=== PATIENT | male | born 1935 | race African-American/Black ===

== ENCOUNTER → 2018-10-28 | Outpatient (CLI) | payer MEDICARE ==
[2018-10-28 15:05] LABS: Basophils % (A) 0 %; Eosinophils # (A) 0.1 k/uL (0-0.7); Eosinophils % (A) 2 %; HCT 42.5 % (39.0-53.0); HGB 13.5 gm/dL (13.0-17.5); Lymphocytes % (A) 35 %; MCH 29.4 pg (25.0-35.0); MCHC 31.7 g/dL (31.0-37.0); MCV 92.7 fL (80.0-100.0); Mean Platelet Volume 6.9; Monocytes # (A) 0.3 k/uL (0-1.0); Monocytes % (A) 5 %; Neutrophils # (A) 3.2 k/uL (1.3-7.7); Neutrophils % (A) 55 %; Platelet Count 245 k/uL (150-450); RBC 4.58 m/uL (4.30-5.90); RDW 14.1 % (11.5-15.5); WBC 5.7 k/uL (3.8-10.6)
[2018-10-28 19:39] LABS: LDL Cholesterol,Calculated 100.6 mg/dL (0.0-131.0); VLDL Calculation 19.4 mg/dL (5.00-40.00)
[2018-10-28 19:40] LABS: Vitamin D 25 Hydroxy 23.3 ng/mL (30.0-100.0)
[2018-10-28 20:46] LABS: Hemoglobin A1C 6.7 % (4.0-6.0)
== END | disposition home or self-care (01) ==
LOC: LABWHC1 14:02
PROVIDERS: ATTEND Nurse Practitioner Adult Health
DX: I10 Essential (primary) hypertension (principal); E11.9 Type 2 diabetes mellitus without complications; R53.83 Other fatigue
CPT/HCPCS: 36415; 80061; 82043; 82306; 82570; 82607; 83036; 84443; 85025

== ENCOUNTER 2019-02-05 14:26 | Observation (INO) | payer MEDICARE ==
[2019-02-05] MEDS ORDERED: SODIUM CHLORIDE 0.9% 1,000 ML IV STA (15:19)
--- NOTE | 2019-02-05 15:43 | ED ---
Fall HPI - General Chief Complaint: Fall Stated Complaint: Dizzy Time Seen by Provider: 02/05/19 14:41 Source: EMS, RN notes reviewed, old records reviewed Mode of arrival: EMS - History of Present Illness Initial Comments: Patient is 84-year-old male, , presents emergency Department after syncopal episode. Patient reports he was walking through the lobby of his apartment [employer], and suddenly passed out. Patient reports that he's ever had this happen before. He denies any associated fevers or chills, chest pains or shortness of breath. Denies any headache. Patient reports he's never had this happen before. Patient states that he has a history of diabetes. He reports he cannot remembers medication. He does state he lives alone. - Related Data Home Medications Medication Instructions Recorded Confirmed Citalopram Hydrobromide [CeleXA] 40 mg PO DAILY 02/05/19 02/05/19 Enalapril [Vasotec] 20 mg PO DAILY 02/05/19 02/05/19 Insulin Glargine,Hum.rec.anlog 20 unit SQ HS 02/05/19 02/05/19 [Lantus Solostar] metFORMIN HCL [Glucophage] 500 mg PO BID 02/05/19 02/05/19 Allergies Allergy/AdvReac Type Severity Reaction Status Date / Time No Known Allergies Allergy Verified 02/05/19 16:02 Review of Systems ROS Statement: Those systems with pertinent positive or pertinent negative responses have been documented in the HPI. ROS Other: All systems not noted in ROS Statement are negative. Past Medical History Past Medical History: Diabetes Mellitus, Hypertension History of Any Multi-Drug Resistant Organisms: None Reported Past Surgical History: Orthopedic Surgery Smoking Status: Former smoker Past Alcohol Use History: None Reported Past Drug Use History: None Reported General Exam - General Exam Comments Initial Comments: El is an 84-year-old -[place] male. Patient appears in no distress. Pleasant. Some mild dementia. Limitations: no limitations General appearance: alert, in no apparent distress Head exam: Present: atraumatic, normocephalic, normal inspection Eye exam: Present: normal appearance ENT exam: Present: normal exam, mucous membranes moist Neck exam: Present: normal inspection. Absent: tenderness, meningismus, lymphadenopathy Respiratory exam: Present: normal lung sounds bilaterally. Absent: respiratory distress, wheezes, rales, rhonchi, stridor Cardiovascular Exam: Present: regular rate, normal rhythm, normal heart sounds. Absent: systolic murmur, diastolic murmur, rubs, gallop, clicks GI/Abdominal exam: Present: soft, normal bowel sounds. Absent: distended, tenderness, guarding, rebound, rigid Extremities exam: Present: normal inspection, full ROM, normal capillary refill. Absent: tenderness, pedal edema, joint swelling, calf tenderness Back exam: Present: normal inspection Neurological exam: Present: alert, oriented X3, CN II-XII intact Psychiatric exam: Present: normal affect, normal mood Skin exam: Present: warm, dry, intact, normal color. Absent: rash Course Vital Signs 02/05/19 14:46 Temperature 98.0 F Pulse Rate 71 Respiratory 18 Rate Blood Pressure 151/84 O2 Sat by Pulse 99 Oximetry Medical Decision Making - Medical Decision Making 84-year-old male presented today for evaluation for syncopal episode. He was walking outside of his apartment and suddenly collapsed. EMS was called. Patient is pleasant and has mild demented, he does live alone. He denies any pain at this time. He's never had this happen before. At this time Patient EKG shows sinus rhythm with sinus arrhythmia, some LVH is noted. Patient's labwork was reviewed. Mild dehydration as noted with elevated BUN and creatinine. Troponin is normal. Chest x-ray shows atelectasis versus early infiltrate. He is not coughing, low clinical suspicion for pneumonia. CT of the brain shows chronic ischemic changes. I discussed conservative upset and discussed at length with the Patient for cardiology evaluation. Patient is agreeable for admission. I discussed case with Dr. Stephens./ - Lab Data Result diagrams: 02/05/19 15:32 02/05/19 15:32 Lab Results 02/05/19 02/05/19 02/05/19 Range/Units 15:32 15:32 15:32 WBC 5.4 (3.8-10.6) k/uL RBC 4.61 (4.30-5.90) m/uL Hgb 13.7 (13.0-17.5) gm/dL Hct 42.7 (39.0-53.0) % MCV 92.6 (80.0-100.0) fL MCH 29.6 (25.0-35.0) pg MCHC 32.0 (31.0-37.0) g/dL RDW 13.6 (11.5-15.5) % Plt Count 195 (150-450) k/uL Neutrophils % 56 % Lymphocytes % 33 % Monocytes % 5 % Eosinophils % 3 % Basophils % 1 % Neutrophils # 3.0 (1.3-7.7) k/uL Lymphocytes # 1.7 (1.0-4.8) k/uL Monocytes # 0.3 (0-1.0) k/uL Eosinophils # 0.2 (0-0.7) k/uL Basophils # 0.1 (0-0.2) k/uL PT 11.0 (9.0-12.0) sec INR 1.0 (<1.2) APTT 28.2 (22.0-30.0) sec Sodium 138 (137-145) mmol/L Potassium 4.6 (3.5-5.1) mmol/L Chloride 105 (98-107) mmol/L Carbon Dioxide 25 (22-30) mmol/L Anion Gap 8 mmol/L BUN 28 H (9-20) mg/dL Creatinine 1.45 H (0.66-1.25) mg/dL Est GFR (CKD-EPI)AfAm 51 (>60 ml/min/1.73 sqM) Est GFR (CKD-EPI)NonAf 44 (>60 ml/min/1.73 sqM) Glucose 95 (74-99) mg/dL Calcium 9.0 (8.4-10.2) mg/dL Magnesium 1.7 (1.6-2.3) mg/dL Total Bilirubin 0.4 (0.2-1.3) mg/dL AST 18 (17-59) U/L ALT 16 L (21-72) U/L Alkaline Phosphatase 53 (38-126) U/L Troponin I (0.000-0.034) ng/mL Total Protein 6.5 (6.3-8.2) g/dL Albumin 3.6 (3.5-5.0) g/dL Urine Color Urine Appearance (Clear) Urine pH (5.0-8.0) Ur Specific [place] (1.001-1.035) Urine Protein (Negative) Urine Glucose (UA) (Negative) Urine Ketones (Negative) Urine Blood (Negative) Urine Nitrite (Negative) Urine Bilirubin (Negative) Urine Urobilinogen (<2.0) mg/dL Ur Leukocyte Esterase (Negative) 02/05/19 02/05/19 Range/Units 15:32 16:50 WBC (3.8-10.6) k/uL RBC (4.30-5.90) m/uL Hgb (13.0-17.5) gm/dL Hct (39.0-53.0) % MCV (80.0-100.0) fL MCH (25.0-35.0) pg MCHC (31.0-37.0) g/dL RDW (11.5-15.5) % Plt Count (150-450) k/uL Neutrophils % % Lymphocytes % % Monocytes % % Eosinophils % % Basophils % % Neutrophils # (1.3-7.7) k/uL Lymphocytes # (1.0-4.8) k/uL Monocytes # (0-1.0) k/uL Eosinophils # (0-0.7) k/uL Basophils # (0-0.2) k/uL PT (9.0-12.0) sec INR (<1.2) APTT (22.0-30.0) sec Sodium (137-145) mmol/L Potassium (3.5-5.1) mmol/L Chloride (98-107) mmol/L Carbon Dioxide (22-30) mmol/L Anion Gap mmol/L BUN (9-20) mg/dL Creatinine (0.66-1.25) mg/dL Est GFR (CKD-EPI)AfAm (>60 ml/min/1.73 sqM) Est GFR (CKD-EPI)NonAf (>60 ml/min/1.73 sqM) Glucose (74-99) mg/dL Calcium (8.4-10.2) mg/dL Magnesium (1.6-2.3) mg/dL Total Bilirubin (0.2-1.3) mg/dL AST (17-59) U/L ALT (21-72) U/L Alkaline Phosphatase (38-126) U/L Troponin I <0.012 (0.000-0.034) ng/mL Total Protein (6.3-8.2) g/dL Albumin (3.5-5.0) g/dL Urine Color Yellow Urine Appearance Clear (Clear) Urine pH 6.5 (5.0-8.0) Ur Specific [place] 1.015 (1.001-1.035) Urine Protein Trace H (Negative) Urine Glucose (UA) Negative (Negative) Urine Ketones Negative (Negative) Urine Blood Negative (Negative) Urine Nitrite Negative (Negative) Urine Bilirubin Negative (Negative) Urine Urobilinogen <2.0 (<2.0) mg/dL Ur Leukocyte Esterase Negative (Negative) 02/05/19 15:47 EKG shows normal sinus rhythm, sinus arrhythmia, left anterior fascicular block. Minimal voltage criteria for LVH may be normal variant. Possible anterior infarct age undetermined. Abnormal EKG. Ventricular rate of 60 bpm. MD interval is 166 ms. QRS duration is 104 ms. QT QTc is 436/463 ms. - Radiology Data Radiology results: report reviewed Chest x-ray shows elevated right hemidiaphragm with patchy basilar acute infiltrate or atelectasis. CT of the brain shows no acute intracranial hemorrhage or midline shift. There is moderate diffuse age-related cervical atrophy and moderate to severe chronic small vessel ischemic change noted. Progression and findings from 2011 studies at present. Disposition Clinical Impression: Syncope Disposition: ADMITTED IP TO THIS HOSP Condition: Stable Is patient prescribed a controlled substance at d/c from ED?: No Referrals: None,Stated [Primary Care Provider] - 1-2 days Time of Disposition: 17:37
[2019-02-05 15:44] LABS: Basophils # (A) 0.1 k/uL (0-0.2); Basophils % (A) 1 %; Eosinophils # (A) 0.2 k/uL (0-0.7); Eosinophils % (A) 3 %; HCT 42.7 % (39.0-53.0); HGB 13.7 gm/dL (13.0-17.5); Lymphocytes # (A) 1.7 k/uL (1.0-4.8); Lymphocytes % (A) 33 %; MCH 29.6 pg (25.0-35.0); MCV 92.6 fL (80.0-100.0); Mean Platelet Volume 6.3; Monocytes # (A) 0.3 k/uL (0-1.0); Monocytes % (A) 5 %; Neutrophils % (A) 56 %; Platelet Count 195 k/uL (150-450); RBC 4.61 m/uL (4.30-5.90); RDW 13.6 % (11.5-15.5); WBC 5.4 k/uL (3.8-10.6)
[2019-02-05 15:52] LABS: Partial Thromboplastin Time 28.2 sec (22.0-30.0)
[2019-02-05 15:53] LABS: Albumin 3.6 g/dL (3.5-5.0); Magnesium 1.7 mg/dL (1.6-2.3); Potassium 4.6 mmol/L (3.5-5.1); Total Bilirubin 0.4 mg/dL (0.2-1.3); Total Protein 6.5 g/dL (6.3-8.2)
--- NOTE | 2019-02-05 16:19 | XR ---
EXAMINATION TYPE: XR chest 2V DATE OF EXAM: 02/05/2019 COMPARISON: Chest x-ray February 26, 2011 HISTORY: Syncope. Weakness. TECHNIQUE: Frontal and lateral views of the chest are obtained. FINDINGS: Low lung volumes with elevated right hemidiaphragm redemonstrated. Bibasilar opacity is ag ain seen. No pleural effusion or pneumothorax is seen bilaterally. The cardiac silhouette size is sta ble and upper limits of normal. The osseous structures are intact. IMPRESSION: Elevated right hemidiaphragm with patchy bibasilar acute infiltrate and/or atelectasis.
--- NOTE | 2019-02-05 16:21 | CT ---
EXAMINATION TYPE: CT brain wo con DATE OF EXAM: 02/05/2019 HISTORY: Syncopal episode today CT DLP: 1129.4 mGycm. Automated Exposure Control for Dose Reduction was Utilized. TECHNIQUE: CT scan of the head is performed without contrast. COMPARISON: CT brain February 26, 2011. FINDINGS: There is no acute intracranial hemorrhage or midline shift identified. There is diffuse v entricular and sulcal prominence consistent with diffuse age-related cerebral atrophy. There is low- attenuation in the periventricular white matter consistent with chronic small vessel ischemic change. The globes are intact and the visualized sinuses are clear. IMPRESSION: No acute intracranial hemorrhage or midline shift. There is moderate diffuse age-relate d cerebral atrophy and moderate to severe chronic small vessel ischemic change noted. Progression in findings from 2010 study thought present.
[2019-02-05 17:17] LABS: Appearance,Urine Clear (Clear); Bilirubin,Urine Negative (Negative); Blood,Urine Negative (Negative); Color,Urine Yellow; Glucose,Urine (UA) Negative (Negative); Ketones,Urine Negative (Negative); Leukocyte Esterase,Urine Negative (Negative); Nitrite,Urine Negative (Negative); PH, Urine 6.5 (5.0-8.0); Protein,Urine Trace (Negative); Specific Gravity,Urine 1.015 (1.001-1.035); Urobilinogen,Urine <2.0 mg/dL (<2.0)
[2019-02-05] MEDS ORDERED: IBUPROFEN 400 MG TAB PO PRN (17:37)
[2019-02-05] MEDS ORDERED: ACETAMINOPHEN TAB 325 MG TAB PO PRN (17:37)
[2019-02-05] MEDS ORDERED: oxyCODONE-APAP 5-325MG 1 EACH TAB PO PRN (17:37)
[2019-02-05] MEDS ORDERED: HYDROcodone/APAP 5-325MG 1 EACH TAB PO PRN (17:37)
[2019-02-05] MEDS ORDERED: NALOXONE 0.4 MG/ML 1 ML VIAL IV PRN (17:37)
[2019-02-05 20:56] LABS: Glucose,Whole Blood 94 mg/dL (75-99)
[2019-02-05] MEDS: SODIUM CHLORIDE 0.9% 1,000 ML IV SCH (21:39)
[2019-02-05] MEDS: INSULIN DETEMIR (LEVEMIR) 100 UNIT/ML SYR SQ SCH (23:42)
[2019-02-06] MEDS: SODIUM CHLORIDE 0.9% 1,000 ML IV SCH ×2 (06:21→21:43)
[2019-02-06 06:58] LABS: Glucose,Whole Blood 87 mg/dL (75-99)
[2019-02-06] MEDS ORDERED: PANTOPRAZOLE 40 MG/10 ML VIAL IV SCH (09:00)
[2019-02-06] MEDS ORDERED: LOSARTAN 50 MG TAB PO STA (09:22)
--- NOTE | 2019-02-06 10:23 | P.CRDCN ---
History of Present Illness History of present illness: This is a pleasant 84-year-old male past medical history significant for hypertension, diabetes mellitus and former nicotine dependence. He denies prior history of coronary artery disease and does not follow with a disposal worker for any reason. The patient was seen and examined resting comfortably lying flat in bed in no acute distress. We have been asked to see him in consultation for syncope. Per the patient he states he was walking yesterday when his legs became weak and he lost his balance falling tot he ground. He denies loss of consciousness, dizziness, palpitations, chest pain, shortness of breath, nausea, vomiting or diaphoresis. He is quite adamant that paulette tan simply lost his balance and did not become dizzy. His blood pressure on arrival was 151/84, orthostatic pressures obtained revealed a standing blood pressure of 200/92. No medications have been given and his blood pressure this morning is 207/83. At home he is prescribed enalapril 20 mg daily. EKG reveals sinus mechanism with a heart rate of 68, left anterior fascicular block, poor R- wave progression and LVH. Chest x-ray reveals an elevated right hemidiaphragm with patchy basilar atelectasis. CT of the brain is negative for an acute intracranial hemorrhage or midline shift, moderate diffuse age-related cerebral atrophy and moderate to severe chronic small vessel ischemic changes noted. Laboratory data reviewed, CBC unremarkable, sodium 138, potassium 4.6, creatinine 1.45, magnesium 1.7, cardiac enzymes negative 2. Telemetry tracings unremarkable for an arrhythmia. At the time of my exam: CONSTITUTIONAL: Denies fever. Denies chills. EYES: Denies blurred vision. Denies vision changes. Denies eye pain. EARS, NOSE, MOUTH & THROAT: Denies headache. Denies sore throat. Denies ear pain. CARDIOVASCULAR: Denies chest pain. Denies shortness of breath. Denies orthopnea. Denies PND. Denies palpitations. RESPIRATORY: Denies cough. GASTROINTESTINAL: Denies abdominal pain. Denies diarrhea. Denies constipation. Denies nausea. Denies vomiting. MUSCULOSKELETAL: Denies myalgias. INTEGUMENTARY: Denies pruitis. Denies rash. NEUROLOGIC: Denies numbness. Denies tingling. Denies weakness. PSYCHIATRIC: Denies anxiety. Denies depression. ENDOCRINE: Denies fatigue. Denies weight change. Denies polydipsia. Denies polyurina. GENITOURINARY: Denies burning, hematuria or urgency with micturation. HEMATOLOGIC: Denies history of anemia. Denies bleeding. GENERAL: This is a 84-year-old -[place] male in no apparent distress at the time of my examination. HEENT: Head is atraumatic, normocephalic. Pupils are equal, round. Sclerae anicteric. Conjunctivae are clear. Mucous membranes of the mouth are moist. Neck is supple. There is no jugular venous distention. No carotid bruit is heard. LUNGS: Clear to auscultation no wheezes, rales or rhonchi. No chest wall tenderness is noted on palpation or with deep breathing. HEART: Regular rate and rhythm with systolic ejection murmur at the left sternal border, no rubs or gallops. S1 and S2 heard. ABDOMEN: Soft, nontender. Bowel sounds are heard. No organomegaly noted. EXTREMITIES: No evidence of peripheral edema and no calf tenderness noted. VASCULAR: Radial and dorsalis pedis pulses palpated, no evidence of clubbing. NEUROLOGIC: Patient is awake, alert and oriented x3. ASSESSMENT Fall with no loss of consciousness, unclear etiology. The patient states he simply lost his balance however ER note states he became dizzy. Unsure of baseline mental status. Hypertension, uncontrolled Diabetes mellitus Former nicotine dependence PLAN Obtain 2D echocardiogram and doppler study to assess cardiac structure and function. Initiate on amlodipine 10 mg daily and losartan 50 mg daily. Continue to monitor blood pressure closely for another 24 hours. Ongoing telemetry monitoring for an acute arrhythmia. If telemetry is unremark able we will consider 14-day event monitor upon discharge. Thank you kindly for this consultation. Nurse Practitioner note has been reviewed, I agree with a documented findings and plan of care. Patient was seen and examined. Past Medical History Past Medical History: Diabetes Mellitus, Hypertension History of Any Multi-Drug Resistant Organisms: None Reported Past Surgical History: Orthopedic Surgery Additional Past Surgical History / Comment(s): right wrist surgery Past Anesthesia/Blood Transfusion Reactions: No Reported Reaction Past Psychological History: No Psychological Hx Reported Smoking Status: Former smoker Past Alcohol Use History: None Reported Past Drug Use History: None Reported Medications and Allergies Home Medications Medication Instructions Recorded Confirmed Type Citalopram Hydrobromide [CeleXA] 40 mg PO DAILY 02/05/19 02/05/19 History Enalapril [Vasotec] 20 mg PO DAILY 02/05/19 02/05/19 History Insulin Glargine,Hum.rec.anlog 20 unit SQ HS 02/05/19 02/05/19 History [Lantus Solostar] metFORMIN HCL [Glucophage] 500 mg PO BID 02/05/19 02/05/19 History Allergies Allergy/AdvReac Type Severity Reaction Status Date / Time No Known Allergies Allergy Verified 02/05/19 16:02 Physical Exam Vitals: Vital Signs Temp Pulse Pulse Pulse Pulse Pulse Resp 02/06/19 07:42 98.2 F 74 18 02/06/19 04:56 98.0 F 71 18 02/06/19 04:30 73 16 02/06/19 03:05 15 02/06/19 02:00 98.7 F 66 17 02/05/19 20:00 98.3 F 71 69 60 18 02/05/19 18:22 68 18 02/05/19 14:46 98.0 F 71 18 BP BP BP BP BP Pulse Ox 02/06/19 07:42 207/83 97 02/06/19 04:56 99 02/06/19 04:30 161/89 02/06/19 03:05 02/06/19 02:00 194/93 02/05/19 20:00 183/99 200/92 177/88 100 02/05/19 18:22 160/83 99 02/05/19 14:46 151/84 99 Intake and Output 02/05/19 02/06/19 02/06/19 22:59 06:59 14:59 Intake Total 2400 Balance 2400 Intake: Oral 2400 Other: Voiding Method Toilet # Voids 1 1 1 Results 02/05/19 15:32 02/05/19 15:32 Cardiac Enzymes 02/05/19 02/05/19 02/06/19 Range/Units 15:32 15:32 07:07 AST 18 (17-59) U/L Troponin I <0.012 <0.012 (0.000-0.034) ng/mL Coagulation 02/05/19 Range/Units 15:32 PT 11.0 (9.0-12.0) sec APTT 28.2 (22.0-30.0) sec CBC 02/05/19 Range/Units 15:32 WBC 5.4 (3.8-10.6) k/uL RBC 4.61 (4.30-5.90) m/uL Hgb 13.7 (13.0-17.5) gm/dL Hct 42.7 (39.0-53.0) % Plt Count 195 (150-450) k/uL Comprehensive Metabolic Panel 02/05/19 Range/Units 15:32 Sodium 138 (137-145) mmol/L Potassium 4.6 (3.5-5.1) mmol/L Chloride 105 (98-107) mmol/L Carbon Dioxide 25 (22-30) mmol/L BUN 28 H (9-20) mg/dL Creatinine 1.45 H (0.66-1.25) mg/dL Glucose 95 (74-99) mg/dL Calcium 9.0 (8.4-10.2) mg/dL AST 18 (17-59) U/L ALT 16 L (21-72) U/L Alkaline Phosphatase 53 (38-126) U/L Total Protein 6.5 (6.3-8.2) g/dL Albumin 3.6 (3.5-5.0) g/dL Current Medications Generic Name Dose Route Start Last Admin Trade Name Freq PRN Reason Stop Dose Admin Acetaminophen 650 mg 02/05/19 17:37 Tylenol Tab PO Q6HR PRN Mild Pain or Fever > 100.5 Hydrocodone Bitart/Acetaminophen 1 each 02/05/19 17:37 Pearl 5-325 PO Q4HR PRN Moderate Pain Amlodipine Besylate 10 mg 02/06/19 09:30 Norvasc PO DAILY SARAH Citalopram Hydrobromide 40 mg 02/06/19 09:00 Celexa PO DAILY SARAH Sodium Chloride 1,000 mls @ 100 mls/hr 02/05/19 17:45 02/06/19 06:21 Saline 0.9% IV 100 mls/hr .Q10H SARAH Administration Ibuprofen 400 mg 02/05/19 17:37 Motrin PO Q6HR PRN Mild Pain or Fever > 100.5 Insulin Detemir 20 unit 02/05/19 22:15 02/05/19 23:42 Levemir SQ Not Given HS SARAH Naloxone HCl 0.2 mg 02/05/19 17:37 Narcan IV Q2M PRN Opioid Reversal Oxycodone/Acetaminophen 1 each 02/05/19 17:37 Percocet 5-325 PO Q4HR PRN Severe Pain Pantoprazole Sodium 40 mg 02/06/19 09:00 Protonix IV DAILY SARAH Intake and Output 02/05/19 02/06/19 02/06/19 22:59 06:59 14:59 Intake Total 2400 Balance 2400 Intake: Oral 2400 Other: Voiding Method Toilet # Voids 1 1 1 02/05/19 15:32 02/05/19 15:32
[2019-02-06] MEDS: amLODIPine 10 MG TAB PO SCH (11:12)
[2019-02-06 11:46] LABS: Glucose,Whole Blood 120 mg/dL (75-99)
[2019-02-06] MEDS ORDERED: traMADol 50 MG TAB PO PRN (13:08)
--- NOTE | 2019-02-06 13:15 | P.HPIM ---
History of Present Illness 84-year-old the resident gentleman although poor historian came in because of lightheadedness. Patient has been feeling weak and losing balance. Patient is found to be hypertensive with blood pressure going up to about 200 systolic diastolic of 83, wide pulse pressure can lead to falls. Patient is also on Percocet as well as [place] which is most probably contributing to his falls will obtain physical therapy and occupational therapy consultation. Patient lightheadedness although he is from wide pulse pressure. Patient creatinine is 1.45 patient is not a candidate for metformin that will be this can you I do not have his baseline creatinine. She denied any fever chills nausea vomiting patient denied chest pain at this time. Review of Systems All other review of systems is negative except those mentioned above Past Medical History Past Medical History: Diabetes Mellitus, Hypertension History of Any Multi-Drug Resistant Organisms: None Reported Past Surgical History: Orthopedic Surgery Additional Past Surgical History / Comment(s): right wrist surgery Past Anesthesia/Blood Transfusion Reactions: No Reported Reaction Past Psychological History: No Psychological Hx Reported Smoking Status: Former smoker Past Alcohol Use History: None Reported Past Drug Use History: None Reported Medications and Allergies Home Medications Medication Instructions Recorded Confirmed Type Citalopram Hydrobromide [CeleXA] 40 mg PO DAILY 02/05/19 02/05/19 History Enalapril [Vasotec] 20 mg PO DAILY 02/05/19 02/05/19 History Insulin Glargine,Hum.rec.anlog 20 unit SQ HS 02/05/19 02/05/19 History [Lantus Solostar] metFORMIN HCL [Glucophage] 500 mg PO BID 02/05/19 02/05/19 History Allergies Allergy/AdvReac Type Severity Reaction Status Date / Time No Known Allergies Allergy Verified 02/05/19 16:02 Physical Exam Vitals: Vital Signs Temp Pulse Pulse Pulse Pulse Pulse Resp 02/06/19 11:56 98.5 F 80 18 02/06/19 07:42 98.2 F 74 18 02/06/19 04:56 98.0 F 71 18 02/06/19 04:30 73 16 02/06/19 03:05 15 02/06/19 02:00 98.7 F 66 17 02/05/19 20:00 98.3 F 71 69 60 18 02/05/19 18:22 68 18 02/05/19 14:46 98.0 F 71 18 BP BP BP BP BP Pulse Ox 02/06/19 11:56 160/84 99 02/06/19 07:42 207/83 97 02/06/19 04:56 99 02/06/19 04:30 161/89 02/06/19 03:05 02/06/19 02:00 194/93 02/05/19 20:00 183/99 200/92 177/88 100 02/05/19 18:22 160/83 99 02/05/19 14:46 151/84 99 Intake and Output 02/05/19 02/06/19 02/06/19 22:59 06:59 14:59 Intake Total 2400 Output Total 375 Balance 2400 -375 Intake: Oral 2400 Output: Urine 375 Other: Voiding Method Toilet # Voids 1 1 1 PHYSICAL EXAMINATION: GENERAL: The patient is alert and oriented x3, not in any acute distress. Well developed, well nourished. HEENT: Pupils are round and equally reacting to light. EOMI. No scleral icterus. No conjunctival pallor. Normocephalic, atraumatic. No pharyngeal erythema. No thyromegaly. CARDIOVASCULAR: S1 and S2 present. No murmurs, rubs, or gallops. PULMONARY: Chest is clear to auscultation, no wheezing or crackles. ABDOMEN: Soft, nontender, nondistended, normoactive bowel sounds. No palpable organomegaly. MUSCULOSKELETAL: No joint swelling or deformity. EXTREMITIES: No cyanosis, clubbing, or pedal edema. NEUROLOGICAL: Gross neurological examination did not reveal any focal deficits. SKIN: No rashes. Results CBC & Chem 7: 02/05/19 15:32 02/05/19 15:32 Labs: Abnormal Lab Results - Last 24 Hours (Table) 02/05/19 02/05/19 02/06/19 Range/Units 15:32 16:50 11:45 BUN 28 H (9-20) mg/dL Creatinine 1.45 H (0.66-1.25) mg/dL POC Glucose (mg/dL) 120 H (75-99) mg/dL ALT 16 L (21-72) U/L Urine Protein Trace H (Negative) Thrombosis Risk Factor Assmnt - Choose All That Apply Any of the Below Risk Factors Present?: Yes Each Risk Factor Represents 2 Points: Patient confined to bed Thrombosis Risk Factor Assessment Total Risk Factor Score: 2 Thrombosis Risk Factor Assessment Level: Low Risk Assessment and Plan Plan: -Fall without any loss of consciousness: Rik is multifactorial probably because of narcotics, wide pulse pressure and generalized deconditioning and age. Sana ent was started on amlodipine which will be continued but the will not any added any other antihypertensive medications. Strict blood pressure control is not recommended in this patient because of the fall risk. Will monitor his blood pressure PT and OT consultation will be obtained discontinue narcotics and the patient was started on tramadol for pain instead of Percocet and [place]. 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
[2019-02-06] MEDS: CITALOPRAM HYDROBROMIDE 20 MG TAB PO SCH (14:37)
[2019-02-06 17:10] LABS: Glucose,Whole Blood 157 mg/dL (75-99)
[2019-02-06] MEDS: INSULIN DETEMIR (LEVEMIR) 100 UNIT/ML SYR SQ SCH (20:04)
[2019-02-06] MEDS: HEPARIN SODIUM,PORCINE 5,000 UNIT/ML 1 ML VIAL SQ SCH (20:07)
[2019-02-06 21:04] LABS: Glucose,Whole Blood 132 mg/dL (75-99)
[2019-02-07] MEDS: SODIUM CHLORIDE 0.9% 1,000 ML IV SCH ×2 (01:28→08:07)
[2019-02-07 06:33] VITALS: RESP 18
[2019-02-07 07:10] LABS: Glucose,Whole Blood 86 mg/dL (75-99)
[2019-02-07 07:52] LABS: Calcium 9.8 mg/dL (8.4-10.2); Potassium 4.5 mmol/L (3.5-5.1)
[2019-02-07] MEDS: CITALOPRAM HYDROBROMIDE 20 MG TAB PO SCH (08:12)
[2019-02-07] MEDS: amLODIPine 10 MG TAB PO SCH (08:12)
[2019-02-07] MEDS: HEPARIN SODIUM,PORCINE 5,000 UNIT/ML 1 ML VIAL SQ SCH (08:13)
[2019-02-07] MEDS ORDERED: LOSARTAN 50 MG TAB PO SCH (09:00)
[2019-02-07] MEDS ORDERED: PANTOPRAZOLE 40 MG TABLET PO SCH (10:30)
[2019-02-07 11:54] LABS: Glucose,Whole Blood 98 mg/dL (75-99)
[2019-02-07 12:01] VITALS: BP 139/79; PULSE 76; TEMP 97.8
--- NOTE | 2019-02-07 12:04 | ECHOF ---
Referral Reason:near syncope MEASUREMENTS -------- HEIGHT: 182.9 cm WEIGHT: 108.9 kg BP: 161/89 RVIDd: 3.0 cm (< 3.3) IVSd: 1.9 cm (0.6 - 1.1) LVIDd: 3.9 cm (3.9 - 5.3) LVPWd: 1.7 cm (0.6 - 1.1) IVSs: 2.2 cm LVIDs: 2.4 cm LVPWs: 2.5 cm LAESV Index (A-L): 24.84 ml/m Ao Diam: 3.4 cm (2.0 - 3.7) AV Cusp: 2.2 cm (1.5 - 2.6) LA Diam: 3.3 cm (2.7 - 3.8) MV EXCURSION: 15.228 mm (> 18.000) MV EF SLOPE: 78 mm/s (70 - 150) EPSS: 1.0 cm MV E Russel: 0.66 m/s MV DecT: 263 ms MV A Russel: 1.38 m/s MV E/A Ratio: 0.48 AR PHT: 749 ms RAP: 5.00 mmHg RVSP: 12.70 mmHg FINDINGS -------- Sinus rhythm. This was a technically adequate study. The left ventricular size is normal. There is severe concentric left ventricular hypertrophy. The re is normal global left ventricular contractility. Overall left ventricular systolic function is n ormal with, an EF between 60 - 65 %. The diastolic filling pattern is normal for the age of the pat ient 12.95. The right ventricle is normal in size. Normal LA size by volume 22+/-6 ml/m2. The right atrial size is normal. Interatrial and interventricular septum intact. The aortic valve is trileaflet and appears structurally normal. Trace to mild aortic regurgitation. There is no evidence of aortic stenosis. Mild mitral annular calcification present. Mild mitral regurgitation is present. Mild tricuspid regurgitation present. There is no evidence of pulmonary hypertension. The right v entricular systolic pressure, as measured by Doppler, is 12.70mmHg. There is no pulmonic regurgitation present. 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 IVC Not well visulized. There is no pericardial effusion. CONCLUSIONS -------- 1. Sinus rhythm. 2. This was a technically adequate study. 3. The left ventricular size is normal. 4. There is severe concentric left ventricular hypertrophy. 5. There is normal global left ventricular contractility. 6. Overall left ventricular systolic function is normal with, an EF between 60 - 65 %. 7. The diastolic filling pattern is normal for the age of the patient 12.95 8. The right ventricle is normal in size. 9. Normal LA size by volume 22+/-6 ml/m2. 10. The right atrial size is normal. 11. Interatrial and interventricular septum intact. 12. The aortic valve is trileaflet and appears structurally normal. 13. Trace to mild aortic regurgitation. 14. There is no evidence of aortic stenosis. 15. Mild mitral annular calcification present. 16. Mild mitral regurgitation is present. 17. Mild tricuspid regurgitation present. 18. There is no evidence of pulmonary hypertension. 19. The right ventricular systolic pressure, as measured by Doppler, is 12.70mmHg. 20. There is no pulmonic regurgitation present. 21. 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 22. IVC Not well visulized. 23. There is no pericardial effusion. NUT TAPPER: Marta Marquez RDCS
--- NOTE | 2019-02-07 15:45 | P.DS ---
Providers Date of admission: 02/05/19 17:06 Attending physician: Carloz Marino Consults: 02/05/19 17:37 Consult Physician Stat Consulting Provider: Sara Boland Consult Reason/Comments: Syncope Do you want consulting provider notified?: Yes Primary care physician: [facility] [place] Course: 84-year-old the resident gentleman although poor historian came in because of lightheadedness. Patient has been feeling weak and losing balance. Patient is found to be hypertensive with blood pressure going up to about 200 systolic diastolic of 83, wide pulse pressure can lead to falls. Patient is also on Percocet as well as [place] which is most probably contributing to his falls will obtain physical therapy and occupational therapy consultation. Patient lightheadedness although he is from wide pulse pressure. Patient creatinine is 1.45 patient is not a candidate for metformin that will be this can you I do not have his baseline creatinine. She denied any fever chills nausea vomiting patient denied chest pain at this time. 02/07/2019 Patient is clinically doing well his dizziness resolved blood pressure improved serum creatinine improved. Patient will be discharged today metformin will be discontinued patient blood sugars are low normal also get down Lantus dose to 15 units. PT and OT evaluated the patient and not recommending any subacute rehabilitation at this time. PHYSICAL EXAMINATION: GENERAL: The patient is alert and oriented x3, not in any acute distress. Well developed, well nourished. HEENT: Pupils are round and equally reacting to light. EOMI. No scleral icterus. No conjunctival pallor. Normocephalic, atraumatic. No pharyngeal erythema. No thyromegaly. CARDIOVASCULAR: S1 and S2 present. No murmurs, rubs, or gallops. PULMONARY: Chest is clear to auscultation, no wheezing or crackles. ABDOMEN: Soft, nontender, nondistended, normoactive bowel sounds. No palpable organomegaly. MUSCULOSKELETAL: No joint swelling or deformity. EXTREMITIES: No cyanosis, clubbing, or pedal edema. NEUROLOGICAL: Gross neurological examination did not reveal any focal deficits. SKIN: No rashes. Assessment and Plan Plan: -Fall without any loss of consciousness: Due to generalized deconditioning and age. 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 Patient appears to have chronic kidney disease stage III Patient Condition at Discharge: Stable Plan - Discharge Summary Discharge Rx Participant: No New Discharge Prescriptions: New amLODIPine [Norvasc] 10 mg PO DAILY #30 tab Continue Enalapril [Vasotec] 20 mg PO DAILY Citalopram Hydrobromide [CeleXA] 40 mg PO DAILY Changed Insulin Glargine,Hum.rec.anlog [Lantus Solostar] 15 unit SQ HS #0 Discontinued metFORMIN HCL [Glucophage] 500 mg PO BID Discharge Medication List Citalopram Hydrobromide [CeleXA] 40 mg PO DAILY 02/05/19 [History] Enalapril [Vasotec] 20 mg PO DAILY 02/05/19 [History] Insulin Glargine,Hum.rec.anlog [Lantus Solostar] 15 unit SQ HS #0 02/07/19 [Rx] amLODIPine [Norvasc] 10 mg PO DAILY #30 tab 02/07/19 [Rx] Follow up Appointment(s)/Referral(s): None,Stated [REFERRING] - 1-2 days Annie Salguero MD [STAFF PHYSICIAN] - 02/24/19 2:45 pm Patient Instructions/Handouts: Syncope (DC) Discharge Disposition: HOME SELF-CARE
== END 2019-02-07 13:59 | disposition home or self-care (01) ==
LOC: EC 14:26 → 1SOBS 17:06
PROVIDERS: ADMIT Hospitalist; ATTEND Hospitalist
DX: R42 Dizziness and giddiness (principal); E86.0 Dehydration; R94.31 Abnormal electrocardiogram [ECG] [EKG]; F03.90 Unspecified dementia, unspecified severity, without behavioral disturbance, psychotic disturbance, mood disturbance, and anxiety; I12.9 Hypertensive chronic kidney disease with stage 1 through stage 4 chronic kidney disease, or unspecified chronic kidney disease; E11.22 Type 2 diabetes mellitus with diabetic chronic kidney disease; N18.9 Chronic kidney disease, unspecified; Z87.891 Personal history of nicotine dependence; Z74.01 Bed confinement status; W01.0XXA Fall on same level from slipping, tripping and stumbling without subsequent striking against object, initial encounter; Y93.01 Activity, walking, marching and hiking; Z91.81 History of falling; Z79.899 Other long term (current) drug therapy; Z79.4 Long term (current) use of insulin
CPT/HCPCS: 96361; 96372 ×2; 96360; 99285; 36415; 93005; 93306; 97162; 97166; 80053; 80048; 83735; 84484 ×2; 85025; 85610; 85730; 81003; 71046; 70450; G0378 ×3; J1644 ×2

== ENCOUNTER 2021-10-16 17:08 | Observation (INO) | payer MEDICARE ==
[2021-10-16 17:16] LABS: Glucose,Whole Blood 83 mg/dL (75-99)
[2021-10-16] MEDS ORDERED: SODIUM CHLORIDE 0.9% 1,000 ML IV ONE (17:17)
--- NOTE | 2021-10-16 17:33 | ED ---
General Adult HPI - General Chief complaint: Weakness Stated complaint: AMS/Fall Time Seen by Provider: 10/16/21 17:17 Source: EMS, RN notes reviewed, old records reviewed Mode of arrival: EMS Limitations: altered mental status - History of Present Illness Initial comments: Patient is a 86-year-old male with past medical history remarkable for diabetes, hypertension who presents from independent living facility for being found down on the ground with altered mental status. Unknown exact down time, however staff there to check on the patient because he had not picked up his breakfast. Yesterday he did eat. Therefore they believe it is likely one day. He was confused when staff found him. When EMS arrived, they checked a blood sugar and it was in the 40s. They administered an amp of D50. They brought him here for further evaluation. Patient's mental status has improved since that time. He is aware he fell down last night and could not get back up. Forgot that he had an alert button to notify staff. Currently has no acute complaints at this time. Per EMS, was found with a messy apartment, as well as covered in feces. Patient currently denies any acute complaints including chest pain, shortness breath, fevers, chills, cough, abdominal pain, nausea, vomiting. Denies any back pain, leg pain. Presents for further evaluation at this time.Per patient's chart, he is on long-acting insulin nightly. - Related Data Home Medications Medication Instructions Recorded Confirmed Citalopram Hydrobromide [CeleXA] 40 mg PO DAILY 02/05/19 02/05/19 Enalapril [Vasotec] 20 mg PO DAILY 02/05/19 02/05/19 Previous Rx's Medication Instructions Recorded Insulin Glargine,Hum.rec.anlog 15 unit SQ HS #0 02/07/19 [Lantus Solostar Pen] amLODIPine [Norvasc] 10 mg PO DAILY #30 tab 02/07/19 Allergies Allergy/AdvReac Type Severity Reaction Status Date / Time No Known Allergies Allergy Verified 10/16/21 17:24 Review of Systems ROS Statement: Those systems with pertinent positive or pertinent negative responses have been documented in the HPI. Review of Systems: CONST: Denies fever EYES: Denies blurry vision ENT: Denies nasal congestion C/V: Denies Chest pain RESP: Denies shortness of breath GI: Denies abdominal pain : Denies dysuria SKIN: Denies rash. MSK: Denies joint pain. NEURO: Denies headache ROS Other: All systems not noted in ROS Statement are negative. Past Medical History Past Medical History: Diabetes Mellitus, Hypertension History of Any Multi-Drug Resistant Organisms: None Reported Past Surgical History: Orthopedic Surgery Additional Past Surgical History / Comment(s): right wrist surgery Past Anesthesia/Blood Transfusion Reactions: No Reported Reaction Past Psychological History: No Psychological Hx Reported Smoking Status: Former smoker Past Alcohol Use History: None Reported Past Drug Use History: None Reported General Exam - General Exam Comments Initial Comments: General: Appears in no acute distress. HEAD: Normal with no signs of head trauma. EYES: PERRLA, EOMI, conjunctiva normal, no discharge. Pupils are 3 mm and equal bilaterally. ENT: Hearing grossly intact, normal oropharynx. Dry mucous membranes. RESPIRATORY: Clear breath sounds bilaterally. No wheezes, rales, or rhonchi. C/V: Regular rate and rhythm. S1 and S2 auscultated, no edema, peripheral pulses 2+ and intact throughout ABD: Abd is soft, nontender, nondistended EXT: Normal range of motion, no obvious deformity no midline cervical, thoracic, lumbar spine tenderness to palpation. Pelvis is stable. SKIN: Patient has what appears to be feces on his lower back as well as feet. No obvious rashes or injuries. NEURO: Alert and oriented 3-4. No focal sensory strength deficits. NIH is 0. GCS is 15. Limitations: altered mental status Course Vital Signs 10/16/21 10/16/21 17:12 18:30 Pulse Rate 73 68 Respiratory 19 16 Rate Blood Pressure 121/63 141/77 O2 Sat by Pulse 96 100 Oximetry Medical Decision Making - Medical Decision Making Abdomen the patient's presentation and physical exam, he presents for being found down for what is likely approximately one day as well as hypoglycemic. Patient's current blood sugar is improved to the 80s at this time. Altered mental status has resolved. However we'll obtain a broad workup. He was in agreement this plan. We will continue to reevaluate the patient's blood sugar level. CT brain will be obtained in addition to chest x-ray and pelvic x-ray. He will be started on 1 L fluid bolus. He'll be admitted to the hospital following workup. EKG shows no signs of acute ischemia. Unchanged when compared to prior EKGs. On Reevaluation the patient's blood sugar decreased again to 64 and he will be given an additional amp of D50.His blood sugar returned to within normal limits. We will continue to monitor throughout his stay. Laboratory studies were remarkable for a mild normocytic anemia with a hemoglobin of 12.7. Patient has an elevated BUN/creatinine creatinine in the setting of CK D. It is slightly worse than his baseline. Troponin is indeterminate at 0.016. Urinalysis is unremarkable. Brain CT shows chronic small vessel disease. No acute findings. Chest x-ray shows no acute cardiopulmonary process. Pelvic x-ray shows no acute traumatic process. On reevaluation, I spoke to patient. Would like to admit him to the hospital for further monitoring of her sugars. He was in agreement this plan. I spoke with the admitting team, Dr. Schmitt who accepted the patient. I spoke with the patient's son, Jay and updated him on the patient's condition. He was in agreement this plan. - Lab Data Result diagrams: 10/16/21 17:39 10/16/21 17:39 Lab Results 10/16/21 10/16/21 10/16/21 Range/Units 17:15 17:39 17:39 WBC 4.9 (3.8-10.6) k/uL RBC 4.10 L (4.30-5.90) m/uL Hgb 12.7 L (13.0-17.5) gm/dL Hct 39.5 (39.0-53.0) % MCV 96.4 (80.0-100.0) fL MCH 30.9 (25.0-35.0) pg MCHC 32.0 (31.0-37.0) g/dL RDW 14.5 (11.5-15.5) % Plt Count 198 (150-450) k/uL MPV 7.7 Neutrophils % 67 % Lymphocytes % 24 % Monocytes % 5 % Eosinophils % 2 % Basophils % 2 % Neutrophils # 3.3 (1.3-7.7) k/uL Lymphocytes # 1.1 (1.0-4.8) k/uL Monocytes # 0.2 (0-1.0) k/uL Eosinophils # 0.1 (0-0.7) k/uL Basophils # 0.1 (0-0.2) k/uL PT 11.5 (9.0-12.0) sec INR 1.1 (<1.2) APTT 25.6 (22.0-30.0) sec Sodium (137-145) mmol/L Potassium (3.5-5.1) mmol/L Chloride (98-107) mmol/L Carbon Dioxide (22-30) mmol/L Anion Gap mmol/L BUN (9-20) mg/dL Creatinine (0.66-1.25) mg/dL Est GFR (CKD-EPI)AfAm (>60 ml/min/1.73 sqM) Est GFR (CKD-EPI)NonAf (>60 ml/min/1.73 sqM) Glucose (74-99) mg/dL POC Glucose (mg/dL) 83 (75-99) mg/dL POC Glu Director Consumer ID Martinez Sherman Plasma Lactic Acid Aleksander (0.7-2.0) mmol/L Calcium (8.4-10.2) mg/dL Total Bilirubin (0.2-1.3) mg/dL AST (17-59) U/L ALT (4-49) U/L Alkaline Phosphatase (38-126) U/L Ammonia (<30) umol/L Creatine Kinase (55-170) U/L Troponin I (0.000-0.034) ng/mL Total Protein (6.3-8.2) g/dL Albumin (3.5-5.0) g/dL Urine Color Urine Appearance (Clear) Urine pH (5.0-8.0) Ur Specific Sheldon (1.001-1.035) Urine Protein (Negative) Urine Glucose (UA) (Negative) Urine Ketones (Negative) Urine Blood (Negative) Urine Nitrite (Negative) Urine Bilirubin (Negative) Urine Urobilinogen (<2.0) mg/dL Ur Leukocyte Esterase (Negative) Urine RBC (0-5) /hpf Urine WBC (0-5) /hpf Urine Mucus (None) /hpf Serum Alcohol mg/dL 10/16/21 10/16/21 10/16/21 Range/Units 17:39 17:39 17:39 WBC (3.8-10.6) k/uL RBC (4.30-5.90) m/uL Hgb (13.0-17.5) gm/dL Hct (39.0-53.0) % MCV (80.0-100.0) fL MCH (25.0-35.0) pg MCHC (31.0-37.0) g/dL RDW (11.5-15.5) % Plt Count (150-450) k/uL MPV Neutrophils % % Lymphocytes % % Monocytes % % Eosinophils % % Basophils % % Neutrophils # (1.3-7.7) k/uL Lymphocytes # (1.0-4.8) k/uL Monocytes # (0-1.0) k/uL Eosinophils # (0-0.7) k/uL Basophils # (0-0.2) k/uL PT (9.0-12.0) sec INR (<1.2) APTT (22.0-30.0) sec Sodium 135 L (137-145) mmol/L Potassium 5.0 (3.5-5.1) mmol/L Chloride 108 H (98-107) mmol/L Carbon Dioxide 22 (22-30) mmol/L Anion Gap 5 mmol/L BUN 45 H (9-20) mg/dL Creatinine 1.61 H (0.66-1.25) mg/dL Est GFR (CKD-EPI)AfAm 45 (>60 ml/min/1.73 sqM) Est GFR (CKD-EPI)NonAf 39 (>60 ml/min/1.73 sqM) Glucose 103 H (74-99) mg/dL POC Glucose (mg/dL) (75-99) mg/dL POC Glu Director Consumer ID Plasma Lactic Acid Aleksander 1.8 (0.7-2.0) mmol/L Calcium 9.1 (8.4-10.2) mg/dL Total Bilirubin 0.3 (0.2-1.3) mg/dL AST 26 (17-59) U/L ALT 19 (4-49) U/L Alkaline Phosphatase 39 (38-126) U/L Ammonia <9 (<30) umol/L Creatine Kinase 112 (55-170) U/L Troponin I 0.016 (0.000-0.034) ng/mL Total Protein 6.1 L (6.3-8.2) g/dL Albumin 3.6 (3.5-5.0) g/dL Urine Color Urine Appearance (Clear) Urine pH (5.0-8.0) Ur Specific Sheldon (1.001-1.035) Urine Protein (Negative) Urine Glucose (UA) (Negative) Urine Ketones (Negative) Urine Blood (Negative) Urine Nitrite (Negative) Urine Bilirubin (Negative) Urine Urobilinogen (<2.0) mg/dL Ur Leukocyte Esterase (Negative) Urine RBC (0-5) /hpf Urine WBC (0-5) /hpf Urine Mucus (None) /hpf Serum Alcohol <10 mg/dL 10/16/21 10/16/21 10/16/21 Range/Units 17:47 18:24 18:28 WBC (3.8-10.6) k/uL RBC (4.30-5.90) m/uL Hgb (13.0-17.5) gm/dL Hct (39.0-53.0) % MCV (80.0-100.0) fL MCH (25.0-35.0) pg MCHC (31.0-37.0) g/dL RDW (11.5-15.5) % Plt Count (150-450) k/uL MPV Neutrophils % % Lymphocytes % % Monocytes % % Eosinophils % % Basophils % % Neutrophils # (1.3-7.7) k/uL Lymphocytes # (1.0-4.8) k/uL Monocytes # (0-1.0) k/uL Eosinophils # (0-0.7) k/uL Basophils # (0-0.2) k/uL PT (9.0-12.0) sec INR (<1.2) APTT (22.0-30.0) sec Sodium (137-145) mmol/L Potassium (3.5-5.1) mmol/L Chloride (98-107) mmol/L Carbon Dioxide (22-30) mmol/L Anion Gap mmol/L BUN (9-20) mg/dL Creatinine (0.66-1.25) mg/dL Est GFR (CKD-EPI)AfAm (>60 ml/min/1.73 sqM) Est GFR (CKD-EPI)NonAf (>60 ml/min/1.73 sqM) Glucose (74-99) mg/dL POC Glucose (mg/dL) 64 L 123 H (75-99) mg/dL POC Glu Director Consumer ID Rufina Bonilla Matthew Plasma Lactic Acid Aleksander (0.7-2.0) mmol/L Calcium (8.4-10.2) mg/dL Total Bilirubin (0.2-1.3) mg/dL AST (17-59) U/L ALT (4-49) U/L Alkaline Phosphatase (38-126) U/L Ammonia (<30) umol/L Creatine Kinase (55-170) U/L Troponin I (0.000-0.034) ng/mL Total Protein (6.3-8.2) g/dL Albumin (3.5-5.0) g/dL Urine Color Yellow Urine Appearance Clear (Clear) Urine pH 5.0 (5.0-8.0) Ur Specific Sheldon 1.016 (1.001-1.035) Urine Protein Trace H (Negative) Urine Glucose (UA) 1+ H (Negative) Urine Ketones Negative (Negative) Urine Blood Small H (Negative) Urine Nitrite Negative (Negative) Urine Bilirubin Negative (Negative) Urine Urobilinogen <2.0 (<2.0) mg/dL Ur Leukocyte Esterase Negative (Negative) Urine RBC 3 (0-5) /hpf Urine WBC 1 (0-5) /hpf Urine Mucus Rare H (None) /hpf Serum Alcohol mg/dL - EKG Data -: EKG Interpreted by Me EKG Comments: 12-lead Electrocardiogram Interpretation Note EKG was reviewed and interpreted by myself. 12-lead ECG performed at 1724 is interpreted by me as revealing normal sinus rhythm at a rate of 68 beats per minute. Left axis deviation. [place] interval is 170 ms, QRS duration is 100 ms, QTc is 408 ms.. There were no ST or T wave abnormalities to suggest myocardial ischemia or injury. R wave progression across the precordium was satisfactory. By my interpretation this EKG is non-diagnostic for acute ischemia. Disposition Clinical Impression: Hypoglycemia, Altered mental status, Fall Disposition: ADMITTED IP TO THIS HOSP Condition: Stable Is patient prescribed a controlled substance at d/c from ED?: No Referrals: None,Stated [Primary Care Provider] - 1-2 days Time of Disposition: 18:25
[2021-10-16] MEDS ORDERED: DEXTROSE 50% SYRINGE 50 ML IVP STA ×2 (17:48→19:44)
[2021-10-16 17:49] LABS: Glucose,Whole Blood 64 mg/dL (75-99)
--- NOTE | 2021-10-16 17:49 | XR ---
EXAMINATION TYPE: XR pelvis AP view DATE OF EXAM: 10/16/2021 COMPARISON: NONE HISTORY: Pain TECHNIQUE: Single view FINDINGS: Pelvic ring is intact. Proximal femurs and hip joints are intact. Sacroiliac joints are int act. IMPRESSION: Negative exam. No fracture.
[2021-10-16 17:50] LABS: Basophils # (A) 0.1 k/uL (0-0.2); Basophils % (A) 2 %; Eosinophils # (A) 0.1 k/uL (0-0.7); Eosinophils % (A) 2 %; HCT 39.5 % (39.0-53.0); HGB 12.7 gm/dL (13.0-17.5); Lymphocytes # (A) 1.1 k/uL (1.0-4.8); Lymphocytes % (A) 24 %; MCH 30.9 pg (25.0-35.0); MCV 96.4 fL (80.0-100.0); Mean Platelet Volume 7.7; Monocytes # (A) 0.2 k/uL (0-1.0); Monocytes % (A) 5 %; Neutrophils # (A) 3.3 k/uL (1.3-7.7); Neutrophils % (A) 67 %; Platelet Count 198 k/uL (150-450); RDW 14.5 % (11.5-15.5); WBC 4.9 k/uL (3.8-10.6)
--- NOTE | 2021-10-16 17:51 | XR ---
EXAMINATION TYPE: XR chest 2V DATE OF EXAM: 10/16/2021 COMPARISON: 02/05/2019 HISTORY: Pain TECHNIQUE: 2 views FINDINGS: There is moderate elevation of the right diaphragm. There is some linear density at the scottie g bases. No heart failure. Heart size is normal. IMPRESSION: There is some atelectasis at the lung bases without change. Normal heart. Elevated right diaphragm could relate to some diaphragm paralysis.
[2021-10-16 17:56] LABS: INR 1.1 (<1.2); Partial Thromboplastin Time 25.6 sec (22.0-30.0); Prothrombin Time 11.5 sec (9.0-12.0)
--- NOTE | 2021-10-16 17:57 | CT ---
EXAMINATION TYPE: CT brain wo con DATE OF EXAM: 10/16/2021 COMPARISON: 02/05/2019 HISTORY: AMS CT DLP: 1159.4 mGycm Automated exposure control for dose reduction was used. There is diffuse cerebral cortical atrophy. There is no mass effect or midline shift. No sign of intr acranial hemorrhage. There is hypodensity in the periventricular white matter. Calvarium is intact. T here is normal aeration of the mastoid sinuses. IMPRESSION: Cerebral atrophy and chronic small vessel ischemia. No acute intracranial abnormality. No change.
[2021-10-16 17:58] LABS: ALT 19 U/L (4-49); AST 26 U/L (17-59); African American GFR (CKD) 45 (>60 ml/min/1.73 sqM); Albumin 3.6 g/dL (3.5-5.0); Alcohol <10 mg/dL; Alkaline Phosphatase 39 U/L (38-126); Anion Gap 5 mmol/L; Blood Urea Nitrogen 45 mg/dL (9-20); Calcium 9.1 mg/dL (8.4-10.2); Carbon Dioxide 22 mmol/L (22-30); Chloride 108 mmol/L (98-107); Creatine Kinase 112 U/L (55-170); Glucose 103 mg/dL (74-99); Lactic Acid, Venous 1.8 mmol/L (0.7-2.0); Non-African American GFR(CKD) 39 (>60 ml/min/1.73 sqM); Sodium 135 mmol/L (137-145); Total Bilirubin 0.3 mg/dL (0.2-1.3); Total Protein 6.1 g/dL (6.3-8.2)
[2021-10-16 18:30] LABS: Glucose,Whole Blood 123 mg/dL (75-99)
[2021-10-16 18:33] LABS: Appearance,Urine Clear (Clear); Bilirubin,Urine Negative (Negative); Blood,Urine Small (Negative); Color,Urine Yellow; Glucose,Urine (UA) 1+ (Negative); Ketones,Urine Negative (Negative); Leukocyte Esterase,Urine Negative (Negative); Mucus,Urine Rare /hpf; Nitrite,Urine Negative (Negative); Protein,Urine Trace (Negative); RBC,Urine 3 /hpf (0-5); Specific Gravity,Urine 1.016 (1.001-1.035); Urobilinogen,Urine <2.0 mg/dL (<2.0); WBC,Urine 1 /hpf (0-5)
[2021-10-16] MEDS ORDERED: NALOXONE 0.4 MG/ML 1 ML VIAL IV PRN (18:40)
[2021-10-16] MEDS ORDERED: ONDANSETRON 4 MG/2 ML VIAL IVP PRN (18:40)
[2021-10-16 18:43] LABS: Amphetamine Screen,Urine Not Detected (NotDetected); Barbiturate Screen,Urine Not Detected (NotDetected); Benzodiazepines Screen,Urine Not Detected (NotDetected); Cocaine Screen,Urine Not Detected (NotDetected); Methadone Screen, Urine Not Detected (NotDetected); Opiate Screen,Urine Not Detected (NotDetected); Oxycodone Screen, Urine Not Detected (NotDetected); Phencyclidine Screen,Urine Not Detected (NotDetected); Tricyclic Antidepressant,Urine Not Detected (NotDetected); Urn Cannabinoid Scrn Not Detected (NotDetected)
[2021-10-16] MEDS ORDERED: SODIUM CHLORIDE 0.9% 1,000 ML IV SCH (18:45)
[2021-10-16 18:53] LABS: Glucose,Whole Blood 97 mg/dL (75-99)
[2021-10-16] MEDS ORDERED: DEXTROSE 10% IN WATER 1,000 ML IV ONE (18:59)
[2021-10-16 19:44] LABS: Glucose,Whole Blood 56 mg/dL (75-99)
[2021-10-16 20:40] LABS: Glucose,Whole Blood 111 mg/dL (75-99)
[2021-10-17 00:57] LABS: Glucose,Whole Blood 143 mg/dL (75-99)
--- NOTE | 2021-10-17 02:53 | P.HPIM ---
History of Present Illness H&P Date: 10/16/21 The patient is an 86-year-old male with a PMH of, chronic kidney disease, type II DM, and hypertension, resident of [facility] who was brought into the emergency room by EMS staff after he was found at his apartment on the kitchen floor confused. The patient reportedly had not picked up this morning newspaper, which was unusual for him, at which time the staff checked in on him and found his blood glucose to be 46. EMS staff administered 25 g IV dextrose with subsequent blood glucose 140. The patient reports that he "collapsed" onto the floor yesterday evening, because he was not taking his insulin properly. He reports missing several doses, and that he has only been taking it once every few days over the past few weeks. He denies experiencing any trauma from the fall but states that he simply slid down, and was then unable to get back up. He reported feeling back to his baseline at the time of interview. The patient denied any active complaints at the time of interview. Denied experiencing chest discomfort, shortness of breath, nausea, vomiting, diaphoresis. He denied headaches, weakness, numbness, tingling, visual disturbances. Reports that he ambulates at baseline without assistance. CT brain in the emergency room was unremarkable with chest x-ray also unremarkable. EKG revealed sinus rhythm at 68 bpm with left axis deviation. P chris x-ray was unremarkable. Laboratory evaluation was remarkable for BUN 45 (previously 23 in 2019) with creatinine 1.61 (from 1.34 in 2019). Review of systems: Pertinent positives and negatives as discussed in HPI, a complete review of systems was performed and all other systems are negative. Physical examination: General: non toxic, no distress, appears at stated age, overweight Derm: no unusual rashes/lesions, warm Head: atraumatic, normocephalic, symmetric Eyes: EOMI, no lid lag, anicteric sclera, pupils equal round reactive to light ENT: Nose and ears atraumatic Neck: No cervical lymphadenopathy, trachea midline, supple Mouth: no lip lesion, mucus membranes moist Cardiovascular: S1S2 reg, no murmur, positive dorsalis pedis pulse bilateral, no edema Lungs: CTA bilateral, no rhonchi, no rales, no accessory muscle use Abdominal: soft, nontender to palpation, no guarding Ext: muscle strength 5 out of 5 in all 4 extremities grossly, no gross muscle atrophy, no contractures, Neuro: CN II-XI grossly intact, no gross focal neuro deficits Psych: Alert, oriented, appropriate affect Assessment/plan Hypoglycemia, suspected secondary to incorrect use of home insulin -Patient may need further services at independent living for medication administration -Continue to monitor blood glucose levels every 12 hourly -C/w D10 @ 75 cc/hr for now -Hold home insulin at this time Altered mental status, suspected secondary to metabolic encephalopathy in setting of hypoglycemia -As per above MATTHEW on chronic kidney disease -Likely due to dehydration -Gentle IV fluids Chronic conditions: Hypertension, type II DM, chronic kidney disease -Hold home antihypertensives in setting of borderline BP DVT prophylaxis -Heparin subcu The patient is admitted with an anticipated less than 2 midnight stay for evaluation of hypoglycemia CODE STATUS: Full Code Discussed with: Patient Anticipated discharge date: in am Anticipated discharge place: Independent living Past Medical History Past Medical History: Diabetes Mellitus, Hypertension History of Any Multi-Drug Resistant Organisms: None Reported Past Surgical History: Orthopedic Surgery Additional Past Surgical History / Comment(s): right wrist surgery Past Anesthesia/Blood Transfusion Reactions: No Reported Reaction Past Psychological History: No Psychological Hx Reported Smoking Status: Former smoker Past Alcohol Use History: None Reported Past Drug Use History: None Reported Medications and Allergies Home Medications Medication Instructions Recorded Confirmed Type Citalopram Hydrobromide [CeleXA] 40 mg PO DAILY 02/05/19 10/16/21 History Enalapril [Vasotec] 20 mg PO DAILY 02/05/19 10/16/21 History Insulin Glargine,Hum.rec.anlog 15 unit SQ HS #0 02/07/19 10/16/21 Rx [Lantus Solostar Pen] amLODIPine [Norvasc] 10 mg PO DAILY #30 tab 02/07/19 Rx Allergies Allergy/AdvReac Type Severity Reaction Status Date / Time No Known Allergies Allergy Verified 10/16/21 17:24 Physical Exam Vitals: Vital Signs Temp Pulse Pulse Resp BP BP Pulse Ox 10/16/21 21:59 97.7 F 68 18 151/74 100 10/16/21 19:11 66 16 123/73 100 10/16/21 19:00 97.6 F 64 16 132/80 100 10/16/21 18:30 68 16 141/77 100 10/16/21 17:12 73 19 121/63 96 Intake and Output 10/16/21 10/16/21 10/16/21 06:59 14:59 22:59 Other: Weight 99.79 kg Results CBC & Chem 7: 10/16/21 17:39 10/16/21 17:39 Labs: Abnormal Lab Results - Last 24 Hours (Table) 10/16/21 10/16/21 10/16/21 Range/Units 17:39 17:39 17:47 RBC 4.10 L (4.30-5.90) m/uL Hgb 12.7 L (13.0-17.5) gm/dL Sodium 135 L (137-145) mmol/L Chloride 108 H (98-107) mmol/L BUN 45 H (9-20) mg/dL Creatinine 1.61 H (0.66-1.25) mg/dL Glucose 103 H (74-99) mg/dL POC Glucose (mg/dL) 64 L (75-99) mg/dL Total Protein 6.1 L (6.3-8.2) g/dL Urine Protein (Negative) Urine Glucose (UA) (Negative) Urine Blood (Negative) Urine Mucus (None) /hpf 10/16/21 10/16/21 10/16/21 Range/Units 18:24 18:28 19:42 RBC (4.30-5.90) m/uL Hgb (13.0-17.5) gm/dL Sodium (137-145) mmol/L Chloride (98-107) mmol/L BUN (9-20) mg/dL Creatinine (0.66-1.25) mg/dL Glucose (74-99) mg/dL POC Glucose (mg/dL) 123 H 56 L (75-99) mg/dL Total Protein (6.3-8.2) g/dL Urine Protein Trace H (Negative) Urine Glucose (UA) 1+ H (Negative) Urine Blood Small H (Negative) Urine Mucus Rare H (None) /hpf 10/16/21 Range/Units 20:39 RBC (4.30-5.90) m/uL Hgb (13.0-17.5) gm/dL Sodium (137-145) mmol/L Chloride (98-107) mmol/L BUN (9-20) mg/dL Creatinine (0.66-1.25) mg/dL Glucose (74-99) mg/dL POC Glucose (mg/dL) 111 H (75-99) mg/dL Total Protein (6.3-8.2) g/dL Urine Protein (Negative) Urine Glucose (UA) (Negative) Urine Blood (Negative) Urine Mucus (None) /hpf Thrombosis Risk Factor Assmnt - Choose All That Apply Any of the Below Risk Factors Present?: No Other Risk Factors: No Other congenital or acquired thrombophilia - If yes, enter type in comment: No Thrombosis Risk Factor Assessment Level: Very Low Risk
[2021-10-17 03:05] LABS: Glucose,Whole Blood 131 mg/dL (75-99)
[2021-10-17 06:15] VITALS: RESP 16
[2021-10-17 06:36] LABS: Basophils # (A) 0.1 k/uL (0-0.2); Basophils % (A) 1 %; Eosinophils # (A) 0.1 k/uL (0-0.7); Eosinophils % (A) 2 %; HCT 39.4 % (39.0-53.0); HGB 12.3 gm/dL (13.0-17.5); Lymphocytes # (A) 2.2 k/uL (1.0-4.8); Lymphocytes % (A) 34 %; MCH 29.7 pg (25.0-35.0); MCHC 31.1 g/dL (31.0-37.0); MCV 95.6 fL (80.0-100.0); Mean Platelet Volume 9.2; Monocytes # (A) 0.5 k/uL (0-1.0); Monocytes % (A) 7 %; Neutrophils # (A) 3.4 k/uL (1.3-7.7); Neutrophils % (A) 53 %; Platelet Count 178 k/uL (150-450); RBC 4.12 m/uL (4.30-5.90); RDW 14.1 % (11.5-15.5); WBC 6.4 k/uL (3.8-10.6)
[2021-10-17 06:36] LABS: Glucose,Whole Blood 118 mg/dL (75-99)
[2021-10-17 07:18] LABS: African American GFR (CKD) 62 (>60 ml/min/1.73 sqM); Anion Gap 5 mmol/L; Blood Urea Nitrogen 28 mg/dL (9-20); Calcium 8.7 mg/dL (8.4-10.2); Carbon Dioxide 21 mmol/L (22-30); Chloride 110 mmol/L (98-107); Glucose 119 mg/dL (74-99); Non-African American GFR(CKD) 54 (>60 ml/min/1.73 sqM); Potassium 5.1 mmol/L (3.5-5.1); Sodium 136 mmol/L (137-145)
[2021-10-17 09:07] LABS: Glucose,Whole Blood 158 mg/dL (75-99)
[2021-10-17] MEDS: HEPARIN SODIUM,PORCINE/PF 5,000 UNIT/0.5 ML SYRINGE SQ SCH ×2 (09:08→17:17)
[2021-10-17 12:02] VITALS: BMI 29.8
[2021-10-17 12:10] LABS: Glucose,Whole Blood 192 mg/dL (75-99)
[2021-10-17 12:24] VITALS: BP 113/68; PULSE 105; TEMP 98.7
[2021-10-17 14:36] LABS: Glucose,Whole Blood 251 mg/dL (75-99)
--- NOTE | 2021-10-17 15:39 | P.DS ---
Providers Date of admission: 10/16/21 18:40 Expected date of discharge: 10/17/21 Attending physician: Kane Schmitt MD Primary care physician: Stated None Hospital Course: Discharge Diagnosis: Hypoglycemia, suspected secondary to incorrect use of home insulin. Had long discussion with patient, patient admits to not checking his blood glucose levels at home and continued use of insulin. Patient educated on the importance of checking blood glucose levels before any administration of insulin to prevent episodes of hypoglycemia in the future. Patient verbalized understanding and reports that he has the supplies at home and is not in need of extra supplies. Patient states, this was a lesson learned. Patient reports he will monitor his blood glucose levels daily continue to take insulin as ordered. Patient being discharged home with home care including RN, director community health nursing and diabetic teacher/educator. Patient instructed to monitor and document daily blood glucose levels in a log/journal to bring with him to next doctor's appointments. Lantus was decreased to 10 units daily and further adjustments can be made upon review of daily log/journal at next doctor's appointment. Patient instructed to hold insulin for blood glucose levels less than 120. Altered mental status, suspected secondary to metabolic encephalopathy in setting of hypoglycemia. Resolved after patient was administered IV dextrose for reported blood glucose of 46. MATTHEW on chronic kidney disease, resolved with IV fluid hydration. Hypertension, continue daily medication regimen. Hospital Course: The patient is a very pleasant 86-year-old male with a past medical history of chronic kidney disease stage II, type II insulin dependent DM, and hypertension. He is resident of [facility] who was brought into the emergency room by EMS staff after he was found at his apartment on the kitchen floor confused. The patient reportedly had not picked up this morning newspaper, which was unusual for him, at which time the staff checked in on him and found his blood glucose to be 46. EMS staff administered 25 g IV dextrose with subsequent blood glucose 140. Upon arrival to facility, patient reported feeling back to his baseline mentation and denied having any complaints. Patient did admit to not properly checking his blood glucose levels at home and reported that it had been greater than a week since the last time he checked his blood glucose levels at home. Patient denies being out of supplies or in need of additional supplies or resources, patient states that he simply just stopped checking it the way he was supposed to. Patient reports he stopped doing this a long time ago, but reports this as a lesson learned and states he will check his blood glucose levels as he is supposed to because he now realizes how important it is with administration of insulin. Since arrival to Hospital patient has done well. CBC has been unremarkable with the exception of mild normocytic normochromic anemia with baseline hemoglobin of 12.3. Patient initially had mild MATTHEW with BUN 45, creatinine 1.61, and GFR of 39, this resolved overnight with IV fluid hydration with repeat labs showing BUN 28, creatinine 1.23, and GFR 54. Urinalysis was negative for blood or infection. Urine drug screen negative. CT brain and chest x-ray were unremarkable. EKG revealed sinus rhythm at 68 bpm. Patient monitored overnight and blood glucose levels continued to increase with no further episodes of hypoglycemia. Again patient educated on the importance of checking blood glucose levels and is medically stable for discharge at this time. Patient being discharged home with home care including RN, director community health nursing, and diabetic teacher. Patient to follow up outpatient with PCP[facility] in 1[facility]2 days. Physical examination: Vital signs reviewed and stable. General: Nontoxic, no distress and appears stated age. Derm: Skin warm and dry, normal coloration for ethnicity. Head: Atraumatic, normocephalic and symmetric. Eyes: EOMs intact, no lid lag, and anicteric sclera Mouth: no lip lesions, mucus membranes moist Cardiovascular: regular rate and rhythm with normal S1S2, no murmur, positive posterior tibial pulses bilaterally, and cap refill < 2 seconds. Lungs: Respirations even, regular, and unlabored on room air. Lungs CTA bilaterally, no rhonchi, no rales, no wheezing, and no accessory muscle usage. Abdominal: soft, nontender to palpation, no guarding, no appreciable organomegaly Ext: ROM intact. No gross muscle atrophy, no edema, no contractures Neuro: Speech clear, face symmetrical and CN II-XII grossly intact with no noted focal neuro deficits Psych: Alert and oriented to person, place, time, and situation. Appropriate and pleasant affect. A total of 38 minutes of time were spent preparing this complex discharge summary. Pt was discharged on 10/17/21 at 4:42 PM. I reviewed the documentation as provided by the RAMBO above, who is the original author of this note. I agree with the documented assessment and plan, with the following changes: none Patient Condition at Discharge: Stable Plan - Discharge Summary Discharge Rx Participant: No New Discharge Prescriptions: Continue Citalopram Hydrobromide 20 mg PO DAILY Enalapril [Vasotec] 20 mg PO DAILY metFORMIN HCL [Glucophage] 500 mg PO BID Changed Insulin Glargine [Lantus Vial] 10 unit SQ DAILY #0 Discharge Medication List Citalopram Hydrobromide 20 mg PO DAILY 10/17/21 [History] Enalapril [Vasotec] 20 mg PO DAILY 10/17/21 [History] Insulin Glargine [Lantus Vial] 10 unit SQ DAILY #0 10/17/21 [Rx] metFORMIN HCL [Glucophage] 500 mg PO BID 10/17/21 [History] Follow up Appointment(s)/Referral(s): [facility],Clinic [REFERRING] - 1-2 Days (Office closed at time of discharge. Please call [facility] tomorrow and schedule your appt. ) Patient Instructions/Handouts: Hypoglycemia in a Person with Diabetes ([facility]), Fall Prevention ([facility]), Type 2 Diabetes in the Older Adult ([facility]) Activity/Diet/Wound Care/Special Instructions: Activity: As tolerated. Take breaks as needed. Diet: Heart healthy and carb consistent diet. Avoid salts, or foods with hidden salts such as canned or boxed foods and frozen dinners. Extra salt makes your heart work harder and traps the fluid in your body for longer. Special Instructions: Take all of your medications as directed and remember to keep all of your doctor's appointments and follow-up as needed. As we discussed it is of utmost importance to check your blood glucose levels every day prior to administration of your insulin. I have decreased your dose to 10 units daily and would like you to document your blood glucose levels and time of day you take your insulin in a daily log/journal to bring with you to your next doctor's appointment and they may adjust your medication dosage at that time. Please avoid any further episodes of administration of insulin without checking your blood sugars first. Hold all insulin for blood glucose levels less than 120. Thank you for allowing us to participate in your care, it was truly a pleasure having you for our patient!!! Discharge Disposition: HOME WITH HOME HEALTH SERVICES
[2021-10-17 17:11] LABS: Glucose,Whole Blood 114 mg/dL (75-99)
== END 2021-10-17 18:15 | disposition home health service (06) ==
LOC: EC 17:08 → 6NMEDSUR 18:40 → 5NMEDONC 19:18
PROVIDERS: ADMIT Student in an Organized Health Care Education/Training Program; ATTEND Student in an Organized Health Care Education/Training Program
DX: E11.649 Type 2 diabetes mellitus with hypoglycemia without coma (principal); R41.82 Altered mental status, unspecified; E11.22 Type 2 diabetes mellitus with diabetic chronic kidney disease; Z91.19 Patient's noncompliance with other medical treatment and regimen; I12.9 Hypertensive chronic kidney disease with stage 1 through stage 4 chronic kidney disease, or unspecified chronic kidney disease; N18.2 Chronic kidney disease, stage 2 (mild); N17.9 Acute kidney failure, unspecified; D64.9 Anemia, unspecified; Z71.9 Counseling, unspecified; W19.XXXA Unspecified fall, initial encounter; Y92.030 Kitchen in apartment as the place of occurrence of the external cause; Z87.891 Personal history of nicotine dependence; Z79.899 Other long term (current) drug therapy; Z79.4 Long term (current) use of insulin
CPT/HCPCS: 96366 ×2; 96372; 96376; 96361; 96365; 99285; 36415; 93005; 80053; 80048; 82140; 82550; 83605; 84484; 85025 ×2; 85610; 85730; 81001; 80306; 72170; 71046; 70450; G0378 ×2; G0480; J1644; 80320

== ENCOUNTER 2022-12-23 18:54 | Inpatient (IN) | payer MEDICARE ==
[2022-12-23] MEDS ORDERED: ACETAMINOPHEN TAB 500 MG TAB PO STA (19:02)
--- NOTE | 2022-12-23 19:11 | ED ---
General Adult HPI - General Chief complaint: Weakness Stated complaint: Weakness Time Seen by Provider: 12/23/22 18:59 Source: patient, EMS Mode of arrival: EMS Limitations: no limitations - History of Present Illness Initial comments: El is an 87-year-old male who presents to the emergency department today from [facility] on bloods via EMS for evaluation of generalized weakness. Patient reports that he's been feeling weak and had a couple falls in the past couple of days. He also complains of pain in his foot and notes that his left pinky toe is black, he doesn't know how long its been black but for a while but now is having worsening pain and swelling in the area. - Related Data Home Medications Medication Instructions Recorded Confirmed No Known Home Medications 12/23/22 12/23/22 Allergies Allergy/AdvReac Type Severity Reaction Status Date / Time No Known Allergies Allergy Verified 12/23/22 21:51 Review of Systems ROS Statement: Those systems with pertinent positive or pertinent negative responses have been documented in the HPI. ROS Other: All systems not noted in ROS Statement are negative. Past Medical History Past Medical History: Diabetes Mellitus, Hypertension History of Any Multi-Drug Resistant Organisms: None Reported Past Surgical History: Orthopedic Surgery Additional Past Surgical History / Comment(s): right wrist surgery Past Anesthesia/Blood Transfusion Reactions: No Reported Reaction Past Psychological History: No Psychological Hx Reported Smoking Status: Former smoker Past Alcohol Use History: None Reported Past Drug Use History: None Reported General Exam - General Exam Comments Initial Comments: Physical Exam GENERAL: Chronically ill-appearing, elderly HENT: Normocephalic, Atraumatic. EYES: PERRL, EOMI PULMONARY: Tachypnea CARDIOVASCULAR: Tachycardic, regular ABDOMEN: Soft and nontender with normal bowel sounds. SKIN: Skin is clear with no lesions or rashes and otherwise unremarkable. : Deferred NEUROLOGIC: Patient is alert and oriented x3. Moving all extremities spontaneously MUSCULOSKELETAL: Normal extremities with adequate strength and full range of motion. No lower extremity swelling or edema. No calf tenderness. PSYCHIATRIC: Normal psychiatric evaluation. Limitations: no limitations Course Vital Signs 12/23/22 12/23/22 12/23/22 18:55 20:36 23:12 Temperature 102.3 F H 100.2 F H Pulse Rate 110 H 95 83 Respiratory 99 H 18 18 Rate Blood Pressure 142/82 129/79 150/72 O2 Sat by Pulse 98 98 100 Oximetry EKG Findings - EKG Comments: EKG Findings:: EKG interpreted by me, EKG ordered due to sepsis, EKG obtained at 1859 Rate 109, left anterior fasicular block, no new ST elevations or depressions, no acute infarction. Medical Decision Making - Medical Decision Making Was pt. sent in by a medical professional or institution (, PA, RESIDENT SERVICES COORDINATOR, urgent care, hospital, or long term...) When possible be specific @ -Sent by staff at care facility Did you speak to anyone other than the patient for history (EMS, parent, family, police, friend...)? What history was obtained from this source @ -EMS Did you review nursing and triage notes (agree or disagree)? Why? @ -I reviewed and agree with nursing and triage notes Were old charts reviewed (outside hosp., previous admission, EMS record, old EKG, old radiological studies, urgent care reports/EKG's, long term records)? Report findings @ -Previous admission notes were reviewed Differential Diagnosis (chest pain, altered mental status, abdominal pain women, abdominal pain men, vaginal bleeding, weakness, fever, dyspnea, syncope, headache, dizziness, GI bleed, back pain, seizure, CVA, palpatations, mental health, musculoskeletal)? @ -Differential Fever: Pneumonia, viral URI, endocarditis, myocarditis, pericarditis, otitis, sinusitis, peritonsillar Abscess, retropharyngeal Abscess, epiglottitis, peritonitis, appendicitis, Nayely cystitis, diverticulitis, hepatitis, colitis, UTI, PID, TOA, pyelonephritis, prostatitis, epididymitis, meningitis, encephalitis, pulmonary embolism, CVA, thyroid storm, pancreatitis, adrenal crisis, cavernous sinus thrombosis, this is not meant to be an all-inclusive list. EKG interpreted by me (3pts min.). @ -As above X-rays interpreted by me (1pt min.). @ -X-ray was reviewed I have concern for free air in the soft tissues therefore CT was ordered CT interpreted by me (1pt min.). @ -None done U/S interpreted by me (1pt. min.). @ -None done What testing was considered but not performed or refused? (CT, X-rays, U/S, labs)? Why? @ -CT was ordered but not performed until the patient was admitted What meds were considered but not given or refused? Why? @ -None Did you discuss the management of the patient with other professionals (saurabh romero i.e. , PA, RESIDENT SERVICES COORDINATOR, lab, RT, psych nurse, social service coordinator, rouge sifter and miller, teacher, nuclear medicine officer, telehealth case manager)? Give summary @ -No Was smoking cessation discussed for >3mins.? @ -No Was critical care preformed (if so, how long)? @ -No Were there social determinants of health that impacted care today? How? (Homelessness, low income, unemployed, alcoholism, drug addiction, transportation, low edu. Level, literacy, decrease access to med. care, usp, rehab)? @ -No Was there de-escalation of care discussed even if they declined (Discuss DNR or withdrawal of care, Hospice)? DNR status @ -No What co-morbidities impacted this encounter? (DM, HTN, Smoking, COPD, CAD, Cancer, CVA, ARF, Chemo, Hep., AIDS, mental health diagnosis, sleep apnea, morbid obesity)? @ -Hypertension, coronary artery disease, peripheral artery disease, Was patient admitted / discharged? Hospital course, mention meds given and route, prescriptions, significant lab abnormalities, going to OR and other pertinent info. @ -Admit for sepsis with ischemic toe and cellulitis of the left lower extremity Undiagnosed new problem with uncertain prognosis? @ -YES Drug Therapy requiring intensive monitoring for toxicity (Heparin, Nitro, Insulin, Cardizem)? @ -No Were any procedures done? @ -No Diagnosis/symptom? @ -Sepsis Acute, or Chronic, or Acute on Chronic? @ -default Uncomplicated (without systemic symptoms) or Complicated (systemic symptoms)? @ -default Side effects of treatment? @ -No Exacerbation, Progression, or Severe Exacerbation? @ -No Poses a threat to life or bodily function? How? (Chest pain, USA, MD, pneumonia, PE, COPD, DKA, ARF, appy, cholecystitis, CVA, Diverticulitis, Homicidal, Suicidal, threat to staff... and all critical care pts) @ -Yes - Lab Data Result diagrams: 12/23/22 19:19 12/23/22 19:19 Lab Results 12/23/22 12/23/22 12/23/22 Range/Units 19:19 19:19 19:19 WBC 15.5 H (3.8-10.6) k/uL RBC 4.27 L (4.30-5.90) m/uL Hgb 13.3 (13.0-17.5) gm/dL Hct 40.5 (39.0-53.0) % MCV 94.8 (80.0-100.0) fL MCH 31.0 (25.0-35.0) pg MCHC 32.7 (31.0-37.0) g/dL RDW 13.4 (11.5-15.5) % Plt Count 246 (150-450) k/uL MPV 7.7 Neutrophils % 85 % Lymphocytes % 6 % Monocytes % 7 % Eosinophils % 1 % Basophils % 0 % Neutrophils # 13.3 H (1.3-7.7) k/uL Lymphocytes # 0.9 L (1.0-4.8) k/uL Monocytes # 1.1 H (0-1.0) k/uL Eosinophils # 0.1 (0-0.7) k/uL Basophils # 0.0 (0-0.2) k/uL PT 10.7 (9.0-12.0) sec INR 1.0 (<1.2) APTT 22.9 (22.0-30.0) sec Sodium 133 L (137-145) mmol/L Potassium 4.4 (3.5-5.1) mmol/L Chloride 101 (98-107) mmol/L Carbon Dioxide 22 (22-30) mmol/L Anion Gap 10 mmol/L BUN 27 H (9-20) mg/dL Creatinine 1.47 H (0.66-1.25) mg/dL Est GFR (CKD-EPI)AfAm 49 (>60 ml/min/1.73 sqM) Est GFR (CKD-EPI)NonAf 43 (>60 ml/min/1.73 sqM) Glucose 243 H (74-99) mg/dL Plasma Lactic Acid Aleksander (0.7-2.0) mmol/L Calcium 8.4 (8.4-10.2) mg/dL Total Bilirubin 0.9 (0.2-1.3) mg/dL AST 32 (17-59) U/L ALT 23 (4-49) U/L Alkaline Phosphatase 74 (38-126) U/L C-Reactive Protein (<1.0) mg/dL Total Protein 6.3 (6.3-8.2) g/dL Albumin 3.0 L (3.5-5.0) g/dL 12/23/22 12/23/22 Range/Units 19:19 19:19 WBC (3.8-10.6) k/uL RBC (4.30-5.90) m/uL Hgb (13.0-17.5) gm/dL Hct (39.0-53.0) % MCV (80.0-100.0) fL MCH (25.0-35.0) pg MCHC (31.0-37.0) g/dL RDW (11.5-15.5) % Plt Count (150-450) k/uL MPV Neutrophils % % Lymphocytes % % Monocytes % % Eosinophils % % Basophils % % Neutrophils # (1.3-7.7) k/uL Lymphocytes # (1.0-4.8) k/uL Monocytes # (0-1.0) k/uL Eosinophils # (0-0.7) k/uL Basophils # (0-0.2) k/uL PT (9.0-12.0) sec INR (<1.2) APTT (22.0-30.0) sec Sodium (137-145) mmol/L Potassium (3.5-5.1) mmol/L Chloride (98-107) mmol/L Carbon Dioxide (22-30) mmol/L Anion Gap mmol/L BUN (9-20) mg/dL Creatinine (0.66-1.25) mg/dL Est GFR (CKD-EPI)AfAm (>60 ml/min/1.73 sqM) Est GFR (CKD-EPI)NonAf (>60 ml/min/1.73 sqM) Glucose (74-99) mg/dL Plasma Lactic Acid Aleksander 1.4 (0.7-2.0) mmol/L Calcium (8.4-10.2) mg/dL Total Bilirubin (0.2-1.3) mg/dL AST (17-59) U/L ALT (4-49) U/L Alkaline Phosphatase (38-126) U/L C-Reactive Protein 16.5 H (<1.0) mg/dL Total Protein (6.3-8.2) g/dL Albumin (3.5-5.0) g/dL Disposition Clinical Impression: Ischemic toe, Sepsis Disposition: ADMITTED IP TO THIS HOSP Condition: Serious Is patient prescribed a controlled substance at d/c from ED?: No
[2022-12-23] MEDS: SODIUM CHLORIDE 0.9% 500 ML 500 ML IV SCH ×2 (19:14→19:51)
[2022-12-23 19:42] LABS: Basophils % (A) 0 %; Eosinophils # (A) 0.1 k/uL (0-0.7); Eosinophils % (A) 1 %; HCT 40.5 % (39.0-53.0); HGB 13.3 gm/dL (13.0-17.5); Lymphocytes # (A) 0.9 k/uL (1.0-4.8); Lymphocytes % (A) 6 %; MCHC 32.7 g/dL (31.0-37.0); MCV 94.8 fL (80.0-100.0); Mean Platelet Volume 7.7; Monocytes # (A) 1.1 k/uL (0-1.0); Monocytes % (A) 7 %; Neutrophils # (A) 13.3 k/uL (1.3-7.7); Neutrophils % (A) 85 %; Platelet Count 246 k/uL (150-450); RBC 4.27 m/uL (4.30-5.90); RDW 13.4 % (11.5-15.5); WBC 15.5 k/uL (3.8-10.6)
[2022-12-23 19:50] LABS: ALT 23 U/L (4-49); AST 32 U/L (17-59); African American GFR (CKD) 49 (>60 ml/min/1.73 sqM); Alkaline Phosphatase 74 U/L (38-126); Anion Gap 10 mmol/L; Blood Urea Nitrogen 27 mg/dL (9-20); Calcium 8.4 mg/dL (8.4-10.2); Carbon Dioxide 22 mmol/L (22-30); Chloride 101 mmol/L (98-107); Glucose 243 mg/dL (74-99); Non-African American GFR(CKD) 43 (>60 ml/min/1.73 sqM); Potassium 4.4 mmol/L (3.5-5.1); Sodium 133 mmol/L (137-145); Total Bilirubin 0.9 mg/dL (0.2-1.3); Total Protein 6.3 g/dL (6.3-8.2)
--- NOTE | 2022-12-23 19:54 | XR ---
EXAMINATION TYPE: XR foot complete LT DATE OF EXAM: 12/23/2022 7:24 PM INDICATION: Patient age:Male; 87 years old; Reason for study: osteo of left little toe; COMPARISON: None TECHNIQUE: The left foot was examined in the AP, oblique, and lateral projections. FINDINGS: There is lateral subluxation of the left fifth digit at the proximal interphalangeal joint. No obviou s osseous erosion at this time. There is soft tissue swelling present IMPRESSION: 1. Lateral subluxation of the left fifth digit proximal interphalangeal joint without evidence of os seous erosion time.
--- NOTE | 2022-12-23 19:57 | XR ---
EXAMINATION TYPE: XR chest 1V portable DATE OF EXAM: 12/23/2022 7:24 PM COMPARISON: Chest radiographs from 10/24/2021. TECHNIQUE: XR chest 1V portable Frontal view of the chest. CLINICAL INDICATION:Male, 87 years old with history of Fever; FINDINGS: Lungs/Pleura: Elevated right diaphragm with colon is situated between the liver and the diaphragm. Th ere is no evidence of pleural effusion, focal consolidation, or pneumothorax. Pulmonary vascularity: Unremarkable. Heart/mediastinum: Cardiomediastinal silhouette is unremarkable. Musculoskeletal: No acute osseous pathology. IMPRESSION: No significant change from 10/24/2021. No acute cardiopulmonary disease/process.
[2022-12-23 20:08] LABS: Partial Thromboplastin Time 22.9 sec (22.0-30.0); Prothrombin Time 10.7 sec (9.0-12.0)
--- NOTE | 2022-12-23 22:05 | US ---
EXAMINATION TYPE: US venous doppler duplex LE LT DATE OF EXAM: 12/23/2022 9:11 PM COMPARISON: NONE CLINICAL INDICATION: Male, 87 years old with history of edema; left leg edema SIDE PERFORMED: left TECHNIQUE: The lower extremity deep venous system is examined utilizing real time linear array sonog casandra with graded compression, doppler sonography and color-flow sonography. VESSELS IMAGED: Common Femoral Vein Deep Femoral Vein Greater Saphenous Vein * Femoral Vein Popliteal Vein Small Saphenous Vein * Proximal Calf Veins (* superficial vessels) Left Leg: no evidence of DVT as visualized IMPRESSION: Grayscale, color doppler, spectral doppler imaging performed of the deep veins of the lo wer extremities. There is normal flow, compressibility, vascular waveforms.
--- NOTE | 2022-12-23 22:08 | US ---
EXAMINATION TYPE: US arterial LE multi level DATE OF EXAM: 12/23/2022 9:52 PM CLINICAL INDICATION: Male, 87 years old with history of ischemic toe, sepsis; ischemic left 5th toe. Unable to obtain history from patient Doppler Waveforms: Poor waveforms bilaterally likely secondary to technique. Right Brachial Pressure: 129 Left Brachial Pressure: n/a Ankle-Brachial Indices: Right: 0.98 Left: 0.78 (Vessel hardening > 1.4; Normal 0.9 - 1.4, Moderate 0.7 - 0.9, Severe 0.5-0.7) Toe Brachial Indices: Right: 0.66 Left: n/a IMPRESSION: Moderate left and normal right ankle brachial indices. No evidence for hemodynamically si gnificant stenosis. Limited evaluation of waveforms likely secondary to technique.
[2022-12-23] MEDS ORDERED: NALOXONE 0.4 MG/ML 1 ML VIAL IV PRN (22:11)
[2022-12-23] MEDS ORDERED: ACETAMINOPHEN TAB 325 MG TAB PO PRN (22:11)
[2022-12-24] MEDS ORDERED: VANCOMYCIN IV PER PHARMACY 1 EACH MISC MISCELLANE PRN (00:36)
[2022-12-24] MEDS ORDERED: VANCOMYCIN 1,750 MG in SODIUM CHLORIDE 0.9% 500 ML 500 ML IVPB ONE (02:00)
[2022-12-24 06:20] LABS: Glucose,Whole Blood 158 mg/dL (70-110)
[2022-12-24] MEDS: MORPHINE SULFATE 4 MG/ML SYRINGE IV PRN ×2 (08:58→20:51)
[2022-12-24] MEDS ORDERED: DEXTROSE 50% SYRINGE 50 ML IVP PRN ×2 (09:03)
--- NOTE | 2022-12-24 10:13 | CT ---
EXAMINATION TYPE: CT foot LT wo con CT DLP: 398.5 mGycm, Automated exposure control for dose reduction was used. DATE OF EXAM: 12/24/2022 10:07 AM COMPARISON: Left foot radiograph 12/23/2022 CLINICAL INDICATION:Male, 87 years old with history of gas in tissue; PHH, left foot pain TECHNIQUE: Axial images were obtained of the left foot without the use of IV contrast. Additional co darya and sagittal reformatted images and soft tissue and bone window were obtained for review. FINDINGS: Diffuse soft tissue edema. There is gas identified within the soft tissues around the fifth digit extending towards the level of the proximal fifth metatarsal. No acute fracture. There is mild lateral subluxation of the left fifth digit proximal interphalangeal joint. Gas is identified distal fifth digit phalanx and the proximal fifth digit phalanx and fifth metatarsal head. No organized flu id collection. Plantar calcaneal enthesophyte. IMPRESSION: Emphysematous osteomyelitis involving the fifth digit extending from the distal fifth digit phalanx t o the head of the fifth metatarsal. There is surrounding soft tissue gas and edema. Mild lateral subl uxation of the left fifth digit proximal interphalangeal joint redemonstrated.
[2022-12-24 11:20] LABS: Glucose,Whole Blood 183 mg/dL (70-110)
[2022-12-24] MEDS: INSULIN ASPART (NovoLOG) 100 UNIT/ML VIAL SQ SCH ×3 (12:08→21:22)
--- NOTE | 2022-12-24 12:20 | P.HPIM ---
History of Present Illness H&P Date: 12/24/22 History of present illness; patient is 87-year-old gentleman with past medical h istory significant for diabetes, who presented to the ER for generalized weakness. Patient stated that he has been feeling weak for the last few weeks. Patient has been complaining of pain in his left foot, left foot pinky toe has also been turning black. Pain in his left foot has been worsening and swelling. Denies any fever or chills. Denies any loss of appetite Patient denies any chest pain or shortness of breath. Denies any nausea or vomiting. Patient has been complaining of generalized lethargy. Denies any cough or shortness of breath. Initial lab work done in the ER showed WBC 15.5, hemoglobin 13.3, platelet count 246, sodium 133, potassium 4.4, BUN 27, creatinine 1.47, glucose 243, CRP 16.5 EKG done in the ER X-ray for done show atrial subluxation of the left fifth proximal interphalangeal joint without evidence of osseous erosion Chest x-ray done in the ER no acute cardiopulmonary process Arterial ultrasound of lower extremity showed moderate left and normal right ankle brachial indexes. No evidence for significant stenosis Left lower extremity ultrasound negative for DVT Patient admitted to medicine service REVIEW OF SYSTEMS: CONSTITUTIONAL: As in HPI HEENT: No recent visual problems or hearing problems. Denied any sore throat. CARDIOVASCULAR: No chest pain, orthopnea, PND, no palpitations, no syncope. PULMONARY: No shortness of breath, no cough, no hemoptysis. GASTROINTESTINAL: No diarrhea, no nausea, no vomiting, no abdominal pain. NEUROLOGICAL: No headaches, no weakness, no numbness. HEMATOLOGICAL: Denies any bleeding or petechiae. GENITOURINARY: Denies any burning micturition, frequency, or urgency. MUSCULOSKELETAL/RHEUMATOLOGICAL: As in HPI ENDOCRINE: Denies any polyuria or polydipsia. The rest of the 14-point review of systems is negative. PHYSICAL EXAMINATION: GENERAL: The patient is alert and oriented x3, not in any acute distress. Well developed, well nourished. HEENT: Pupils are round and equally reacting to light. EOMI. No scleral icterus. No conjunctival pallor. Normocephalic, atraumatic. No pharyngeal erythema. No t hyromegaly. CARDIOVASCULAR: S1 and S2 present. No murmurs, rubs, or gallops. PULMONARY: Chest is clear to auscultation, no wheezing or crackles. ABDOMEN: Soft, nontender, nondistended, normoactive bowel sounds. No palpable organomegaly. MUSCULOSKELETAL: Left foot swollen, fifth toe is blackish in color EXTREMITIES: No cyanosis, clubbing, or pedal edema. NEUROLOGICAL: Gross neurological examination did not reveal any focal deficits. SKIN: No rashes. Assessment and plan Left foot cellulitis, Left fifth toe osteomyelitis Hyperglycemia Hypertension Monitor vital signs Monitor CBC Monitor CMP Follow-up on blood cultures Continue wound care Ordered blood sugar levels and sliding scale insulin Continue IV Rocephin and vancomycin Computed tomography scan Left foot ordered Consult vascular surgery Consult ID Labs and medication were reviewed.. Continue same treatment. Continue with sy mptomatic treatment. Resume home medication. Monitor labs and vitals. DVT and GI prophylaxis. Further recommendations as per clinical course of the patient Dictation was produced using [employer] dictation software. please excuse any grammatical, word or spelling errors. Past Medical History Past Medical History: Diabetes Mellitus, Hypertension History of Any Multi-Drug Resistant Organisms: None Reported Past Surgical History: Orthopedic Surgery Additional Past Surgical History / Comment(s): right wrist surgery Past Anesthesia/Blood Transfusion Reactions: No Reported Reaction Past Psychological History: No Psychological Hx Reported Smoking Status: Former smoker Past Alcohol Use History: None Reported Past Drug Use History: None Reported Medications and Allergies Home Medications Medication Instructions Recorded Confirmed Type No Known Home Medications 12/23/22 12/23/22 History Allergies Allergy/AdvReac Type Severity Reaction Status Date / Time No Known Allergies Allergy Verified 12/23/22 21:51 Physical Exam Vitals: Vital Signs Temp Pulse Pulse Resp BP BP Pulse Ox 12/24/22 07:33 97.7 F 98 18 180/91 98 12/24/22 02:00 98.2 F 91 165/93 98 12/23/22 23:49 98.3 F 69 16 162/84 93 L 12/23/22 23:12 83 18 150/72 100 12/23/22 20:36 100.2 F H 95 18 129/79 98 12/23/22 18:55 102.3 F H 110 H 99 H 142/82 98 Intake and Output 12/23/22 12/24/22 12/24/22 22:59 06:59 14:59 Output Total 200 Balance -200 Output: Urine 200 Other: Voiding Method Urinal Diaper # Voids 1 Weight 81.647 kg 81.647 kg Results CBC & Chem 7: 12/23/22 19:19 12/23/22 19:19 Labs: Abnormal Lab Results - Last 24 Hours (Table) 12/23/22 12/23/22 12/23/22 Range/Units 19:19 19:19 19:19 WBC 15.5 H (3.8-10.6) k/uL RBC 4.27 L (4.30-5.90) m/uL Neutrophils # 13.3 H (1.3-7.7) k/uL Lymphocytes # 0.9 L (1.0-4.8) k/uL Monocytes # 1.1 H (0-1.0) k/uL Sodium 133 L (137-145) mmol/L BUN 27 H (9-20) mg/dL Creatinine 1.47 H (0.66-1.25) mg/dL Glucose 243 H (74-99) mg/dL POC Glucose (mg/dL) (70-110) mg/dL C-Reactive Protein 16.5 H (<1.0) mg/dL Albumin 3.0 L (3.5-5.0) g/dL 12/24/22 Range/Units 06:19 WBC (3.8-10.6) k/uL RBC (4.30-5.90) m/uL Neutrophils # (1.3-7.7) k/uL Lymphocytes # (1.0-4.8) k/uL Monocytes # (0-1.0) k/uL Sodium (137-145) mmol/L BUN (9-20) mg/dL Creatinine (0.66-1.25) mg/dL Glucose (74-99) mg/dL POC Glucose (mg/dL) 158 H (70-110) mg/dL C-Reactive Protein (<1.0) mg/dL Albumin (3.5-5.0) g/dL
[2022-12-24] MEDS: AMPICILLIN-SULBACTAM 3 GM in SODIUM CHLORIDE 0.9% 100 ML IVPB SCH ×2 (16:04→20:52)
[2022-12-24 16:18] LABS: Glucose,Whole Blood 201 mg/dL (70-110)
--- NOTE | 2022-12-24 19:32 | P.GSCN ---
History of Present Illness Consult date: 12/24/22 History of present illness: Patient is an 87-year-old male with past medical history of diabetes who presented to the ER with weakness and falling. He has had supposedly increasing issues with this resident feeling weak for the last few weeks. He is not sure how long he has had a wound on his foot, but it's been there "for a while "he's had some pain and swelling of his left foot. He denies a fevers or chills. He denies any chest pains or shortness of breath. Past Medical History Past Medical History: Diabetes Mellitus, Hypertension History of Any Multi-Drug Resistant Organisms: None Reported Past Surgical History: Orthopedic Surgery Additional Past Surgical History / Comment(s): right wrist surgery Past Anesthesia/Blood Transfusion Reactions: No Reported Reaction Past Psychological History: No Psychological Hx Reported Smoking Status: Former smoker Past Alcohol Use History: None Reported Past Drug Use History: None Reported Medications and Allergies Home Medications Medication Instructions Recorded Confirmed Type No Known Home Medications 12/23/22 12/23/22 History Allergies Allergy/AdvReac Type Severity Reaction Status Date / Time No Known Allergies Allergy Verified 12/23/22 21:51 Surgical - Exam Vital Signs Temp Pulse Resp BP Pulse Ox 102.3 F H 110 H 99 H 142/82 98 12/23/22 18:55 12/23/22 18:55 12/23/22 18:55 12/23/22 18:55 12/23/22 18:55 Gen. is a pleasant cooperative male in no acute distress. Lungs are clear. Abdomen is soft. Extremity show no clubbing or cyanosis. There is mild edema to the left lateral foot. No palpable pedal pulses. Results X-rays reviewed. There is an area of edema at the base of the fifth toe on the left. Computed tomography scan is reviewed. There is evidence of osteomyelitis with pockets of air. - Labs 12/23/22 19:19 12/23/22 19:19 Abnormal Lab Results - Last 24 Hours (Table) 12/23/22 12/23/22 12/23/22 Range/Units : 19:19 19:19 WBC 15.5 H (3.8-10.6) k/uL RBC 4.27 L (4.30-5.90) m/uL Neutrophils # 13.3 H (1.3-7.7) k/uL Lymphocytes # 0.9 L (1.0-4.8) k/uL Monocytes # 1.1 H (0-1.0) k/uL Sodium 133 L (137-145) mmol/L BUN 27 H (9-20) mg/dL Creatinine 1.47 H (0.66-1.25) mg/dL Glucose 243 H (74-99) mg/dL POC Glucose (mg/dL) (70-110) mg/dL C-Reactive Protein 16.5 H (<1.0) mg/dL Albumin 3.0 L (3.5-5.0) g/dL 12/24/22 12/24/22 12/24/22 Range/Units 06:19 11:19 16:16 WBC (3.8-10.6) k/uL RBC (4.30-5.90) m/uL Neutrophils # (1.3-7.7) k/uL Lymphocytes # (1.0-4.8) k/uL Monocytes # (0-1.0) k/uL Sodium (137-145) mmol/L BUN (9-20) mg/dL Creatinine (0.66-1.25) mg/dL Glucose (74-99) mg/dL POC Glucose (mg/dL) 158 H 183 H 201 H (70-110) mg/dL C-Reactive Protein (<1.0) mg/dL Albumin (3.5-5.0) g/dL Diabetes panel 12/23/22 Range/Units 19:19 Sodium 133 L (137-145) mmol/L Potassium 4.4 (3.5-5.1) mmol/L Chloride 101 (98-107) mmol/L Carbon Dioxide 22 (22-30) mmol/L BUN 27 H (9-20) mg/dL Creatinine 1.47 H (0.66-1.25) mg/dL Glucose 243 H (74-99) mg/dL Calcium 8.4 (8.4-10.2) mg/dL AST 32 (17-59) U/L ALT 23 (4-49) U/L Alkaline Phosphatase 74 (38-126) U/L Total Protein 6.3 (6.3-8.2) g/dL Albumin 3.0 L (3.5-5.0) g/dL Calcium panel 12/23/22 Range/Units 19:19 Calcium 8.4 (8.4-10.2) mg/dL Albumin 3.0 L (3.5-5.0) g/dL Pituitary panel 12/23/22 Range/Units 19:19 Sodium 133 L (137-145) mmol/L Potassium 4.4 (3.5-5.1) mmol/L Chloride 101 (98-107) mmol/L Carbon Dioxide 22 (22-30) mmol/L BUN 27 H (9-20) mg/dL Creatinine 1.47 H (0.66-1.25) mg/dL Glucose 243 H (74-99) mg/dL Calcium 8.4 (8.4-10.2) mg/dL Adrenal panel 12/23/22 Range/Units 19:19 Sodium 133 L (137-145) mmol/L Potassium 4.4 (3.5-5.1) mmol/L Chloride 101 (98-107) mmol/L Carbon Dioxide 22 (22-30) mmol/L BUN 27 H (9-20) mg/dL Creatinine 1.47 H (0.66-1.25) mg/dL Glucose 243 H (74-99) mg/dL Calcium 8.4 (8.4-10.2) mg/dL Total Bilirubin 0.9 (0.2-1.3) mg/dL AST 32 (17-59) U/L ALT 23 (4-49) U/L Alkaline Phosphatase 74 (38-126) U/L Total Protein 6.3 (6.3-8.2) g/dL Albumin 3.0 L (3.5-5.0) g/dL Assessment and Plan Assessment: Diabetic foot infection Left foot cellulitis Left fifth toe osteomyelitis Peripheral arterial disease Plan: Long discussion was had with the patient, at this time he requires a left fifth toe amputation and debridement. He has currently receiving dinner therefore we'll plan this for tomorrow. He is stable clinically at this point. He is to be nothing by mouth after midnight. We also discussed there is likely at least moderate peripheral arterial disease bilaterally. Given his waveform appearance on imaging I believe his FELTON values are not reliable. Some of the waveform abnormality may be due to patient motion however patient does not currently have frankly palpable pedal pulses. Discussed that he likely will need some i ntervention if the wound itself does not have appropriate healing. He seemingly understood. A phone call was made to his son to discuss these concerns. He and his son seemingly understood and is willing to proceed.
[2022-12-24 20:30] LABS: Glucose,Whole Blood 229 mg/dL (70-110)
--- NOTE | 2022-12-24 23:08 | P.CONS ---
History of Present Illness - Reason for Consult Consult date: 12/24/22 - History of Present Illness Patient is a 87-year-old -M[place] male with a past medical history significant for diabetes mellitus and hypertension patient was brought into the ER last night by EMS complaining of generalized weakness apparently patient has been feeling weak over the last few days and the patient did have multiple falls was complaining of pain to the left fifth toe which has turned black patient was not very clear for how long the toe has been black out the patient complaining of increasing pain to the area unable to quantify it any further no foul- smelling drainage or high-grade fever on presentation to the hospital patient did have a fever of 102.3 F patient did have tachycardia however no hypotension or hypoxic did have elevated white count with a left shift empirically mildly elevated liver enzymes are normal CRP is elevated patient did have a x-ray of the foot lateral subluxation of the left fifth digit proximal interphalangeal joint without evidence for bony erosion patient did have a CT of the foot infection with osteomyelitis involving the fifth digit extending from the distal fifth digit phalanx to the head of the fifth metatarsal patient was started on vancomycin and admitted to hospital infectious disease was consulted for further management of antibiotic therapy, patient still not a very good historian so most information has been extracted from review the chart Past Medical History Past Medical History: Diabetes Mellitus, Hypertension History of Any Multi-Drug Resistant Organisms: None Reported Past Surgical History: Orthopedic Surgery Additional Past Surgical History / Comment(s): right wrist surgery Past Anesthesia/Blood Transfusion Reactions: No Reported Reaction Past Psychological History: No Psychological Hx Reported Smoking Status: Former smoker Past Alcohol Use History: None Reported Past Drug Use History: None Reported Medications and Allergies Home Medications Medication Instructions Recorded Confirmed Type No Known Home Medications 12/23/22 12/23/22 History Allergies Allergy/AdvReac Type Severity Reaction Status Date / Time No Known Allergies Allergy Verified 12/23/22 21:51 Physical Exam Vitals: Vital Signs Temp Pulse Pulse Resp BP BP Pulse Ox 12/24/22 07:33 97.7 F 98 18 180/91 98 12/24/22 02:00 98.2 F 91 165/93 98 12/23/22 23:49 98.3 F 69 16 162/84 93 L 12/23/22 23:12 83 18 150/72 100 12/23/22 20:36 100.2 F H 95 18 129/79 98 12/23/22 18:55 102.3 F H 110 H 99 H 142/82 98 Intake and Output 12/23/22 12/24/22 12/24/22 22:59 06:59 14:59 Output Total 200 Balance -200 Output: Urine 200 Other: Voiding Method Urinal Diaper # Voids 1 Weight 81.647 kg 81.647 kg Results CBC & Chem 7: 12/23/22 19:19 12/23/22 19:19 Labs: Abnormal Lab Results - Last 24 Hours (Table) 12/23/22 12/23/22 12/23/22 Range/Units 19:19 19:19 19:19 WBC 15.5 H (3.8-10.6) k/uL RBC 4.27 L (4.30-5.90) m/uL Neutrophils # 13.3 H (1.3-7.7) k/uL Lymphocytes # 0.9 L (1.0-4.8) k/uL Monocytes # 1.1 H (0-1.0) k/uL Sodium 133 L (137-145) mmol/L BUN 27 H (9-20) mg/dL Creatinine 1.47 H (0.66-1.25) mg/dL Glucose 243 H (74-99) mg/dL POC Glucose (mg/dL) (70-110) mg/dL C-Reactive Protein 16.5 H (<1.0) mg/dL Albumin 3.0 L (3.5-5.0) g/dL 12/24/22 12/24/22 Range/Units 06:19 11:19 WBC (3.8-10.6) k/uL RBC (4.30-5.90) m/uL Neutrophils # (1.3-7.7) k/uL Lymphocytes # (1.0-4.8) k/uL Monocytes # (0-1.0) k/uL Sodium (137-145) mmol/L BUN (9-20) mg/dL Creatinine (0.66-1.25) mg/dL Glucose (74-99) mg/dL POC Glucose (mg/dL) 158 H 183 H (70-110) mg/dL C-Reactive Protein (<1.0) mg/dL Albumin (3.5-5.0) g/dL Assessment and Plan Plan: 1patient presented hospital with sepsis in this patient with a fever tachycardia elevated white count source is left fifth toe diabetic foot infe ction with evidence of emphysematous changes seen on the CT we will need to cover for the polymicrobial ngozi usually associated with diabetic foot infection. 2patient with renal insufficiency and high risk of nephrotoxicity 3-we will add Unasyn 3 g every 6 hours 4-await vascular surgery evaluation of possible amputation and deep culture We will follow on clinical condition and cultures to further adjust medication if needed Thank you for this consultation we will follow the patient along with you Dictation was produced using [employer] dictation software. please excuse any grammatical, word or spelling errors. Time with Patient: Greater than 30
[2022-12-25] MEDS ORDERED: VANCOMYCIN 1,500 MG in SODIUM CHLORIDE 0.9% 500 ML 500 ML IVPB SCH (02:00)
[2022-12-25] MEDS: AMPICILLIN-SULBACTAM 3 GM in SODIUM CHLORIDE 0.9% 100 ML IVPB SCH ×5 (04:35→23:07)
[2022-12-25 06:25] LABS: Glucose,Whole Blood 151 mg/dL (70-110)
[2022-12-25] MEDS: MORPHINE SULFATE 4 MG/ML SYRINGE IV PRN ×2 (06:34→13:56)
[2022-12-25] MEDS: INSULIN ASPART (NovoLOG) 100 UNIT/ML VIAL SQ SCH ×4 (07:38→22:56)
[2022-12-25 07:46] LABS: ALT 21 U/L (4-49); AST 23 U/L (17-59); African American GFR (CKD) 53 (>60 ml/min/1.73 sqM); Albumin 2.7 g/dL (3.5-5.0); Alkaline Phosphatase 79 U/L (38-126); Blood Urea Nitrogen 22 mg/dL (9-20); Calcium 8.3 mg/dL (8.4-10.2); Carbon Dioxide 25 mmol/L (22-30); Globulin 2.8 g/dL; Glucose 149 mg/dL (74-99); Non-African American GFR(CKD) 46 (>60 ml/min/1.73 sqM); Total Bilirubin 0.6 mg/dL (0.2-1.3); Total Protein 5.5 g/dL (6.3-8.2)
[2022-12-25 07:56] LABS: Anion Gap 7 mmol/L; Chloride 101 mmol/L (98-107); Potassium 4.1 mmol/L (3.5-5.1); Sodium 133 mmol/L (137-145)
[2022-12-25 10:54] LABS: Basophils # (A) 0.05 X 10*3/uL (0.00-0.10); Basophils % (A) 0.4 %; Eosinophils # (A) 0.07 X 10*3/uL (0.04-0.35); Eosinophils % (A) 0.5 %; HCT 35.2 % (39.6-50.0); HGB 11.7 d/dL (13.0-17.0); Lymphocytes # (A) 1.53 X 10*3/uL (0.90-5.00); Lymphocytes % (A) 11.2 %; MCHC 33.2 d/dL (32.0-37.0); MCV 93.4 FL (80.0-97.0); Mean Platelet Volume 9.6 FL (9.5-12.2); Monocytes # (A) 1.36 X 10*3/uL (0.20-1.00); Monocytes % (A) 9.9 %; NRBC Per 100 WBC 0 X 10*3/uL (0.00-0.01); Neutrophils # (A) 10.58 X 10*3/uL (1.80-7.70); Neutrophils % (A) 77.3 %; Platelet Count 275 X 10*3/uL (140-440); RBC 3.77 X 10*6/uL (4.40-5.60); RDW 13.2 % (11.5-14.5); WBC 13.68 X 10*3/uL (4.50-10.00)
[2022-12-25 11:51] LABS: Glucose,Whole Blood 135 mg/dL (70-110)
--- NOTE | 2022-12-25 13:00 | P.PN ---
Subjective Progress Note Date: 12/25/22 Principal diagnosis: Left fifth toe gangrene and cellulitis Patient is a 87-year-old -Chinese male with a past medical history significant for diabetes mellitus and hypertension patient was brought into the ER last night by EMS complaining of generalized weakness , patient noticed to have a necrotic left fifth toe, patient did have a CT of the foot infection with osteomyelitis involving the fifth digit extending from the distal fifth digit phalanx to the head of the fifth metatarsal. On today's evaluation that is a 12/25/2022, the patient is afebrile patient is slightly lethargic but very good historian and vomiting diarrhea or any other changes reported by the nursing staff Patient white count is down to 13.68 creatinine is 1.39, blood cultures pending Objective - Vital Signs Vital signs: Vital Signs Temp 98.3 F 12/25/22 07:18 Pulse 99 12/25/22 07:18 Resp 18 12/25/22 07:18 BP 171/71 12/25/22 07:18 Pulse Ox 96 12/25/22 07:18 FiO2 Intake & Output 12/24/22 12/25/22 12/25/22 18:59 06:59 18:59 Other: Voiding Method Urinal Diaper # Voids 3 3 1 # Bowel Movements 1 - Exam GENERAL DESCRIPTION: An elderly male lying in bed in no distress RESPIRATORY SYSTEM: Unlabored breathing , decreased breath sounds at bases HEART: S1 S2 regular rate and rhythm , ABDOMEN: Soft , no tenderness EXTREMITIES: Left fifth toe is currently dressed - Labs CBC & Chem 7: 12/25/22 06:48 12/25/22 06:48 Labs: Abnormal Lab Results - Last 24 Hours (Table) 12/24/22 12/24/22 12/25/22 Range/Units 16:16 20:28 06:23 WBC (4.50-10.00) X 10*3/uL RBC (4.40-5.60) X 10*6/uL Hgb (13.0-17.0) d/dL Hct (39.6-50.0) % Neutrophils # (1.80-7.70) X 10*3/uL Monocytes # (0.20-1.00) X 10*3/uL Sodium (137-145) mmol/L BUN (9-20) mg/dL Creatinine (0.66-1.25) mg/dL Glucose (74-99) mg/dL POC Glucose (mg/dL) 201 H 229 H 151 H (70-110) mg/dL Calcium (8.4-10.2) mg/dL Total Protein (6.3-8.2) g/dL Albumin (3.5-5.0) g/dL 12/25/22 12/25/22 12/25/22 Range/Units 06:48 06:48 11:49 WBC 13.68 H (4.50-10.00) X 10*3/uL RBC 3.77 L (4.40-5.60) X 10*6/uL Hgb 11.7 L (13.0-17.0) d/dL Hct 35.2 L (39.6-50.0) % Neutrophils # 10.58 H (1.80-7.70) X 10*3/uL Monocytes # 1.36 H (0.20-1.00) X 10*3/uL Sodium 133 L (137-145) mmol/L BUN 22 H (9-20) mg/dL Creatinine 1.39 H (0.66-1.25) mg/dL Glucose 149 H (74-99) mg/dL POC Glucose (mg/dL) 135 H (70-110) mg/dL Calcium 8.3 L (8.4-10.2) mg/dL Total Protein 5.5 L (6.3-8.2) g/dL Albumin 2.7 L (3.5-5.0) g/dL Microbiology - Last 24 Hours (Table) 12/23/22 19:45 Blood Culture - Preliminary Blood 12/23/22 19:30 Blood Culture - Preliminary Blood Assessment and Plan (1) Gangrene of toe of left foot Current Visit: Yes Status: Acute Code(s): I96 - GANGRENE, NOT ELSEWHERE CLASSIFIED SNOMED Code(s): [id number] Plan: 1patient presented hospital with sepsis in this patient with a fever tachycardia elevated white count source is left fifth toe infection with evidence of emphysematous changes seen on the CT we will need to cover for the polymicrobial ngozi usually associated with these types of infection 2patient with renal insufficiency and high risk of nephrotoxicity, creatinine is improving 3-patient to continue vancomycin on watching his kidney function closely and Unasyn 3 g every 6 hours 4-vascular surgery has evaluated the patient and pain is for amputation and deep culture this afternoon Dictation was produced using [employer] dictation software. please excuse any grammatical, word or spelling errors. Time with Patient: Less than 30
[2022-12-25] MEDS ORDERED: ONDANSETRON 4 MG/2 ML VIAL IVP PRN (15:26)
[2022-12-25] MEDS ORDERED: HYDROmorphone 1 MG/ML 1 ML SYRINGE IVP PRN (15:27)
[2022-12-25] MEDS ORDERED: HYDROmorphone 0.5 MG/0.5 ML SYRINGE IVP PRN (15:27)
--- NOTE | 2022-12-25 15:34 | P.PN ---
Subjective Progress Note Date: 12/25/22 Patient is evaluated today resting in bed he is pending surgical amputation of his left fifth toe due to osteomyelitis and tissue necrosis. Patient is reporting minimal pain at this time. Patient is being followed by infectious disease and remains on a combination of IV Unasyn and IV vancomycin. Blood c ultures were taken and pending at this time. White count is 13.68, creatinine improved to 1.39. Blood glucose improved to 130s. Review of Systems Constitutional: Denied any fatigue denied any fever. Cardio vascular: denied any chest pain, palpitations Gastrointestinal: denied any nausea, vomiting, diarrhea Pulmonary: Denied any shortness of breath cough Neurologic denied any new focal deficits All inpatient medications were reviewed and appropriate changes in these medications as dictated in the interval history and assessment and plan. PHYSICAL EXAMINATION: GENERAL: The patient is alert and oriented x2-3, not in any acute distress. Well developed, well nourished. HEENT: Pupils are round and equally reacting to light. EOMI. No scleral icterus. No conjunctival pallor. Normocephalic, atraumatic. No pharyngeal erythema. No thyromegaly. CARDIOVASCULAR: S1 and S2 present. No murmurs, rubs, or gallops. PULMONARY: Chest is clear to auscultation, no wheezing or crackles. ABDOMEN: Soft, nontender, nondistended, normoactive bowel sounds. No palpable organomegaly. MUSCULOSKELETAL: No joint swelling or deformity. EXTREMITIES: No cyanosis, clubbing, or pedal edema. Malodorous left fifth toe, blackened and boggy. NEUROLOGICAL: Gross neurological examination did not reveal any focal deficits. SKIN: No rashes. 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 Dr. Vidal MD I have performed a history and physical examination and medical decision making of this patient, discussed the same with the dictator, and agree with the dictators assessment and plan as written, documented as a scribe. Based on total visit time, I have performed more than 50% of this visit. Objective - Vital Signs Vital signs: Vital Signs Temp 98.3 F 12/25/22 07:18 Pulse 99 12/25/22 07:18 Resp 18 12/25/22 07:18 BP 171/71 12/25/22 07:18 Pulse Ox 97 12/25/22 13:06 FiO2 21 12/25/22 13:06 Intake & Output 12/24/22 12/25/22 12/25/22 18:59 06:59 18:59 Other: Voiding Method Urinal Diaper # Voids 3 3 1 # Bowel Movements 1 - Labs CBC & Chem 7: 12/25/22 06:48 12/25/22 06:48 Labs: Abnormal Lab Results - Last 24 Hours (Table) 12/24/22 12/24/22 12/25/22 Range/Units 16:16 20:28 06:23 WBC (4.50-10.00) X 10*3/uL RBC (4.40-5.60) X 10*6/uL Hgb (13.0-17.0) d/dL Hct (39.6-50.0) % Neutrophils # (1.80-7.70) X 10*3/uL Monocytes # (0.20-1.00) X 10*3/uL Sodium (137-145) mmol/L BUN (9-20) mg/dL Creatinine (0.66-1.25) mg/dL Glucose (74-99) mg/dL POC Glucose (mg/dL) 201 H 229 H 151 H (70-110) mg/dL Hemoglobin A1c (<=6.0) % Calcium (8.4-10.2) mg/dL Total Protein (6.3-8.2) g/dL Albumin (3.5-5.0) g/dL 12/25/22 12/25/22 12/25/22 Range/Units 06:48 06:48 06:48 WBC 13.68 H (4.50-10.00) X 10*3/uL RBC 3.77 L (4.40-5.60) X 10*6/uL Hgb 11.7 L (13.0-17.0) d/dL Hct 35.2 L (39.6-50.0) % Neutrophils # 10.58 H (1.80-7.70) X 10*3/uL Monocytes # 1.36 H (0.20-1.00) X 10*3/uL Sodium 133 L (137-145) mmol/L BUN 22 H (9-20) mg/dL Creatinine 1.39 H (0.66-1.25) mg/dL Glucose 149 H (74-99) mg/dL POC Glucose (mg/dL) (70-110) mg/dL Hemoglobin A1c 8.4 H (<=6.0) % Calcium 8.3 L (8.4-10.2) mg/dL Total Protein 5.5 L (6.3-8.2) g/dL Albumin 2.7 L (3.5-5.0) g/dL 12/25/22 Range/Units 11:49 WBC (4.50-10.00) X 10*3/uL RBC (4.40-5.60) X 10*6/uL Hgb (13.0-17.0) d/dL Hct (39.6-50.0) % Neutrophils # (1.80-7.70) X 10*3/uL Monocytes # (0.20-1.00) X 10*3/uL Sodium (137-145) mmol/L BUN (9-20) mg/dL Creatinine (0.66-1.25) mg/dL Glucose (74-99) mg/dL POC Glucose (mg/dL) 135 H (70-110) mg/dL Hemoglobin A1c (<=6.0) % Calcium (8.4-10.2) mg/dL Total Protein (6.3-8.2) g/dL Albumin (3.5-5.0) g/dL Microbiology - Last 24 Hours (Table) 12/23/22 19:45 Blood Culture - Preliminary Blood 12/23/22 19:30 Blood Culture - Preliminary Blood Assessment and Plan Time with Patient: Less than 30
[2022-12-25] MEDS: hydrALAZINE HCL 20 MG/ML 1 ML VIAL IVP PRN (15:41)
[2022-12-25] MEDS: amLODIPine 5 MG TAB PO SCH (15:41)
[2022-12-25] MEDS ORDERED: LACTATED RINGERS 1,000 ML IV ONE (16:54)
[2022-12-25 17:04] LABS: Glucose,Whole Blood 137 mg/dL (70-110)
[2022-12-25] MEDS ORDERED: PROPOFOL 10 MG/ML 20 ML VIAL IV ONE (19:16)
[2022-12-25] MEDS ORDERED: KETAMINE 10 MG/ML 20 ML VIAL ONE (19:16)
[2022-12-25] MEDS ORDERED: LIDOCAINE 2% INJ 20 MG/ML (2 ML VIAL) ONE (19:16)
--- NOTE | 2022-12-25 19:45 | P.OP ---
Date of Procedure: 12/25/22 Preoperative Diagnosis: 1: Gangrene left fifth toe with subcutaneous air noted 2: Diabetic vascular disease. Postoperative Diagnosis: Same. Procedure(s) Performed: Transmetatarsal amputation left fifth toe with cultures. Implants: None. Anesthesia: BERNABEA Surgeon: Ethan Cornelius Estimated Blood Loss (ml): 5 IV fluids (ml): 100 Urine output (ml): 0 Pathology: other (Amputated left fifth toe.) Condition: stable Disposition: no change Indications for Procedure: Patient is a social male with a greater than 30 year history of diabetes mellitus who presented with Ringer's changes the left fifth toe. Workup demonstrated air within the subcutaneous space. The toes clearly nonviable and does require amputation with drainage/debridement of necrotic tissue. The procedure, risk and benefits were discussed. All questions were answered to and family satisfaction. Consent form signed. Description of Procedure: Patient brought the upper and placed in supine position Mr. general inhalational anesthesia administered by the department anesthesiology. Patient's left foot was sterilely prepped and draped in usual manner. Skin incision along the lateral aspect of the left foot at the fifth toe was made and extended. Some blood flow was identified and this was controlled with electrocautery. A malodor was noted upon incision. Cultures were obtained. The toe was amputated at the transmetatarsal amputation. The wound was irrigated and then packed with iodoform gauze. Patient tolerated procedure well
[2022-12-25 20:03] LABS: Glucose,Whole Blood 144 mg/dL (70-110)
[2022-12-25 21:10] LABS: Glucose,Whole Blood 138 mg/dL (70-110)
[2022-12-25] MEDS: HEPARIN SODIUM,PORCINE 5,000 UNIT/ML 1 ML VIAL SQ SCH (23:03)
[2022-12-26] MEDS: VANCOMYCIN 1,500 MG in SODIUM CHLORIDE 0.9% 500 ML 500 ML IVPB SCH ×2 (00:09→22:57)
[2022-12-26] MEDS: AMPICILLIN-SULBACTAM 3 GM in SODIUM CHLORIDE 0.9% 100 ML IVPB SCH ×4 (04:41→22:13)
[2022-12-26 06:22] LABS: Glucose,Whole Blood 127 mg/dL (70-110)
[2022-12-26] MEDS: INSULIN ASPART (NovoLOG) 100 UNIT/ML VIAL SQ SCH ×4 (06:38→20:34)
[2022-12-26] MEDS: FAMOTIDINE 20 MG TAB PO SCH (07:52)
[2022-12-26] MEDS: amLODIPine 5 MG TAB PO SCH (07:52)
[2022-12-26] MEDS: HEPARIN SODIUM,PORCINE 5,000 UNIT/ML 1 ML VIAL SQ SCH ×2 (07:52→20:34)
--- NOTE | 2022-12-26 10:23 | P.PN ---
Subjective Progress Note Date: 12/26/22 Principal diagnosis: Left fifth toe infection, osteomyelitis The patient is seen and examined today as a follow-up. He is postop day #1 for left fifth toe amputation with cultures. Cultures currently pending. Patient denies any pain at this time. He has been afebrile. Dressing is clean dry and intact. Patient remains on vancomycin and Unasyn. Objective - Vital Signs Vital signs: Vital Signs Temp 98.6 F 12/26/22 07:20 Pulse 97 12/26/22 07:20 Resp 19 12/26/22 07:20 BP 166/76 12/26/22 07:20 Pulse Ox 96 12/26/22 07:59 FiO2 21 12/26/22 07:59 Intake & Output 12/25/22 12/26/22 12/26/22 18:59 06:59 18:59 Intake Total 100 Output Total 155 Balance -55 Intake: IV 100 Output: Urine 150 Estimated Blood Loss 5 Other: Voiding Method Urinal Urinal Diaper Diaper # Voids 1 2 - Exam General appearance: The patient is alert, oriented, appears in no acute distress. HET: Head is normocephalic and atraumatic. Pupils are equal and reactive. Neck: Supple. Heart: Regular. Lungs: Equal expansion, normal respiratory effort. Abdomen: Soft, nondistended. Extremities: Right foot with dressing clean dry and intact. Neurological: No focal deficits. - Labs CBC & Chem 7: 12/25/22 06:48 12/25/22 06:48 Labs: Abnormal Lab Results - Last 24 Hours (Table) 12/25/22 12/25/22 12/25/22 Range/Units 06:48 06:48 11:49 WBC 13.68 H (4.50-10.00) X 10*3/uL RBC 3.77 L (4.40-5.60) X 10*6/uL Hgb 11.7 L (13.0-17.0) d/dL Hct 35.2 L (39.6-50.0) % Neutrophils # 10.58 H (1.80-7.70) X 10*3/uL Monocytes # 1.36 H (0.20-1.00) X 10*3/uL POC Glucose (mg/dL) 135 H (70-110) mg/dL Hemoglobin A1c 8.4 H (<=6.0) % 12/25/22 12/25/22 12/25/22 Range/Units 17:02 20:01 21:08 WBC (4.50-10.00) X 10*3/uL RBC (4.40-5.60) X 10*6/uL Hgb (13.0-17.0) d/dL Hct (39.6-50.0) % Neutrophils # (1.80-7.70) X 10*3/uL Monocytes # (0.20-1.00) X 10*3/uL POC Glucose (mg/dL) 137 H 144 H 138 H (70-110) mg/dL Hemoglobin A1c (<=6.0) % 12/26/22 Range/Units 06:19 WBC (4.50-10.00) X 10*3/uL RBC (4.40-5.60) X 10*6/uL Hgb (13.0-17.0) d/dL Hct (39.6-50.0) % Neutrophils # (1.80-7.70) X 10*3/uL Monocytes # (0.20-1.00) X 10*3/uL POC Glucose (mg/dL) 127 H (70-110) mg/dL Hemoglobin A1c (<=6.0) % Microbiology - Last 24 Hours (Table) 12/23/22 19:45 Blood Culture - Preliminary Blood 12/23/22 19:30 Blood Culture - Preliminary Blood Assessment and Plan Assessment: 1. Right fifth toe gangrene left fifth toe with subcutaneous air is status post left fifth toe transmetatarsal amputation 2. Diabetic vascular disease Plan: 1. Daily dressing change with iodoform, 4 x 4, Kerlix 2. Continue antibiotics per recommendations from infectious disease 3. PT/OT on consult 4. Heel walk on left foot only 5. Postop shoe to left foot Thank you for this consultation, we will continue to follow. The impression and plan of care has been dictated as directed. I performed a history and examination of this patient, discussed the same with the dictator. I agree with the dictator's note ,documented as a scribe. Any additional findings or plans will be noted.
[2022-12-26 10:56] LABS: Basophils # (A) 0.06 X 10*3/uL (0.00-0.10); Basophils % (A) 0.4 %; Eosinophils # (A) 0.06 X 10*3/uL (0.04-0.35); Eosinophils % (A) 0.4 %; HCT 34.3 % (39.6-50.0); HGB 11.2 d/dL (13.0-17.0); Lymphocytes # (A) 1.54 X 10*3/uL (0.90-5.00); Lymphocytes % (A) 10.4 %; MCH 30.2 pg (27.0-32.0); MCHC 32.7 d/dL (32.0-37.0); MCV 92.5 FL (80.0-97.0); Mean Platelet Volume 9.5 FL (9.5-12.2); Monocytes # (A) 1.33 X 10*3/uL (0.20-1.00); NRBC Per 100 WBC 0 X 10*3/uL (0.00-0.01); Neutrophils % (A) 79.3 %; Platelet Count 285 X 10*3/uL (140-440); RBC 3.71 X 10*6/uL (4.40-5.60); RDW 13.1 % (11.5-14.5); WBC 14.86 X 10*3/uL (4.50-10.00)
[2022-12-26 11:10] LABS: BUN/Creat Ratio 11.92 Ratio (12.00-20.00); Blood Urea Nitrogen 15.5 mg/dL (9.0-27.0); Calcium 8.8 mg/dL (8.7-10.3); Carbon Dioxide 23.7 mmol/L (21.6-31.8); Chloride 103 mmol/L (96-109); Glucose 131 mg/dL (70-110); Magnesium 1.7 mg/dL (1.5-2.4); Potassium 3.9 mmol/L (3.5-5.5); Sodium 139 mmol/L (135-145)
[2022-12-26 12:03] LABS: Glucose,Whole Blood 119 mg/dL (70-110)
--- NOTE | 2022-12-26 15:25 | XR ---
EXAMINATION TYPE: XR chest 1V DATE OF EXAM: 12/26/2022 3:04 PM COMPARISON: Chest radiographs from 12/23/2022 TECHNIQUE: XR chest 1V Frontal view of the chest. CLINICAL INDICATION:Male, 87 years old with history of SOB; FINDINGS: Lungs/Pleura: There is no evidence of pleural effusion, focal consolidation, or pneumothorax. Elevat ion of the right hemidiaphragm. Pulmonary vascularity: Unremarkable. Heart/mediastinum: Cardiomediastinal silhouette is prominent in size. Musculoskeletal: No acute osseous pathology. IMPRESSION: No acute cardiopulmonary disease/process. No significant change from prior examination.
--- NOTE | 2022-12-26 16:04 | P.PN ---
Subjective Progress Note Date: 12/26/22 Principal diagnosis: Left fifth toe gangrene and cellulitis Patient is a 87-year-old -[place] male with a past medical history significant for diabetes mellitus and hypertension patient was brought into the ER last night by EMS complaining of generalized weakness , patient noticed to have a necrotic left fifth toe, patient did have a CT of the foot infection with osteomyelitis involving the fifth digit extending from the distal fifth digit phalanx to the head of the fifth metatarsal. Patient is status post left fifth toe transmetatarsal amputation completed on 12/25/2022 On today's evaluation that is a 12/26/2022, the patient remains to be afebrile, patient is is up in the chair, he is breathing comfortably on room air, denies any chest pain shortness with a cough or any worsening pain to the left foot toe amputation site Patient white count is slightly up at 14.86 today, creatinine is 1.3, blood cultures and local wound cultures are pending Objective - Vital Signs Vital signs: Vital Signs Temp 98.6 F 12/26/22 07:20 Pulse 97 12/26/22 07:20 Resp 19 12/26/22 07:20 BP 166/76 12/26/22 07:20 Pulse Ox 96 12/26/22 07:59 FiO2 21 12/26/22 07:59 Intake & Output 12/25/22 12/26/22 12/26/22 18:59 06:59 18:59 Intake Total 100 Output Total 155 275 Balance -55 -275 Intake: IV 100 Output: Urine 150 275 Estimated Blood Loss 5 Other: Voiding Method Urinal Urinal Diaper Diaper # Voids 1 2 - Exam GENERAL DESCRIPTION: An elderly male lying in bed in no distress RESPIRATORY SYSTEM: Unlabored breathing , decreased breath sounds at bases HEART: S1 S2 regular rate and rhythm , ABDOMEN: Soft , no tenderness EXTREMITIES: Left foot is currently dressed no drainage on the dressing - Labs CBC & Chem 7: 12/26/22 06:39 12/26/22 06:39 Labs: Abnormal Lab Results - Last 24 Hours (Table) 12/25/22 12/25/22 12/25/22 Range/Units 06:48 17:02 20:01 WBC (4.50-10.00) X 10*3/uL RBC (4.40-5.60) X 10*6/uL Hgb (13.0-17.0) d/dL Hct (39.6-50.0) % Neutrophils # (1.80-7.70) X 10*3/uL Monocytes # (0.20-1.00) X 10*3/uL Anion Gap (4.00-12.00) mmol/L Est GFR (CKD-EPI) (>=60) BUN/Creatinine Ratio (12.00-20.00) Ratio Glucose (70-110) mg/dL POC Glucose (mg/dL) 137 H 144 H (70-110) mg/dL Hemoglobin A1c 8.4 H (<=6.0) % 12/25/22 12/26/22 12/26/22 Range/Units 21:08 06:19 06:39 WBC 14.86 H (4.50-10.00) X 10*3/uL RBC 3.71 L (4.40-5.60) X 10*6/uL Hgb 11.2 L (13.0-17.0) d/dL Hct 34.3 L (39.6-50.0) % Neutrophils # 11.80 H (1.80-7.70) X 10*3/uL Monocytes # 1.33 H (0.20-1.00) X 10*3/uL Anion Gap (4.00-12.00) mmol/L Est GFR (CKD-EPI) (>=60) BUN/Creatinine Ratio (12.00-20.00) Ratio Glucose (70-110) mg/dL POC Glucose (mg/dL) 138 H 127 H (70-110) mg/dL Hemoglobin A1c (<=6.0) % 12/26/22 12/26/22 Range/Units 06:39 12:01 WBC (4.50-10.00) X 10*3/uL RBC (4.40-5.60) X 10*6/uL Hgb (13.0-17.0) d/dL Hct (39.6-50.0) % Neutrophils # (1.80-7.70) X 10*3/uL Monocytes # (0.20-1.00) X 10*3/uL Anion Gap 12.30 H (4.00-12.00) mmol/L Est GFR (CKD-EPI) 54 L (>=60) BUN/Creatinine Ratio 11.92 L (12.00-20.00) Ratio Glucose 131 H (70-110) mg/dL POC Glucose (mg/dL) 119 H (70-110) mg/dL Hemoglobin A1c (<=6.0) % Microbiology - Last 24 Hours (Table) 12/23/22 19:45 Blood Culture - Preliminary Blood 12/23/22 19:30 Blood Culture - Preliminary Blood Assessment and Plan (1) Gangrene of toe of left foot Current Visit: Yes Status: Acute Code(s): I96 - GANGRENE, NOT ELSEWHERE CLASSIFIED SNOMED Code(s): 10890575435788469 Plan: 1patient presented hospital with sepsis in this patient with a fever tachycardia elevated white count source is left fifth toe infection with evidence of emphysematous changes seen on the CT we will need to cover for the polymicrobial ngozi usually associated with these types of infection, patient is status post amputation of the left fifth toe by vascular surgery on 12/25/2022 2patient with renal insufficiency and high risk of nephrotoxicity, the patient creatinine is down to 1.3 3-patient to continue vancomycin while watching his kidney function closely along with Unasyn 3 g every 6 hours, while waiting for the cultures to finalize Dictation was produced using [employer] dictation software. please excuse any grammatical, word or spelling errors. Time with Patient: Less than 30
[2022-12-26] MEDS: HYDROcodone/APAP 5-325MG 1 EACH TAB PO PRN (17:01)
[2022-12-26 17:08] LABS: Glucose,Whole Blood 242 mg/dL (70-110)
[2022-12-26 20:15] LABS: Glucose,Whole Blood 173 mg/dL (70-110)
[2022-12-26] MEDS ORDERED: VANCOMYCIN TROUGH DUE 1 EACH MISC MISCELLANE ONE (21:00)
--- NOTE | 2022-12-26 21:13 | P.PN ---
Subjective Progress Note Date: 12/26/22 Patient is evaluated today resting in bed he is pending surgical amputation of his left fifth toe due to osteomyelitis and tissue necrosis. Patient is reporting minimal pain at this time. Patient is being followed by infectious disease and remains on a combination of IV Unasyn and IV vancomycin. Blood c ultures were taken and pending at this time. White count is 13.68, creatinine improved to 1.39. Blood glucose improved to 130s. 12/26/2022 Patient evaluated today sitting up in the chair. Postoperative day #1 surgical amputation of the left fifth toe due to infection and osteomyelitis. Remains on IV vancomycin and IV unasyn. Cultures preliminary showing gram negative bacilli and group b strep agalactiae. Blood culture negative so far. Glucose improved. Magnesium 1.7 today. White count 14.86. Blood pressure improved 159/67. Review of Systems Constitutional: Denied any fatigue denied any fever. Cardio vascular: denied any chest pain, palpitations Gastrointestinal: denied any nausea, vomiting, diarrhea Pulmonary: Denied any shortness of breath cough Neurologic denied any new focal deficits All inpatient medications were reviewed and appropriate changes in these medications as dictated in the interval history and assessment and plan. PHYSICAL EXAMINATION: GENERAL: The patient is alert and oriented x2-3, not in any acute distress. Well developed, well nourished. HEENT: Pupils are round and equally reacting to light. EOMI. No scleral icterus. No conjunctival pallor. Normocephalic, atraumatic. No pharyngeal erythema. No thyromegaly. CARDIOVASCULAR: S1 and S2 present. No murmurs, rubs, or gallops. PULMONARY: Chest is clear to auscultation, no wheezing or crackles. ABDOMEN: Soft, nontender, nondistended, normoactive bowel sounds. No palpable organomegaly. MUSCULOSKELETAL: No joint swelling or deformity. EXTREMITIES: No cyanosis, clubbing, or pedal edema. Malodorous left fifth toe, blackened and boggy. NEUROLOGICAL: Gross neurological examination did not reveal any focal deficits. SKIN: No rashes. Assessment Left foot cellulitis with left fifth toe osteomyelitis and tissue necrosis post op day #1 surgical amputation left fifth toe. Diabetes mellitus type 2 with hyperglycemia hemoglobin A1c of 8.4 Hypertension improved. Leukocytosis and sepsis Former smoker GI prophylaxis DVT prophylaxis Full Code Plan Continue pain management Continue amlodipine and hydralazine PRN. Continue on IV antibiotics ID following closely Pending final surgical cultures. PT/OT following Repeat labs in AM The impression and plan of care has been dictated by Laura Christie Nurse Practitioner as directed. Dr. Vidal MD I have performed a history and physical examination and medical decision making of this patient, discussed the same with the dictator, and agree with the dictators assessment and plan as written, documented as a scribe. Based on total visit time, I have performed more than 50% of this visit. Objective - Vital Signs Vital signs: Vital Signs Temp 99.9 F H 12/26/22 14:44 Pulse 99 12/26/22 14:44 Resp 18 12/26/22 14:44 BP 138/63 12/26/22 14:44 Pulse Ox 99 12/26/22 14:44 FiO2 21 12/26/22 07:59 Intake & Output 12/25/22 12/26/22 12/26/22 18:59 06:59 18:59 Intake Total 100 Output Total 155 275 Balance -55 -275 Intake: IV 100 Output: Urine 150 275 Estimated Blood Loss 5 Other: Voiding Method Urinal Urinal Diaper Diaper # Voids 1 2 - Labs CBC & Chem 7: 12/26/22 06:39 12/26/22 06:39 Labs: Abnormal Lab Results - Last 24 Hours (Table) 12/25/22 12/25/22 12/25/22 Range/Units 17:02 20:01 21:08 WBC (4.50-10.00) X 10*3/uL RBC (4.40-5.60) X 10*6/uL Hgb (13.0-17.0) d/dL Hct (39.6-50.0) % Neutrophils # (1.80-7.70) X 10*3/uL Monocytes # (0.20-1.00) X 10*3/uL Anion Gap (4.00-12.00) mmol/L Est GFR (CKD-EPI) (>=60) BUN/Creatinine Ratio (12.00-20.00) Ratio Glucose (70-110) mg/dL POC Glucose (mg/dL) 137 H 144 H 138 H (70-110) mg/dL 12/26/22 12/26/22 12/26/22 Range/Units 06:19 06:39 06:39 WBC 14.86 H (4.50-10.00) X 10*3/uL RBC 3.71 L (4.40-5.60) X 10*6/uL Hgb 11.2 L (13.0-17.0) d/dL Hct 34.3 L (39.6-50.0) % Neutrophils # 11.80 H (1.80-7.70) X 10*3/uL Monocytes # 1.33 H (0.20-1.00) X 10*3/uL Anion Gap 12.30 H (4.00-12.00) mmol/L Est GFR (CKD-EPI) 54 L (>=60) BUN/Creatinine Ratio 11.92 L (12.00-20.00) Ratio Glucose 131 H (70-110) mg/dL POC Glucose (mg/dL) 127 H (70-110) mg/dL 12/26/22 Range/Units 12:01 WBC (4.50-10.00) X 10*3/uL RBC (4.40-5.60) X 10*6/uL Hgb (13.0-17.0) d/dL Hct (39.6-50.0) % Neutrophils # (1.80-7.70) X 10*3/uL Monocytes # (0.20-1.00) X 10*3/uL Anion Gap (4.00-12.00) mmol/L Est GFR (CKD-EPI) (>=60) BUN/Creatinine Ratio (12.00-20.00) Ratio Glucose (70-110) mg/dL POC Glucose (mg/dL) 119 H (70-110) mg/dL Microbiology - Last 24 Hours (Table) 12/24/22 12:09 Blood Culture - Preliminary Blood 12/23/22 19:45 Blood Culture - Preliminary Blood 12/23/22 19:30 Blood Culture - Preliminary Blood Assessment and Plan Time with Patient: Less than 30
[2022-12-27] MEDS: AMPICILLIN-SULBACTAM 3 GM in SODIUM CHLORIDE 0.9% 100 ML IVPB SCH ×3 (04:18→17:38)
[2022-12-27] MEDS: hydrALAZINE HCL 20 MG/ML 1 ML VIAL IVP PRN (05:30)
[2022-12-27 06:09] LABS: Glucose,Whole Blood 144 mg/dL (70-110)
[2022-12-27] MEDS: INSULIN ASPART (NovoLOG) 100 UNIT/ML VIAL SQ SCH ×5 (06:19→21:24)
[2022-12-27 07:19] LABS: African American GFR (CKD) 62 (>60 ml/min/1.73 sqM); Non-African American GFR(CKD) 54 (>60 ml/min/1.73 sqM)
[2022-12-27] MEDS: FAMOTIDINE 20 MG TAB PO SCH (07:54)
[2022-12-27] MEDS: HEPARIN SODIUM,PORCINE 5,000 UNIT/ML 1 ML VIAL SQ SCH ×2 (07:54→21:24)
[2022-12-27] MEDS: amLODIPine 5 MG TAB PO SCH (07:54)
[2022-12-27] MEDS: HYDROcodone/APAP 5-325MG 1 EACH TAB PO PRN ×2 (10:54→17:19)
[2022-12-27 11:00] LABS: Basophils # (A) 0.05 X 10*3/uL (0.00-0.10); Basophils % (A) 0.4 %; Eosinophils # (A) 0.12 X 10*3/uL (0.04-0.35); Eosinophils % (A) 0.8 %; HCT 35.2 % (39.6-50.0); HGB 11.8 d/dL (13.0-17.0); Lymphocytes # (A) 1.47 X 10*3/uL (0.90-5.00); Lymphocytes % (A) 10.3 %; MCH 31.1 pg (27.0-32.0); MCHC 33.5 d/dL (32.0-37.0); MCV 92.6 FL (80.0-97.0); Mean Platelet Volume 9.6 FL (9.5-12.2); Monocytes # (A) 1.41 X 10*3/uL (0.20-1.00); Monocytes % (A) 9.9 %; NRBC Per 100 WBC 0 X 10*3/uL (0.00-0.01); Neutrophils # (A) 11.09 X 10*3/uL (1.80-7.70); Neutrophils % (A) 77.9 %; Platelet Count 305 X 10*3/uL (140-440); RDW 13.1 % (11.5-14.5); WBC 14.24 X 10*3/uL (4.50-10.00)
--- NOTE | 2022-12-27 11:08 | P.PN ---
Subjective Progress Note Date: 12/27/22 Principal diagnosis: Left fifth toe infection, osteomyelitis Patient was seen and examined as a follow-up. He is postop day #2 for left fifth toe amputation. Preliminary wound culture coming back gram-negative bacilli, strep group B. Patient does have some discomfort at amputation site however well-managed with pain medication. Physical therapy had him up yesterday into the chair. Postop shoe is in the room. He is been afebrile. Objective - Vital Signs Vital signs: Vital Signs Temp 98.8 F 12/27/22 07:09 Pulse 104 H 12/27/22 07:09 Resp 15 12/27/22 07:09 BP 187/80 12/27/22 07:09 Pulse Ox 98 12/27/22 07:41 FiO2 21 12/27/22 07:41 Intake & Output 12/26/22 12/27/22 12/27/22 18:59 06:59 18:59 Output Total 275 125 Balance -275 -125 Output: Urine 275 125 Other: Voiding Method Urinal Diaper # Voids 3 2 - Exam General appearance: The patient is alert, oriented, appears in no acute distress. HET: Head is normocephalic and atraumatic. Neck: Supple. Abdomen: Soft, nondistended. Extremities: Left foot amputation site was some surrounding eschar, no drainage or odor. No surrounding erythema. Neurological: No focal deficits. - Labs CBC & Chem 7: 12/27/22 06:24 12/27/22 06:24 Labs: Abnormal Lab Results - Last 24 Hours (Table) 12/26/22 12/26/22 12/26/22 Range/Units 06:39 12:01 17:06 WBC (4.50-10.00) X 10*3/uL RBC (4.40-5.60) X 10*6/uL Hgb (13.0-17.0) d/dL Hct (39.6-50.0) % Neutrophils # (1.80-7.70) X 10*3/uL Monocytes # (0.20-1.00) X 10*3/uL Anion Gap 12.30 H (4.00-12.00) mmol/L Est GFR (CKD-EPI) 54 L (>=60) BUN/Creatinine Ratio 11.92 L (12.00-20.00) Ratio Glucose 131 H (70-110) mg/dL POC Glucose (mg/dL) 119 H 242 H (70-110) mg/dL 12/26/22 12/27/22 12/27/22 Range/Units 20:13 06:08 06:24 WBC 14.24 H (4.50-10.00) X 10*3/uL RBC 3.80 L (4.40-5.60) X 10*6/uL Hgb 11.8 L (13.0-17.0) d/dL Hct 35.2 L (39.6-50.0) % Neutrophils # 11.09 H (1.80-7.70) X 10*3/uL Monocytes # 1.41 H (0.20-1.00) X 10*3/uL Anion Gap (4.00-12.00) mmol/L Est GFR (CKD-EPI) (>=60) BUN/Creatinine Ratio (12.00-20.00) Ratio Glucose (70-110) mg/dL POC Glucose (mg/dL) 173 H 144 H (70-110) mg/dL Microbiology - Last 24 Hours (Table) 12/23/22 19:45 Blood Culture - Preliminary Blood 12/23/22 19:30 Blood Culture - Preliminary Blood 12/25/22 19:39 Gram Stain - Preliminary Toe - Left Fifth Wound Culture - Preliminary Gram Neg Bacilli Strep agalactiae - (group b) 12/24/22 12:09 Blood Culture - Preliminary Blood Assessment and Plan Assessment: 1. Left fifth toe gangrene, left fifth toe with subcutaneous air status post left fifth toe transmetatarsal amputation 2. Diabetic vascular disease Plan: 1. Daily dressing change with iodoform, 4 x 4, Kerlix 2. Continue antibiotics per recommendations from infectious disease 3. PT/OT on consult 4. Heel walk on left foot only 5. Postop shoe to left foot 6. Wound care consulted, patient will need outpatient follow-up and wound care 7. Cleared from vascular surgery for discharge Thank you for this consultation, we will continue to follow. The impression and plan of care has been dictated as directed. Dr. Silva I performed a history and examination of this patient, discussed the same with the dictator. I agree with the dictator's note ,documented as a scribe. Any additional findings or plans will be noted.
[2022-12-27 11:58] LABS: Glucose,Whole Blood 295 mg/dL (70-110)
[2022-12-27] MEDS ORDERED: amLODIPine 5 MG TAB PO STA (12:00)
--- NOTE | 2022-12-27 13:27 | P.CONS ---
History of Present Illness - Reason for Consult Consult date: 12/27/22 wound consult - History of Present Illness This is an 87-year-old gentleman being seen by the wound care center on [address]. for a post left toe amputation. He is postop day #2 for left fifth toe amputation. Preliminary wound culture coming back gram-negative bacilli, strep group B. Patient currently has Idoform to the site. Patient does have positive osteomyelitis. Past medical history significant for diabetes and hypertension he is a former smoker. Review Of Systems: Constitutional: No fever, no chills, no night sweats. No weight change. No weakness, fatigue or lethargy. No daytime sleepiness. Integumentary:reports wounds, no lesions. No rash or pruritus. No unusual bruising. No change in hair or nails. Physical exam: General Appearance: Alert, cooperative, no distress, appears stated age. Skin: See HPI all other Skin color, texture, tugor normal, no rashes or lesions. Neurologic: Alert oriented x3 Assessment: 1. Nonhealing ulceration with bone necrosis left foot 2. osteomyelitis 3. Diabetic foot ulcer Plan: 1. Apply moistened absorptive silver, rolled gauze and secure tape. Change Sunday. Patient would benefit from advanced wound care and a wound care center. Patient is agreeable to the plan. Patient is also a candidate for hyperbaric oxygen therapy related to the osteomyelitis Past Medical History Past Medical History: Diabetes Mellitus, Hypertension History of Any Multi-Drug Resistant Organisms: None Reported Past Surgical History: Orthopedic Surgery Additional Past Surgical History / Comment(s): right wrist surgery Past Anesthesia/Blood Transfusion Reactions: No Reported Reaction Past Psychological History: No Psychological Hx Reported Smoking Status: Former smoker Past Alcohol Use History: None Reported Past Drug Use History: None Reported Medications and Allergies Home Medications Medication Instructions Recorded Confirmed Type No Known Home Medications 12/23/22 12/23/22 History Allergies Allergy/AdvReac Type Severity Reaction Status Date / Time No Known Allergies Allergy Verified 12/23/22 21:51 Physical Exam Vitals: Vital Signs Temp Pulse Resp BP BP Pulse Ox FiO2 12/27/22 12:39 97.8 F 76 18 148/71 98 12/27/22 07:41 98 21 12/27/22 07:09 98.8 F 104 H 15 187/80 172/82 100 12/27/22 05:27 98 174/81 12/27/22 02:00 99.5 F 99 16 170/76 98 12/26/22 19:46 97.8 F 100 16 159/67 100 12/26/22 14:44 99.9 F H 99 18 138/63 99 Intake and Output 12/26/22 12/27/22 12/27/22 22:59 06:59 14:59 Output Total 125 Balance -125 Output: Urine 125 Other: Voiding Method Urinal Diaper # Voids 1 2 Results CBC & Chem 7: 12/27/22 06:24 12/27/22 06:24 Labs: Abnormal Lab Results - Last 24 Hours (Table) 12/26/22 12/26/22 12/27/22 Range/Units 17:06 20:13 06:08 WBC (4.50-10.00) X 10*3/uL RBC (4.40-5.60) X 10*6/uL Hgb (13.0-17.0) d/dL Hct (39.6-50.0) % Neutrophils # (1.80-7.70) X 10*3/uL Monocytes # (0.20-1.00) X 10*3/uL POC Glucose (mg/dL) 242 H 173 H 144 H (70-110) mg/dL 12/27/22 12/27/22 Range/Units 06:24 11:52 WBC 14.24 H (4.50-10.00) X 10*3/uL RBC 3.80 L (4.40-5.60) X 10*6/uL Hgb 11.8 L (13.0-17.0) d/dL Hct 35.2 L (39.6-50.0) % Neutrophils # 11.09 H (1.80-7.70) X 10*3/uL Monocytes # 1.41 H (0.20-1.00) X 10*3/uL POC Glucose (mg/dL) 295 H (70-110) mg/dL Microbiology - Last 24 Hours (Table) 12/24/22 12:09 Blood Culture - Preliminary Blood 12/23/22 19:45 Blood Culture - Preliminary Blood 12/23/22 19:30 Blood Culture - Preliminary Blood 12/25/22 19:39 Gram Stain - Preliminary Toe - Left Fifth Wound Culture - Preliminary Gram Neg Bacilli Strep agalactiae - (group b) Assessment and Plan (1) Non-pressure chronic ulcer of other part of left foot with necrosis of bone Current Visit: Yes Status: Acute Code(s): L97.524 - NON-PRS CHRONIC ULCER OTH PRT LEFT FOOT W NECROSIS OF BONE SNOMED Code(s): 63295983898610388 (2) Osteomyelitis, unspecified Current Visit: Yes Status: Acute Code(s): M86.9 - OSTEOMYELITIS, UNSPECIFIED SNOMED Code(s): 03206595 (3) Type 2 diabetes mellitus with foot ulcer Current Visit: Yes Status: Acute Code(s): E11.621 - TYPE 2 DIABETES MELLITUS WITH FOOT ULCER; L97.509 - NON-PRESSURE CHRONIC ULCER OTH PRT UNSP FOOT W UNSP SEVERITY SNOMED Code(s): 885907334
[2022-12-27] MEDS ORDERED: VANCOMYCIN 1,500 MG in SODIUM CHLORIDE 0.9% 500 ML 500 ML IVPB SCH (14:00)
--- NOTE | 2022-12-27 14:33 | P.PN ---
Subjective Progress Note Date: 12/27/22 Patient is evaluated today resting in bed he is pending surgical amputation of his left fifth toe due to osteomyelitis and tissue necrosis. Patient is reporting minimal pain at this time. Patient is being followed by infectious disease and remains on a combination of IV Unasyn and IV vancomycin. Blood c ultures were taken and pending at this time. White count is 13.68, creatinine improved to 1.39. Blood glucose improved to 130s. 12/26/2022 Patient evaluated today sitting up in the chair. Postoperative day #1 surgical amputation of the left fifth toe due to infection and osteomyelitis. Remains on IV vancomycin and IV unasyn. Cultures preliminary showing gram negative bacilli and group b strep agalactiae. Blood culture negative so far. Glucose improved. Magnesium 1.7 today. White count 14.86. Blood pressure improved 159/67. 12/27/2022 Patient is evaluated today sitting up in bed. He is postoperative day #2 surgical amputation of the left fifth toe. He is reporting that the oral pain medication is not touching the pain and he does have generalized achiness all over. He has IV Dilaudid as needed. Pulmonary wound cultures are showing gram- negative bacilli and strep group B blood cultures are negative so far. He remains on IV vancomycin and IV Unasyn. Patient will be receiving a PICC line for discharge antibiotics. Absolute x-ray and white count of 14.24. His creatinine has normalized down to 1.22. Blood glucose 290s. Review of Systems Constitutional: Denied any fatigue denied any fever. Cardio vascular: denied any chest pain, palpitations Gastrointestinal: denied any nausea, vomiting, diarrhea Pulmonary: Denied any shortness of breath cough Neurologic denied any new focal deficits All inpatient medications were reviewed and appropriate changes in these medications as dictated in the interval history and assessment and plan. PHYSICAL EXAMINATION: GENERAL: The patient is alert and oriented x2-3, not in any acute distress. Well developed, well nourished. HEENT: Pupils are round and equally reacting to light. EOMI. No scleral icterus. No conjunctival pallor. Normocephalic, atraumatic. No pharyngeal erythema. No thyromegaly. CARDIOVASCULAR: S1 and S2 present. No murmurs, rubs, or gallops. PULMONARY: Chest is clear to auscultation, no wheezing or crackles. ABDOMEN: Soft, nontender, nondistended, normoactive bowel sounds. No palpable organomegaly. MUSCULOSKELETAL: No joint swelling or deformity. EXTREMITIES: No cyanosis, clubbing, or pedal edema. Postsurgical dressing intact NEUROLOGICAL: Gross neurological examination did not reveal any focal deficits. SKIN: No rashes. Assessment Left foot cellulitis with left fifth toe diabetic ulcer with osteomyelitis and tissue necrosis post op day # 2 surgical amputation left fifth toe. Diabetes mellitus type 2 with hyperglycemia hemoglobin A1c of 8.4 Hypertension improved. Leukocytosis and sepsis Former smoker GI prophylaxis DVT prophylaxis Full Code Plan Continue pain management Continue amlodipine and hydralazine PRN. Amlodipine has been increased to 10 mg daily Continue on IV antibiotics ID following closely The claimant has been ordered for discharge planning final discharge antibiotics once microsensitivities are completed this sill be provided by infectious disease Pending final surgical cultures. PT/OT following Repeat labs in AM The impression and plan of care has been dictated by Laura Christie Nurse Practitioner as directed. Dr. Vidal MD I have performed a history and physical examination and medical decision making of this patient, discussed the same with the dictator, and agree with the dictators assessment and plan as written, documented as a scribe. Based on total visit time, I have performed more than 50% of this visit. Objective - Vital Signs Vital signs: Vital Signs Temp 98.8 F 12/27/22 07:09 Pulse 104 H 12/27/22 07:09 Resp 15 12/27/22 07:09 BP 187/80 12/27/22 07:09 Pulse Ox 98 12/27/22 07:41 FiO2 21 12/27/22 07:41 Intake & Output 12/26/22 12/27/22 12/27/22 18:59 06:59 18:59 Output Total 275 125 Balance -275 -125 Output: Urine 275 125 Other: Voiding Method Urinal Diaper # Voids 3 2 - Labs CBC & Chem 7: 12/27/22 06:24 12/27/22 06:24 Labs: Abnormal Lab Results - Last 24 Hours (Table) 12/26/22 12/26/22 12/26/22 Range/Units 06:39 06:39 12:01 WBC 14.86 H (4.50-10.00) X 10*3/uL RBC 3.71 L (4.40-5.60) X 10*6/uL Hgb 11.2 L (13.0-17.0) d/dL Hct 34.3 L (39.6-50.0) % Neutrophils # 11.80 H (1.80-7.70) X 10*3/uL Monocytes # 1.33 H (0.20-1.00) X 10*3/uL Anion Gap 12.30 H (4.00-12.00) mmol/L Est GFR (CKD-EPI) 54 L (>=60) BUN/Creatinine Ratio 11.92 L (12.00-20.00) Ratio Glucose 131 H (70-110) mg/dL POC Glucose (mg/dL) 119 H (70-110) mg/dL 12/26/22 12/26/22 12/27/22 Range/Units 17:06 20:13 06:08 WBC (4.50-10.00) X 10*3/uL RBC (4.40-5.60) X 10*6/uL Hgb (13.0-17.0) d/dL Hct (39.6-50.0) % Neutrophils # (1.80-7.70) X 10*3/uL Monocytes # (0.20-1.00) X 10*3/uL Anion Gap (4.00-12.00) mmol/L Est GFR (CKD-EPI) (>=60) BUN/Creatinine Ratio (12.00-20.00) Ratio Glucose (70-110) mg/dL POC Glucose (mg/dL) 242 H 173 H 144 H (70-110) mg/dL Microbiology - Last 24 Hours (Table) 12/23/22 19:45 Blood Culture - Preliminary Blood 12/23/22 19:30 Blood Culture - Preliminary Blood 12/25/22 19:39 Gram Stain - Preliminary Toe - Left Fifth Wound Culture - Preliminary Gram Neg Bacilli Strep agalactiae - (group b) 12/24/22 12:09 Blood Culture - Preliminary Blood Assessment and Plan Time with Patient: Less than 30
[2022-12-27 16:54] LABS: Glucose,Whole Blood 175 mg/dL (70-110)
[2022-12-27] MEDS: PIPERACILLIN-TAZOBACTAM 3.375 GM in SODIUM CHLORIDE 0.9% 100 ML IVPB SCH (17:20)
[2022-12-27 21:14] LABS: Glucose,Whole Blood 250 mg/dL (70-110)
[2022-12-27] MEDS: INSULIN DETEMIR (LEVEMIR) 100 UNIT/ML SYR SQ SCH (21:24)
[2022-12-28] MEDS: PIPERACILLIN-TAZOBACTAM 3.375 GM in SODIUM CHLORIDE 0.9% 100 ML IVPB SCH ×3 (02:02→17:25)
[2022-12-28 06:00] LABS: Glucose,Whole Blood 119 mg/dL (70-110)
[2022-12-28] MEDS: INSULIN ASPART (NovoLOG) 100 UNIT/ML VIAL SQ SCH ×7 (06:09→21:11)
[2022-12-28] MEDS: HEPARIN SODIUM,PORCINE 5,000 UNIT/ML 1 ML VIAL SQ SCH ×2 (08:02→21:12)
[2022-12-28] MEDS: FAMOTIDINE 20 MG TAB PO SCH (08:02)
[2022-12-28] MEDS: amLODIPine 10 MG TAB PO SCH (08:02)
--- NOTE | 2022-12-28 10:37 | P.PN ---
Subjective Progress Note Date: 12/28/22 Principal diagnosis: Left fifth toe infection, osteomyelitis Patient seen and examined today as a follow-up. He was seen by wound care yesterday with recommendations for local wound care. He is without any complaints. He had a low-grade temp yesterday evening. He remains on IV antibiotics. Objective - Vital Signs Vital signs: Vital Signs Temp 97.6 F 12/28/22 07:14 Pulse 95 12/28/22 07:14 Resp 17 12/28/22 07:14 BP 141/73 12/28/22 07:14 Pulse Ox 99 12/28/22 07:14 FiO2 21 12/27/22 07:41 Intake & Output 12/27/22 12/28/22 12/28/22 18:59 06:59 18:59 Other: Voiding Method Urinal Diaper # Voids 1 - Exam General appearance: The patient is alert, oriented, appears in no acute distress. HET: Head is normocephalic and atraumatic. Neck: Supple. Abdomen: Soft, nondistended. Extremities: Left foot amputation site with dressing clean dry and intact. Neurological: No focal deficits. - Labs CBC & Chem 7: 12/27/22 06:24 12/27/22 06:24 Labs: Abnormal Lab Results - Last 24 Hours (Table) 12/27/22 12/27/22 12/27/22 Range/Units 06:24 11:52 16:52 WBC 14.24 H (4.50-10.00) X 10*3/uL RBC 3.80 L (4.40-5.60) X 10*6/uL Hgb 11.8 L (13.0-17.0) d/dL Hct 35.2 L (39.6-50.0) % Neutrophils # 11.09 H (1.80-7.70) X 10*3/uL Monocytes # 1.41 H (0.20-1.00) X 10*3/uL POC Glucose (mg/dL) 295 H 175 H (70-110) mg/dL 12/27/22 12/28/22 Range/Units 21:12 05:59 WBC (4.50-10.00) X 10*3/uL RBC (4.40-5.60) X 10*6/uL Hgb (13.0-17.0) d/dL Hct (39.6-50.0) % Neutrophils # (1.80-7.70) X 10*3/uL Monocytes # (0.20-1.00) X 10*3/uL POC Glucose (mg/dL) 250 H 119 H (70-110) mg/dL Microbiology - Last 24 Hours (Table) 12/25/22 19:39 Anaerobic Culture - Preliminary Toe - Left Fifth 12/25/22 19:39 Gram Stain - Final Toe - Left Fifth Wound Culture - Final Enterobacter cloacae Strep agalactiae - (group b) 12/24/22 12:09 Blood Culture - Preliminary Blood Assessment and Plan Assessment: 1. Left fifth toe gangrene, left fifth toe with subcutaneous air status post left fifth toe transmetatarsal amputation 2. Diabetic vascular disease Plan: 1. Continue with local wound care as recommended 2. Continue antibiotics per recommendations from infectious disease 3. PT/OT on consult 4. Heel walk on left foot only 5. Postop shoe to left foot 6. Cleared from vascular surgery for discharge Thank you for this consultation, we will sign off at this time. The impression and plan of care has been dictated as directed. Dr. Silva I performed a history and examination of this patient, discussed the same with the dictator. I agree with the dictator's note ,documented as a scribe. Any additional findings or plans will be noted.
[2022-12-28] MEDS ORDERED: LIDOCAINE 1% INJ 10MG/ML (30 ML VIAL-PF) SQ ONE (11:00)
--- NOTE | 2022-12-28 11:25 | IR ---
PICC LINE PLACEMENT: HISTORY: Infection requiring long-term antibiotic therapy PROCEDURE: Ultrasound and fluoroscopic guidance of PICC line placement. COMPLICATIONS: None ANESTHESIA: 1. 1% Lidocaine locally. FINDINGS/TECHNIQUE: The procedure was explained to the patient. The risks, complications, benefits and alternatives were discussed and any questions were answered. Informed consent was obtained. The patient was placed supine on the fluoroscopic table and prepped and draped in the usual sterile fash ion. Utilizing a 21 gauge needle and sonographic and fluoroscopic guidance, access in the left basi lic vein was achieved and there is placement of a 0.018 guidewire. The vein is patent. A 4-F sheath was placed over the guidewire. The guidewire and dilator were removed and a 4-F. PICC line was plac ed through the sheath with the tip at the level of the SVC. The sheath was removed, the catheter was flushed and sutured into position. The patient was stable throughout the procedure and remained sta ble upon discharge from the Department of Radiology. The vein puncture was patent under ultrasound. A gee scale image was obtained to document patency of the vein punctured. All elements of the maximal barrier technique were utilized. FLUOROSCOPY TIME: DAP 0.0265Gy cm2 IMPRESSION: Successful PICC line placement under ultrasound and fluoroscopic guidance.
[2022-12-28 11:31] VITALS: BMI 22.5
[2022-12-28 11:35] LABS: Glucose,Whole Blood 168 mg/dL (70-110)
[2022-12-28 14:37] LABS: Basophils # (A) 0.05 X 10*3/uL (0.00-0.10); Basophils % (A) 0.3 %; Eosinophils # (A) 0.16 X 10*3/uL (0.04-0.35); Eosinophils % (A) 1.1 %; HCT 33.9 % (39.6-50.0); HGB 10.9 d/dL (13.0-17.0); Lymphocytes # (A) 1.85 X 10*3/uL (0.90-5.00); Lymphocytes % (A) 12.4 %; MCH 30.4 pg (27.0-32.0); MCHC 32.2 d/dL (32.0-37.0); MCV 94.4 FL (80.0-97.0); Mean Platelet Volume 9.5 FL (9.5-12.2); Monocytes # (A) 1.44 X 10*3/uL (0.20-1.00); Monocytes % (A) 9.7 %; NRBC Per 100 WBC 0 X 10*3/uL (0.00-0.01); Neutrophils # (A) 11.19 X 10*3/uL (1.80-7.70); Neutrophils % (A) 75.1 %; Platelet Count 344 X 10*3/uL (140-440); RBC 3.59 X 10*6/uL (4.40-5.60); RDW 13.2 % (11.5-14.5)
[2022-12-28] MEDS: HYDROcodone/APAP 5-325MG 1 EACH TAB PO PRN (15:00)
[2022-12-28 16:31] LABS: Glucose,Whole Blood 237 mg/dL (70-110)
[2022-12-28 20:41] LABS: Glucose,Whole Blood 166 mg/dL (70-110)
--- NOTE | 2022-12-28 20:54 | P.PN ---
Subjective Progress Note Date: 12/28/22 Patient is evaluated today resting in bed he is pending surgical amputation of his left fifth toe due to osteomyelitis and tissue necrosis. Patient is reporting minimal pain at this time. Patient is being followed by infectious disease and remains on a combination of IV Unasyn and IV vancomycin. Blood c ultures were taken and pending at this time. White count is 13.68, creatinine improved to 1.39. Blood glucose improved to 130s. 12/26/2022 Patient evaluated today sitting up in the chair. Postoperative day #1 surgical amputation of the left fifth toe due to infection and osteomyelitis. Remains on IV vancomycin and IV unasyn. Cultures preliminary showing gram negative bacilli and group b strep agalactiae. Blood culture negative so far. Glucose improved. Magnesium 1.7 today. White count 14.86. Blood pressure improved 159/67. 12/27/2022 Patient is evaluated today sitting up in bed. He is postoperative day #2 surgical amputation of the left fifth toe. He is reporting that the oral pain medication is not touching the pain and he does have generalized achiness all over. He has IV Dilaudid as needed. Pulmonary wound cultures are showing gram- negative bacilli and strep group B blood cultures are negative so far. He remains on IV vancomycin and IV Unasyn. Patient will be receiving a PICC line for discharge antibiotics. Absolute x-ray and white count of 14.24. His creatinine has normalized down to 1.22. Blood glucose 290s. 12/28/2022 Patient is evaluated today sitting up in bed. Reports generalized achiness however pain is improved with IV pain medication in addition to the oral norco. Patient is postoperative day #3 left toe surgical amputation. He remains on IV antibiotics and received PICC line today. ID to give antibiotic recommendations to submit for insurance auth for DC to snf. Wound care on board recommending absorptive silver rolled gauze and secure tape to change MWF and also recommending possible hyperbaric oxygen therapy. Case management following. Blood pressure improved with the increase in amlodipine from 5 mg to 10 mg daily. Now 132/80. White count stable at 14.90. Review of Systems Constitutional: Denied any fatigue denied any fever. Cardio vascular: denied any chest pain, palpitations Gastrointestinal: denied any nausea, vomiting, diarrhea Pulmonary: Denied any shortness of breath cough Neurologic denied any new focal deficits All inpatient medications were reviewed and appropriate changes in these medications as dictated in the interval history and assessment and plan. PHYSICAL EXAMINATION: GENERAL: The patient is alert and oriented x2-3, not in any acute distress. Well developed, well nourished. HEENT: Pupils are round and equally reacting to light. EOMI. No scleral icterus. No conjunctival pallor. Normocephalic, atraumatic. No pharyngeal erythema. No thyromegaly. CARDIOVASCULAR: S1 and S2 present. No murmurs, rubs, or gallops. PULMONARY: Chest is clear to auscultation, no wheezing or crackles. ABDOMEN: Soft, nontender, nondistended, normoactive bowel sounds. No palpable organomegaly. MUSCULOSKELETAL: No joint swelling or deformity. EXTREMITIES: No cyanosis, clubbing, or pedal edema. Postsurgical dressing intact NEUROLOGICAL: Gross neurological examination did not reveal any focal deficits. SKIN: No rashes. Assessment Left foot cellulitis with left fifth toe diabetic ulcer with osteomyelitis and tissue necrosis post op day # 3 surgical amputation left fifth toe. Diabetes mellitus type 2 with hyperglycemia hemoglobin A1c of 8.4 Hypertension improved. Leukocytosis and sepsis Former smoker GI prophylaxis DVT prophylaxis Full Code Plan Continue pain management Continue amlodipine and hydralazine PRN. Amlodipine has been increased to 10 mg daily Continue on IV antibiotics ID following closely patient received PICC line for DC antibiotics. Pending insurance authorization for rehab patient to DC once this is obtained. Continue local wound care. Follow up labs in AM. The impression and plan of care has been dictated by Laura Christie Nurse Practitioner as directed. Dr. Vidal MD I have performed a history and physical examination and medical decision making of this patient, discussed the same with the dictator, and agree with the dictators assessment and plan as written, documented as a scribe. Based on total visit time, I have performed more than 50% of this visit. Objective - Vital Signs Vital signs: Vital Signs Temp 99.1 F 12/28/22 13:46 Pulse 98 12/28/22 13:46 Resp 18 12/28/22 13:46 BP 132/80 12/28/22 13:46 Pulse Ox 98 12/28/22 13:46 FiO2 21 12/27/22 07:41 Intake & Output 12/28/22 12/28/22 12/29/22 06:59 18:59 06:59 Weight 81.647 kg Other: Voiding Method Urinal Urinal Urinal Diaper Diaper Diaper # Voids 1 2 - Labs CBC & Chem 7: 12/28/22 04:00 12/27/22 06:24 Labs: Abnormal Lab Results - Last 24 Hours (Table) 12/27/22 12/28/22 12/28/22 Range/Units 21:12 04:00 05:59 WBC 14.90 H (4.50-10.00) X 10*3/uL RBC 3.59 L (4.40-5.60) X 10*6/uL Hgb 10.9 L (13.0-17.0) d/dL Hct 33.9 L (39.6-50.0) % Neutrophils # 11.19 H (1.80-7.70) X 10*3/uL Monocytes # 1.44 H (0.20-1.00) X 10*3/uL POC Glucose (mg/dL) 250 H 119 H (70-110) mg/dL 12/28/22 12/28/22 12/28/22 Range/Units 11:34 16:29 20:39 WBC (4.50-10.00) X 10*3/uL RBC (4.40-5.60) X 10*6/uL Hgb (13.0-17.0) d/dL Hct (39.6-50.0) % Neutrophils # (1.80-7.70) X 10*3/uL Monocytes # (0.20-1.00) X 10*3/uL POC Glucose (mg/dL) 168 H 237 H 166 H (70-110) mg/dL Microbiology - Last 24 Hours (Table) 12/24/22 12:09 Blood Culture - Preliminary Blood 12/25/22 19:39 Anaerobic Culture - Preliminary Toe - Left Fifth 12/25/22 19:39 Gram Stain - Final Toe - Left Fifth Wound Culture - Final Enterobacter cloacae Strep agalactiae - (group b) Assessment and Plan Time with Patient: Less than 30
[2022-12-28] MEDS ORDERED: VANCOMYCIN TROUGH DUE 1 EACH MISC MISCELLANE ONE (21:00)
[2022-12-28] MEDS: INSULIN DETEMIR (LEVEMIR) 100 UNIT/ML SYR SQ SCH (21:11)
[2022-12-28 21:23] LABS: African American GFR (CKD) 43 (>60 ml/min/1.73 sqM); Non-African American GFR(CKD) 38 (>60 ml/min/1.73 sqM)
[2022-12-28] MEDS: metroNIDAZOLE 500 MG TAB PO SCH (22:46)
[2022-12-28] MEDS: CEFEPIME 2 GM in SODIUM CHLORIDE 0.9% 100 ML IVPB SCH (22:46)
[2022-12-29 00:32] LABS: BUN/Creat Ratio 12.86 Ratio (12.00-20.00); Calcium 8.6 mg/dL (8.7-10.3); Carbon Dioxide 23.8 mmol/L (21.6-31.8); Chloride 102 mmol/L (96-109); Glucose 120 mg/dL (70-110); Magnesium 1.7 mg/dL (1.5-2.4); Potassium 3.9 mmol/L (3.5-5.5); Sodium 136 mmol/L (135-145)
[2022-12-29 06:04] LABS: Glucose,Whole Blood 121 mg/dL (70-110)
[2022-12-29] MEDS: CEFEPIME 2 GM in SODIUM CHLORIDE 0.9% 100 ML IVPB SCH ×2 (06:38→17:08)
[2022-12-29] MEDS: INSULIN ASPART (NovoLOG) 100 UNIT/ML VIAL SQ SCH ×7 (06:38→21:03)
[2022-12-29] MEDS: HEPARIN SODIUM,PORCINE 5,000 UNIT/ML 1 ML VIAL SQ SCH ×2 (08:47→21:04)
[2022-12-29] MEDS: metroNIDAZOLE 500 MG TAB PO SCH ×3 (08:47→21:05)
[2022-12-29] MEDS: amLODIPine 10 MG TAB PO SCH (08:47)
[2022-12-29] MEDS: FAMOTIDINE 20 MG TAB PO SCH (08:47)
[2022-12-29 11:36] LABS: Glucose,Whole Blood 202 mg/dL (70-110)
[2022-12-29] MEDS: HYDROcodone/APAP 5-325MG 1 EACH TAB PO PRN ×2 (12:28→21:03)
--- NOTE | 2022-12-29 16:04 | P.PN ---
Subjective Progress Note Date: 12/27/22 Principal diagnosis: Left fifth toe gangrene and cellulitis Patient is a 87-year-old -[place] male with a past medical history significant for diabetes mellitus and hypertension patient was brought into the ER last night by EMS complaining of generalized weakness , patient noticed to have a necrotic left fifth toe, patient did have a CT of the foot infection with osteomyelitis involving the fifth digit extending from the distal fifth digit phalanx to the head of the fifth metatarsal. Patient is status post left fifth toe transmetatarsal amputation completed on 12/25/2022 On today's evaluation that is a 12/27/2022, the patient continues to be afebrile, patient is breathing comfortably on room air, the patient denies any chest pain shortness with a cough or any worsening pain to the left foot toe amputation site Patient white count is slightly down to 14.24 today, creatinine is 1. 2 to, blood cultures so far negative, local wound cultures are growing gram-negative bacilli Objective - Vital Signs Vital signs: Vital Signs Temp 97.8 F 12/27/22 12:39 Pulse 76 12/27/22 12:39 Resp 18 12/27/22 12:39 BP 148/71 12/27/22 12:39 Pulse Ox 98 12/27/22 12:39 FiO2 21 12/27/22 07:41 Intake & Output 12/26/22 12/27/22 12/27/22 18:59 06:59 18:59 Output Total 275 125 Balance -275 -125 Output: Urine 275 125 Other: Voiding Method Urinal Diaper # Voids 3 2 - Exam GENERAL DESCRIPTION: An elderly male lying in bed in no distress RESPIRATORY SYSTEM: Unlabored breathing , decreased breath sounds at bases HEART: S1 S2 regular rate and rhythm , ABDOMEN: Soft , no tenderness EXTREMITIES: Left foot is currently dressed no drainage on the dressing - Labs CBC & Chem 7: 12/28/22 04:00 12/28/22 20:30 Labs: Abnormal Lab Results - Last 24 Hours (Table) 12/26/22 12/27/22 12/27/22 Range/Units 20:13 06:08 06:24 WBC 14.24 H (4.50-10.00) X 10*3/uL RBC 3.80 L (4.40-5.60) X 10*6/uL Hgb 11.8 L (13.0-17.0) d/dL Hct 35.2 L (39.6-50.0) % Neutrophils # 11.09 H (1.80-7.70) X 10*3/uL Monocytes # 1.41 H (0.20-1.00) X 10*3/uL POC Glucose (mg/dL) 173 H 144 H (70-110) mg/dL 12/27/22 12/27/22 Range/Units 11:52 16:52 WBC (4.50-10.00) X 10*3/uL RBC (4.40-5.60) X 10*6/uL Hgb (13.0-17.0) d/dL Hct (39.6-50.0) % Neutrophils # (1.80-7.70) X 10*3/uL Monocytes # (0.20-1.00) X 10*3/uL POC Glucose (mg/dL) 295 H 175 H (70-110) mg/dL Microbiology - Last 24 Hours (Table) 12/24/22 12:09 Blood Culture - Preliminary Blood 12/23/22 19:45 Blood Culture - Preliminary Blood 12/23/22 19:30 Blood Culture - Preliminary Blood 12/25/22 19:39 Gram Stain - Preliminary Toe - Left Fifth Wound Culture - Preliminary Gram Neg Bacilli Strep agalactiae - (group b) Assessment and Plan (1) Gangrene of toe of left foot Current Visit: Yes Status: Acute Code(s): I96 - GANGRENE, NOT ELSEWHERE CLASSIFIED SNOMED Code(s): 03105552452017800 Plan: 1patient presented hospital with sepsis in this patient with a fever tachycardia elevated white count source is left fifth toe infection with evidence of emphysematous changes seen on the CT we will need to cover for the polymicrobial ngozi usually associated with these types of infection, patient is status post amputation of the left fifth toe by vascular surgery on 12/25/2022 2patient with renal insufficiency and high risk of nephrotoxicity, the patient creatinine is down to 1.22 Patient local culture growing gram-negative bacilli we will discontinue vancomycin and Unasyn started the patient on Zosyn, discharge antibiotics on the basis of final culture Dictation was produced using [employer] software. please excuse any grammatical, word or spelling errors. Time with Patient: Less than 30
--- NOTE | 2022-12-29 16:07 | P.PN ---
Subjective Progress Note Date: 12/28/22 Principal diagnosis: Left fifth toe gangrene and cellulitis Patient is a 87-year-old -[place] male with a past medical history significant for diabetes mellitus and hypertension patient was brought into the ER last night by EMS complaining of generalized weakness , patient noticed to have a necrotic left fifth toe, patient did have a CT of the foot infection with osteomyelitis involving the fifth digit extending from the distal fifth digit phalanx to the head of the fifth metatarsal. Patient is status post left fifth toe transmetatarsal amputation completed on 12/25/2022 On today's evaluation that is a 12/28/2022, the patient remains to be afebrile, patient is breathing comfortably on room air, the patient denies chest pain shortness breath, did have occasional dry cough or any worsening pain to the left foot toe amputation site Patient white count is slightly up to 14.90 today, creatinine is 1.63, blood cultures so far negative, local wound cultures are growing strep and Enterobacter Objective - Vital Signs Vital signs: Vital Signs Temp 97.6 F 12/28/22 07:14 Pulse 95 12/28/22 07:14 Resp 17 12/28/22 07:14 BP 141/73 12/28/22 07:14 Pulse Ox 99 12/28/22 07:14 FiO2 21 12/27/22 07:41 Intake & Output 12/27/22 12/28/22 12/28/22 18:59 06:59 18:59 Weight 81.647 kg Other: Voiding Method Urinal Urinal Diaper Diaper # Voids 1 - Exam GENERAL DESCRIPTION: An elderly male lying in bed in no distress RESPIRATORY SYSTEM: Unlabored breathing , decreased breath sounds at bases HEART: S1 S2 regular rate and rhythm , ABDOMEN: Soft , no tenderness EXTREMITIES: Left foot is currently dressed no drainage on the dressing - Labs CBC & Chem 7: 12/28/22 04:00 12/28/22 20:30 Labs: Abnormal Lab Results - Last 24 Hours (Table) 12/27/22 12/27/22 12/28/22 Range/Units 16:52 21:12 05:59 POC Glucose (mg/dL) 175 H 250 H 119 H (70-110) mg/dL 12/28/22 Range/Units 11:34 POC Glucose (mg/dL) 168 H (70-110) mg/dL Microbiology - Last 24 Hours (Table) 12/24/22 12:09 Blood Culture - Preliminary Blood 12/25/22 19:39 Anaerobic Culture - Preliminary Toe - Left Fifth 12/25/22 19:39 Gram Stain - Final Toe - Left Fifth Wound Culture - Final Enterobacter cloacae Strep agalactiae - (group b) Assessment and Plan (1) Gangrene of toe of left foot Current Visit: Yes Status: Acute Code(s): I96 - GANGRENE, NOT ELSEWHERE CLASSIFIED SNOMED Code(s): [id number] Plan: 1patient [facility] with sepsis in this patient with a fever tachycardia elevated white count source is left fifth toe infection with evidence of emphysematous changes seen on the CT we will need to cover for the polymicrobial ngozi usually associated with these types of infection, patient is status post amputation of the left fifth toe by vascular surgery on 12/25/2022 2patient with renal insufficiency and high risk of nephrotoxicity, the patient creatinine is down to 1.22 3Patient local culture growing Enterobacter and Streptococcus, we will continue the patient on Zosyn, however plan is For cefepime and Flagyl on discharge Dictation was produced using [employer] dictation software. please excuse any grammatical, word or spelling errors. Time with Patient: Less than 30
--- NOTE | 2022-12-29 16:09 | P.PN ---
Subjective Progress Note Date: 12/29/22 Principal diagnosis: Left fifth toe gangrene and cellulitis Patient is a 87-year-old -[place] male with a past medical history significant for diabetes mellitus and hypertension patient was brought into the ER last night by EMS complaining of generalized weakness , patient noticed to have a necrotic left fifth toe, patient did have a CT of the foot infection with osteomyelitis involving the fifth digit extending from the distal fifth digit phalanx to the head of the fifth metatarsal. Patient is status post left fifth toe transmetatarsal amputation completed on 12/25/2022 On today's evaluation that is a 12/29/2022, the patient continues to be afebrile, patient is breathing comfortably on room air, the patient denies chest pain shortness breath, the patient did have occasional dry cough the patient currently denies any worsening pain to the left foot toe amputation site Patient white count is slightly up to 14.90 and creatinine is 1.63 as of yesterday no blood draw today, blood cultures so far negative, local wound cultures are growing strep and Enterobacter Objective - Vital Signs Vital signs: Vital Signs Temp 99.1 F 12/29/22 14:33 Pulse 92 12/29/22 14:33 Resp 16 12/29/22 14:33 BP 112/67 12/29/22 14:33 Pulse Ox 99 12/29/22 14:33 FiO2 21 12/27/22 07:41 Intake & Output 12/28/22 12/29/22 12/29/22 18:59 06:59 18:59 Weight 81.647 kg Other: Voiding Method Urinal Urinal Urinal Diaper Diaper Diaper Incontinent # Voids 2 - Exam GENERAL DESCRIPTION: An elderly male lying in bed in no distress RESPIRATORY SYSTEM: Unlabored breathing , decreased breath sounds at bases HEART: S1 S2 regular rate and rhythm , ABDOMEN: Soft , no tenderness EXTREMITIES: Left fifth toe amputation site wound is pretty deep extending down to the bone - Labs CBC & Chem 7: 12/28/22 04:00 12/28/22 20:30 Labs: Abnormal Lab Results - Last 24 Hours (Table) 12/28/22 12/28/22 12/28/22 Range/Units 04:00 16:29 20:30 Creatinine 1.63 H (0.66-1.25) mg/dL Est GFR (CKD-EPI) 49 L (>=60) Glucose 120 H (70-110) mg/dL POC Glucose (mg/dL) 237 H (70-110) mg/dL Calcium 8.6 L (8.7-10.3) mg/dL 12/28/22 12/29/22 12/29/22 Range/Units 20:39 06:02 11:35 Creatinine (0.66-1.25) mg/dL Est GFR (CKD-EPI) (>=60) Glucose (70-110) mg/dL POC Glucose (mg/dL) 166 H 121 H 202 H (70-110) mg/dL Calcium (8.7-10.3) mg/dL Microbiology - Last 24 Hours (Table) 12/23/22 19:45 Blood Culture - Final Blood 12/23/22 19:30 Blood Culture - Final Blood 12/24/22 12:09 Blood Culture - Preliminary Blood Assessment and Plan (1) Gangrene of toe of left foot Current Visit: Yes Status: Acute Code(s): I96 - GANGRENE, NOT ELSEWHERE CLASSIFIED SNOMED Code(s): 37308292195205154 Plan: 1patient [facility] with sepsis in this patient with a fever tachycardia elevated white count source is left fifth toe infection with evidence of emphysematous changes seen on the CT we will need to cover for the polymicrobial ngozi usually associated with these types of infection, patient is status post amputation of the left fifth toe by vascular surgery on 12/25/2022 2patient with renal insufficiency and high risk of nephrotoxicity, the patient creatinine is down to 1.22 3Patient local culture growing Enterobacter and Streptococcus, we will switch antibiotic to cefepime and Flagyl, with a plan for 6 weeks of antibiotics post surgery keeping in mind deep infection and underlying osteomyelitis Dictation was produced using [employer] software. please excuse any grammatical, word or spelling errors.
[2022-12-29 16:48] LABS: Glucose,Whole Blood 236 mg/dL (70-110)
[2022-12-29] MEDS: SODIUM CHLORIDE 0.9% 1,000 ML IV SCH (16:48)
[2022-12-29] MEDS: polyethylene glycoL 3350 17 GM POWD.PACK PO SCH (17:05)
--- NOTE | 2022-12-29 17:05 | P.PN ---
Subjective Progress Note Date: 12/29/22 Patient is evaluated today resting in bed he is pending surgical amputation of his left fifth toe due to osteomyelitis and tissue necrosis. Patient is reporting minimal pain at this time. Patient is being followed by infectious disease and remains on a combination of IV Unasyn and IV vancomycin. Blood c ultures were taken and pending at this time. White count is 13.68, creatinine improved to 1.39. Blood glucose improved to 130s. 12/26/2022 Patient evaluated today sitting up in the chair. Postoperative day #1 surgical amputation of the left fifth toe due to infection and osteomyelitis. Remains on IV vancomycin and IV unasyn. Cultures preliminary showing gram negative bacilli and group b strep agalactiae. Blood culture negative so far. Glucose improved. Magnesium 1.7 today. White count 14.86. Blood pressure improved 159/67. 12/27/2022 Patient is evaluated today sitting up in bed. He is postoperative day #2 surgical amputation of the left fifth toe. He is reporting that the oral pain medication is not touching the pain and he does have generalized achiness all over. He has IV Dilaudid as needed. Pulmonary wound cultures are showing gram- negative bacilli and strep group B blood cultures are negative so far. He remains on IV vancomycin and IV Unasyn. Patient will be receiving a PICC line for discharge antibiotics. Absolute x-ray and white count of 14.24. His creatinine has normalized down to 1.22. Blood glucose 290s. 12/28/2022 Patient is evaluated today sitting up in bed. Reports generalized achiness however pain is improved with IV pain medication in addition to the oral norco. Patient is postoperative day #3 left toe surgical amputation. He remains on IV antibiotics and received PICC line today. ID to give antibiotic recommendations to submit for insurance auth for DC to halfway. Wound care on board recommending absorptive silver rolled gauze and secure tape to change MWF and also recommending possible hyperbaric oxygen therapy. Case management following. Blood pressure improved with the increase in amlodipine from 5 mg to 10 mg daily. Now 132/80. White count stable at 14.90. 12/29/2022 Patient is evaluated today sitting up in the chair his daughters at the bedside. Discharge planning discussed and patient will require subacute rehab. Patient is postoperative day number there are surgical amputation of the left fifth toe. He reports generalized achiness and pain as well as generalized weakness. He is being seen by PT and OT. Wound culture showing Enterobacter and strep group B. Infectious diseases recommending a course of IV antibiotics and discharged with IV cefepime and Flagyl for a total of 6 weeks. Receiving local wound care to the left fifth toe. Creatinine today is increased at 1.63 and recommending bladder scan to monitor for postvoid residuals and urinary retention. Patient will be hydrated and recommended to repeat labs tomorrow. White blood cell count remains at 14.90. We'll also check a urinalysis. Review of Systems Constitutional: Denied any fatigue denied any fever. Cardio vascular: denied any chest pain, palpitations Gastrointestinal: denied any nausea, vomiting, diarrhea Pulmonary: Denied any shortness of breath cough Neurologic denied any new focal deficits reports weakness and pain and achiness. All inpatient medications were reviewed and appropriate changes in these medications as dictated in the interval history and assessment and plan. PHYSICAL EXAMINATION: GENERAL: The patient is alert and oriented x2-3, not in any acute distress. Well developed, well nourished. HEENT: Pupils are round and equally reacting to light. EOMI. No scleral icterus. No conjunctival pallor. Normocephalic, atraumatic. No pharyngeal erythema. No thyromegaly. CARDIOVASCULAR: S1 and S2 present. No murmurs, rubs, or gallops. PULMONARY: Chest is clear to auscultation, no wheezing or crackles. ABDOMEN: Soft, nontender, nondistended, normoactive bowel sounds. No palpable organomegaly. MUSCULOSKELETAL: No joint swelling or deformity. EXTREMITIES: No cyanosis, clubbing, or pedal edema. Postsurgical dressing intact NEUROLOGICAL: Gross neurological examination did not reveal any focal deficits. SKIN: No rashes. 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 Acute kidney injury, probably prerenal due to poor oral intake Diabetes mellitus type 2 with hyperglycemia hemoglobin A1c of 8.4 Hypertension improved. Leukocytosis and sepsis Former smoker GI prophylaxis DVT prophylaxis Full Code Plan Continue pain management Continue amlodipine and hydralazine PRN. Amlodipine has been increased to 10 mg daily Continue on IV antibiotics ID following closely patient received PICC line for DC antibiotics. Patient will be discharged on a six-week course of IV Flagyl and IV cefepime IV fluids and repeat labs in the a.m. Pending insurance authorization for rehab patient to [place] once this is obtained. Continue local wound care. The impression and plan of care has been dictated by Laura Christie, Nurse Practitioner as directed. Dr. Vidal MD I have performed a history and physical examination and medical decision making of this patient, discussed the same with the dictator, and agree with the dictators assessment and plan as written, documented as a scribe. Based on total visit time, I have performed more than 50% of this visit. Objective - Vital Signs Vital signs: Vital Signs Temp 99.1 F 12/29/22 14:33 Pulse 92 12/29/22 14:33 Resp 16 12/29/22 14:33 BP 112/67 12/29/22 14:33 Pulse Ox 99 12/29/22 14:33 FiO2 21 12/27/22 07:41 Intake & Output 12/28/22 12/29/22 12/29/22 18:59 06:59 18:59 Weight 81.647 kg Other: Voiding Method Urinal Urinal Urinal Diaper Diaper Diaper Incontinent # Voids 2 - Labs CBC & Chem 7: 12/28/22 04:00 12/28/22 20:30 Labs: Abnormal Lab Results - Last 24 Hours (Table) 12/28/22 12/28/22 12/28/22 Range/Units 04:00 16:29 20:30 Creatinine 1.63 H (0.66-1.25) mg/dL Est GFR (CKD-EPI) 49 L (>=60) Glucose 120 H (70-110) mg/dL POC Glucose (mg/dL) 237 H (70-110) mg/dL Calcium 8.6 L (8.7-10.3) mg/dL 12/28/22 12/29/22 12/29/22 Range/Units 20:39 06:02 11:35 Creatinine (0.66-1.25) mg/dL Est GFR (CKD-EPI) (>=60) Glucose (70-110) mg/dL POC Glucose (mg/dL) 166 H 121 H 202 H (70-110) mg/dL Calcium (8.7-10.3) mg/dL Microbiology - Last 24 Hours (Table) 12/23/22 19:45 Blood Culture - Final Blood 12/23/22 19:30 Blood Culture - Final Blood 12/24/22 12:09 Blood Culture - Preliminary Blood Assessment and Plan Time with Patient: Less than 30
[2022-12-29 20:54] LABS: Glucose,Whole Blood 180 mg/dL (70-110)
[2022-12-29] MEDS: INSULIN DETEMIR (LEVEMIR) 100 UNIT/ML SYR SQ SCH (21:04)
[2022-12-29 21:26] LABS: Appearance,Urine Clear (Clear); Bacteria,Urine Rare /hpf; Bilirubin,Urine Negative (Negative); Blood,Urine Small (Negative); Color,Urine Yellow; Glucose,Urine (UA) 3+ (Negative); Ketones,Urine Negative (Negative); Leukocyte Esterase,Urine Negative (Negative); Mucus,Urine Rare /hpf; Nitrite,Urine Negative (Negative); PH, Urine 5.5 (5.0-8.0); Protein,Urine 1+ (Negative); RBC,Urine 1 /hpf (0-5); Specific Gravity,Urine 1.018 (1.001-1.035); Urobilinogen,Urine <2.0 mg/dL (<2.0); WBC,Urine 1 /hpf (0-5)
[2022-12-30] MEDS: CEFEPIME 2 GM in SODIUM CHLORIDE 0.9% 100 ML IVPB SCH ×2 (05:40→17:03)
[2022-12-30] MEDS: SODIUM CHLORIDE 0.9% 1,000 ML IV SCH ×2 (05:57→13:42)
[2022-12-30 06:13] LABS: Glucose,Whole Blood 139 mg/dL (70-110)
[2022-12-30] MEDS: INSULIN ASPART (NovoLOG) 100 UNIT/ML VIAL SQ SCH ×7 (06:20→21:13)
[2022-12-30] MEDS: amLODIPine 10 MG TAB PO SCH (08:18)
[2022-12-30] MEDS: FAMOTIDINE 20 MG TAB PO SCH (08:18)
[2022-12-30] MEDS: metroNIDAZOLE 500 MG TAB PO SCH ×3 (08:18→21:14)
[2022-12-30] MEDS: HEPARIN SODIUM,PORCINE 5,000 UNIT/ML 1 ML VIAL SQ SCH ×2 (08:18→21:13)
[2022-12-30] MEDS: polyethylene glycoL 3350 17 GM POWD.PACK PO SCH (08:19)
[2022-12-30 08:27] LABS: Basophils % (A) 0 %; Eosinophils # (A) 0.2 k/uL (0-0.7); Eosinophils % (A) 1 %; HCT 36.5 % (39.0-53.0); HGB 11.7 gm/dL (13.0-17.5); Lymphocytes # (A) 1.9 k/uL (1.0-4.8); Lymphocytes % (A) 12 %; MCH 30.3 pg (25.0-35.0); MCHC 31.9 g/dL (31.0-37.0); Mean Platelet Volume 7.4; Monocytes % (A) 6 %; Neutrophils # (A) 12.3 k/uL (1.3-7.7); Neutrophils % (A) 79 %; Platelet Count 375 k/uL (150-450); RBC 3.84 m/uL (4.30-5.90); RDW 13.2 % (11.5-15.5); WBC 15.7 k/uL (3.8-10.6)
[2022-12-30 08:48] LABS: African American GFR (CKD) 54 (>60 ml/min/1.73 sqM); Anion Gap 9 mmol/L; Blood Urea Nitrogen 23 mg/dL (9-20); Calcium 8.5 mg/dL (8.4-10.2); Carbon Dioxide 24 mmol/L (22-30); Chloride 101 mmol/L (98-107); Glucose 176 mg/dL (74-99); Magnesium 1.9 mg/dL (1.6-2.3); Non-African American GFR(CKD) 47 (>60 ml/min/1.73 sqM); Potassium 3.9 mmol/L (3.5-5.1); Sodium 134 mmol/L (137-145)
[2022-12-30 11:41] LABS: Glucose,Whole Blood 177 mg/dL (70-110)
[2022-12-30] MEDS: HYDROcodone/APAP 5-325MG 1 EACH TAB PO PRN (13:35)
--- NOTE | 2022-12-30 16:17 | P.PN ---
Subjective Progress Note Date: 12/30/22 Patient is evaluated today resting in bed he is pending surgical amputation of his left fifth toe due to osteomyelitis and tissue necrosis. Patient is reporting minimal pain at this time. Patient is being followed by infectious disease and remains on a combination of IV Unasyn and IV vancomycin. Blood c ultures were taken and pending at this time. White count is 13.68, creatinine improved to 1.39. Blood glucose improved to 130s. 12/26/2022 Patient evaluated today sitting up in the chair. Postoperative day #1 surgical amputation of the left fifth toe due to infection and osteomyelitis. Remains on IV vancomycin and IV unasyn. Cultures preliminary showing gram negative bacilli and group b strep agalactiae. Blood culture negative so far. Glucose improved. Magnesium 1.7 today. White count 14.86. Blood pressure improved 159/67. 12/27/2022 Patient is evaluated today sitting up in bed. He is postoperative day #2 surgical amputation of the left fifth toe. He is reporting that the oral pain medication is not touching the pain and he does have generalized achiness all over. He has IV Dilaudid as needed. Pulmonary wound cultures are showing gram- negative bacilli and strep group B blood cultures are negative so far. He remains on IV vancomycin and IV Unasyn. Patient will be receiving a PICC line for discharge antibiotics. Absolute x-ray and white count of 14.24. His creatinine has normalized down to 1.22. Blood glucose 290s. 12/28/2022 Patient is evaluated today sitting up in bed. Reports generalized achiness however pain is improved with IV pain medication in addition to the oral norco. Patient is postoperative day #3 left toe surgical amputation. He remains on IV antibiotics and received PICC line today. ID to give antibiotic recommendations to submit for insurance auth for DC to senior care. Wound care on board recommending absorptive silver rolled gauze and secure tape to change MWF and also recommending possible hyperbaric oxygen therapy. Case management following. Blood pressure improved with the increase in amlodipine from 5 mg to 10 mg daily. Now 132/80. White count stable at 14.90. 12/29/2022 Patient is evaluated today sitting up in the chair his daughters at the bedside. Discharge planning discussed and patient will require subacute rehab. Patient is postoperative day number there are surgical amputation of the left fifth toe. He reports generalized achiness and pain as well as generalized weakness. He is being seen by PT and OT. Wound culture showing Enterobacter and strep group B. Infectious diseases recommending a course of IV antibiotics and discharged with IV cefepime and Flagyl for a total of 6 weeks. Receiving local wound care to the left fifth toe. Creatinine today is increased at 1.63 and recommending bladder scan to monitor for postvoid residuals and urinary retention. Patient will be hydrated and recommended to repeat labs tomorrow. White blood cell count remains at 14.90. We'll also check a urinalysis. 12/30/2022 Patient is evaluated today resting in bed. He continues on IV antibiotics for a total of 6 weeks outpatient recommended he has a PICC line in place to his left arm. Receiving local wound care to the left fifth toe. Patient is being gently hydrated and his creatinine has improved down to 1.36 today. Review of Systems Constitutional: Denied any fatigue denied any fever. Cardio vascular: denied any chest pain, palpitations Gastrointestinal: denied any nausea, vomiting, diarrhea Pulmonary: Denied any shortness of breath cough Neurologic denied any new focal deficits reports weakness and pain and achiness. All inpatient medications were reviewed and appropriate changes in these med ications as dictated in the interval history and assessment and plan. PHYSICAL EXAMINATION: GENERAL: The patient is alert and oriented x2-3, not in any acute distress. Well developed, well nourished. HEENT: Pupils are round and equally reacting to light. EOMI. No scleral icterus. No conjunctival pallor. Normocephalic, atraumatic. No pharyngeal erythema. No thyromegaly. CARDIOVASCULAR: S1 and S2 present. No murmurs, rubs, or gallops. PULMONARY: Chest is clear to auscultation, no wheezing or crackles. ABDOMEN: Soft, nontender, nondistended, normoactive bowel sounds. No palpable organomegaly. MUSCULOSKELETAL: No joint swelling or deformity. EXTREMITIES: No cyanosis, clubbing, or pedal edema. Postsurgical dressing intact NEUROLOGICAL: Gross neurological examination did not reveal any focal deficits. SKIN: No rashes. 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 Acute kidney injury, probably prerenal due to poor oral intake Diabetes mellitus type 2 with hyperglycemia hemoglobin A1c of 8.4 Hypertension improved. Leukocytosis and sepsis Former smoker GI prophylaxis DVT prophylaxis Full Code Plan Continue pain management Continue amlodipine and hydralazine PRN. Amlodipine has been increased to 10 mg daily Continue on IV antibiotics ID following closely patient received PICC line for DC antibiotics. Patient will be discharged on a six-week course of IV Flagyl and IV cefepime IV fluids and repeat labs in the a.m. Pending insurance authorization for rehab patient to [place] once this is obtained. Continue local wound care. The impression and plan of care has been dictated by Laura Christie, Nurse Practitioner as directed. Dr. Vidal MD I have performed a history and physical examination and medical decision making of this patient, discussed the same with the dictator, and agree with the dictators assessment and plan as written, documented as a scribe. Based on total visit time, I have performed more than 50% of this visit. Objective - Vital Signs Vital signs: Vital Signs Temp 99.2 F 12/30/22 13:59 Pulse 94 12/30/22 13:59 Resp 17 12/30/22 13:59 BP 130/72 12/30/22 13:59 Pulse Ox 97 12/30/22 13:59 FiO2 21 12/30/22 11:53 Intake & Output 12/29/22 12/30/22 12/30/22 18:59 06:59 18:59 Intake Total 200 Output Total 1188 Balance -988 Intake: Oral 200 Output: Urine 1000 Post Void Residual 188 Other: Voiding Method Urinal External Catheter Diaper Incontinent # Voids 2 # Bowel Movements 1 - Labs CBC & Chem 7: 12/30/22 07:55 12/30/22 07:55 Labs: Abnormal Lab Results - Last 24 Hours (Table) 12/29/22 12/29/22 12/29/22 Range/Units 16:46 20:52 21:09 WBC (3.8-10.6) k/uL RBC (4.30-5.90) m/uL Hgb (13.0-17.5) gm/dL Hct (39.0-53.0) % Neutrophils # (1.3-7.7) k/uL Sodium (137-145) mmol/L BUN (9-20) mg/dL Creatinine (0.66-1.25) mg/dL Glucose (74-99) mg/dL POC Glucose (mg/dL) 236 H 180 H (70-110) mg/dL Urine Protein 1+ H (Negative) Urine Glucose (UA) 3+ H (Negative) Urine Blood Small H (Negative) Urine Bacteria Rare H (None) /hpf Urine Mucus Rare H (None) /hpf 12/30/22 12/30/22 12/30/22 Range/Units 06:08 07:55 07:55 WBC 15.7 H (3.8-10.6) k/uL RBC 3.84 L (4.30-5.90) m/uL Hgb 11.7 L (13.0-17.5) gm/dL Hct 36.5 L (39.0-53.0) % Neutrophils # 12.3 H (1.3-7.7) k/uL Sodium 134 L (137-145) mmol/L BUN 23 H (9-20) mg/dL Creatinine 1.36 H (0.66-1.25) mg/dL Glucose 176 H (74-99) mg/dL POC Glucose (mg/dL) 139 H (70-110) mg/dL Urine Protein (Negative) Urine Glucose (UA) (Negative) Urine Blood (Negative) Urine Bacteria (None) /hpf Urine Mucus (None) /hpf 12/30/22 Range/Units 11:40 WBC (3.8-10.6) k/uL RBC (4.30-5.90) m/uL Hgb (13.0-17.5) gm/dL Hct (39.0-53.0) % Neutrophils # (1.3-7.7) k/uL Sodium (137-145) mmol/L BUN (9-20) mg/dL Creatinine (0.66-1.25) mg/dL Glucose (74-99) mg/dL POC Glucose (mg/dL) 177 H (70-110) mg/dL Urine Protein (Negative) Urine Glucose (UA) (Negative) Urine Blood (Negative) Urine Bacteria (None) /hpf Urine Mucus (None) /hpf Microbiology - Last 24 Hours (Table) 12/24/22 12:09 Blood Culture - Final Blood Assessment and Plan Time with Patient: Less than 30
[2022-12-30 16:34] LABS: Glucose,Whole Blood 230 mg/dL (70-110)
--- NOTE | 2022-12-30 16:49 | P.PN ---
Subjective Progress Note Date: 12/30/22 Principal diagnosis: Left fifth toe gangrene and cellulitis Patient is a 87-year-old -[place] male with a past medical history significant for diabetes mellitus and hypertension patient was brought into the ER last night by EMS complaining of generalized weakness , patient noticed to have a necrotic left fifth toe, patient did have a CT of the foot infection with osteomyelitis involving the fifth digit extending from the distal fifth digit phalanx to the head of the fifth metatarsal. Patient is status post left fifth toe transmetatarsal amputation completed on 12/25/2022 On today's evaluation that is a 12/30/2022, the patient did have a low-grade 100.5F last time, the patient is afebrile since then, patient is breathing comfortably on room air, the patient denies chest pain shortness breath, the patient did have occasional dry cough the patient currently denies any worsening pain to the left foot toe amputation site Patient white count is slightly elevated at 15.7, creatinine is 1.36 , blood cultures so far negative, local wound cultures are growing strep and Enterobacter Objective - Vital Signs Vital signs: Vital Signs Temp 99.2 F 12/30/22 13:59 Pulse 94 12/30/22 13:59 Resp 17 12/30/22 13:59 BP 130/72 12/30/22 13:59 Pulse Ox 97 12/30/22 13:59 FiO2 21 12/30/22 11:53 Intake & Output 12/29/22 12/30/22 12/30/22 18:59 06:59 18:59 Intake Total 200 Output Total 1188 Balance -988 Intake: Oral 200 Output: Urine 1000 Post Void Residual 188 Other: Voiding Method Urinal External Catheter Diaper Incontinent # Voids 2 # Bowel Movements 1 - Exam GENERAL DESCRIPTION: An elderly male lying in bed in no distress RESPIRATORY SYSTEM: Unlabored breathing , decreased breath sounds at bases HEART: S1 S2 regular rate and rhythm , ABDOMEN: Soft , no tenderness EXTREMITIES: Left fifth toe amputation site wound is pretty deep extending down to the bone - Labs CBC & Chem 7: 12/30/22 07:55 12/30/22 07:55 Labs: Abnormal Lab Results - Last 24 Hours (Table) 12/29/22 12/29/22 12/29/22 Range/Units 16:46 20:52 21:09 WBC (3.8-10.6) k/uL RBC (4.30-5.90) m/uL Hgb (13.0-17.5) gm/dL Hct (39.0-53.0) % Neutrophils # (1.3-7.7) k/uL Sodium (137-145) mmol/L BUN (9-20) mg/dL Creatinine (0.66-1.25) mg/dL Glucose (74-99) mg/dL POC Glucose (mg/dL) 236 H 180 H (70-110) mg/dL Urine Protein 1+ H (Negative) Urine Glucose (UA) 3+ H (Negative) Urine Blood Small H (Negative) Urine Bacteria Rare H (None) /hpf Urine Mucus Rare H (None) /hpf 12/30/22 12/30/22 12/30/22 Range/Units 06:08 07:55 07:55 WBC 15.7 H (3.8-10.6) k/uL RBC 3.84 L (4.30-5.90) m/uL Hgb 11.7 L (13.0-17.5) gm/dL Hct 36.5 L (39.0-53.0) % Neutrophils # 12.3 H (1.3-7.7) k/uL Sodium 134 L (137-145) mmol/L BUN 23 H (9-20) mg/dL Creatinine 1.36 H (0.66-1.25) mg/dL Glucose 176 H (74-99) mg/dL POC Glucose (mg/dL) 139 H (70-110) mg/dL Urine Protein (Negative) Urine Glucose (UA) (Negative) Urine Blood (Negative) Urine Bacteria (None) /hpf Urine Mucus (None) /hpf 12/30/22 Range/Units 11:40 WBC (3.8-10.6) k/uL RBC (4.30-5.90) m/uL Hgb (13.0-17.5) gm/dL Hct (39.0-53.0) % Neutrophils # (1.3-7.7) k/uL Sodium (137-145) mmol/L BUN (9-20) mg/dL Creatinine (0.66-1.25) mg/dL Glucose (74-99) mg/dL POC Glucose (mg/dL) 177 H (70-110) mg/dL Urine Protein (Negative) Urine Glucose (UA) (Negative) Urine Blood (Negative) Urine Bacteria (None) /hpf Urine Mucus (None) /hpf Microbiology - Last 24 Hours (Table) 12/24/22 12:09 Blood Culture - Final Blood Assessment and Plan (1) Gangrene of toe of left foot Current Visit: Yes Status: Acute Code(s): I96 - GANGRENE, NOT ELSEWHERE C LASSIFIED SNOMED Code(s): 66473640285656496 Plan: 1patient presented hospital with sepsis in this patient with a fever tachycardia elevated white count source is left fifth toe infection with evidence of emphysematous changes seen on the CT we will need to cover for the polymicrobial ngozi usually associated with these types of infection, patient is status post amputation of the left fifth toe by vascular surgery on 12/25/2022 2patient with renal insufficiency and high risk of nephrotoxicity, the patient creatinine is down to 1.22 3Patient local culture growing Enterobacter and Streptococcus, patient is currently on cefepime and Flagyl, he did have slight fever and also worsening of the white count that is slightly concerning and will monitor closely and further workup if new fever or worsening of the white count Dictation was produced using [employer] dictation software. please excuse any grammatical, word or spelling errors. Time with Patient: Less than 30
[2022-12-30 20:54] LABS: Glucose,Whole Blood 184 mg/dL (70-110)
[2022-12-30] MEDS: INSULIN DETEMIR (LEVEMIR) 100 UNIT/ML SYR SQ SCH (21:13)
[2022-12-31] MEDS: SODIUM CHLORIDE 0.9% 1,000 ML IV SCH (06:01)
[2022-12-31] MEDS: CEFEPIME 2 GM in SODIUM CHLORIDE 0.9% 100 ML IVPB SCH ×2 (06:02→17:13)
[2022-12-31 06:18] LABS: Glucose,Whole Blood 139 mg/dL (70-110)
[2022-12-31] MEDS: INSULIN ASPART (NovoLOG) 100 UNIT/ML VIAL SQ SCH ×7 (06:18→21:31)
[2022-12-31 07:56] LABS: African American GFR (CKD) 56 (>60 ml/min/1.73 sqM); Anion Gap 7 mmol/L; Blood Urea Nitrogen 23 mg/dL (9-20); Calcium 8.5 mg/dL (8.4-10.2); Carbon Dioxide 23 mmol/L (22-30); Chloride 103 mmol/L (98-107); Glucose 128 mg/dL (74-99); Non-African American GFR(CKD) 49 (>60 ml/min/1.73 sqM); Potassium 4.1 mmol/L (3.5-5.1); Sodium 133 mmol/L (137-145)
[2022-12-31] MEDS: FAMOTIDINE 20 MG TAB PO SCH (08:07)
[2022-12-31] MEDS: metroNIDAZOLE 500 MG TAB PO SCH ×3 (08:07→21:31)
[2022-12-31] MEDS: amLODIPine 10 MG TAB PO SCH (08:08)
[2022-12-31] MEDS: polyethylene glycoL 3350 17 GM POWD.PACK PO SCH (08:08)
[2022-12-31] MEDS: HEPARIN SODIUM,PORCINE 5,000 UNIT/ML 1 ML VIAL SQ SCH ×2 (08:08→21:31)
--- NOTE | 2022-12-31 08:31 | P.PN ---
Subjective Progress Note Date: 12/31/22 Postop day #3. Objective - Vital Signs Vital signs: Vital Signs Temp 99.1 F 12/31/22 07:10 Pulse 83 12/31/22 07:10 Resp 16 12/31/22 07:10 BP 147/74 12/31/22 07:10 Pulse Ox 99 12/31/22 07:10 FiO2 21 12/30/22 11:53 Intake & Output 12/30/22 12/31/22 12/31/22 18:59 06:59 18:59 Output Total 400 500 Balance -400 -500 Output: Urine 200 500 Post Void Residual 200 Other: Voiding Method External Catheter - Exam Patient is arousable. He does not complain of foot pain. The left fifth toe amputation site is clean without any drainage or surrounding cellulitic reaction noted. There is no necrotic tissue noted however there is no significant granular tissue noted. Concerning for poor healing characteristics and eventual need for more significant amputation. Wound is redressed - Labs CBC & Chem 7: 12/30/22 07:55 12/31/22 06:49 Labs: Abnormal Lab Results - Last 24 Hours (Table) 12/30/22 12/30/22 12/30/22 Range/Units 07:55 11:40 16:33 Sodium 134 L (137-145) mmol/L BUN 23 H (9-20) mg/dL Creatinine 1.36 H (0.66-1.25) mg/dL Glucose 176 H (74-99) mg/dL POC Glucose (mg/dL) 177 H 230 H (70-110) mg/dL 12/30/22 12/31/22 12/31/22 Range/Units 20:52 06:16 06:49 Sodium 133 L (137-145) mmol/L BUN 23 H (9-20) mg/dL Creatinine 1.32 H (0.66-1.25) mg/dL Glucose 128 H (74-99) mg/dL POC Glucose (mg/dL) 184 H 139 H (70-110) mg/dL Microbiology - Last 24 Hours (Table) 12/25/22 19:39 Anaerobic Culture - Final Toe - Left Fifth Anaerobic Gm Negative Bacilli 12/24/22 12:09 Blood Culture - Final Blood Assessment and Plan Assessment: Status post left fifth toe transmetatarsal amputation. Plan: We'll continue with local wound care and appropriate antibiotic therapy as per infectious disease service. Okay to bear weight heel touching only. Surgically stable for dismissal and outpatient follow-up. Concern for need for more significant amputation as wound healing is ques tionable. Time with Patient: Less than 30
[2022-12-31] MEDS: TAMSULOSIN 0.4 MG CAP.ER.24H PO SCH (09:29)
[2022-12-31] MEDS: HYDROcodone/APAP 5-325MG 1 EACH TAB PO PRN ×2 (12:01→17:11)
[2022-12-31 12:17] LABS: Glucose,Whole Blood 129 mg/dL (70-110)
--- NOTE | 2022-12-31 13:58 | P.PN ---
Subjective Progress Note Date: 12/31/22 Patient is evaluated today resting in bed he is pending surgical amputation of his left fifth toe due to osteomyelitis and tissue necrosis. Patient is reporting minimal pain at this time. Patient is being followed by infectious disease and remains on a combination of IV Unasyn and IV vancomycin. Blood c ultures were taken and pending at this time. White count is 13.68, creatinine improved to 1.39. Blood glucose improved to 130s. 12/26/2022 Patient evaluated today sitting up in the chair. Postoperative day #1 surgical amputation of the left fifth toe due to infection and osteomyelitis. Remains on IV vancomycin and IV unasyn. Cultures preliminary showing gram negative bacilli and group b strep agalactiae. Blood culture negative so far. Glucose improved. Magnesium 1.7 today. White count 14.86. Blood pressure improved 159/67. 12/27/2022 Patient is evaluated today sitting up in bed. He is postoperative day #2 surgical amputation of the left fifth toe. He is reporting that the oral pain medication is not touching the pain and he does have generalized achiness all over. He has IV Dilaudid as needed. Pulmonary wound cultures are showing gram- negative bacilli and strep group B blood cultures are negative so far. He remains on IV vancomycin and IV Unasyn. Patient will be receiving a PICC line for discharge antibiotics. Absolute x-ray and white count of 14.24. His creatinine has normalized down to 1.22. Blood glucose 290s. 12/28/2022 Patient is evaluated today sitting up in bed. Reports generalized achiness however pain is improved with IV pain medication in addition to the oral norco. Patient is postoperative day #3 left toe surgical amputation. He remains on IV antibiotics and received PICC line today. ID to give antibiotic recommendations to submit for insurance auth for DC to retirement. Wound care on board recommending absorptive silver rolled gauze and secure tape to change MWF and also recommending possible hyperbaric oxygen therapy. Case management following. Blood pressure improved with the increase in amlodipine from 5 mg to 10 mg daily. Now 132/80. White count stable at 14.90. 12/29/2022 Patient is evaluated today sitting up in the chair his daughters at the bedside. Discharge planning discussed and patient will require subacute rehab. Patient is postoperative day number there are surgical amputation of the left fifth toe. He reports generalized achiness and pain as well as generalized weakness. He is being seen by PT and OT. Wound culture showing Enterobacter and strep group B. Infectious diseases recommending a course of IV antibiotics and discharged with IV cefepime and Flagyl for a total of 6 weeks. Receiving local wound care to the left fifth toe. Creatinine today is increased at 1.63 and recommending bladder scan to monitor for postvoid residuals and urinary retention. Patient will be hydrated and recommended to repeat labs tomorrow. White blood cell count remains at 14.90. We'll also check a urinalysis. 12/30/2022 Patient is evaluated today resting in bed. He continues on IV antibiotics for a total of 6 weeks outpatient recommended he has a PICC line in place to his left arm. Receiving local wound care to the left fifth toe. Patient is being gently hydrated and his creatinine has improved down to 1.36 today. 12/31/2022 Patient is evaluated today resting in bed. He is working with physical therapy recommended to be up in the chair for all meals. Patient is status post left fifth toe amputation cultures are showing Enterobacter and strep group B with micro-sensitivities available. Patient will need outpatient antibiotics for 6 weeks duration. Creatinine of 1.32 today and sodium 133. Patient was hydrated and recommended to stop IV fluids at this time. Main complaint is that he needs to have a bowel movement. Continue with local wound care to the amputation site. SST Review of Systems Constitutional: Denied any fatigue denied any fever. Cardio vascular: denied any chest pain, palpitations Gastrointestinal: denied any nausea, vomiting, diarrhea Pulmonary: Denied any shortness of breath cough Neurologic denied any new focal deficits reports weakness and pain and achiness. All inpatient medications were reviewed and appropriate changes in these medications as dictated in the interval history and assessment and plan. PHYSICAL EXAMINATION: GENERAL: The patient is alert and oriented x2-3, not in any acute distress. Well developed, well nourished. HEENT: Pupils are round and equally reacting to light. EOMI. No scleral icterus. No conjunctival pallor. Normocephalic, atraumatic. No pharyngeal erythema. No thyromegaly. CARDIOVASCULAR: S1 and S2 present. No murmurs, rubs, or gallops. PULMONARY: Chest is clear to auscultation, no wheezing or crackles. ABDOMEN: Soft, nontender, nondistended, normoactive bowel sounds. No palpable organomegaly. MUSCULOSKELETAL: No joint swelling or deformity. EXTREMITIES: No cyanosis, clubbing, or pedal edema. Postsurgical dressing intact NEUROLOGICAL: Gross neurological examination did not reveal any focal deficits. SKIN: No rashes. 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 Acute kidney injury, probably prerenal due to poor oral intake Diabetes mellitus type 2 with hyperglycemia hemoglobin A1c of 8.4 Hypertension improved. Leukocytosis and sepsis Former smoker GI prophylaxis DVT prophylaxis Full Code Plan Continue pain management Continue amlodipine and hydralazine PRN. Amlodipine has been increased to 10 mg daily with improvement in blood pressure Continue on IV antibiotics ID following closely patient received PICC line for DC antibiotics. Patient will be discharged on a six-week course of PO Flagyl and IV cefepime Coumadin to discontinue IV fluids and labs in the a.m. Flomax has been added for some mild urinary retention. Pending insurance authorization for rehab patient to [place] once this is obtained. Continue local wound care. The impression and plan of care has been dictated by Laura Christie Nurse Practitioner as directed. Dr. Vidal MD I have performed a history and physical examination and medical decision making of this patient, discussed the same with the dictator, and agree with the dictators assessment and plan as written, documented as a scribe. Based on total visit time, I have performed more than 50% of this visit. Objective - Vital Signs Vital signs: Vital Signs Temp 99.1 F 12/31/22 07:10 Pulse 83 12/31/22 07:10 Resp 16 12/31/22 07:10 BP 147/74 12/31/22 07:10 Pulse Ox 99 12/31/22 07:10 FiO2 21 12/30/22 11:53 Intake & Output 12/30/22 12/31/22 12/31/22 18:59 06:59 18:59 Output Total 400 500 Balance -400 -500 Output: Urine 200 500 Post Void Residual 200 Other: Voiding Method External Catheter - Labs CBC & Chem 7: 12/30/22 07:55 12/31/22 06:49 Labs: Abnormal Lab Results - Last 24 Hours (Table) 12/30/22 12/30/22 12/30/22 Range/Units 07:55 07:55 11:40 WBC 15.7 H (3.8-10.6) k/uL RBC 3.84 L (4.30-5.90) m/uL Hgb 11.7 L (13.0-17.5) gm/dL Hct 36.5 L (39.0-53.0) % Neutrophils # 12.3 H (1.3-7.7) k/uL Sodium 134 L (137-145) mmol/L BUN 23 H (9-20) mg/dL Creatinine 1.36 H (0.66-1.25) mg/dL Glucose 176 H (74-99) mg/dL POC Glucose (mg/dL) 177 H (70-110) mg/dL 12/30/22 12/30/22 12/31/22 Range/Units 16:33 20:52 06:16 WBC (3.8-10.6) k/uL RBC (4.30-5.90) m/uL Hgb (13.0-17.5) gm/dL Hct (39.0-53.0) % Neutrophils # (1.3-7.7) k/uL Sodium (137-145) mmol/L BUN (9-20) mg/dL Creatinine (0.66-1.25) mg/dL Glucose (74-99) mg/dL POC Glucose (mg/dL) 230 H 184 H 139 H (70-110) mg/dL 12/31/22 Range/Units 06:49 WBC (3.8-10.6) k/uL RBC (4.30-5.90) m/uL Hgb (13.0-17.5) gm/dL Hct (39.0-53.0) % Neutrophils # (1.3-7.7) k/uL Sodium 133 L (137-145) mmol/L BUN 23 H (9-20) mg/dL Creatinine 1.32 H (0.66-1.25) mg/dL Glucose 128 H (74-99) mg/dL POC Glucose (mg/dL) (70-110) mg/dL Microbiology - Last 24 Hours (Table) 12/25/22 19:39 Anaerobic Culture - Final Toe - Left Fifth Anaerobic Gm Negative Bacilli 12/24/22 12:09 Blood Culture - Final Blood Assessment and Plan Time with Patient: Less than 30
--- NOTE | 2022-12-31 15:53 | P.PN ---
Subjective Progress Note Date: 12/31/22 Principal diagnosis: Left fifth toe gangrene and cellulitis Patient is a 87-year-old -[place] male with a past medical history significant for diabetes mellitus and hypertension patient was brought into the ER last night by EMS complaining of generalized weakness , patient noticed to have a necrotic left fifth toe, patient did have a CT of the foot infection with osteomyelitis involving the fifth digit extending from the distal fifth digit phalanx to the head of the fifth metatarsal. Patient is status post left fifth toe transmetatarsal amputation completed on 12/25/2022 On today's evaluation that is a 12/31/2022 the patient has been afebrile today, highest temperature has been 99.1 F patient is breathing comfortably on room air denies any chest pain shortness of breath or cough no vomiting diarrhea or any other changes reported by the nursing staff. Patient did have a creatinine 1.32 no CBC was done today Objective - Vital Signs Vital signs: Vital Signs Temp 99.1 F 12/31/22 07:10 Pulse 83 12/31/22 07:10 Resp 16 12/31/22 07:10 BP 147/74 12/31/22 07:10 Pulse Ox 99 12/31/22 09:48 FiO2 21 12/31/22 09:48 Intake & Output 12/30/22 12/31/22 12/31/22 18:59 06:59 18:59 Output Total 400 500 Balance -400 -500 Output: Urine 200 500 Post Void Residual 200 Other: Voiding Method External Catheter - Exam GENERAL DESCRIPTION: An elderly male lying in bed in no distress RESPIRATORY SYSTEM: Unlabored breathing , decreased breath sounds at bases HEART: S1 S2 regular rate and rhythm , ABDOMEN: Soft , no tenderness EXTREMITIES: Left fifth toe amputation site wound is pretty deep extending down to the bone - Labs CBC & Chem 7: 12/30/22 07:55 12/31/22 06:49 Labs: Abnormal Lab Results - Last 24 Hours (Table) 12/30/22 12/30/22 12/31/22 Range/Units 16:33 20:52 06:16 Sodium (137-145) mmol/L BUN (9-20) mg/dL Creatinine (0.66-1.25) mg/dL Glucose (74-99) mg/dL POC Glucose (mg/dL) 230 H 184 H 139 H (70-110) mg/dL 12/31/22 12/31/22 Range/Units 06:49 12:16 Sodium 133 L (137-145) mmol/L BUN 23 H (9-20) mg/dL Creatinine 1.32 H (0.66-1.25) mg/dL Glucose 128 H (74-99) mg/dL POC Glucose (mg/dL) 129 H (70-110) mg/dL Microbiology - Last 24 Hours (Table) 12/25/22 19:39 Anaerobic Culture - Final Toe - Left Fifth Anaerobic Gm Negative Bacilli 12/24/22 12:09 Blood Culture - Final Blood Assessment and Plan (1) Gangrene of toe of left foot Current Visit: Yes Status: Acute Code(s): I96 - GANGRENE, NOT ELSEWHERE CLASSIFIED SNOMED Code(s): 66646727175030216 Plan: 1patient with a left fifth toe gangrene in this patient who is status post amputation of the left fifth toe with significantly deep wound which is tracking down to the bone concerning for underlying osteomyelitis local culture has been positive for Enterobacter Streptococcus and anaerobes. 2patient to continue with the cefepime and Flagyl we will repeat his CBC and CRP with a.m. lab, continue current wound care per vascular surgery Dictation was produced using [employer] dictation software. please excuse any grammatical, word or spelling errors.
[2022-12-31 16:46] LABS: Glucose,Whole Blood 189 mg/dL (70-110)
[2022-12-31 20:44] LABS: Glucose,Whole Blood 201 mg/dL (70-110)
[2022-12-31] MEDS: INSULIN DETEMIR (LEVEMIR) 100 UNIT/ML SYR SQ SCH (21:32)
[2023-01-01] MEDS: CEFEPIME 2 GM in SODIUM CHLORIDE 0.9% 100 ML IVPB SCH ×2 (05:29→18:26)
[2023-01-01 06:39] LABS: Glucose,Whole Blood 138 mg/dL (70-110)
[2023-01-01] MEDS: INSULIN ASPART (NovoLOG) 100 UNIT/ML VIAL SQ SCH ×6 (06:44→18:20)
[2023-01-01] MEDS: HYDROcodone/APAP 5-325MG 1 EACH TAB PO PRN (08:08)
[2023-01-01] MEDS: metroNIDAZOLE 500 MG TAB PO SCH ×2 (08:09→15:57)
[2023-01-01] MEDS: amLODIPine 10 MG TAB PO SCH (08:09)
[2023-01-01] MEDS: FAMOTIDINE 20 MG TAB PO SCH (08:09)
[2023-01-01] MEDS: polyethylene glycoL 3350 17 GM POWD.PACK PO SCH (08:09)
[2023-01-01] MEDS: HEPARIN SODIUM,PORCINE 5,000 UNIT/ML 1 ML VIAL SQ SCH (08:09)
[2023-01-01] MEDS: TAMSULOSIN 0.4 MG CAP.ER.24H PO SCH (08:09)
[2023-01-01 11:10] LABS: BUN/Creat Ratio 16.23 Ratio (12.00-20.00); Blood Urea Nitrogen 21.1 mg/dL (9.0-27.0); Calcium 8.9 mg/dL (8.7-10.3); Carbon Dioxide 23.8 mmol/L (21.6-31.8); Chloride 102 mmol/L (96-109); Glucose 126 mg/dL (70-110); Potassium 4.6 mmol/L (3.5-5.5); Sodium 136 mmol/L (135-145)
[2023-01-01 12:05] LABS: Glucose,Whole Blood 222 mg/dL (70-110)
[2023-01-01] MEDS ORDERED: LACTULOSE 20 GM/30 ML CUP PO ONE (14:23)
[2023-01-01 14:44] LABS: Basophils % (A) 0 %; Eosinophils # (A) 0.2 k/uL (0-0.7); Eosinophils % (A) 1 %; HCT 36.3 % (39.0-53.0); HGB 11.6 gm/dL (13.0-17.5); Hypochromasia Slight; Lymphocytes # (A) 1.7 k/uL (1.0-4.8); Lymphocytes % (A) 12 %; MCH 30.8 pg (25.0-35.0); MCHC 31.9 g/dL (31.0-37.0); MCV 96.6 fL (80.0-100.0); Mean Platelet Volume 8.2; Monocytes # (A) 0.9 k/uL (0-1.0); Monocytes % (A) 6 %; Neutrophils # (A) 11.2 k/uL (1.3-7.7); Neutrophils % (A) 79 %; Platelet Count 389 k/uL (150-450); RBC 3.76 m/uL (4.30-5.90); RDW 13.3 % (11.5-15.5); WBC 14.2 k/uL (3.8-10.6)
[2023-01-01 14:54] VITALS: BP 128/76; PULSE 101; RESP 17; TEMP 97.8
--- NOTE | 2023-01-01 15:07 | P.DS ---
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 Acute kidney injury, prerenal due to poor oral intake with mild urinary retention, has normalized. Diabetes mellitus type 2 with hyperglycemia hemoglobin A1c of 8.4 Hypertension improved. Leukocytosis and sepsis Former smoker GI prophylaxis DVT prophylaxis Full Code Discharge Disposition Patient is stable for discharge to subacute rehab. 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 Patient continues with local wound care to the surgical site with moistened absorbent silver rolled gauze and to change Sunday. Patient should follow-up with [facility] for advanced wound care and possible hyperbaric oxygen therapy related to the osteomyelitis. Patient has been evaluated by infectious disease and will need to follow-up within one week on discharge recommendations to continue IV antibiotics with IV cefepime and oral Flagyl for a total of 6 weeks of antibiotic therapy on discharge. Patient also have weekly CBC BMP and CRP labs drawn which are provided on discharge. Patient did have mild urinary retention with a mild acute kidney injury which did resolve with some fluid hydration and also has been started on Flomax which will continue on discharge. Recommend to continue on Thompson for pain management alternating with extra strength Tylenol and to continue on a bowel regimen while using narcotics for pain management. Hospital Course This is an 87-year-old gentleman with past medical history significant for diabetes, who presented to the ER for generalized weakness. Patient stated that he has been feeling weak for the last few weeks. Patient has been complaining of pain in his left foot, left foot pinky toe has also been turning black. Pain in his left foot has been worsening and swelling. Denies any fever or chills. Denies any loss of appetite Patient denies any chest pain or shortness of breath. Denies any nausea or vomiting. Patient has been complaining of generalized lethargy. Denies any cough or shortness of breath. Initial lab work done in the ER showed WBC 15.5, hemoglobin 13.3, platelet count 246, sodium 133, potassium 4.4, BUN 27, creatinine 1.47, glucose 243, CRP 16.5 X-ray of the left foot atrial subluxation of the left fifth proximal interphalangeal joint without evidence of osseous erosion. Chest x-ray done in the ER no acute cardiopulmonary process. Arterial ultrasound of lower extremity showed moderate left and normal right ankle brachial indexes. No evidence for significant stenosis. Left lower extremity ultrasound negative for DVT Patient admitted to medicine service with consult placed to vascular surgery. 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 Soft tissue gas and edema. Patient received empiric antibiotics and had infectious disease consultation. 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 Patient continues with local wound care to the surgical site with moistened absorbent silver rolled gauze and to change Sunday. Patient should follow-up with [facility] for advanced wound care and possible hyperbaric oxygen therapy related to the osteomyelitis. Patient has been evaluated by infectious disease and will need to follow-up within one week on discharge recommendations to continue IV antibiotics with IV cefepime and oral Flagyl for a total of 6 weeks of antibiotic therapy on discharge. Final Wound cultures show enterobacter and strep Group B as well as anaeorobic gram negative bacilli. Patient had issues with mild urinary retention and had an MATTHEW post surgical and resolved with IV hydration normal saline and the addition of oral flomax. Most recent labs are showing a sodium of 136, potassium 4.6, BUN 21, creatinine 1.3, blood glucose 120s. Urinalysis negative for infection. White count showing 14.2 hemoglobin 11.6. patient is currently denying chest pain denies shortness of breath. He does report generalized weakness and will benefit from subacute rehab on discharge. He has not had chest pain he has no shortness of breath. He is tolerating diet no nausea vomiting or diarrhea noted. Lungs are clear, S1-S2 auscultated, abdomen is soft and nontender. Dressing is intact to the left foot surgical site. His mentation he is alert 3. Will be discharged to subacute rehab. Please see medication reconciliation for list of current medication. Thank you for allowing us to participate in the care of this patient. The impression and plan of care has been dictated by Laura Christie, Nurse Practitioner as directed. Dr. Vidal MD I have performed a history and physical examination and medical decision making of this patient, discussed the same with the dictator, and agree with the dictators assessment and plan as written, documented as a scribe. Based on total visit time, I have performed more than 50% of this visit. Patient Condition at Discharge: Fair Plan - Discharge Summary New Discharge Prescriptions: New Heparin Sodium,Porcine (1 ml) [Heparin Sodium] 5,000 unit SQ Q12HR each polyethylene glycoL 3350 [Miralax] 17 gm PO DAILY packet INSULIN ASPART (NovoLOG) [NovoLOG (formulary)] 0 unit SQ ACHS each INSULIN ASPART (NovoLOG) [NovoLOG (formulary)] 3 unit SQ AC-TID each Acetaminophen Tab [Tylenol] 650 mg PO Q6HR PRN tab PRN Reason: Mild Pain Or Fever > 100.5 metroNIDAZOLE [Flagyl] 500 mg PO TID 42 Days #126 tab Tamsulosin [Flomax] 0.4 mg PO PC-BRKFST cap Insulin Detemir (Levemir) [Levemir] 10 unit SQ HS each Cefepime [Maxipime] 2 gm IVPB Q12H 42 Days #84 each HYDROcodone/APAP 5-325MG [Thompson 5-325] 1 each PO Q6HR PRN #4 tab PRN Reason: Pain amLODIPine [Norvasc] 10 mg PO DAILY tab Famotidine [Pepcid] 20 mg PO DAILY #0 tab Discharge Medication List Acetaminophen Tab [Tylenol] 650 mg PO Q6HR PRN tab 01/01/23 [Rx] Cefepime [Maxipime] 2 gm IVPB Q12H 42 Days #84 each 01/01/23 [Rx] Famotidine [Pepcid] 20 mg PO DAILY #0 tab 01/01/23 [Rx] HYDROcodone/APAP 5-325MG [Thompson 5-325] 1 each PO Q6HR PRN #4 tab 01/01/23 [Rx] Heparin Sodium,Porcine (1 ml) [Heparin Sodium] 5,000 unit SQ Q12HR each 01/01/23 [Rx] INSULIN ASPART (NovoLOG) [NovoLOG (formulary)] 0 unit SQ ACHS each 01/01/23 [Rx] INSULIN ASPART (NovoLOG) [NovoLOG (formulary)] 3 unit SQ AC-TID each 01/01/23 [Rx] Insulin Detemir (Levemir) [Levemir] 10 unit SQ HS each 01/01/23 [Rx] Tamsulosin [Flomax] 0.4 mg PO PC-BRKFST cap 01/01/23 [Rx] amLODIPine [Norvasc] 10 mg PO DAILY tab 01/01/23 [Rx] metroNIDAZOLE [Flagyl] 500 mg PO TID 42 Days #126 tab 01/01/23 [Rx] polyethylene glycoL 3350 [Miralax] 17 gm PO DAILY packet 01/01/23 [Rx] Follow up Appointment(s)/Referral(s): Jorje Kiser MD [Primary Care Provider] - 1-2 days (ECF please call for follow-up appointment.) Ethan Cornelius DO [Doctor of Osteopathic Medicine] - 2 Weeks W[facility] [NON-STAFF] - 1 Week Yojana Giron MD [STAFF PHYSICIAN] - 1 Week Ambulatory/Diagnostic Orders: Basic Metabolic Panel [LAB.AMB] Time Frame: 3 Days, Location: None Selected C Reactive Protein [LAB.AMB] Time Frame: 3 Days, Location: None Selected Complete Blood Count w/diff [LAB.AMB] Time Frame: 3 Days, Location: None Selected Activity/Diet/Wound Care/Special Instructions: Weightbearing to heel only on left foot, where postop shoe when up and walking. Follow up with vascular surgery and infectious disease on discharge. Follow up at the [facility] wound [facility]. Repeat labs in 2 to 3 days Discharge Disposition: TRANSFER TO SNF/ECF
--- NOTE | 2023-01-01 17:58 | P.PN ---
Subjective Progress Note Date: 01/01/23 Principal diagnosis: Left fifth toe gangrene and cellulitis Patient is a 87-year-old -[place] male with a past medical history significant for diabetes mellitus and hypertension patient was brought into the ER last night by EMS complaining of generalized weakness , patient noticed to have a necrotic left fifth toe, patient did have a CT of the foot infection with osteomyelitis involving the fifth digit extending from the distal fifth digit phalanx to the head of the fifth metatarsal. Patient is status post left fifth toe transmetatarsal amputation completed on 12/25/2022 On today's evaluation that is a 01/01/2023 the patient remains to be afebrile , the patient is breathing comfortably on room air denies any chest pain shortness of breath or cough no vomiting diarrhea or any other changes reported by the nursing staff. Patient did have a creatinine 1.3, white count is down to 14.2 Objective - Vital Signs Vital signs: Vital Signs Temp 98.8 F 01/01/23 07:33 Pulse 86 01/01/23 07:33 Resp 15 01/01/23 07:33 BP 150/78 01/01/23 07:33 Pulse Ox 98 01/01/23 07:33 FiO2 21 12/31/22 09:48 Intake & Output 12/31/22 01/01/23 01/01/23 18:59 06:59 18:59 Intake Total 750 Output Total 2200 800 Balance -1450 -800 Intake: Oral 750 Output: Urine 1100 800 Post Void Residual 1100 Other: Voiding Method External Catheter # Bowel Movements 0 - Exam GENERAL DESCRIPTION: An elderly male lying in bed in no distress RESPIRATORY SYSTEM: Unlabored breathing , decreased breath sounds at bases HEART: S1 S2 regular rate and rhythm , ABDOMEN: Soft , no tenderness EXTREMITIES: Left fifth toe amputation site wound is pretty deep extending down to the bone - Labs CBC & Chem 7: 01/01/23 07:03 01/01/23 07:03 Labs: Abnormal Lab Results - Last 24 Hours (Table) 12/31/22 12/31/22 12/31/22 Range/Units 12:16 16:45 20:42 Est GFR (CKD-EPI) (>=60) Glucose (70-110) mg/dL POC Glucose (mg/dL) 129 H 189 H 201 H (70-110) mg/dL 01/01/23 01/01/23 Range/Units 06:38 07:03 Est GFR (CKD-EPI) 54 L (>=60) Glucose 126 H (70-110) mg/dL POC Glucose (mg/dL) 138 H (70-110) mg/dL Assessment and Plan (1) Gangrene of toe of left foot Current Visit: Yes Status: Acute Code(s): I96 - GANGRENE, NOT ELSEWHERE CLASSIFIED SNOMED Code(s): [id number] Plan: 1patient with a left fifth toe gangrene in this patient who is status post amputation of the left fifth toe with significantly deep wound which is tracking down to the bone concerning for underlying osteomyelitis local culture has been positive for Enterobacter Streptococcus and anaerobes. 2patient fever has resolved and white count is trending down, patient to continue with the cefepime and Flagyl to finish a 6 week course of therapy with weekly monitoring of CRP and a sed rate and close outpatient follow-up Dictation was produced using [employer] dictation software. please excuse any grammatical, word or spelling errors. Time with Patient: Less than 30
== END 2023-01-01 18:41 | DRG 854 ==
LOC: SUPCPDRO 18:54 → EC 18:54 → 4SSUR 22:12
PROVIDERS: ADMIT Internal Medicine; ATTEND Internal Medicine
PROC: 0Y6N0ZF Detachment at Left Foot, Partial 5th Ray, Open Approach (ICD-10-PCS; principal; 2022-12-25 09:35)
PROC: 02HV33Z Insertion of Infusion Device into Superior Vena Cava, Percutaneous Approach (ICD-10-PCS; 2022-12-28)
DX: A40.1 Sepsis due to streptococcus, group B (principal); E11.52 Type 2 diabetes mellitus with diabetic peripheral angiopathy with gangrene; N17.9 Acute kidney failure, unspecified; M86.8X7 Other osteomyelitis, ankle and foot; L97.524 Non-pressure chronic ulcer of other part of left foot with necrosis of bone; E11.628 Type 2 diabetes mellitus with other skin complications; I11.9 Hypertensive heart disease without heart failure; E11.621 Type 2 diabetes mellitus with foot ulcer; E11.69 Type 2 diabetes mellitus with other specified complication; E11.65 Type 2 diabetes mellitus with hyperglycemia; L03.032 Cellulitis of left toe; I25.10 Atherosclerotic heart disease of native coronary artery without angina pectoris; N28.9 Disorder of kidney and ureter, unspecified; B95.4 Other streptococcus as the cause of diseases classified elsewhere; B95.2 Enterococcus as the cause of diseases classified elsewhere; R29.6 Repeated falls; R33.9 Retention of urine, unspecified; Z87.891 Personal history of nicotine dependence; Z91.81 History of falling; Z28.310 Unvaccinated for COVID-19
CPT/HCPCS: 36415; 36573; 71045; 80048; 80053; 80202; 81001; 82565; 83036; 83605; 83735; 85025; 85610; 85730; 86140; 87040; 87070; 87075; 87077; 87186; 87205; 88305; 93005; 93923; 94760; 96361; 96365; 99285

== ENCOUNTER 2023-04-18 12:21 | Inpatient (IN) | payer MEDICARE ==
[2023-04-18 13:44] LABS: Basophils % (A) 0 %; Eosinophils # (A) 0.3 k/uL (0-0.7); Eosinophils % (A) 3 %; HGB 13.2 gm/dL (13.0-17.5); Hypochromasia Slight; Lymphocytes # (A) 1.8 k/uL (1.0-4.8); Lymphocytes % (A) 17 %; MCH 31.8 pg (25.0-35.0); MCV 96.4 fL (80.0-100.0); Mean Platelet Volume 7.2; Monocytes # (A) 0.5 k/uL (0-1.0); Monocytes % (A) 5 %; Neutrophils # (A) 7.6 k/uL (1.3-7.7); Neutrophils % (A) 73 %; Platelet Count 351 k/uL (150-450); RBC 4.14 m/uL (4.30-5.90); RDW 13.8 % (11.5-15.5); WBC 10.5 k/uL (3.8-10.6)
[2023-04-18 13:49] LABS: ALT 22 U/L (4-49); AST 44 U/L (17-59); African American GFR (CKD) 52 (>60 ml/min/1.73 sqM); Albumin 3.7 g/dL (3.5-5.0); Alkaline Phosphatase 87 U/L (38-126); Anion Gap 13 mmol/L; Blood Urea Nitrogen 38 mg/dL (9-20); Carbon Dioxide 25 mmol/L (22-30); Chloride 101 mmol/L (98-107); Glucose 165 mg/dL (74-99); Non-African American GFR(CKD) 45 (>60 ml/min/1.73 sqM); Sodium 139 mmol/L (137-145); Total Bilirubin 0.5 mg/dL (0.2-1.3); Total Protein 7.8 g/dL (6.3-8.2)
[2023-04-18 13:53] LABS: Potassium 4.7 mmol/L (3.5-5.1)
--- NOTE | 2023-04-18 14:28 | ED ---
General Adult HPI - General Source: patient, family, RN notes reviewed Mode of arrival: wheelchair Limitations: no limitations <Marlen Pereyra - Last Filed: 04/18/23 14:26> - History of Present Illness -: month(s) Location: left Radiation: extremity Consistency: constant, intermittent Worsens with: none Associated Symptoms: denies other symptoms Treatments Prior to Arrival: none <Mak Gallegos - Last Filed: 04/25/23 11:13> - General Chief complaint: Extremity Injury, Lower Stated complaint: left little toe infection Time Seen by Provider: 04/18/23 14:26 - History of Present Illness Initial comments: 88 year old male presents to the emergency department for chief complaint of left 5th toe infection. Patient states that he was sent over by Dr. Giron for debridement. Patient had toe amputated in December. Denies fever, chills. (Marlen Pereyra) This is an 88-year-old male the ER today. Patient presents today for evaluation of toe infection with fell outpatient treatment. Patient was sent in for evaluation treatment of nonhealing chronic wound with recent toe amputation. Patient himself is without significant complaint (Mak Gallegos) - Related Data Home Medications Medication Instructions Recorded Confirmed Famotidine [Pepcid] 20 mg PO DAILY@0800 04/18/23 04/18/23 Glucerna 1.2 John 120 - 237 ml PO TID@08,,04/18/23 04/18/23 HYDROcodone/APAP 5-325MG [Alger 1 tab PO Q6HR PRN 04/18/23 04/18/23 5-325] Heparin Sodium,Porcine (1 ml) 5,000 unit SQ Q12HR@,04/18/23 04/18/23 [Heparin Sodium] INSULIN ASPART (NovoLOG) [NovoLOG 3 unit SQ AC-TID@04/18/23 04/18/23 (formulary)] INSULIN ASPART (NovoLOG) [NovoLOG See Protocol SQ 04/18/23 04/18/23 (formulary)] ACHS@,,1829,2129 Insulin Detemir (Levemir) [Levemir] 10 unit SQ HS@2100 04/18/23 04/18/23 Ipratropium-Albuterol Nebulize 3 ml INHALATION RT-Q6H PRN 04/18/23 04/18/23 [Duoneb 0.5 mg-3 mg/3 ml Soln] Magnesium Hydroxide [Milk of 7,200 mg PO DAILY PRN 04/18/23 04/18/23 Magnesia Concentrate] Na Phos,M-B/Na Phos,Di-Ba [Fleet 133 ml RECTAL DAILY PRN 04/18/23 04/18/23 Adult] Tamsulosin [Flomax] 0.4 mg PO DAILY@0800 04/18/23 04/18/23 amLODIPine [Norvasc] 10 mg PO DAILY@0800 04/18/23 04/18/23 bisacodyL [Dulcolax] 10 mg RECTAL DAILY PRN 04/18/23 04/18/23 polyethylene glycoL 3350 [Miralax] 17 gm PO DAILY@0800 04/18/23 04/18/23 Previous Rx's Medication Instructions Recorded Acetaminophen Tab [Tylenol] 650 mg PO Q6HR PRN tab 01/01/23 Allergies Allergy/AdvReac Type Severity Reaction Status Date / Time No Known Allergies Allergy Verified 04/18/23 16:54 Review of Systems ROS Other: All systems not noted in ROS Statement are negative. <Marlen Pereyra - Last Filed: 04/18/23 14:26> ROS Other: All systems not noted in ROS Statement are negative. <Mak Gallegos - Last Filed: 04/25/23 11:13> ROS Statement: Those systems with pertinent positive or pertinent negative responses have been documented in the HPI. Past Medical History Past Medical History: Diabetes Mellitus, Hypertension History of Any Multi-Drug Resistant Organisms: VRE Date of last positivie culture/infection: 02/27/23 MDRO Source:: Amputation site of Right 5th Toe Past Surgical History: Orthopedic Surgery Additional Past Surgical History / Comment(s): right wrist surgery Past Anesthesia/Blood Transfusion Reactions: No Reported Reaction Past Psychological History: No Psychological Hx Reported Smoking Status: Former smoker Past Alcohol Use History: None Reported Past Drug Use History: None Reported <Marlen Pereyra - Last Filed: 04/18/23 14:26> General Exam Limitations: no limitations <Marlen Pereyra - Last Filed: 04/18/23 14:26> General appearance: alert, in no apparent distress Head exam: Present: atraumatic, normocephalic, normal inspection Eye exam: Present: normal appearance, PERRL, EOMI. Absent: scleral icterus, conjunctival injection, periorbital swelling ENT exam: Present: normal exam, mucous membranes moist Neck exam: Present: normal inspection. Absent: tenderness, meningismus, lym phadenopathy Respiratory exam: Present: normal lung sounds bilaterally. Absent: respiratory distress, wheezes, rales, rhonchi, stridor Cardiovascular Exam: Present: regular rate, normal rhythm, normal heart sounds. Absent: systolic murmur, diastolic murmur, rubs, gallop, clicks GI/Abdominal exam: Present: soft, normal bowel sounds. Absent: distended, tenderness, guarding, rebound, rigid Extremities exam: Present: normal inspection, full ROM, normal capillary refill. Absent: tenderness, pedal edema, joint swelling, calf tenderness Back exam: Present: normal inspection, rash noted, other Neurological exam: Present: alert, oriented X3, CN II-XII intact Psychiatric exam: Present: normal affect, normal mood Skin exam: Present: warm, dry, intact, normal color. Absent: rash <Mak Gallegos - Last Filed: 04/25/23 11:13> - General Exam Comments Initial Comments: Visual Physical Exam Vital signs reviewed General: Well-appearing, nontoxic, no acute distress. Head: Normocephalic, atraumatic Eyes: PERRLA, EOMI ENT: Airway patent Chest: Nonlabored breathing Skin: No visual rash, normal skin tone Neuro: Alert and oriented 3 Musculoskeletal: No gross abnormalities (Kulka,Marlen) Course <Mak Gallegos - Last Filed: 04/25/23 11:13> Vital Signs 04/18/23 04/18/23 04/19/23 12:38 20:56 00:00 Temperature 98.4 F 98.1 F 97.8 F Pulse Rate 85 101 H 90 Respiratory 18 16 16 Rate Blood Pressure 118/80 150/82 140/84 O2 Sat by Pulse 99 97 97 Oximetry 04/19/23 04/19/23 04/19/23 03:00 05:00 09:16 Temperature 97.8 F Pulse Rate 91 92 80 Respiratory 18 18 18 Rate Blood Pressure 153/96 164/83 150/82 O2 Sat by Pulse 98 97 95 Oximetry 04/19/23 04/19/23 04/19/23 13:28 16:47 17:41 Temperature 98.0 F 98.0 F Pulse Rate 78 90 92 Respiratory 18 18 18 Rate Blood Pressure 159/90 131/98 O2 Sat by Pulse 98 98 99 Oximetry - Reevaluation(s) Reevaluation #1: 04/18/23 21:33 Medical record is reviewed (Mak Gallegos) Reevaluation #2: 04/18/23 21:34 Patient symptoms are unchanged without specific complaint (Mak Gallegos) Reevaluation #3: 04/18/23 21:34 Patient informed results questions answered (Mak Gallegos) Reevaluation #4: 04/18/23 21:34 Was pt. sent in by a medical professional or institution (, PA, [employer], urgent care, hospital, or jail...) When possible be specific @ -no Did you speak to anyone other than the patient for history (EMS, parent, family, police, friend...)? What history was obtained from this source @ -no Did you review nursing and triage notes (agree or disagree)? Why? @ -agree Are old charts reviewed (outside hosp., previous admission, EMS record, old EKG, old radiological studies, urgent care reports/EKG's, jail records)? Report findings @ -yes Differential Diagnosis (chest pain, altered mental status, abdominal pain women, abdominal pain men, vaginal bleeding, weakness, fever, dyspnea, syncope, headache, dizziness, GI bleed, back pain, seizure, CVA, palpatations, mental health, musculoskeletal)? @ -prior EKG interpreted by me (3pts min.). @ -no X-rays interpreted by me (1pt min.). @ -no CT interpreted by me (1pt min.). @ -no U/S interpreted by me (1pt. min.). @ -no What testing was considered but not performed or refused? (CT, X-rays, U/S, labs)? Why? @ -none What meds were considered but not given or refused? Why? @ -none Did you discuss the management of the patient with other professionals (professionals i.e. , PA, [employer], lab, RT, psych nurse, aids social worker, adaptive physical education teacher, teacher, hotel security officer, case picker)? Give summary @ -no Was smoking cessation discussed for >3mins.? @ -no Was critical care preformed (if so, how long)? @ -no Were there social determinants of health that impacted care today? How? (Homelessness, low income, unemployed, alcoholism, drug addiction, transportat ion, low edu. Level, literacy, decrease access to med. care, prison, rehab)? @ -none Was there de-escalation of care discussed even if they declined (Discuss DNR or withdrawal of care, Hospice)? DNR status @ -no What co-morbidities impacted this encounter? (DM, HTN, Smoking, COPD, CAD, Cancer, CVA, ARF, Chemo, Hep., AIDS, mental health diagnosis, sleep apnea, morbid obesity)? @ -none Was patient admitted / discharged? Hospital course, mention meds given and route, prescriptions, significant lab abnormalities, going to OR and other pertinent info. @ - 88 male to the emergency department for evaluation. Patient presents today for evaluation regards to reevaluate left lower extremity recent amputation with possible recurrent osteomyelitis. Patient be admitted for wound care and IV antibiotics. Admitted Undiagnosed new problem with uncertain prognosis? @ -no Drug Therapy requiring intensive monitoring for toxicity (Heparin, Nitro, Insulin, Cardizem)? @ -no Were any procedures done? @ -no Diagnosis/symptom? @ -Recurrent osteomyelitis Acute, or Chronic, or Acute on Chronic? @ -Acute Uncomplicated (without systemic symptoms) or Complicated (systemic symptoms)? @ -Complicated Side effects of treatment? @ -no Exacerbation, Progression, or Severe Exacerbation? @ -exacerbation Poses a threat to life or bodily function? How? (Chest pain, USA, NV, pneumonia, PE, COPD, DKA, ARF, appy, cholecystitis, CVA, Diverticulitis, Homicidal, Suicidal, threat to staff... and all critical care pts) @ -yes significant infection (Mak Gallegos) - Consultations Consultation #1: spoke with PMH were sepsis patient for admission (Mak Gallegos) Medical Decision Making - Lab Data Result diagrams: 04/18/23 13:07 04/18/23 13:07 <Marlen Pereyra - Last Filed: 04/18/23 14:26> - Lab Data Result diagrams: 04/24/23 05:53 04/25/23 06:04 <Mak Gallegos - Last Filed: 04/25/23 11:13> - Medical Decision Making Quick note preformed by Marlen Pereyra PA-C (Marlen Pereyra) 88 male to the emergency department for evaluation. Patient presents today for evaluation regards to reevaluate left lower extremity recent amputation with possible recurrent osteomyelitis. Patient be admitted for wound care and IV antibiotics (Mak Gallegos) - Lab Data Lab Results 04/18/23 04/18/23 04/18/23 Range/Units 13:07 13:07 13:07 WBC 10.5 (3.8-10.6) k/uL RBC 4.14 L (4.30-5.90) m/uL Hgb 13.2 (13.0-17.5) gm/dL Hct 40.0 (39.0-53.0) % MCV 96.4 (80.0-100.0) fL MCH 31.8 (25.0-35.0) pg MCHC 33.0 (31.0-37.0) g/dL RDW 13.8 (11.5-15.5) % Plt Count 351 (150-450) k/uL MPV 7.2 Neutrophils % 73 % Lymphocytes % 17 % Monocytes % 5 % Eosinophils % 3 % Basophils % 0 % Neutrophils # 7.6 (1.3-7.7) k/uL Lymphocytes # 1.8 (1.0-4.8) k/uL Monocytes # 0.5 (0-1.0) k/uL Eosinophils # 0.3 (0-0.7) k/uL Basophils # 0.0 (0-0.2) k/uL Hypochromasia Slight Sodium 139 (137-145) mmol/L Potassium 4.7 (3.5-5.1) mmol/L Chloride 101 (98-107) mmol/L Carbon Dioxide 25 (22-30) mmol/L Anion Gap 13 mmol/L BUN 38 H (9-20) mg/dL Creatinine 1.40 H (0.66-1.25) mg/dL Est GFR (CKD-EPI)AfAm 52 (>60 ml/min/1.73 sqM) Est GFR (CKD-EPI)NonAf 45 (>60 ml/min/1.73 sqM) Glucose 165 H (74-99) mg/dL Plasma Lactic Acid Aleksander 1.5 (0.7-2.0) mmol/L Calcium 10.0 (8.4-10.2) mg/dL Total Bilirubin 0.5 (0.2-1.3) mg/dL AST 44 (17-59) U/L ALT 22 (4-49) U/L Alkaline Phosphatase 87 (38-126) U/L Total Protein 7.8 (6.3-8.2) g/dL Albumin 3.7 (3.5-5.0) g/dL Disposition <Marlen Pereyra - Last Filed: 04/18/23 14:26> Is patient prescribed a controlled substance at d/c from ED?: No Time of Disposition: 17:20 <Mak Gallegos - Last Filed: 04/25/23 11:13> Clinical Impression: Altered mental status, Gangrene of toe of left foot, Cellulitis of left foot Disposition: ADMITTED IP TO THIS [facility] Condition: Fair
[2023-04-18] MEDS ORDERED: NALOXONE 0.4 MG/ML 1 ML VIAL IV PRN (17:14)
[2023-04-18] MEDS ORDERED: ONDANSETRON 4 MG/2 ML VIAL IVP PRN (17:19)
[2023-04-18] MEDS ORDERED: MORPHINE SULFATE 4 MG/ML SYRINGE IV PRN (17:19)
[2023-04-18] MEDS: SODIUM CHLORIDE 0.9% 1,000 ML IV SCH (17:44)
[2023-04-19] MEDS: SODIUM CHLORIDE 0.9% 1,000 ML IV SCH ×3 (07:50→21:16)
[2023-04-19 07:53] LABS: Basophils # (A) 0.1 k/uL (0-0.2); Basophils % (A) 1 %; Eosinophils # (A) 0.2 k/uL (0-0.7); Eosinophils % (A) 2 %; HCT 37.6 % (39.0-53.0); HGB 11.9 gm/dL (13.0-17.5); Hypochromasia Moderate; Lymphocytes # (A) 1.6 k/uL (1.0-4.8); Lymphocytes % (A) 21 %; MCH 31.6 pg (25.0-35.0); MCHC 31.8 g/dL (31.0-37.0); MCV 99.4 fL (80.0-100.0); Mean Platelet Volume 7.7; Monocytes # (A) 0.5 k/uL (0-1.0); Monocytes % (A) 6 %; Neutrophils # (A) 5.3 k/uL (1.3-7.7); Neutrophils % (A) 67 %; Platelet Count 317 k/uL (150-450); RBC 3.78 m/uL (4.30-5.90); RDW 13.8 % (11.5-15.5); WBC 7.9 k/uL (3.8-10.6)
[2023-04-19] MEDS ORDERED: bisacodyL 10 MG SUPP RECTAL PRN (10:52)
[2023-04-19] MEDS ORDERED: MAGNESIUM HYDROXIDE 2,400 MG/30 ML CUP PO PRN (10:52)
[2023-04-19] MEDS ORDERED: NA PHOS,M-B/NA PHOS,DI-BA 133 ML ENEMA RECTAL PRN (10:52)
[2023-04-19] MEDS ORDERED: DEXTROSE 50% SYRINGE 50 ML IVP PRN ×2 (10:54)
[2023-04-19 12:08] LABS: BUN/Creat Ratio 27.27 Ratio (12.00-20.00); Chloride 105 mmol/L (96-109); Glucose 133 mg/dL (70-110); Lipase 19 U/L (14-60); Potassium 4.5 mmol/L (3.5-5.5); Sodium 141 mmol/L (135-145)
[2023-04-19 12:09] LABS: ALT 19 U/L (10-49); AST 19 U/L (14-35); Albumin 3.2 g/dL (3.8-4.9); Albumin/Globulin Ratio 0.91 Ratio (1.60-3.17); Alkaline Phosphatase 69 U/L (41-126); Calcium 9.6 mg/dL (8.7-10.3); Carbon Dioxide 22.7 mmol/L (21.6-31.8); Globulin 3.5 g/dL (1.6-3.3); Phosphorus 3.5 mg/dL (2.4-5.1); Total Bilirubin 0.2 mg/dL (0.3-1.2); Total Protein 6.7 g/dL (6.2-8.2)
[2023-04-19 12:33] LABS: Glucose,Whole Blood 112 mg/dL (70-110)
[2023-04-19] MEDS: INSULIN ASPART (NovoLOG) 100 UNIT/ML VIAL SQ SCH ×7 (13:04→21:14)
--- NOTE | 2023-04-19 13:21 | P.HPIM ---
History of Present Illness H&P Date: 04/19/23 History of present illness; patient is 88-year-old gentleman with past medical significant for hypertension, diabetes mellitus, osteomyelitis of left fifth toe who was sent to the ER from IDs office for evaluation for left fifth toe infection. Patient follows up with Dr. Grion and stated that his been dealing with this foot infection since December. Patient was admitted in December of this year and was found to have necrotic left fifth toe ,CT of the foot showed ost eomyelitis involving the fifth digit extending from the distal fifth digit phalanx to the head of the fifth metatarsal. Patient underwent left fifth toe transmetatarsal amputation on 12/25/2022. Patient has been following up outpatient with ID. Patient has been having issues with left foot pain. Patient also noticed redness of left foot .Patient denies any fever or chills. There was no complain nausea or vomiting. Denies abdominal pain. No complaint of lethargy or weakness. On today's evaluation with IDs office, they referred him to the ER. Initial lab work done in the ER showed WBC 10.5, hemoglobin 13.2, platelet count 351, sodium 139, potassium 4.7, BUNs 38, creatinine 1.40 Patient admitted to internal medicine service REVIEW OF SYSTEMS: CONSTITUTIONAL: No fever, no malaise, no fatigue. HEENT: No recent visual problems or hearing problems. Denied any sore throat. CARDIOVASCULAR: No chest pain, orthopnea, PND, no palpitations, no syncope. PULMONARY: No shortness of breath, no cough, no hemoptysis. GASTROINTESTINAL: No diarrhea, no nausea, no vomiting, no abdominal pain. NEUROLOGICAL: No headaches, no weakness, no numbness. HEMATOLOGICAL: Denies any bleeding or petechiae. GENITOURINARY: Denies any burning micturition, frequency, or urgency. MUSCULOSKELETAL/RHEUMATOLOGICAL: Left foot pain and swelling ENDOCRINE: Denies any polyuria or polydipsia. The rest of the 14-point review of systems is negative. PHYSICAL EXAMINATION: GENERAL: The patient is alert and oriented x3, not in any acute distress. Well developed, well nourished. HEENT: Pupils are round and equally reacting to light. EOMI. No scleral icterus. No conjunctival pallor. Normocephalic, atraumatic. No pharyngeal erythema. No thyromegaly. CARDIOVASCULAR: S1 and S2 present. No murmurs, rubs, or gallops. PULMONARY: Chest is clear to auscultation, no wheezing or crackles. ABDOMEN: Soft, nontender, nondistended, normoactive bowel sounds. No palpable organomegaly. MUSCULOSKELETAL: No joint swelling or deformity. EXTREMITIES: Left foot bandaged seen NEUROLOGICAL: Gross neurological examination did not reveal any focal deficits. SKIN: No rashes. 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 Continue same treatment. Continue with symptomatic treatment. Resume home medication. Monitor labs and vitals. DVT and GI prophylaxis. Further recommendations as per clinical course of the patient Dictation was produced using [employer] dictation software. please excuse any grammatical, word or spelling errors. Past Medical History Past Medical History: Diabetes Mellitus, Hypertension History of Any Multi-Drug Resistant Organisms: VRE Date of last positivie culture/infection: 02/27/23 MDRO Source:: Amputation site of Right 5th Toe Past Surgical History: Orthopedic Surgery Additional Past Surgical History / Comment(s): right wrist surgery Past Anesthesia/Blood Transfusion Reactions: No Reported Reaction Past Psychological History: No Psychological Hx Reported Smoking Status: Former smoker Past Alcohol Use History: None Reported Past Drug Use History: None Reported Medications and Allergies Home Medications Medication Instructions Recorded Confirmed Type Acetaminophen Tab [Tylenol] 650 mg PO Q6HR PRN tab 01/01/23 04/18/23 Rx Famotidine [Pepcid] 20 mg PO DAILY@0800 04/18/23 04/18/23 History Glucerna 1.2 John 120 - 237 ml PO TID@08,,17 04/18/23 04/18/23 History HYDROcodone/APAP 5-325MG [[place] 1 tab PO Q6HR PRN 04/18/23 04/18/23 History 5-325] Heparin Sodium,Porcine (1 ml) 5,000 unit SQ Q12HR@08,21 04/18/23 04/18/23 History [Heparin Sodium] INSULIN ASPART (NovoLOG) [NovoLOG 3 unit SQ AC-TID@04/18/23 04/18/23 History (formulary)] INSULIN ASPART (NovoLOG) [NovoLOG See Protocol SQ 04/18/23 04/18/23 History (formulary)] ACHS@,2129 Insulin Detemir (Levemir) [Levemir] 10 unit SQ HS@2100 04/18/23 04/18/23 History Ipratropium-Albuterol Nebulize 3 ml INHALATION RT-Q6H PRN 04/18/23 04/18/23 History [Duoneb 0.5 mg-3 mg/3 ml Soln] Magnesium Hydroxide [Milk of 7,200 mg PO DAILY PRN 04/18/23 04/18/23 History Magnesia Concentrate] Na Phos,M-B/Na Phos,Di-Ba [Fleet 133 ml RECTAL DAILY PRN 04/18/23 04/18/23 History Adult] Tamsulosin [Flomax] 0.4 mg PO DAILY@0800 04/18/23 04/18/23 History amLODIPine [Norvasc] 10 mg PO DAILY@0800 04/18/23 04/18/23 History bisacodyL [Dulcolax] 10 mg RECTAL DAILY PRN 04/18/23 04/18/23 History polyethylene glycoL 3350 [Miralax] 17 gm PO DAILY@0800 04/18/23 04/18/23 History Allergies Allergy/AdvReac Type Severity Reaction Status Date / Time No Known Allergies Allergy Verified 04/18/23 16:54 Physical Exam Vitals: Vital Signs Temp Pulse Resp BP Pulse Ox 04/19/23 09:16 97.8 F 80 18 150/82 95 04/19/23 05:00 92 18 164/83 97 04/19/23 03:00 91 18 153/96 98 04/19/23 00:00 97.8 F 90 16 140/84 97 04/18/23 20:56 98.1 F 101 H 16 150/82 97 04/18/23 12:38 98.4 F 85 18 118/80 99 Results CBC & Chem 7: 04/19/23 06:49 04/19/23 06:57 Labs: Abnormal Lab Results - Last 24 Hours (Table) 04/18/23 04/18/23 04/19/23 Range/Units 13:07 13:07 06:49 RBC 4.14 L 3.78 L (4.30-5.90) m/uL Hgb 11.9 L (13.0-17.5) gm/dL Hct 37.6 L (39.0-53.0) % BUN 38 H (9-20) mg/dL Creatinine 1.40 H (0.66-1.25) mg/dL Glucose 165 H (74-99) mg/dL
--- NOTE | 2023-04-19 14:40 | P.GSCN ---
History of Present Illness Consult date: 04/19/23 Reason for Consult: left foot gangrene Requesting physician: Sukumar Quispe History of present illness: This is a 88-year-old -[place] male who was sent in to the emergency department by Dr. Giron who has been following him for left foot wounds with concern for infection. Patient has a history of previous gangrene left fifth toe status post amputation on 12/25/2022. Past medical history significant for hypertension, diabetes mellitus, and osteomyelitis left fifth toe. Patient has been following with Dr. Giron for foot infection since December. Apparently he has been under the care of Dr. Giron for outpatient antibiotic therapy. Patient is a poor historian. Unclear if the patient walks at all. Patient admitted for concerns of infected left toe amputation site, and cellulitis. Vascular surgery was consulted for left foot gangrene. During his hospitalization in December he underwent arterial workup with arterial duplex with FELTON on the left 0.78, right 0.98. Patient denies any significant pain at this time. States he doesn't walk much. Patient seems confused at times during this interview. However he is alert and oriented to self year however it has been confused as to where he is. CT left lower extremity ordered. Review of Systems A 14 point review systems was completed all pertinent positives and negatives as stated in the HPI. Past Medical History Past Medical History: Diabetes Mellitus, Hypertension History of Any Multi-Drug Resistant Organisms: VRE Year Discovered:: 02/27/23 MDRO Source:: Amputation site of Right 5th Toe Past Surgical History: Orthopedic Surgery Additional Past Surgical History / Comment(s): right wrist surgery Past Anesthesia/Blood Transfusion Reactions: No Reported Reaction Past Psychological History: No Psychological Hx Reported Smoking Status: Former smoker Past Alcohol Use History: None Reported Past Drug Use History: None Reported Medications and Allergies Home Medications Medication Instructions Recorded Confirmed Type Acetaminophen Tab [Tylenol] 650 mg PO Q6HR PRN tab 01/01/23 04/18/23 Rx Famotidine [Pepcid] 20 mg PO DAILY@0800 04/18/23 04/18/23 History Glucerna 1.2 John 120 - 237 ml PO TID@08,12,17 04/18/23 04/18/23 History HYDROcodone/APAP 5-325MG [[place] 1 tab PO Q6HR PRN 04/18/23 04/18/23 History 5-325] Heparin Sodium,Porcine (1 ml) 5,000 unit SQ Q12HR@08,04/18/23 04/18/23 History [Heparin Sodium] INSULIN ASPART (NovoLOG) [NovoLOG 3 unit SQ AC-TID@04/18/23 04/18/23 History (formulary)] INSULIN ASPART (NovoLOG) [NovoLOG See Protocol SQ 04/18/23 04/18/23 History (formulary)] ACHS@,2129 Insulin Detemir (Levemir) [Levemir] 10 unit SQ HS@2100 04/18/23 04/18/23 History Ipratropium-Albuterol Nebulize 3 ml INHALATION RT-Q6H PRN 04/18/23 04/18/23 History [Duoneb 0.5 mg-3 mg/3 ml Soln] Magnesium Hydroxide [Milk of 7,200 mg PO DAILY PRN 04/18/23 04/18/23 History Magnesia Concentrate] Na Phos,M-B/Na Phos,Di-Ba [Fleet 133 ml RECTAL DAILY PRN 04/18/23 04/18/23 Histo ry Adult] Tamsulosin [Flomax] 0.4 mg PO DAILY@0800 04/18/23 04/18/23 History amLODIPine [Norvasc] 10 mg PO DAILY@0800 04/18/23 04/18/23 History bisacodyL [Dulcolax] 10 mg RECTAL DAILY PRN 04/18/23 04/18/23 History polyethylene glycoL 3350 [Miralax] 17 gm PO DAILY@0800 04/18/23 04/18/23 History Allergies Allergy/AdvReac Type Severity Reaction Status Date / Time No Known Allergies Allergy Verified 04/18/23 16:54 Surgical - Exam Vital Signs Temp Pulse Resp BP Pulse Ox 98.4 F 85 18 118/80 99 04/18/23 12:38 04/18/23 12:38 04/18/23 12:38 04/18/23 12:38 04/18/23 12:38 General appearance: The patient is alert, oriented, appears in no acute distress. HET: Head is normocephalic and atraumatic. Neck: Supple. Heart: Regular. Lungs: Equal expansion, normal respiratory effort. Abdomen: Soft, nontender, nondistended. Extremities: Left lower extremity swelling. Palpable bilateral femoral pulses, cannot appreciate popliteal PT or DP pulses, patient is not keeping his legs still for evaluation.. Dry cracked skin. Wound to dorsal aspect of left foot, left fifth toe amputation site with nonhealing wound. No surrounding redness, no malodor. Neurological: No focal deficits. And oriented 2, person and year. Results - Labs 04/19/23 06:49 04/19/23 06:57 Abnormal Lab Results - Last 24 Hours (Table) 04/19/23 04/19/23 04/19/23 Range/Units 06:49 06:57 12:32 RBC 3.78 L (4.30-5.90) m/uL Hgb 11.9 L (13.0-17.5) gm/dL Hct 37.6 L (39.0-53.0) % Anion Gap 13.30 H (4.00-12.00) mmol/L BUN 30.0 H (9.0-27.0) mg/dL BUN/Creatinine Ratio 27.27 H (12.00-20.00) Ratio Glucose 133 H (70-110) mg/dL POC Glucose (mg/dL) 112 H (70-110) mg/dL Total Bilirubin 0.2 L (0.3-1.2) mg/dL Albumin 3.2 L (3.8-4.9) g/dL Globulin 3.5 H (1.6-3.3) g/dL Albumin/Globulin Ratio 0.91 L (1.60-3.17) Ratio Diabetes panel 04/19/23 Range/Units 06:57 Sodium 141 (135-145) mmol/L Potassium 4.5 (3.5-5.5) mmol/L Chloride 105 (96-109) mmol/L Carbon Dioxide 22.7 (21.6-31.8) mmol/L BUN 30.0 H (9.0-27.0) mg/dL Creatinine 1.1 (0.6-1.5) mg/dL Glucose 133 H (70-110) mg/dL Calcium 9.6 (8.7-10.3) mg/dL AST 19 (14-35) U/L ALT 19 (10-49) U/L Alkaline Phosphatase 69 (41-126) U/L Total Protein 6.7 (6.2-8.2) g/dL Albumin 3.2 L (3.8-4.9) g/dL Calcium panel 04/19/23 Range/Units 06:57 Calcium 9.6 (8.7-10.3) mg/dL Phosphorus 3.5 (2.4-5.1) mg/dL Albumin 3.2 L (3.8-4.9) g/dL Pituitary panel 04/19/23 Range/Units 06:57 Sodium 141 (135-145) mmol/L Potassium 4.5 (3.5-5.5) mmol/L Chloride 105 (96-109) mmol/L Carbon Dioxide 22.7 (21.6-31.8) mmol/L BUN 30.0 H (9.0-27.0) mg/dL Creatinine 1.1 (0.6-1.5) mg/dL Glucose 133 H (70-110) mg/dL Calcium 9.6 (8.7-10.3) mg/dL Adrenal panel 04/19/23 Range/Units 06:57 Sodium 141 (135-145) mmol/L Potassium 4.5 (3.5-5.5) mmol/L Chloride 105 (96-109) mmol/L Carbon Dioxide 22.7 (21.6-31.8) mmol/L BUN 30.0 H (9.0-27.0) mg/dL Creatinine 1.1 (0.6-1.5) mg/dL Glucose 133 H (70-110) mg/dL Calcium 9.6 (8.7-10.3) mg/dL Total Bilirubin 0.2 L (0.3-1.2) mg/dL AST 19 (14-35) U/L ALT 19 (10-49) U/L Alkaline Phosphatase 69 (41-126) U/L Total Protein 6.7 (6.2-8.2) g/dL Albumin 3.2 L (3.8-4.9) g/dL Assessment and Plan Assessment: 1. Nonhealing left fifth toe amputation site 2. Left foot diabetic wound 3. Failed outpatient treatment 4. Diabetes mellitus Plan: 1. CT left lower extremity ordered 2. Consult to wound care clinic for local wound care recommendations and outpatient follow up 3. IV antibiotics per infectious disease 4. Further recommendations forthcoming from vascular surgeon Thank you for this consultation, we will continue to follow The impression and plan of care has been dictated as directed. Dr. Silva I performed a history and examination of this patient, discussed the same with the dictator. I agree with the dictator's note ,documented as a scribe. Any additional findings or plans will be noted.
--- NOTE | 2023-04-19 16:16 | CT ---
EXAMINATION TYPE: CT foot LT w con CT DLP: 142.1 mGycm, Automated exposure control for dose reduction was used. DATE OF EXAM: 04/19/2023 3:38 PM COMPARISON: 4 12/24/2022, plain film 12/23/2022. CLINICAL INDICATION:Male, 88 years old with history of abscess; PHH, LT foot abscess TECHNIQUE: Axial images were obtained of the CT foot LT w con, Additional coronal and sagittal reform atted images and soft tissue and bone window were obtained for review. 3-D reconstruction was created on a separate workstation. Contrast used:80 mL of Isovue 300 with IV Contrast, (None if empty) Oral contrast used: (None if empty) FINDINGS: Interval postsurgical change. Erosive changes to the fifth digit metatarsal head and to a l sedrick extent the fourth digit. There may be also possible erosion changes of the base of the fourth d igit proximal phalanx. No evidence of fracture or dislocation. There is surgical absence of the fifth digit phalanges. Scattered multifocal degeneration changes with joint space narrowing at osteophyte formation. No organizing fluid collections visualized. Severe atherosclerosis of the arterial vascula ture. IMPRESSION: 1. Interval postsurgical change. Erosion of the fourth and fifth digit metatarsal heads suggesting o steomyelitis. No evidence for organizing fluid collection. 2. No evidence of fracture.
[2023-04-19] MEDS: CEFEPIME 2 GM in SODIUM CHLORIDE 0.9% 100 ML IVPB SCH ×2 (16:43→23:32)
[2023-04-19] MEDS: metroNIDAZOLE 500 MG TAB PO SCH ×2 (16:44→21:14)
[2023-04-19 18:31] LABS: Glucose,Whole Blood 179 mg/dL (70-110)
[2023-04-19 20:44] LABS: Glucose,Whole Blood 241 mg/dL (70-110)
[2023-04-19] MEDS: INSULIN DETEMIR (LEVEMIR) 100 UNIT/ML SYR SQ SCH (21:18)
[2023-04-20 07:03] LABS: Glucose,Whole Blood 115 mg/dL (70-110)
[2023-04-20] MEDS: INSULIN ASPART (NovoLOG) 100 UNIT/ML VIAL SQ SCH ×7 (07:43→20:28)
[2023-04-20] MEDS: polyethylene glycoL 3350 17 GM POWD.PACK PO SCH (08:09)
[2023-04-20] MEDS: FAMOTIDINE 20 MG TAB PO SCH (08:10)
[2023-04-20] MEDS: metroNIDAZOLE 500 MG TAB PO SCH ×3 (08:10→21:01)
[2023-04-20] MEDS: amLODIPine 10 MG TAB PO SCH (08:10)
[2023-04-20] MEDS: TAMSULOSIN 0.4 MG CAP.ER.24H PO SCH (08:10)
[2023-04-20] MEDS: CEFEPIME 2 GM in SODIUM CHLORIDE 0.9% 100 ML IVPB SCH ×3 (08:11→23:46)
--- NOTE | 2023-04-20 08:24 | P.CONS ---
History of Present Illness - Reason for Consult Consult date: 04/19/23 Left diabetic foot ulcer Requesting physician: Sukumar Quispe - Chief Complaint Nonhealing wound to the left foot x months - History of Present Illness Patient is a 88-year-old -[place] male with a past medical history significant for diabetes mellitus hypertension patient did have a history of left fifth toe gangrene this patient was status post amputation of the left fifth toe patient was at the time was positive for staph cocci likely it is back to anaerobe that has been treated with a course of cefepime and Flagyl, patient subsequently lost to follow-up and apparently the patient did have a cultures in the [facility] system on 02/27/2023 which did grew VRE, patient was sent to the office yesterday for evaluation of his nonhealing wound to the left foot lateral border which has not healed since December 2022, patient was noted to have significant maceration of the wound with purulent drainage with need for surgical debridement patient was advised to go to the hospital patient denies having any high-grade did have some chills patient has been complaining of pain to the left foot lateral border, especially at the time of dressing changes without any radiation and the patient did have drainage denies any fall swelling. Patient on presentation to the hospital was afebrile patient was not tachycardic hypotensive or hypoxic patient did have white count of 10.5 creatinine is 1.1 patient was admitted to hospital infectious disease was ordered for further management of antibiotic therapy Review of Systems Positive point and negatives has been mentioned in the HPI, complete review of systems was performed and all other systems are negative Past Medical History Past Medical History: Diabetes Mellitus, Hypertension History of Any Multi-Drug Resistant Organisms: VRE Year Discovered:: 02/27/23 MDRO Source:: Amputation site of Right 5th Toe Past Surgical History: Orthopedic Surgery Additional Past Surgical History / Comment(s): right wrist surgery Past Anesthesia/Blood Transfusion Reactions: No Reported Reaction Past Psychological History: No Psychological Hx Reported Smoking Status: Former smoker Past Alcohol Use History: None Reported Past Drug Use History: None Reported Medications and Allergies Home Medications Medication Instructions Recorded Confirmed Type Acetaminophen Tab [Tylenol] 650 mg PO Q6HR PRN tab 01/01/23 04/18/23 Rx Famotidine [Pepcid] 20 mg PO DAILY@0800 04/18/23 04/18/23 History Glucerna 1.2 John 120 - 237 ml PO TID@08,12,17 04/18/23 04/18/23 History HYDROcodone/APAP 5-325MG [[place] 1 tab PO Q6HR PRN 04/18/23 04/18/23 History 5-325] Heparin Sodium,Porcine (1 ml) 5,000 unit SQ Q12HR@08,21 04/18/23 04/18/23 History [Heparin Sodium] INSULIN ASPART (NovoLOG) [NovoLOG 3 unit SQ AC-TID@04/18/23 04/18/23 History (formulary)] INSULIN ASPART (NovoLOG) [NovoLOG See Protocol SQ 04/18/23 04/18/23 History (formulary)] ACHS@,2129 Insulin Detemir (Levemir) [Levemir] 10 unit SQ HS@2100 04/18/23 04/18/23 History Ipratropium-Albuterol Nebulize 3 ml INHALATION RT-Q6H PRN 04/18/23 04/18/23 History [Duoneb 0.5 mg-3 mg/3 ml Soln] Magnesium Hydroxide [Milk of 7,200 mg PO DAILY PRN 04/18/23 04/18/23 History Magnesia Concentrate] Na Phos,M-B/Na Phos,Di-Ba [Fleet 133 ml RECTAL DAILY PRN 04/18/23 04/18/23 History Adult] Tamsulosin [Flomax] 0.4 mg PO DAILY@0800 04/18/23 04/18/23 History amLODIPine [Norvasc] 10 mg PO DAILY@0800 04/18/23 04/18/23 History bisacodyL [Dulcolax] 10 mg RECTAL DAILY PRN 04/18/23 04/18/23 History polyethylene glycoL 3350 [Miralax] 17 gm PO DAILY@0800 04/18/23 04/18/23 History Allergies Allergy/AdvReac Type Severity Reaction Status Date / Time No Known Allergies Allergy Verified 04/18/23 16:54 Physical Exam Vitals: Vital Signs Temp Pulse Resp BP Pulse Ox 04/19/23 09:16 97.8 F 80 18 150/82 95 04/19/23 05:00 92 18 164/83 97 04/19/23 03:00 91 18 153/96 98 04/19/23 00:00 97.8 F 90 16 140/84 97 04/18/23 20:56 98.1 F 101 H 16 150/82 97 04/18/23 12:38 98.4 F 85 18 118/80 99 GENERAL DESCRIPTION: Elderly male lying in bed, no distress. No tachypnea or accessory muscle of respiration use. HEENT: Shows Pallor , no scleral icterus. Oral mucous membrane is dry. No pharyngeal erythema or thrush NECK: Trachea central, no thyromegaly. LUNGS: Unlabored breathing. Clear to auscultation anteriorly. No wheeze or crackle. HEART: S1, S2, regular rate and rhythm. No loud murmur ABDOMEN: Soft, no tenderness , guarding or rigidity, no organomegaly EXTREMITIES: Left foot lateral border wound at the base of the fifth toe ampu tation site with significant maceration and purulent drainage. SKIN: No rash, no masses palpable. NEUROLOGICAL: The patient is awake, alert, oriented x3, mood and affect normal. Results CBC & Chem 7: 04/19/23 06:49 04/19/23 06:57 Labs: Abnormal Lab Results - Last 24 Hours (Table) 04/18/23 04/18/23 04/19/23 Range/Units 13:07 13:07 06:49 RBC 4.14 L 3.78 L (4.30-5.90) m/uL Hgb 11.9 L (13.0-17.5) gm/dL Hct 37.6 L (39.0-53.0) % Anion Gap (4.00-12.00) mmol/L BUN 38 H (9-20) mg/dL Creatinine 1.40 H (0.66-1.25) mg/dL BUN/Creatinine Ratio (12.00-20.00) Ratio Glucose 165 H (74-99) mg/dL Total Bilirubin (0.3-1.2) mg/dL Albumin (3.8-4.9) g/dL Globulin (1.6-3.3) g/dL Albumin/Globulin Ratio (1.60-3.17) Ratio 04/19/23 Range/Units 06:57 RBC (4.30-5.90) m/uL Hgb (13.0-17.5) gm/dL Hct (39.0-53.0) % Anion Gap 13.30 H (4.00-12.00) mmol/L BUN 30.0 H (9-20) mg/dL Creatinine (0.66-1.25) mg/dL BUN/Creatinine Ratio 27.27 H (12.00-20.00) Ratio Glucose 133 H (74-99) mg/dL Total Bilirubin 0.2 L (0.3-1.2) mg/dL Albumin 3.2 L (3.8-4.9) g/dL Globulin 3.5 H (1.6-3.3) g/dL Albumin/Globulin Ratio 0.91 L (1.60-3.17) Ratio Assessment and Plan (1) Cellulitis of left foot Current Visit: Yes Status: Acute Code(s): L03.116 - CELLULITIS OF LEFT LOWER LIMB SNOMED Code(s): 98355933431322936 (2) Type 2 diabetes mellitus with foot ulcer Current Visit: No Status: Acute Code(s): E11.621 - TYPE 2 DIABETES MELLITUS WITH FOOT ULCER; L97.509 - NON-PRESSURE CHRONIC ULCER OTH PRT UNSP FOOT W UNSP SEVERITY SNOMED Code(s): 026827346 Plan: 1patient with a nonhealing wound to the left foot lateral border site of previous left fifth toe amputation because of gangrene culture at that time grew Enterobacter and strep and anaerobes for the patient has completed course of IV cefepime and Flagyl presented to the hospital with a nonhealing wound and purulent drainage concerning for underlying abscess and deep infection, patient has recently grown VRE on 02/27/2023 however the patient is not cleared if he has received any antibiotic for it or not 2-we will wait for the vascular surgery evaluation for debridement and deep culture 3-check a CT of the foot 4-we we will empirically cover the patient with cefepime daptomycin and Flagyl awaiting further workup to be completed We will follow on clinical condition and cultures to further adjust medication if needed Thank you for this consultation we will follow the patient along with you Dictation was produced using [employer] dictation software. please excuse any grammatical, word or spelling errors. Time with Patient: Greater than 30
[2023-04-20] MEDS: SODIUM CHLORIDE 0.9% 1,000 ML IV SCH (09:18)
--- NOTE | 2023-04-20 09:19 | P.CONS ---
History of Present Illness - Reason for Consult Consult date: 04/20/23 wound care - History of Present Illness This is a 88-year-old -[place] male who was sent in to the emergency department by Dr. Giron who has been following him for left foot wounds with concern for infection. Patient has a history of previous gangrene left fifth toe status post amputation on 12/25/2022. Past medical history significant for hypertension, diabetes mellitus, and osteomyelitis left fifth toe. He is known to the wound care center since February. At that time he had a negative pressure wound VAC in place however due to the appearance of the ulceration Santyl was ordered. Patient had utilize Santyl for a few weeks with granulation noted to the wound bed and the wound VAC was reapplied. 2 weeks ago the wound VAC was removed because the ulceration has declined with increase Slough and nonviable tissue present and Santyl was restarted. Patient was not seen last week due to transportation. Ulceration continues to decline with significant depth at 2.3 cm with Slough and nonviable tissue present. Minimal to no granulation seen within the wound bed. Review Of Systems: Constitutional: No fever, no chills, no night sweats. No weight change. No weakness, fatigue or lethargy. No daytime sleepiness. Integumentary:reports wounds, no lesions. No rash or pruritus. No unusual bruising. No change in hair or nails. Physical exam: General Appearance: Alert, cooperative, no distress, appears stated age. Skin: See HPI all other Skin color, texture, tugor normal, no rashes or lesions. Neurologic: Alert oriented x3 Assessment: 1. 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 Diabetic foot ulcer 3. Osteomyelitis Plan: 1. Apply absorptive silver rope moistened, dry gauze roll gauze and secure with paper tape. Change Sunday. Patient has a return appointment to the wound care center on April 24 at 1:30. Thank you for the consultation any questions please contact the wound care center DNP note has been reviewed and discussed with Dr. Smith and the impression and plan of care has been directed as dictated. Past Medical History Past Medical History: Diabetes Mellitus, Hypertension Additional Past Medical History / Comment(s): cellulitis of left foot, altered mental status, History of Any Multi-Drug Resistant Organisms: VRE Year Discovered:: 02/27/23 MDRO Source:: Amputation site of Right 5th Toe Past Surgical History: Orthopedic Surgery Additional Past Surgical History / Comment(s): right wrist surgery Past Anesthesia/Blood Transfusion Reactions: No Reported Reaction Past Psychological History: No Psychological Hx Reported Smoking Status: Former smoker Past Alcohol Use History: None Reported Past Drug Use History: None Reported Medications and Allergies Home Medications Medication Instructions Recorded Confirmed Type Acetaminophen Tab [Tylenol] 650 mg PO Q6HR PRN tab 01/01/23 04/18/23 Rx Famotidine [Pepcid] 20 mg PO DAILY@0800 04/18/23 04/18/23 History Glucerna 1.2 John 120 - 237 ml PO TID@,,04/18/23 04/18/23 History HYDROcodone/APAP 5-325MG [[place] 1 tab PO Q6HR PRN 04/18/23 04/18/23 History 5-325] Heparin Sodium,Porcine (1 ml) 5,000 unit SQ Q12HR@04/18/23 04/18/23 History [Heparin Sodium] INSULIN ASPART (NovoLOG) [NovoLOG 3 unit SQ AC-TID@,182904/18/23 04/18/23 History (formulary)] INSULIN ASPART (NovoLOG) [NovoLOG See Protocol SQ 04/18/23 04/18/23 History (formulary)] ACHS@07,,1829,2129 Insulin Detemir (Levemir) [Levemir] 10 unit SQ HS@2100 04/18/23 04/18/23 History Ipratropium-Albuterol Nebulize 3 ml INHALATION RT-Q6H PRN 04/18/23 04/18/23 History [Duoneb 0.5 mg-3 mg/3 ml Soln] Magnesium Hydroxide [Milk of 7,200 mg PO DAILY PRN 04/18/23 04/18/23 History Magnesia Concentrate] Na Phos,M-B/Na Phos,Di-Ba [Fleet 133 ml RECTAL DAILY PRN 04/18/23 04/18/23 History Adult] Tamsulosin [Flomax] 0.4 mg PO DAILY@0800 04/18/23 04/18/23 History amLODIPine [Norvasc] 10 mg PO DAILY@0800 04/18/23 04/18/23 History bisacodyL [Dulcolax] 10 mg RECTAL DAILY PRN 04/18/23 04/18/23 History polyethylene glycoL 3350 [Miralax] 17 gm PO DAILY@0800 04/18/23 04/18/23 History Allergies Allergy/AdvReac Type Severity Reaction Status Date / Time No Known Allergies Allergy Verified 04/18/23 16:54 Physical Exam Vitals: Vital Signs Temp Pulse Pulse Resp BP BP Pulse Ox 04/20/23 07:04 98.5 F 90 18 162/81 95 04/20/23 02:00 97.5 F L 79 16 145/68 95 04/19/23 20:15 71 16 04/19/23 20:00 98.3 F 71 16 142/80 91 L 04/19/23 17:41 98.0 F 92 18 131/98 99 04/19/23 16:47 98.0 F 90 18 159/90 98 04/19/23 13:28 78 18 98 04/19/23 09:16 97.8 F 80 18 150/82 95 Intake and Output 04/19/23 04/20/23 04/20/23 22:59 06:59 14:59 Intake Total 590 Output Total 500 Balance 90 Intake: Oral 590 Output: Urine 500 Other: Voiding Method External Catheter # Bowel Movements 1 Results CBC & Chem 7: 04/19/23 06:49 04/19/23 06:57 Labs: Abnormal Lab Results - Last 24 Hours (Table) 04/19/23 04/19/23 04/19/23 Range/Units 06:57 12:32 18:20 ESR (0-20) mm/Hr Anion Gap 13.30 H (4.00-12.00) mmol/L BUN 30.0 H (9.0-27.0) mg/dL BUN/Creatinine Ratio 27.27 H (12.00-20.00) Ratio Glucose 133 H (70-110) mg/dL POC Glucose (mg/dL) 112 H 179 H (70-110) mg/dL Total Bilirubin 0.2 L (0.3-1.2) mg/dL C-Reactive Protein (<1.0) mg/dL Albumin 3.2 L (3.8-4.9) g/dL Globulin 3.5 H (1.6-3.3) g/dL Albumin/Globulin Ratio 0.91 L (1.60-3.17) Ratio 04/19/23 04/20/23 04/20/23 Range/Units 20:42 05:58 05:58 ESR 54 H (0-20) mm/Hr Anion Gap (4.00-12.00) mmol/L BUN (9.0-27.0) mg/dL BUN/Creatinine Ratio (12.00-20.00) Ratio Glucose (70-110) mg/dL POC Glucose (mg/dL) 241 H (70-110) mg/dL Total Bilirubin (0.3-1.2) mg/dL C-Reactive Protein 3.9 H (<1.0) mg/dL Albumin (3.8-4.9) g/dL Globulin (1.6-3.3) g/dL Albumin/Globulin Ratio (1.60-3.17) Ratio 04/20/23 Range/Units 07:02 ESR (0-20) mm/Hr Anion Gap (4.00-12.00) mmol/L BUN (9.0-27.0) mg/dL BUN/Creatinine Ratio (12.00-20.00) Ratio Glucose (70-110) mg/dL POC Glucose (mg/dL) 115 H (70-110) mg/dL Total Bilirubin (0.3-1.2) mg/dL C-Reactive Protein (<1.0) mg/dL Albumin (3.8-4.9) g/dL Globulin (1.6-3.3) g/dL Albumin/Globulin Ratio (1.60-3.17) Ratio Microbiology - Last 24 Hours (Table) 04/18/23 13:07 Blood Culture - Preliminary Blood Assessment and Plan (1) Non-pressure chronic ulcer of other part of left foot with necrosis of bone Current Visit: No Status: Acute Code(s): L97.524 - NON-PRS CHRONIC ULCER OTH PRT LEFT FOOT W NECROSIS OF BONE SNOMED Code(s): 51233558241731912 (2) Osteomyelitis, unspecified Current Visit: No Status: Acute Code(s): M86.9 - OSTEOMYELITIS, UNSPECIFIED SNOMED Code(s): 78701210 (3) Type 2 diabetes mellitus with foot ulcer Current Visit: No Status: Acute Code(s): E11.621 - TYPE 2 DIABETES MELLITUS WITH FOOT ULCER; L97.509 - NON-PRESSURE CHRONIC ULCER OTH PRT UNSP FOOT W UNSP SEVERITY SNOMED Code(s): 868101509
[2023-04-20 11:57] LABS: Glucose,Whole Blood 115 mg/dL (70-110)
--- NOTE | 2023-04-20 12:26 | P.PN ---
Subjective Progress Note Date: 04/20/23 patient is 88-year-old gentleman with past medical significant for hypertension, diabetes mellitus, osteomyelitis of left fifth toe who was sent to the ER from IDs office for evaluation for left fifth toe infection. Patient follows up with Dr. Giron and stated that his been dealing with this foot infection since December. Patient was admitted in December of this year and was found to have necrotic left fifth toe ,CT of the foot showed osteomyelitis involving the fifth digit extending from the distal fifth digit phalanx to the head of the fifth metatarsal. Patient underwent left fifth toe transmetatarsal amputation on 12/25/2022. Patient has been following up outpatient with ID. Patient has been having issues with left foot pain. Patient also noticed redness of left foot .P atient denies any fever or chills. There was no complain nausea or vomiting. Denies abdominal pain. No complaint of lethargy or weakness. On today's evaluation with IDs office, they referred him to the ER. Initial lab work done in the ER showed WBC 10.5, hemoglobin 13.2, platelet count 351, sodium 139, potassium 4.7, BUNs 38, creatinine 1.40 Patient admitted to internal medicine service 04/20. Patient seen and examined. CT of left foot done showed erosion of the fourth and fifth digit suggestive of osteomyelitis. Still complaining of pain in left foot. REVIEW OF SYSTEMS: CONSTITUTIONAL: No fever, no malaise,. CARDIOVASCULAR: No chest pain, no palpitations, no syncope. PULMONARY: No shortness of breath, no cough, GASTROINTESTINAL: No diarrhea, no nausea, no vomiting, no abdominal pain. NEUROLOGICAL: No headaches, no weakness, PHYSICAL EXAMINATION: GENERAL: The patient is alert and oriented x3, not in any acute distress. Well developed, well nourished. HEENT: Pupils are round and equally reacting to light. EOMI. No scleral icterus. No conjunctival pallor. Normocephalic, atraumatic. No pharyngeal erythema. No thyromegaly. CARDIOVASCULAR: S1 and S2 present. No murmurs, rubs, or gallops. PULMONARY: Chest is clear to auscultation, no wheezing or crackles. ABDOMEN: Soft, nontender, nondistended, normoactive bowel sounds. No palpable organomegaly. MUSCULOSKELETAL: Left foot bandaged seen erythema noticeable EXTREMITIES: No cyanosis, clubbing, or pedal edema. NEUROLOGICAL: Gross neurological examination did not reveal any focal deficits. SKIN: No rashes. Assessment and plan Left foot cellulitis Osteomyelitis of fourth and fifth digit of left foot Left foot diabetic ulcer History of left fifth toe gangrene status post amputation of left fifth toe Hypertension Diabetes mellitus Monitor vital signs Monitor CBC Monitor CMP Continue wound care Follow-up on blood cultures Continue IV cefazolin Continue daptomycin Continue wound care ID following Vascular surgery following In regards to hypertension continue Norvasc In regards to diabetes mellitus, monitor blood sugar levels, continue current insulin regimen Labs and medication were reviewed.. Continue same treatment. Continue with symptomatic treatment. Resume home medication. Monitor labs and vitals. DVT and GI prophylaxis. Further recommendations as per clinical course of the patient Dictation was produced using [employer] dictation software. please excuse any grammatical, word or spelling errors. Objective - Vital Signs Vital signs: Vital Signs Temp 98.5 F 04/20/23 07:04 Pulse 90 04/20/23 07:04 Resp 18 04/20/23 07:04 BP 162/81 04/20/23 07:04 Pulse Ox 95 04/20/23 07:04 FiO2 Intake & Output 04/19/23 04/20/23 04/20/23 18:59 06:59 18:59 Intake Total 590 Output Total 500 Balance 90 Weight 108.862 kg Intake: Oral 590 Output: Urine 500 Other: Voiding Method External Catheter # Bowel Movements 1 - Labs CBC & Chem 7: 04/19/23 06:49 04/19/23 06:57 Labs: Abnormal Lab Results - Last 24 Hours (Table) 04/19/23 04/19/23 04/19/23 Range/Units 06:57 12:32 18:20 ESR (0-20) mm/Hr Anion Gap 13.30 H (4.00-12.00) mmol/L BUN 30.0 H (9.0-27.0) mg/dL BUN/Creatinine Ratio 27.27 H (12.00-20.00) Ratio Glucose 133 H (70-110) mg/dL POC Glucose (mg/dL) 112 H 179 H (70-110) mg/dL Total Bilirubin 0.2 L (0.3-1.2) mg/dL C-Reactive Protein (<1.0) mg/dL Albumin 3.2 L (3.8-4.9) g/dL Globulin 3.5 H (1.6-3.3) g/dL Albumin/Globulin Ratio 0.91 L (1.60-3.17) Ratio 04/19/23 04/20/23 04/20/23 Range/Units 20:42 05:58 05:58 ESR 54 H (0-20) mm/Hr Anion Gap (4.00-12.00) mmol/L BUN (9.0-27.0) mg/dL BUN/Creatinine Ratio (12.00-20.00) Ratio Glucose (70-110) mg/dL POC Glucose (mg/dL) 241 H (70-110) mg/dL Total Bilirubin (0.3-1.2) mg/dL C-Reactive Protein 3.9 H (<1.0) mg/dL Albumin (3.8-4.9) g/dL Globulin (1.6-3.3) g/dL Albumin/Globulin Ratio (1.60-3.17) Ratio 04/20/23 Range/Units 07:02 ESR (0-20) mm/Hr Anion Gap (4.00-12.00) mmol/L BUN (9.0-27.0) mg/dL BUN/Creatinine Ratio (12.00-20.00) Ratio Glucose (70-110) mg/dL POC Glucose (mg/dL) 115 H (70-110) mg/dL Total Bilirubin (0.3-1.2) mg/dL C-Reactive Protein (<1.0) mg/dL Albumin (3.8-4.9) g/dL Globulin (1.6-3.3) g/dL Albumin/Globulin Ratio (1.60-3.17) Ratio Microbiology - Last 24 Hours (Table) 04/18/23 13:07 Blood Culture - Preliminary Blood
[2023-04-20] MEDS ORDERED: ONDANSETRON 4 MG/2 ML VIAL IVP ONE (13:51)
[2023-04-20] MEDS ORDERED: DEXAMETHASONE SOD PHOSPHATE 4 MG/ML 1 ML VIAL IVP ONE (13:51)
[2023-04-20] MEDS ORDERED: LACTATED RINGERS 1,000 ML IV ONE (13:51)
[2023-04-20] MEDS ORDERED: fentaNYL (PF) 50 MCG/ML 2 ML AMP ONE (14:02)
[2023-04-20] MEDS ORDERED: KETAMINE HCL IN 0.9 % NACL 50 MG/5 ML SYRINGE ONE (14:02)
[2023-04-20] MEDS ORDERED: PROPOFOL 10 MG/ML 20 ML VIAL IV ONE (14:02)
[2023-04-20] MEDS ORDERED: LIDOCAINE 1% INJ 10MG/ML (20 ML MDV) SQ ONE ×2 (14:32)
--- NOTE | 2023-04-20 14:56 | P.OP ---
Date of Procedure: 04/20/23 Description of Procedure: DATE OF SERVICE: 04/20/2023 SURGEON: Veronika Silva DO [employer] SYSTEM[employer] PROGRAMMER: None PREOPERATIVE DIAGNOSIS: Nonhealing left fifth toe amputation site wound, osteomyelitis fourth and fifth metatarsal POSTOPERATIVE DIAGNOSIS: Same OPERATION: Left fourth toe ray amputation. Revision of left fifth transmetatarsal amputation Sharp Excisional debridement dorsal foot wound measuring 4 x 3.5 x 0.2 cm to subcutaneous tissue Application initiation of wound VAC ANESTHESIA: Sedation with local ESTIMATED BLOOD LOSS: 5 mL SPECIMENS REMOVED: Left fourth toe culture COMPLICATIONS: None immediately apparent OPERATIVE FINDINGS: Patient is an 88-year-old male with previous fifth toe amputation due to infection that has been nonhealing. On imaging and workup today he was found to have osteomyelitis of his fourth and fifth metatarsals therefore with the appearance of the wound was recommended undergo intervention as well as debridement of the dorsal portion of the wound. Risks and benefits were discussed. He seemingly understood. Patient was taken to the operating room and placed in supine position. ring block was performed, and a circular incision was made at the base of the proximal phalanx, deepened through the skin, fat, and tendons. Tendons were divided prior to plantar and dorsal aspect of the fourth toe. After that, proximal phalanx was dislocated from the metatarsal joint. There appeared to be a pathologic fracture. The metatarsal was then cleared of its tissue and transected with a bone cutters, and we took deep culture from the toe. It was sent for culture and sensitivity. The fifth toe metatarsal was then transected back further. Hemostasis was well controlled with pressure. Selective cautery was used. Bleeding appeared to be decent. The area was cleansed and a wound VAC was placed in standard fashion. Attention was then turned towards the dorsa l foot wound, the areas of eschar was debridement back to healthy-appearing tissue. There is some fibrinous tissue as well. The measurements are as above. Both curet and scalpel were utilized. A simple dressing was placed here. A Kerlix rolls placed around the foot the patient was transferred recovery The patient tolerated the procedure well.
[2023-04-20 15:27] LABS: Glucose,Whole Blood 123 mg/dL (70-110)
[2023-04-20 17:05] LABS: Glucose,Whole Blood 146 mg/dL (70-110)
[2023-04-20 20:25] LABS: Glucose,Whole Blood 266 mg/dL (70-110)
[2023-04-20] MEDS: INSULIN DETEMIR (LEVEMIR) 100 UNIT/ML SYR SQ SCH (20:28)
[2023-04-20] MEDS: HYDROcodone/APAP 5-325MG 1 EACH TAB PO PRN (20:32)
[2023-04-21 07:33] LABS: Glucose,Whole Blood 165 mg/dL (70-110)
[2023-04-21] MEDS: INSULIN ASPART (NovoLOG) 100 UNIT/ML VIAL SQ SCH ×7 (08:23→20:36)
[2023-04-21] MEDS: polyethylene glycoL 3350 17 GM POWD.PACK PO SCH (08:23)
[2023-04-21] MEDS: CEFEPIME 2 GM in SODIUM CHLORIDE 0.9% 100 ML IVPB SCH ×2 (08:23→20:27)
[2023-04-21] MEDS: TAMSULOSIN 0.4 MG CAP.ER.24H PO SCH (08:24)
[2023-04-21] MEDS: amLODIPine 10 MG TAB PO SCH (08:24)
[2023-04-21] MEDS: FAMOTIDINE 20 MG TAB PO SCH (08:24)
[2023-04-21] MEDS: metroNIDAZOLE 500 MG TAB PO SCH ×3 (08:24→21:01)
[2023-04-21] MEDS: HYDROcodone/APAP 5-325MG 1 EACH TAB PO PRN (08:47)
[2023-04-21 09:25] LABS: Basophils # (A) 0.02 X 10*3/uL (0.00-0.10); Basophils % (A) 0.2 %; Eosinophils # (A) 0 X 10*3/uL (0.04-0.35); Eosinophils % (A) 0 %; HGB 11.3 g/dL (13.0-17.0); Lymphocytes # (A) 1.25 X 10*3/uL (0.90-5.00); Lymphocytes % (A) 13.7 %; MCH 30.9 pg (27.0-32.0); MCHC 32.3 g/dL (32.0-37.0); MCV 95.6 FL (80.0-97.0); Mean Platelet Volume 9.5 FL (9.5-12.2); Monocytes # (A) 0.62 X 10*3/uL (0.20-1.00); Monocytes % (A) 6.8 %; NRBC Per 100 WBC 0.02 X 10*3/uL (0.00-0.01); Neutrophils # (A) 7.18 X 10*3/uL (1.80-7.70); Neutrophils % (A) 78.6 %; Platelet Count 316 X 10*3/uL (140-440); RBC 3.66 X 10*6/uL (4.40-5.60); RDW 13.3 % (11.5-14.5); WBC 9.13 X 10*3/uL (4.50-10.00)
[2023-04-21 10:13] LABS: ALT 17 U/L (10-49); AST 14 U/L (14-35); Albumin 2.9 g/dL (3.8-4.9); Albumin/Globulin Ratio 0.88 Ratio (1.60-3.17); Alkaline Phosphatase 56 U/L (41-126); Blood Urea Nitrogen 27.5 mg/dL (9.0-27.0); Calcium 9.3 mg/dL (8.7-10.3); Carbon Dioxide 22.8 mmol/L (21.6-31.8); Chloride 105 mmol/L (96-109); Globulin 3.3 g/dL (1.6-3.3); Glucose 165 mg/dL (70-110); Potassium 5.3 mmol/L (3.5-5.5); Sodium 139 mmol/L (135-145); Total Bilirubin <0.2 mg/dL (0.3-1.2); Total Protein 6.2 g/dL (6.2-8.2)
[2023-04-21 11:47] LABS: Glucose,Whole Blood 224 mg/dL (70-110)
--- NOTE | 2023-04-21 12:50 | P.PN ---
Subjective Progress Note Date: 04/21/23 patient is 88-year-old gentleman with past medical significant for hypertension, diabetes mellitus, osteomyelitis of left fifth toe who was sent to the ER from IDs office for evaluation for left fifth toe infection. Patient follows up with Dr. Giron and stated that his been dealing with this foot infection since December. Patient was admitted in December of this year and was found to have necrotic left fifth toe ,CT of the foot showed osteomyelitis involving the fifth digit extending from the distal fifth digit phalanx to the head of the fifth metatarsal. Patient underwent left fifth toe transmetatarsal amputation on 12/25/2022. Patient has been following up outpatient with ID. Patient has been having issues with left foot pain. Patient also noticed redness of left foot .P atient denies any fever or chills. There was no complain nausea or vomiting. Denies abdominal pain. No complaint of lethargy or weakness. On today's evaluation with IDs office, they referred him to the ER. Initial lab work done in the ER showed WBC 10.5, hemoglobin 13.2, platelet count 351, sodium 139, potassium 4.7, BUNs 38, creatinine 1.40 Patient admitted to internal medicine service 04/20. Patient seen and examined. CT of left foot done showed erosion of the fourth and fifth digit suggestive of osteomyelitis. Still complaining of pain in left foot. 04/21. Patient seen and examined. Patient underwent Left fourth toe ray amputation,Revision of left fifth transmetatarsal amputation ,Application initiation of wound VAC by vascular surgery on 04/20. Postoperatively patient is doing well. Laying comfortably in the bed. REVIEW OF SYSTEMS: CONSTITUTIONAL: No fever, no malaise,. CARDIOVASCULAR: No chest pain, no palpitations, no syncope. PULMONARY: No shortness of breath, no cough, GASTROINTESTINAL: No diarrhea, no nausea, no vomiting, no abdominal pain. NEUROLOGICAL: No headaches, no weakness, PHYSICAL EXAMINATION: GENERAL: The patient is alert and oriented x3, not in any acute distress. Well developed, well nourished. HEENT: Pupils are round and equally reacting to light. EOMI. No scleral icterus. No conjunctival pallor. Normocephalic, atraumatic. No pharyngeal erythema. No thyromegaly. CARDIOVASCULAR: S1 and S2 present. No murmurs, rubs, or gallops. PULMONARY: Chest is clear to auscultation, no wheezing or crackles. ABDOMEN: Soft, nontender, nondistended, normoactive bowel sounds. No palpable organomegaly. MUSCULOSKELETAL: Left foot bandaged seen, wound VAC in place EXTREMITIES: No cyanosis, clubbing, or pedal edema. NEUROLOGICAL: Gross neurological examination did not reveal any focal deficits. SKIN: No rashes. Assessment and plan Left foot cellulitis Osteomyelitis of fourth and fifth digit of left foot Left foot diabetic ulcer History of left fifth toe gangrene status post amputation of left fifth toe Hypertension Diabetes mellitus Monitor vital signs Monitor CBC Monitor CMP Continue wound care Follow-up on blood cultures Continue IV cefepime,daptomycin and Flagyl Continue wound care Status post post Left fourth toe ray amputation,Revision of left fifth transmetatarsal amputation ,Application initiation of wound VAC by vascular surgery on 04/20 ID following Vascular surgery following In regards to hypertension continue Norvasc In regards to diabetes mellitus, monitor blood sugar levels, continue current insulin regimen Labs and medication were reviewed.. Continue same treatment. Continue with symptomatic treatment. Resume home medication. Monitor labs and vitals. DVT and GI prophylaxis. Further recommendations as per clinical course of the pa jerman Dictation was produced using [employer] dictation software. please excuse any grammatical, word or spelling errors. Objective - Vital Signs Vital signs: Vital Signs Temp 98.1 F 04/21/23 07:31 Pulse 64 04/21/23 07:31 Resp 17 04/21/23 07:31 BP 144/74 04/21/23 07:31 Pulse Ox 100 04/21/23 07:31 FiO2 Intake & Output 04/20/23 04/21/23 04/21/23 18:59 06:59 18:59 Intake Total 800 Output Total 5 700 Balance 795 -700 Intake: IV 800 Output: Urine 700 Estimated Blood Loss 5 Other: Voiding Method External Catheter External Catheter External Catheter # Voids 1 - Labs CBC & Chem 7: 04/21/23 04:48 04/21/23 04:48 Labs: Abnormal Lab Results - Last 24 Hours (Table) 04/20/23 04/20/23 04/20/23 Range/Units 05:58 15:25 17:00 RBC (4.40-5.60) X 10*6/uL Hgb (13.0-17.0) g/dL Hct (39.6-50.0) % Immature Gran # (0.00-0.04) X 10*3/uL Eosinophils # (0.04-0.35) X 10*3/uL NRBC/100 WBC Diff (0.00-0.01) X 10*3/uL BUN (9.0-27.0) mg/dL BUN/Creatinine Ratio (12.00-20.00) Ratio Glucose (70-110) mg/dL POC Glucose (mg/dL) 123 H 146 H (70-110) mg/dL Hemoglobin A1c 7.7 H (<=6.0) % Total Bilirubin (0.3-1.2) mg/dL Albumin (3.8-4.9) g/dL Albumin/Globulin Ratio (1.60-3.17) Ratio 04/20/23 04/21/23 04/21/23 Range/Units 20:21 04:48 04:48 RBC 3.66 L (4.40-5.60) X 10*6/uL Hgb 11.3 L (13.0-17.0) g/dL Hct 35.0 L (39.6-50.0) % Immature Gran # 0.06 H (0.00-0.04) X 10*3/uL Eosinophils # 0 L (0.04-0.35) X 10*3/uL NRBC/100 WBC Diff 0.02 H (0.00-0.01) X 10*3/uL BUN 27.5 H (9.0-27.0) mg/dL BUN/Creatinine Ratio 25.00 H (12.00-20.00) Ratio Glucose 165 H (70-110) mg/dL POC Glucose (mg/dL) 266 H (70-110) mg/dL Hemoglobin A1c (<=6.0) % Total Bilirubin <0.2 L (0.3-1.2) mg/dL Albumin 2.9 L (3.8-4.9) g/dL Albumin/Globulin Ratio 0.88 L (1.60-3.17) Ratio 04/21/23 04/21/23 Range/Units 07:31 11:46 RBC (4.40-5.60) X 10*6/uL Hgb (13.0-17.0) g/dL Hct (39.6-50.0) % Immature Gran # (0.00-0.04) X 10*3/uL Eosinophils # (0.04-0.35) X 10*3/uL NRBC/100 WBC Diff (0.00-0.01) X 10*3/uL BUN (9.0-27.0) mg/dL BUN/Creatinine Ratio (12.00-20.00) Ratio Glucose (70-110) mg/dL POC Glucose (mg/dL) 165 H 224 H (70-110) mg/dL Hemoglobin A1c (<=6.0) % Total Bilirubin (0.3-1.2) mg/dL Albumin (3.8-4.9) g/dL Albumin/Globulin Ratio (1.60-3.17) Ratio Microbiology - Last 24 Hours (Table) 04/20/23 14:40 Gram Stain - Preliminary Bone - Other Wound Culture - Preliminary Gram Neg Bacilli 04/18/23 13:07 Blood Culture - Preliminary Blood
--- NOTE | 2023-04-21 14:10 | P.PN ---
Subjective Progress Note Date: 04/20/23 Principal diagnosis: Reason for follow-up is left diabetic foot infection concerning for osteomyelitis Patient is a 88-year-old -[place] male with a past medical history si gnificant for diabetes mellitus hypertension patient did have a history of left fifth toe gangrene this patient was status post amputation of the left fifth toe, patient now presented to hospital with a worsening wound to the left foot lateral border with purulent drainage did have a CT suspicious for osteomyelitis On today's evaluation and that is 04/20/2023 patient remains to be afebrile, the patient is breathing comfortably on room air. Denies any chest pain shortness of breath or cough no nausea vomiting no abdominal pain or diarrhea denies any worsening pain to the left foot lateral border wound. Patient did have a sed rate of 54 CRP 3.9 Objective - Vital Signs Vital signs: Vital Signs Temp 98 F 04/20/23 11:50 Pulse 78 04/20/23 11:50 Resp 17 04/20/23 11:50 BP 156/75 04/20/23 11:50 Pulse Ox 98 04/20/23 11:50 FiO2 Intake & Output 04/19/23 04/20/23 04/20/23 18:59 06:59 18:59 Intake Total 590 Output Total 500 Balance 90 Weight 108.862 kg Intake: Oral 590 Output: Urine 500 Other: Voiding Method External Catheter External Catheter # Voids 1 # Bowel Movements 1 - Exam GENERAL DESCRIPTION: An elderly male lying in bed in no distress RESPIRATORY SYSTEM: Unlabored breathing , clear to auscultation anteriorly HEART: S1 S2 regular rate and rhythm , ABDOMEN: Soft , no tenderness EXTREMITIES: Left foot lateral border wound covered with a dressing minimal drainage - Labs CBC & Chem 7: 04/21/23 04:48 04/21/23 04:48 Labs: Abnormal Lab Results - Last 24 Hours (Table) 04/19/23 04/19/23 04/20/23 Range/Units 18:20 20:42 05:58 ESR 54 H (0-20) mm/Hr POC Glucose (mg/dL) 179 H 241 H (70-110) mg/dL C-Reactive Protein (<1.0) mg/dL 04/20/23 04/20/23 04/20/23 Range/Units 05:58 07:02 11:53 ESR (0-20) mm/Hr POC Glucose (mg/dL) 115 H 115 H (70-110) mg/dL C-Reactive Protein 3.9 H (<1.0) mg/dL Microbiology - Last 24 Hours (Table) 04/18/23 13:07 Blood Culture - Preliminary Blood Assessment and Plan (1) Cellulitis of left foot Current Visit: Yes Status: Acute Code(s): L03.116 - CELLULITIS OF LEFT LOWER LIMB SNOMED Code(s): 54406464171685511 (2) Type 2 diabetes mellitus with foot ulcer Current Visit: No Status: Acute Code(s): E11.621 - TYPE 2 DIABETES MELLITUS WITH FOOT ULCER; L97.509 - NON-PRESSURE CHRONIC ULCER OTH PRT UNSP FOOT W UNSP SEVERITY SNOMED Code(s): 950073033 Plan: 1patient with a nonhealing wound to the left foot lateral border site of previous left fifth toe amputation because of gangrene culture at that time grew Enterobacter and strep and anaerobes for the patient has completed course of IV cefepime and Flagyl presented to the hospital with a nonhealing wound and purulent drainage concerning for underlying abscess and deep infection, 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 3we will continue the patient on cefepime daptomycin and Flagyl while waiting for the culture to be finalized Dictation was produced using [employer] dictation software. please excuse any grammatical, word or spelling errors.
--- NOTE | 2023-04-21 14:13 | P.PN ---
Subjective Progress Note Date: 04/21/23 Principal diagnosis: Reason for follow-up is left diabetic foot infection concerning for osteomyelitis Patient is a 88-year-old -[place] Islander male with a past medical history si gnificant for diabetes mellitus hypertension patient did have a history of left fifth toe gangrene this patient was status post amputation of the left fourth toe, patient now presented to hospital with a worsening wound to the left foot lateral border with purulent drainage did have a CT suspicious for osteomyelitis, the patient is status post sharp excisional debridement and left fourth toe ray amputation completed on 04/20/2023 On today's evaluation and that is 04/21/2023 remains to be afebrile, patient is breathing comfortably on room air 24 supplemental oxygen patient denies having any chest pain or cough no abdominal pain pain to the left foot is currently controlled patient did have a sed rate of 54 CRP 3.9, the patient white count is 9.13, creatinine is 1.1 Objective - Vital Signs Vital signs: Vital Signs Temp 98.1 F 04/21/23 07:31 Pulse 64 04/21/23 07:31 Resp 17 04/21/23 07:31 BP 144/74 04/21/23 07:31 Pulse Ox 100 04/21/23 07:31 FiO2 Intake & Output 04/20/23 04/21/23 04/21/23 18:59 06:59 18:59 Intake Total 800 Output Total 5 700 Balance 795 -700 Intake: IV 800 Output: Urine 700 Estimated Blood Loss 5 Other: Voiding Method External Catheter External Catheter External Catheter # Voids 1 - Exam GENERAL DESCRIPTION: An elderly male lying in bed in no distress RESPIRATORY SYSTEM: Unlabored breathing , clear to auscultation anteriorly HEART: S1 S2 regular rate and rhythm , ABDOMEN: Soft , no tenderness EXTREMITIES: Left foot lateral border wound covered with a dressing minimal drainage - Labs CBC & Chem 7: 04/21/23 04:48 04/21/23 04:48 Labs: Abnormal Lab Results - Last 24 Hours (Table) 04/20/23 04/20/23 04/20/23 Range/Units 05:58 11:53 15:25 RBC (4.40-5.60) X 10*6/uL Hgb (13.0-17.0) g/dL Hct (39.6-50.0) % Immature Gran # (0.00-0.04) X 10*3/uL Eosinophils # (0.04-0.35) X 10*3/uL NRBC/100 WBC Diff (0.00-0.01) X 10*3/uL BUN (9.0-27.0) mg/dL BUN/Creatinine Ratio (12.00-20.00) Ratio Glucose (70-110) mg/dL POC Glucose (mg/dL) 115 H 123 H (70-110) mg/dL Hemoglobin A1c 7.7 H (<=6.0) % Total Bilirubin (0.3-1.2) mg/dL Albumin (3.8-4.9) g/dL Albumin/Globulin Ratio (1.60-3.17) Ratio 04/20/23 04/20/23 04/21/23 Range/Units 17:00 20:21 04:48 RBC 3.66 L (4.40-5.60) X 10*6/uL Hgb 11.3 L (13.0-17.0) g/dL Hct 35.0 L (39.6-50.0) % Immature Gran # 0.06 H (0.00-0.04) X 10*3/uL Eosinophils # 0 L (0.04-0.35) X 10*3/uL NRBC/100 WBC Diff 0.02 H (0.00-0.01) X 10*3/uL BUN (9.0-27.0) mg/dL BUN/Creatinine Ratio (12.00-20.00) Ratio Glucose (70-110) mg/dL POC Glucose (mg/dL) 146 H 266 H (70-110) mg/dL Hemoglobin A1c (<=6.0) % Total Bilirubin (0.3-1.2) mg/dL Albumin (3.8-4.9) g/dL Albumin/Globulin Ratio (1.60-3.17) Ratio 04/21/23 04/21/23 Range/Units 04:48 07:31 RBC (4.40-5.60) X 10*6/uL Hgb (13.0-17.0) g/dL Hct (39.6-50.0) % Immature Gran # (0.00-0.04) X 10*3/uL Eosinophils # (0.04-0.35) X 10*3/uL NRBC/100 WBC Diff (0.00-0.01) X 10*3/uL BUN 27.5 H (9.0-27.0) mg/dL BUN/Creatinine Ratio 25.00 H (12.00-20.00) Ratio Glucose 165 H (70-110) mg/dL POC Glucose (mg/dL) 165 H (70-110) mg/dL Hemoglobin A1c (<=6.0) % Total Bilirubin <0.2 L (0.3-1.2) mg/dL Albumin 2.9 L (3.8-4.9) g/dL Albumin/Globulin Ratio 0.88 L (1.60-3.17) Ratio Microbiology - Last 24 Hours (Table) 04/20/23 14:40 Gram Stain - Preliminary Bone - Other 04/18/23 13:07 Blood Culture - Preliminary Blood Assessment and Plan (1) Cellulitis of left foot Current Visit: Yes Status: Acute Code(s): L03.116 - CELLULITIS OF LEFT LOWER LIMB SNOMED Code(s): 18834606634077024 (2) Type 2 diabetes mellitus with foot ulcer Current Visit: No Status: Acute Code(s): E11.621 - TYPE 2 DIABETES MELLITUS WITH FOOT ULCER; L97.509 - NON-PRESSURE CHRONIC ULCER OTH PRT UNSP FOOT W UNSP SEVERITY SNOMED Code(s): 000267247 Plan: 1patient with a nonhealing wound to the left foot lateral border site of previous left fifth toe amputation because of gangrene culture at that time grew Enterobacter and strep and anaerobes for the patient has completed course of IV cefepime and Flagyl presented to the hospital with a nonhealing wound and purulent drainage concerning for underlying abscess and deep infection, patient has recently grown VRE on 02/27/2023 however the patient is not cleared if he has received any antibiotic for it or not 2patient has been evaluated vascular surgery the patient status post amputation of the left fourth toe and debridement of the wound and deep cultures which are currently pending 3we will continue the patient on cefepime daptomycin and Flagyl while waiting for the culture to be finalized, likely need PICC line for outpatient IV antibiotics Dictation was produced using [employer] dictation software. please excuse any grammatical, word or spelling errors. Time with Patient: Less than 30
[2023-04-21 17:32] LABS: Glucose,Whole Blood 171 mg/dL (70-110)
[2023-04-21 20:05] LABS: Glucose,Whole Blood 185 mg/dL (70-110)
[2023-04-21] MEDS: INSULIN DETEMIR (LEVEMIR) 100 UNIT/ML SYR SQ SCH (20:35)
[2023-04-22 07:45] LABS: Glucose,Whole Blood 104 mg/dL (70-110)
[2023-04-22] MEDS: INSULIN ASPART (NovoLOG) 100 UNIT/ML VIAL SQ SCH ×7 (07:48→20:53)
[2023-04-22] MEDS: FAMOTIDINE 20 MG TAB PO SCH (08:40)
[2023-04-22] MEDS: TAMSULOSIN 0.4 MG CAP.ER.24H PO SCH (08:40)
[2023-04-22] MEDS: metroNIDAZOLE 500 MG TAB PO SCH ×3 (08:41→20:10)
[2023-04-22] MEDS: CEFEPIME 2 GM in SODIUM CHLORIDE 0.9% 100 ML IVPB SCH ×2 (08:41→20:10)
[2023-04-22] MEDS: amLODIPine 10 MG TAB PO SCH (08:41)
[2023-04-22] MEDS: polyethylene glycoL 3350 17 GM POWD.PACK PO SCH (08:41)
[2023-04-22 11:45] LABS: HCT 38.8 % (39.6-50.0); HGB 12.6 g/dL (13.0-17.0); MCH 30.2 pg (27.0-32.0); MCHC 32.5 g/dL (32.0-37.0); Mean Platelet Volume 8.9 FL (9.5-12.2); NRBC Per 100 WBC 0 X 10*3/uL (0.00-0.01); Platelet Count 322 X 10*3/uL (140-440); RBC 4.17 X 10*6/uL (4.40-5.60); RDW 13.4 % (11.5-14.5); WBC 9.09 X 10*3/uL (4.50-10.00)
[2023-04-22 12:46] LABS: Glucose,Whole Blood 161 mg/dL (70-110)
--- NOTE | 2023-04-22 13:09 | P.PN ---
Subjective Progress Note Date: 04/22/23 patient is 88-year-old gentleman with past medical significant for hypertension, diabetes mellitus, osteomyelitis of left fifth toe who was sent to the ER from IDs office for evaluation for left fifth toe infection. Patient follows up with Dr. Giron and stated that his been dealing with this foot infection since December. Patient was admitted in December of this year and was found to have necrotic left fifth toe ,CT of the foot showed osteomyelitis involving the fifth digit extending from the distal fifth digit phalanx to the head of the fifth metatarsal. Patient underwent left fifth toe transmetatarsal amputation on 12/25/2022. Patient has been following up outpatient with ID. Patient has been having issues with left foot pain. Patient also noticed redness of left foot .P atient denies any fever or chills. There was no complain nausea or vomiting. Denies abdominal pain. No complaint of lethargy or weakness. On today's evaluation with IDs office, they referred him to the ER. Initial lab work done in the ER showed WBC 10.5, hemoglobin 13.2, platelet count 351, sodium 139, potassium 4.7, BUNs 38, creatinine 1.40 Patient admitted to internal medicine service 04/20. Patient seen and examined. CT of left foot done showed erosion of the fourth and fifth digit suggestive of osteomyelitis. Still complaining of pain in left foot. 04/21. Patient seen and examined. Patient underwent Left fourth toe ray amputation,Revision of left fifth transmetatarsal amputation ,Application initiation of wound VAC by vascular surgery on 04/20. Postoperatively patient is doing well. Laying comfortably in the bed. 04/22. Patient seen and examined. Patient laying comfortably in the bed. Denies any pain in his left leg. Vital signs stable REVIEW OF SYSTEMS: CONSTITUTIONAL: No fever, no malaise,. CARDIOVASCULAR: No chest pain, no palpitations, no syncope. PULMONARY: No shortness of breath, no cough, GASTROINTESTINAL: No diarrhea, no nausea, no vomiting, no abdominal pain. NEUROLOGICAL: No headaches, no weakness, PHYSICAL EXAMINATION: GENERAL: The patient is alert and oriented x3, not in any acute distress. Well developed, well nourished. HEENT: Pupils are round and equally reacting to light. EOMI. No scleral icterus. No conjunctival pallor. Normocephalic, atraumatic. No pharyngeal erythema. No thyromegaly. CARDIOVASCULAR: S1 and S2 present. No murmurs, rubs, or gallops. PULMONARY: Chest is clear to auscultation, no wheezing or crackles. ABDOMEN: Soft, nontender, nondistended, normoactive bowel sounds. No palpable organomegaly. MUSCULOSKELETAL: Left foot bandaged seen, wound VAC in place EXTREMITIES: No cyanosis, clubbing, or pedal edema. NEUROLOGICAL: Gross neurological examination did not reveal any focal deficits. SKIN: No rashes. Assessment and plan Left foot cellulitis Osteomyelitis of fourth and fifth digit of left foot Left foot diabetic ulcer History of left fifth toe gangrene status post amputation of left fifth toe Hypertension Diabetes mellitus Monitor vital signs Monitor CBC Monitor CMP Continue wound care Follow-up on blood cultures Continue IV cefepime,daptomycin and Flagyl Continue wound care Status post post Left fourth toe ray amputation,Revision of left fifth transmetatarsal amputation ,Application initiation of wound VAC by vascular surgery on 04/20 ID following Vascular surgery following In regards to hypertension continue Norvasc In regards to diabetes mellitus, monitor blood sugar levels, continue current insulin regimen Labs and medication were reviewed.. Continue same treatment. Continue with symptomatic treatment. Resume home medication. Monitor labs and vitals. DVT and GI prophylaxis. Further recommendations as per clinical course of the patient Dictation was produced using [employer] dictation software. please excuse any grammatical, word or spelling errors. Objective - Vital Signs Vital signs: Vital Signs Temp 98.1 F 04/22/23 12:40 Pulse 87 04/22/23 12:40 Resp 18 04/22/23 12:40 BP 131/69 04/22/23 12:40 Pulse Ox 97 04/22/23 12:40 FiO2 Intake & Output 04/21/23 04/22/23 04/22/23 18:59 06:59 18:59 Output Total 600 1300 Balance -600 -1300 Output: Urine 600 1300 Other: Voiding Method External Catheter External Catheter External Catheter # Bowel Movements 1 - Labs CBC & Chem 7: 04/22/23 06:03 04/21/23 04:48 Labs: Abnormal Lab Results - Last 24 Hours (Table) 04/21/23 04/21/23 04/22/23 Range/Units 17:30 20:03 06:03 RBC 4.17 L (4.40-5.60) X 10*6/uL Hgb 12.6 L (13.0-17.0) g/dL Hct 38.8 L (39.6-50.0) % MPV 8.9 L (9.5-12.2) FL POC Glucose (mg/dL) 171 H 185 H (70-110) mg/dL 04/22/23 Range/Units 12:41 RBC (4.40-5.60) X 10*6/uL Hgb (13.0-17.0) g/dL Hct (39.6-50.0) % MPV (9.5-12.2) FL POC Glucose (mg/dL) 161 H (70-110) mg/dL Microbiology - Last 24 Hours (Table) 04/20/23 14:40 Gram Stain - Preliminary Bone - Other Wound Culture - Preliminary Proteus mirabilis Group D Enterococcus Presumptive MRSA 04/18/23 13:07 Blood Culture - Preliminary Blood
[2023-04-22 14:27] LABS: ALT 25 U/L (10-49); AST 27 U/L (14-35); Albumin 3.3 g/dL (3.8-4.9); Albumin/Globulin Ratio 0.97 Ratio (1.60-3.17); Alkaline Phosphatase 64 U/L (41-126); BUN/Creat Ratio 22.92 Ratio (12.00-20.00); Blood Urea Nitrogen 27.5 mg/dL (9.0-27.0); Calcium 9.6 mg/dL (8.7-10.3); Carbon Dioxide 25.7 mmol/L (21.6-31.8); Chloride 103 mmol/L (96-109); Globulin 3.4 g/dL (1.6-3.3); Glucose 109 mg/dL (70-110); Potassium 4.9 mmol/L (3.5-5.5); Sodium 139 mmol/L (135-145); Total Bilirubin 0.2 mg/dL (0.3-1.2); Total Protein 6.7 g/dL (6.2-8.2)
[2023-04-22 17:08] LABS: Glucose,Whole Blood 193 mg/dL (70-110)
[2023-04-22] MEDS: INSULIN DETEMIR (LEVEMIR) 100 UNIT/ML SYR SQ SCH (20:11)
[2023-04-22 20:27] LABS: Glucose,Whole Blood 187 mg/dL (70-110)
[2023-04-23 07:33] LABS: Glucose,Whole Blood 117 mg/dL (70-110)
[2023-04-23] MEDS: INSULIN ASPART (NovoLOG) 100 UNIT/ML VIAL SQ SCH ×7 (07:38→20:10)
[2023-04-23] MEDS: polyethylene glycoL 3350 17 GM POWD.PACK PO SCH (08:52)
[2023-04-23] MEDS: metroNIDAZOLE 500 MG TAB PO SCH ×3 (08:52→22:18)
[2023-04-23] MEDS: TAMSULOSIN 0.4 MG CAP.ER.24H PO SCH (08:52)
[2023-04-23] MEDS: amLODIPine 10 MG TAB PO SCH (08:52)
[2023-04-23] MEDS: FAMOTIDINE 20 MG TAB PO SCH (08:52)
[2023-04-23] MEDS: CEFEPIME 2 GM in SODIUM CHLORIDE 0.9% 100 ML IVPB SCH (08:53)
--- NOTE | 2023-04-23 09:26 | P.PN ---
Subjective Progress Note Date: 04/23/23 Principal diagnosis: Osteomyelitis Patient is seen and examined today as a follow-up. He is postop day #3 for left fourth toe amputation, revision of left fifth transmetatarsal amputation and excisional debridement dorsal foot wound. Patient has been afebrile. Pain is well managed. Wound culture currently positive for Proteus Mirabella's, group D enterococcus and presumptive MRSA. He remains on IV antibiotics with cefepime, daptomycin and oral Flagyl. Objective - Vital Signs Vital signs: Vital Signs Temp 98.4 F 04/23/23 07:32 Pulse 88 04/23/23 07:32 Resp 17 04/23/23 07:32 BP 133/74 04/23/23 07:32 Pulse Ox 98 04/23/23 07:32 FiO2 Intake & Output 04/22/23 04/23/23 04/23/23 18:59 06:59 18:59 Intake Total 590 Output Total 1800 500 Balance -1800 90 Intake: Oral 590 Output: Urine 1800 500 Other: Voiding Method External Catheter - Exam General appearance: The patient is alert, oriented, appears in no acute distress. HET: Head is normocephalic and atraumatic. Neck: Supple. Heart: Regular. Lungs: Equal expansion, normal respiratory effort. Abdomen: Soft, nondistended. Extremities: Left foot with dressing clean dry and intact. Wound VAC to amputation site with a good seal and suction. Neurological: No focal deficits. - Labs CBC & Chem 7: 04/22/23 06:03 04/22/23 06:03 Labs: Abnormal Lab Results - Last 24 Hours (Table) 04/22/23 04/22/23 04/22/23 Range/Units 06:03 06:03 12:41 RBC 4.17 L (4.40-5.60) X 10*6/uL Hgb 12.6 L (13.0-17.0) g/dL Hct 38.8 L (39.6-50.0) % MPV 8.9 L (9.5-12.2) FL BUN 27.5 H (9.0-27.0) mg/dL Est GFR (CKD-EPI) 59 L (>=60) BUN/Creatinine Ratio 22.92 H (12.00-20.00) Ratio POC Glucose (mg/dL) 161 H (70-110) mg/dL Total Bilirubin 0.2 L (0.3-1.2) mg/dL Albumin 3.3 L (3.8-4.9) g/dL Globulin 3.4 H (1.6-3.3) g/dL Albumin/Globulin Ratio 0.97 L (1.60-3.17) Ratio 04/22/23 04/22/23 04/23/23 Range/Units 17:05 20:25 07:32 RBC (4.40-5.60) X 10*6/uL Hgb (13.0-17.0) g/dL Hct (39.6-50.0) % MPV (9.5-12.2) FL BUN (9.0-27.0) mg/dL Est GFR (CKD-EPI) (>=60) BUN/Creatinine Ratio (12.00-20.00) Ratio POC Glucose (mg/dL) 193 H 187 H 117 H (70-110) mg/dL Total Bilirubin (0.3-1.2) mg/dL Albumin (3.8-4.9) g/dL Globulin (1.6-3.3) g/dL Albumin/Globulin Ratio (1.60-3.17) Ratio Microbiology - Last 24 Hours (Table) 04/20/23 14:40 Anaerobic Culture - Preliminary Bone - Other 04/20/23 14:40 Gram Stain - Preliminary Bone - Other Wound Culture - Preliminary Proteus mirabilis Group D Enterococcus Presumptive MRSA Assessment and Plan Assessment: 1. Status post left foot fifth toe metatarsal revision, fourth toe amputation, and excisional debridement dorsal wound 2. Nonhealing left fifth toe amputation site status 3. Osteomyelitis of fourth toe 4. Left foot diabetic wound 5. Failed outpatient treatment 6. Diabetes mellitus Plan: 1. Change wound VAC dressing to left foot Sunday, Sunday 2. Wet-to-dry dressing of left dorsal foot 3. IV antibiotics per infectious disease 4. Follow-up with wound care as scheduled 5. Post op shoe to left foot. Offload weight to forefoot and heel walk only on left foot. 5. Patient is clear for discharge from vascular surgery for discharge. He will need to follow-up in 2 weeks. Thank you for this consultation The impress [email or web address] has been dictated as directed. Dr. Sprague I performed a history and examination of this patient, discussed the same with the dictator. I agree with the dictator's note ,documented as a scribe. Any additional findings or plans will be noted.
[2023-04-23 12:04] LABS: Glucose,Whole Blood 278 mg/dL (70-110)
[2023-04-23] MEDS ORDERED: VANCOMYCIN IV PER PHARMACY 1 EACH MISC MISCELLANE PRN (14:32)
[2023-04-23] MEDS: VANCOMYCIN 1,750 MG in SODIUM CHLORIDE 0.9% 500 ML 500 ML IVPB SCH (15:15)
[2023-04-23] MEDS: HYDROcodone/APAP 5-325MG 1 EACH TAB PO PRN (15:32)
[2023-04-23 17:02] LABS: Glucose,Whole Blood 165 mg/dL (70-110)
[2023-04-23] MEDS ORDERED: ZINC OXIDE PASTE (Z-GUARD) 1 APPLIC APPLIC TOPICAL PRN (17:29)
--- NOTE | 2023-04-23 18:08 | CDI ---
Documentation Clarification Form Date: 04/23/2023 06:03:00 PM From: Carin Lane RN, CCDS Phone: Admit Date: 04/18/2023 05:21:00 PM Patient Name: El Shahid Visit Number: [id number] Discharge Date: ATTENTION: The Clinical Documentation Specialists (CDI) and [facility] Coding Staff appreciate your assistance in clarifying documentation. Please respond to the clarification below the line at the bottom and electronically sign. The CDI & [facility] Coding staff will review the response and follow-up if needed. Please note: Queries are made part of the Legal Health Record. If you have any questions, please contact the author of this message via ITS. Dr. Yojana Giron Cellulitis is documented in your consult and subsequent progress notes. Additional clarification regarding the type of cellulitis is requested. History/risk factors: Diabetes Mellitus, Hypertension Clinical Indicators: 88-year-old male with nonhealing wound to the left foot toe status post amputation. He presents with nonhealing wound to the left foot lateral border, maceration of the wound with purulent drainage. He is ruled in for Cellulitis of left foot. Type 2 diabetes mellitus with foot ulcer. Treatment: Cefepime 2 GM IVPB Flagyl 500 MG PO TID 04/19-04/23 Daptomycin 600 MG IVPB Q 24 HRS 04/19-04/23 Vancomycin 1,750 MG IVPB Q 16 HRS ( PTD) 04/23 Please clarify the etiology of the cellulitis, if known: [ ] Cellulitis is a diabetic skin complication [ ] Cellulitis is not a diabetic skin complication [ x ] Other, please specify: Patient did have a left foot diabetic foot ulcer with underlying acute osteomyelitis culture has been positive for MRSA enterococcus and Proteus [ ] Unable to determine (Template Last Revised: May 2022) MTDD
[2023-04-23] MEDS: AMPICILLIN-SULBACTAM 3 GM in SODIUM CHLORIDE 0.9% 100 ML IVPB SCH ×2 (18:46→23:11)
[2023-04-23 19:56] LABS: Glucose,Whole Blood 228 mg/dL (70-110)
[2023-04-23] MEDS: INSULIN DETEMIR (LEVEMIR) 100 UNIT/ML SYR SQ SCH (20:10)
[2023-04-24] MEDS: AMPICILLIN-SULBACTAM 3 GM in SODIUM CHLORIDE 0.9% 100 ML IVPB SCH ×3 (05:39→18:07)
[2023-04-24] MEDS: VANCOMYCIN 1,750 MG in SODIUM CHLORIDE 0.9% 500 ML 500 ML IVPB SCH ×2 (06:35→22:38)
[2023-04-24 07:32] LABS: Glucose,Whole Blood 119 mg/dL (70-110)
[2023-04-24] MEDS: INSULIN ASPART (NovoLOG) 100 UNIT/ML VIAL SQ SCH ×7 (07:38→22:37)
[2023-04-24 08:26] LABS: Basophils # (A) 0.06 X 10*3/uL (0.00-0.10); Basophils % (A) 0.7 %; Eosinophils # (A) 0.18 X 10*3/uL (0.04-0.35); Eosinophils % (A) 2.2 %; HCT 35.4 % (39.6-50.0); HGB 11.4 g/dL (13.0-17.0); Lymphocytes # (A) 1.75 X 10*3/uL (0.90-5.00); Lymphocytes % (A) 21.5 %; MCH 30.3 pg (27.0-32.0); MCHC 32.2 g/dL (32.0-37.0); MCV 94.1 FL (80.0-97.0); Monocytes # (A) 0.87 X 10*3/uL (0.20-1.00); Monocytes % (A) 10.7 %; NRBC Per 100 WBC 0 X 10*3/uL (0.00-0.01); Neutrophils # (A) 5.23 X 10*3/uL (1.80-7.70); Neutrophils % (A) 64.2 %; Platelet Count 243 X 10*3/uL (140-440); RBC 3.76 X 10*6/uL (4.40-5.60); RDW 13.8 % (11.5-14.5); WBC 8.15 X 10*3/uL (4.50-10.00)
[2023-04-24 09:07] LABS: BUN/Creat Ratio 18.82 Ratio (12.00-20.00); Blood Urea Nitrogen 20.7 mg/dL (9.0-27.0); Calcium 9.1 mg/dL (8.7-10.3); Carbon Dioxide 22.8 mmol/L (21.6-31.8); Chloride 106 mmol/L (96-109); Glucose 112 mg/dL (70-110); Potassium 4.8 mmol/L (3.5-5.5); Sodium 139 mmol/L (135-145)
[2023-04-24] MEDS: TAMSULOSIN 0.4 MG CAP.ER.24H PO SCH (09:20)
[2023-04-24] MEDS: FAMOTIDINE 20 MG TAB PO SCH (09:20)
[2023-04-24] MEDS: amLODIPine 10 MG TAB PO SCH (09:20)
[2023-04-24] MEDS: metroNIDAZOLE 500 MG TAB PO SCH ×3 (09:20→22:36)
[2023-04-24] MEDS: polyethylene glycoL 3350 17 GM POWD.PACK PO SCH (09:21)
[2023-04-24 12:01] LABS: Glucose,Whole Blood 146 mg/dL (70-110)
--- NOTE | 2023-04-24 15:04 | P.PN ---
Subjective Progress Note Date: 04/22/23 Principal diagnosis: Reason for follow-up is left diabetic foot infection concerning for osteomyelitis Patient is a 88-year-old -[place] Citizen male with a past medical history si gnificant for diabetes mellitus hypertension patient did have a history of left fifth toe gangrene this patient was status post amputation of the left fourth toe, patient now presented to hospital with a worsening wound to the left foot lateral border with purulent drainage did have a CT suspicious for osteomyelitis, the patient is status post sharp excisional debridement and left fourth toe ray amputation completed on 04/20/2023 On today's evaluation and that is 04/22/2023, the patient continues to be afebrile, the patient is breathing comfortably on room air patient denies having any chest pain or cough no nausea vomiting abdominal pain or any worsening pain to the left foot. Patient did have a white count of 9.09, creatinine is 1.2 local cultures currently pending Objective - Vital Signs Vital signs: Vital Signs Temp 98.1 F 04/22/23 12:40 Pulse 87 04/22/23 12:40 Resp 18 04/22/23 12:40 BP 131/69 04/22/23 12:40 Pulse Ox 97 04/22/23 12:40 FiO2 Intake & Output 04/21/23 04/22/23 04/22/23 18:59 06:59 18:59 Output Total 600 1300 Balance -600 -1300 Output: Urine 600 1300 Other: Voiding Method External Catheter External Catheter External Catheter # Bowel Movements 1 - Exam GENERAL DESCRIPTION: An elderly male lying in bed in no distress RESPIRATORY SYSTEM: Unlabored breathing , clear to auscultation anteriorly HEART: S1 S2 regular rate and rhythm , ABDOMEN: Soft , no tenderness EXTREMITIES: Left foot lateral border wound covered with a dressing minimal drainage - Labs CBC & Chem 7: 04/24/23 05:53 04/24/23 05:53 Labs: Abnormal Lab Results - Last 24 Hours (Table) 04/21/23 04/21/23 04/22/23 Range/Units 17:30 20:03 06:03 RBC 4.17 L (4.40-5.60) X 10*6/uL Hgb 12.6 L (13.0-17.0) g/dL Hct 38.8 L (39.6-50.0) % MPV 8.9 L (9.5-12.2) FL POC Glucose (mg/dL) 171 H 185 H (70-110) mg/dL 04/22/23 Range/Units 12:41 RBC (4.40-5.60) X 10*6/uL Hgb (13.0-17.0) g/dL Hct (39.6-50.0) % MPV (9.5-12.2) FL POC Glucose (mg/dL) 161 H (70-110) mg/dL Microbiology - Last 24 Hours (Table) 04/20/23 14:40 Gram Stain - Preliminary Bone - Other Wound Culture - Preliminary Proteus mirabilis Group D Enterococcus Presumptive MRSA 04/18/23 13:07 Blood Culture - Preliminary Blood Assessment and Plan (1) Cellulitis of left foot Current Visit: Yes Status: Acute Code(s): L03.116 - CELLULITIS OF LEFT LOWER LIMB SNOMED Code(s): 37638004337537953 (2) Type 2 diabetes mellitus with foot ulcer Current Visit: No Status: Acute Code(s): E11.621 - TYPE 2 DIABETES MELLITUS WITH FOOT ULCER; L97.509 - NON-PRESSURE CHRONIC ULCER OTH PRT UNSP FOOT W UNSP SEVERITY SNOMED Code(s): 256318606 Plan: 1patient with a nonhealing wound to the left foot lateral border site of previous left fifth toe amputation because of gangrene culture at that time grew Enterobacter and strep and anaerobes for the patient has completed course of IV cefepime and Flagyl presented to the hospital with a nonhealing wound and purulent drainage concerning for underlying abscess and deep infection, patient has recently grown VRE on 02/27/2023 however the patient is not cleared if he has received any antibiotic for it or not 2patient has been evaluated vascular surgery the patient status post amputation of the left fourth toe and debridement of the wound and deep cultures which are currently pending 3patient to continue with the daptomycin cefepime and Flagyl while waiting for the culture to finalize currently waiting for PICC line and outpatient IV biotic arrangement Dictation was produced using [employer] dictation software. please excuse any grammatical, word or spelling errors. Time with Patient: Less than 30
--- NOTE | 2023-04-24 15:05 | P.PN ---
Subjective Progress Note Date: 04/23/23 Principal diagnosis: Reason for follow-up is left diabetic foot infection concerning for osteomyelitis Patient is a 88-year-old -[place] male with a past medical history si gnificant for diabetes mellitus hypertension patient did have a history of left fifth toe gangrene this patient was status post amputation of the left fourth toe, patient now presented to hospital with a worsening wound to the left foot lateral border with purulent drainage did have a CT suspicious for osteomyelitis, the patient is status post sharp excisional debridement and left fourth toe ray amputation completed on 04/20/2023 On today's evaluation and that is 04/23/2023 patient denies having any fever or any chills, the patient is breathing comfortably on room air patient denies having any chest pain shortness breath or cough no nausea vomiting no abdominal pain and no diarrhea has been reported by the nursing staff. No new labs has been obtained today patient culture came back positive with MRSA Enterococcus faecalis and Proteus Objective - Vital Signs Vital signs: Vital Signs Temp 98.2 F 04/23/23 12:05 Pulse 90 04/23/23 12:05 Resp 18 04/23/23 12:05 BP 149/82 04/23/23 12:05 Pulse Ox 99 04/23/23 12:05 FiO2 Intake & Output 04/22/23 04/23/23 04/23/23 18:59 06:59 18:59 Intake Total 590 Output Total 1800 500 500 Balance -1800 90 -500 Intake: Oral 590 Output: Urine 1800 500 500 Other: Voiding Method External Catheter External Catheter - Exam GENERAL DESCRIPTION: An elderly male lying in bed in no distress RESPIRATORY SYSTEM: Unlabored breathing , clear to auscultation anteriorly HEART: S1 S2 regular rate and rhythm , ABDOMEN: Soft , no tenderness EXTREMITIES: Left foot lateral border wound covered with a dressing minimal drainage - Labs CBC & Chem 7: 04/24/23 05:53 04/24/23 05:53 Labs: Abnormal Lab Results - Last 24 Hours (Table) 04/22/23 04/22/23 04/23/23 Range/Units 17:05 20:25 07:32 POC Glucose (mg/dL) 193 H 187 H 117 H (70-110) mg/dL 04/23/23 Range/Units 12:03 POC Glucose (mg/dL) 278 H (70-110) mg/dL Microbiology - Last 24 Hours (Table) 04/20/23 14:40 Gram Stain - Final Bone - Other Wound Culture - Final Proteus mirabilis Enterococcus faecalis Methicillin resist S. aureus 04/20/23 14:40 Anaerobic Culture - Preliminary Bone - Other Assessment and Plan (1) Cellulitis of left foot Current Visit: Yes Status: Acute Code(s): L03.116 - CELLULITIS OF LEFT LOWER LIMB SNOMED Code(s): 20555107552002893 (2) Type 2 diabetes mellitus with foot ulcer Current Visit: No Status: Acute Code(s): E11.621 - TYPE 2 DIABETES MELLITUS WITH FOOT ULCER; L97.509 - NON-PRESSURE CHRONIC ULCER OTH PRT UNSP FOOT W UNSP SEVERITY SNOMED Code(s): 763706771 Plan: 1patient with a nonhealing wound to the left foot lateral border site of previous left fifth toe amputation because of gangrene culture at that time grew Enterobacter and strep and anaerobes for the patient has completed course of IV cefepime and Flagyl presented to the hospital with a nonhealing wound and purulent drainage concerning for underlying abscess and deep infection, patient has recently grown VRE on 02/27/2023 however the patient is not cleared if he has received any antibiotic for it or not 2patient has been evaluated vascular surgery the patient status post amputation of the left fourth toe and debridement of the wound and deep cultures Are currently going MRSA Enterococcus and Proteus. 3we will discontinue cefepime daptomycin and Flagyl start the patient on vancom ycin pharmacy to dose and Unasyn patient is cleared to get a PICC line for outpatient IV antibiotic therapy Dictation was produced using [employer] dictation software. please excuse any grammatical, word or spelling errors. Time with Patient: Less than 30
--- NOTE | 2023-04-24 15:07 | P.PN ---
Subjective Progress Note Date: 04/24/23 Principal diagnosis: Reason for follow-up is left diabetic foot infection concerning for osteomyelitis Patient is a 88-year-old -[place] male with a past medical history si gnificant for diabetes mellitus hypertension patient did have a history of left fifth toe gangrene this patient was status post amputation of the left fourth toe, patient now presented to hospital with a worsening wound to the left foot lateral border with purulent drainage did have a CT suspicious for osteomyelitis, the patient is status post sharp excisional debridement and left fourth toe ray amputation completed on 04/20/2023 On today's evaluation and that is 04/24/2023 patient remains to be afebrile, the patient is breathing comfortably on room air patient denies having any chest pain or cough no nausea vomiting no abdominal pain and no diarrhea has been reported by the nursing staff. Patient did have white count of 8.15, creatinine is 1.1 Objective - Vital Signs Vital signs: Vital Signs Temp 98.5 F 04/24/23 11:54 Pulse 70 04/24/23 11:54 Resp 17 04/24/23 11:54 BP 153/67 04/24/23 11:54 Pulse Ox 96 04/24/23 11:54 FiO2 Intake & Output 04/23/23 04/24/23 04/24/23 18:59 06:59 18:59 Intake Total 590 Output Total 500 300 500 Balance -500 290 -500 Intake: Oral 590 Output: Urine 500 300 500 Other: Voiding Method External Catheter External Catheter # Voids 1 - Exam GENERAL DESCRIPTION: An elderly male lying in bed in no distress RESPIRATORY SYSTEM: Unlabored breathing , clear to auscultation anteriorly HEART: S1 S2 regular rate and rhythm , ABDOMEN: Soft , no tenderness EXTREMITIES: Left foot lateral border wound covered with wound vac - Labs CBC & Chem 7: 04/24/23 05:53 04/24/23 05:53 Labs: Abnormal Lab Results - Last 24 Hours (Table) 04/23/23 04/23/23 04/24/23 Range/Units 17:01 19:55 05:53 RBC 3.76 L (4.40-5.60) X 10*6/uL Hgb 11.4 L (13.0-17.0) g/dL Hct 35.4 L (39.6-50.0) % MPV 9.0 L (9.5-12.2) FL Immature Gran # 0.06 H (0.00-0.04) X 10*3/uL Glucose (70-110) mg/dL POC Glucose (mg/dL) 165 H 228 H (70-110) mg/dL 04/24/23 04/24/23 04/24/23 Range/Units 05:53 07:30 12:00 RBC (4.40-5.60) X 10*6/uL Hgb (13.0-17.0) g/dL Hct (39.6-50.0) % MPV (9.5-12.2) FL Immature Gran # (0.00-0.04) X 10*3/uL Glucose 112 H (70-110) mg/dL POC Glucose (mg/dL) 119 H 146 H (70-110) mg/dL Microbiology - Last 24 Hours (Table) 04/20/23 14:40 Anaerobic Culture - Final Bone - Other 04/18/23 13:07 Blood Culture - Final Blood 04/20/23 14:40 Gram Stain - Final Bone - Other Wound Culture - Final Proteus mirabilis Enterococcus faecalis Methicillin resist S. aureus Assessment and Plan (1) Cellulitis of left foot Current Visit: Yes Status: Acute Code(s): L03.116 - CELLULITIS OF LEFT LOWER LIMB SNOMED Code(s): 25030129735892159 (2) Type 2 diabetes mellitus with foot ulcer Current Visit: No Status: Acute Code(s): E11.621 - TYPE 2 DIABETES MELLITUS WITH FOOT ULCER; L97.509 - NON-PRESSURE CHRONIC ULCER OTH PRT UNSP FOOT W UNSP SEVERITY SNOMED Code(s): 242747605 Plan: 1patient with a nonhealing wound to the left foot lateral border site of previous left fifth toe amputation because of gangrene culture at that time grew Enterobacter and strep and anaerobes for the patient has completed course of IV cefepime and Flagyl presented to the hospital with a nonhealing wound and purulent drainage concerning for underlying abscess and deep infection, patient has recently grown VRE on 02/27/2023 however the patient is not cleared if he has received any antibiotic for it or not 2patient has been evaluated vascular surgery the patient status post amputation of the left fourth toe and debridement of the wound and deep cultures Are currently going MRSA Enterococcus and Proteus. 3patient to continue with the vancomycin pharmacy to dose target trough 15 along with Unasyn 3 g every 6 hours plan is for a total of 6-week course of antibiotic therapy along with weekly monitoring of CRP and sed rate and close outpatient follow-up this was discussed with [employer] for admitting team Dictation was produced using [employer] dictation software. please excuse any grammatical, word or spelling errors. Time with Patient: Less than 30
[2023-04-24 17:10] LABS: Glucose,Whole Blood 246 mg/dL (70-110)
[2023-04-24 20:20] LABS: Glucose,Whole Blood 174 mg/dL (70-110)
[2023-04-24] MEDS: INSULIN DETEMIR (LEVEMIR) 100 UNIT/ML SYR SQ SCH (22:37)
[2023-04-25] MEDS: AMPICILLIN-SULBACTAM 3 GM in SODIUM CHLORIDE 0.9% 100 ML IVPB SCH ×4 (01:12→17:46)
--- NOTE | 2023-04-25 05:51 | P.PN ---
Subjective Progress Note Date: 04/24/23 Patient is 88-year-old gentleman with past medical significant for hypertension, diabetes mellitus, osteomyelitis of left fifth toe who was sent to the ER from IDs office for evaluation for left fifth toe infection. Patient follows up with Dr. Giron and stated that his been dealing with this foot infection since December. Patient was admitted in December of this year and was found to have necrotic left fifth toe ,CT of the foot showed osteomyelitis involving the fifth digit extending from the distal fifth digit phalanx to the head of the fifth metatarsal. Patient underwent left fifth toe transmetatarsal amputation on 12/25/2022. Patient has been following up outpatient with ID. Patient has been having issues with left foot pain. Patient also noticed redness of left foot .Patient denies any fever or chills. There was no complain nausea or vomiting. Denies abdominal pain. No complaint of lethargy or weakness. On today's evaluation with IDs office, they referred him to the ER. Initial lab work done in the ER showed WBC 10.5, hemoglobin 13.2, platelet count 351, sodium 139, potassium 4.7, BUNs 38, creatinine 1.40 Patient admitted to internal medicine service 04/20. Patient seen and examined. CT of left foot done showed erosion of the fourth and fifth digit suggestive of osteomyelitis. Still complaining of pain in left foot. 04/21. Patient seen and examined. Patient underwent Left fourth toe ray amputation,Revision of left fifth transmetatarsal amputation ,Application in itiation of wound VAC by vascular surgery on 04/20. Postoperatively patient is doing well. Laying comfortably in the bed. 04/22. Patient seen and examined. Patient laying comfortably in the bed. Denies any pain in his left leg. Vital signs stable 04/24/2023 Patient is seen and evaluated in follow-up this morning being followed by infectious disease awaiting to receive PICC line is patient will require antibiotic therapy in the outpatient setting. Plan is to return to [facility] on discharge. Patient is status post left fourth toe amputation along with revision of the left fifth transmetatarsal amputation and currently has a wound VAC. Patient currently maintained on Unasyn and vancomycin and will continue with a 6 week course per ID recommendations and close outpatient follow-up. Will discuss further with case management on discharge planning once patient has received a PICC line. Patient is currently afebrile with no reported chest pain or shortness of breath. Patient is tolerating diet and would recommend aspiration cautions with supervision with meals and head of the bed elevated 30- 45 at all times. REVIEW OF SYSTEMS: CONSTITUTIONAL: No fever, no malaise,. CARDIOVASCULAR: No chest pain, no palpitations, no syncope. PULMONARY: No shortness of breath, no cough, GASTROINTESTINAL: No diarrhea, no nausea, no vomiting, no abdominal pain. NEUROLOGICAL: No headaches, reports of generalized weakness PHYSICAL EXAMINATION: GENERAL: The patient is alert and oriented x3, lethargic although easily arousable. Well developed, well nourished. Elderly-appearing HEENT: Pupils are round and equally reacting to light. EOMI. No scleral icterus. No conjunctival pallor. Normocephalic, atraumatic. No pharyngeal erythema. No thyromegaly. CARDIOVASCULAR: S1 and S2 present. No murmurs, rubs, or gallops. PULMONARY: Diminished breath sounds bilaterally otherwise Chest is clear to auscultation, no wheezing or crackles. ABDOMEN: Soft, nontender, nondistended, normoactive bowel sounds. No palpable organomegaly. MUSCULOSKELETAL: Left foot bandaged with wound VAC in place EXTREMITIES: No cyanosis, clubbing, or pedal edema. NEUROLOGICAL: Gross neurological examination did not reveal any focal deficits. SKIN: No rashes. Assessment: Left foot cellulitis Osteomyelitis of fourth and fifth digit of left foot status post left fourth toe amputation as well as revision of the left fifth metatarsal invitation with vascular surgery Left foot diabetic ulcer History of left fifth toe gangrene status post amputation of left fifth toe Hypertension Diabetes mellitus Obesity with a BMI of 30.8 GI prophylaxis DVT prophylaxis Full code The impression and plan of care has been dictated by Shereen Fragoso, Nurse Practitioner as directed. Dr. Keagan MD I have performed a history and examination and MDM of this patient, discussed the same with the dictator, and agree with the dictator's assessment and plan as written ,documented as a scribe. Based on total visit time, I have performed more than 50% of the visit. Objective - Vital Signs Vital signs: Vital Signs Temp 98.6 F 04/25/23 02:00 Pulse 89 04/25/23 02:00 Resp 16 04/25/23 02:00 BP 113/65 04/25/23 02:00 Pulse Ox 96 04/25/23 02:00 FiO2 Intake & Output 04/24/23 04/24/23 04/25/23 06:59 18:59 06:59 Intake Total 590 Output Total 300 1000 Balance 290 -1000 Intake: Oral 590 Output: Urine 300 1000 Other: Voiding Method External Catheter External Catheter # Voids 1 - Labs CBC & Chem 7: 04/24/23 05:53 04/24/23 05:53 Labs: Abnormal Lab Results - Last 24 Hours (Table) 04/24/23 04/24/23 04/24/23 Range/Units 05:53 05:53 07:30 RBC 3.76 L (4.40-5.60) X 10*6/uL Hgb 11.4 L (13.0-17.0) g/dL Hct 35.4 L (39.6-50.0) % MPV 9.0 L (9.5-12.2) FL Immature Gran # 0.06 H (0.00-0.04) X 10*3/uL Glucose 112 H (70-110) mg/dL POC Glucose (mg/dL) 119 H (70-110) mg/dL 04/24/23 04/24/23 04/24/23 Range/Units 12:00 17:08 20:19 RBC (4.40-5.60) X 10*6/uL Hgb (13.0-17.0) g/dL Hct (39.6-50.0) % MPV (9.5-12.2) FL Immature Gran # (0.00-0.04) X 10*3/uL Glucose (70-110) mg/dL POC Glucose (mg/dL) 146 H 246 H 174 H (70-110) mg/dL Microbiology - Last 24 Hours (Table) 04/20/23 14:40 Anaerobic Culture - Final Bone - Other
[2023-04-25 07:05] LABS: Glucose,Whole Blood 111 mg/dL (70-110)
[2023-04-25 07:56] LABS: African American GFR (CKD) 78 (>60 ml/min/1.73 sqM); Non-African American GFR(CKD) 67 (>60 ml/min/1.73 sqM)
[2023-04-25] MEDS: INSULIN ASPART (NovoLOG) 100 UNIT/ML VIAL SQ SCH ×6 (08:06→17:48)
[2023-04-25] MEDS: amLODIPine 10 MG TAB PO SCH (08:41)
[2023-04-25] MEDS: polyethylene glycoL 3350 17 GM POWD.PACK PO SCH (08:41)
[2023-04-25] MEDS: FAMOTIDINE 20 MG TAB PO SCH (08:41)
[2023-04-25] MEDS: TAMSULOSIN 0.4 MG CAP.ER.24H PO SCH (08:41)
[2023-04-25] MEDS ORDERED: LIDOCAINE 1% INJ 10MG/ML (20 ML MDV) SQ ONE (09:09)
[2023-04-25 12:04] LABS: Glucose,Whole Blood 184 mg/dL (70-110)
[2023-04-25 12:51] VITALS: BMI 30.8
--- NOTE | 2023-04-25 13:59 | P.DS ---
Providers Date of admission: 04/18/23 17:21 Expected date of discharge: 04/25/23 Attending physician: Carloz Marino Consults: 04/18/23 17:19 Consult Physician Routine Consulting Provider: Yojana Giron Consult Reason/Comments: known Do you want consulting provider notified?: Yes Primary care physician: Jorje Kiser Hospital Course: Final diagnosis Left foot cellulitis Osteomyelitis of fourth and fifth digit of left foot status post left fourth toe amputation as well as revision of the left fifth metatarsal amputation with vascular surgery Left foot diabetic ulcer History of left fifth toe gangrene status post amputation of left fifth toe Hypertension Diabetes mellitus Obesity with a BMI of 30.8 GI prophylaxis DVT prophylaxis Full code Discharge disposition Patient is being discharged in a stable condition with guarded prognosis to [facility]. Patient will follow-up with Dr. Kiser in the outpatient setting upon discharge. Patient is to continue with IV antibiotics in the form of Unasyn and Vanco per ID recommendations and close outpatient follow-up with wound care center as well as vascular surgery as scheduled. Patient has received a PICC line and will continue 6 weeks of antibiotic therapy. Total time taken is greater than 35 minutes. Hospital course This is a 88-year-old male who was recently admitted with left foot lower extremity cellulitis with failure of outpatient treatment along with osteomyelitis of the fourth and fifth digit and is status post left fourth toe amputation as well as revision of the left fifth transmetatarsal amputation with vascular surgery. Patient with significant diabetes maintained on insulins will continue current regimen and close follow-up with Accu-Cheks before meals and at bedtime. Patient does have a wound VAC and will continue settings as mentioned below and changes as scheduled and close outpatient follow-up at the wound center. Patient has received a PICC line and will continue on Unasyn and Vanco with a target trough level of 15. Recommend follow-up labs of CRP and sed rate weekly along with Vanco levels. Patient to follow-up with vascular surgery as well and the outpatient setting. Patient has been cleared by consultations. Please refer to consultation notes for further HPI. Currently no reports of chest pain, shortness of breath, or palpitations. Patient is afebrile. No rep orts of nausea or vomiting and patient is tolerating diet. Patient will be going to [facility] today. Physical exam: Gen: This is a 88-year-old male who is awake, alert and oriented 3, well-de veloped, well-nourished, obese HEENT: Head is atraumatic, normocephalic. Pupils equal, round. Sclerae is anicteric. NECK: Supple. No JVD. No lymphadenopathy. No thyromegaly. LUNGS: Clear to auscultation. No wheezes or rhonchi. No intercostal retractions. HEART: Regular rate and rhythm. No murmur. ABDOMEN: Soft. Bowel sounds are present. No masses. No tenderness. EXTREMITIES: No pedal edema. No calf tenderness. Left lower extremity foot with wound VAC dressing NEUROLOGICAL: Patient is awake, alert and oriented x3. Cranial nerves 2 through 12 are grossly intact. Diffusely weak Please refer to medication reconciliation sheet for a list of medications. The impression and plan of care has been dictated by Shereen Fragoso, Nurse Practitioner as directed. Dr. Keagan MD I have performed a history and examination and MDM of this patient, discussed the same with the dictator, and agree with the dictator's assessment and plan as written ,documented as a scribe. Based on total visit time, I have performed more than 50% of the visit. Patient Condition at Discharge: Fair Plan - Discharge Summary Discharge Rx Participant: No New Discharge Prescriptions: New Ampicillin-Sulbactam [Unasyn 3 gm vial] 3 gm IVPB Q6HR 42 Days #168 each Vancomycin 1,750 mg IVPB Q16H 42 Days #42 each Continue Acetaminophen Tab [Tylenol] 650 mg PO Q6HR PRN tab PRN Reason: Mild Pain Or Fever > 100.5 INSULIN ASPART (NovoLOG) [NovoLOG (formulary)] See Protocol SQ ACHS@07,11,1830,2130 Glucerna 1.2 John 120 - 237 ml PO TID@08,12,17 Insulin Detemir (Levemir) [Levemir] 10 unit SQ HS@2100 Famotidine [Pepcid] 20 mg PO DAILY@0800 amLODIPine [Norvasc] 10 mg PO DAILY@0800 Tamsulosin [Flomax] 0.4 mg PO DAILY@0800 Ipratropium-Albuterol Nebulize [Duoneb 0.5 mg-3 mg/3 ml Soln] 3 ml INHALATION RT-Q6H PRN PRN Reason: Shortness Of Breath bisacodyL [Dulcolax] 10 mg RECTAL DAILY PRN PRN Reason: Constipation Na Phos,M-B/Na Phos,Di-Ba [Fleet Adult] 133 ml RECTAL DAILY PRN PRN Reason: Constipation Magnesium Hydroxide [Milk of Magnesia Concentrate] 7,200 mg PO DAILY PRN PRN Reason: Constipation INSULIN ASPART (NovoLOG) [NovoLOG (formulary)] 3 unit SQ AC-TID@ Heparin Sodium,Porcine (1 ml) [Heparin Sodium] 5,000 unit SQ Q12HR@ polyethylene glycoL 3350 [Miralax] 17 gm PO DAILY@0800 Changed HYDROcodone/APAP 5-325MG [[place] 5-325] 1 tab PO Q6HR PRN #4 tab PRN Reason: Pain Discharge Medication List Acetaminophen Tab [Tylenol] 650 mg PO Q6HR PRN tab 01/01/23 [Rx] Famotidine [Pepcid] 20 mg PO DAILY@0800 04/18/23 [History] Glucerna 1.2 John 120 - 237 ml PO TID@,,04/18/23 [History] Heparin Sodium,Porcine (1 ml) [Heparin Sodium] 5,000 unit SQ Q12HR@04/18/23 [History] INSULIN ASPART (NovoLOG) [NovoLOG (formulary)] 3 unit SQ AC-TID@04/18/23 [History] INSULIN ASPART (NovoLOG) [NovoLOG (formulary)] See Protocol SQ ACHS@,212904/18/23 [History] Insulin Detemir (Levemir) [Levemir] 10 unit SQ HS@2100 04/18/23 [History] Ipratropium-Albuterol Nebulize [Duoneb 0.5 mg-3 mg/3 ml Soln] 3 ml INHALATION RT-Q6H PRN 04/18/23 [History] Magnesium Hydroxide [Milk of Magnesia Concentrate] 7,200 mg PO DAILY PRN 04/18 [History] Na Phos,M-B/Na Phos,Di-Ba [Fleet Adult] 133 ml RECTAL DAILY PRN 04/18/23 [History] Tamsulosin [Flomax] 0.4 mg PO DAILY@0800 04/18/23 [History] amLODIPine [Norvasc] 10 mg PO DAILY@0800 04/18/23 [History] bisacodyL [Dulcolax] 10 mg RECTAL DAILY PRN 04/18/23 [History] polyethylene glycoL 3350 [Miralax] 17 gm PO DAILY@0800 04/18/23 [History] Ampicillin-Sulbactam [Unasyn 3 gm vial] 3 gm IVPB Q6HR 42 Days #168 each 04/25/23 [Rx] HYDROcodone/APAP 5-325MG [[place] 5-325] 1 tab PO Q6HR PRN #4 tab 04/25/23 [Rx] Vancomycin 1,750 mg IVPB Q16H 42 Days #42 each 04/25/23 [Rx] Follow up Appointment(s)/Referral(s): Jorje Kiser MD [Primary Care Provider] - 1-2 days Veronika Silva DO [STAFF PHYSICIAN] - 2 Weeks Wound Center[facility] [NON-STAFF] - 04/24/23 1:30 pm Activity/Diet/Wound Care/Special Instructions: Patient is going back to [employer] [facility] as tolerated other than as mentioned below Left foot heel walk only Postop shoe to left foot Wet-to-dry dressing change to dorsal aspect left foot until further orders from wound care Wound VAC to left amputation site, change Sunday, Wednesdays, and Fridays Patient to follow-up in wound care center as scheduled, and weekly Continue on IV antibiotic therapy with a PICC line that was placed in the left upper extremity for 6 weeks in the form of Unasyn and Vanco per ID recommendations Continue with Vanco with pharmacy to dose and frequent blood draws including CBC, CK, CRP, CMP, Vanco troughs Continue with diabetic diet consistent carb and monitoring Accu-Cheks before meals and at bedtime NovoLog sliding scale 0-150 equals 0 units 151-200 equals 2 units 201-250 equals 4 units 251-300 equals 6 units 301-350 equals 8 units 351-400 equals 10 units Please notify provider if blood sugar is 400 or above Patient continue with the wound VAC and currently therapy settings are 125 mmHg, intensity is slow with black granular foam the left fifth toe Discharge Disposition: TRANSFER TO SNF/ECF
--- NOTE | 2023-04-25 14:35 | IR ---
PICC LINE PLACEMENT: HISTORY: Infection requiring long-term antibiotic therapy PROCEDURE: Ultrasound and fluoroscopic guidance of PICC line placement. COMPLICATIONS: None ANESTHESIA: 1. 1% Lidocaine locally. FINDINGS/TECHNIQUE: The procedure was explained to the patient. The risks, complications, benefits and alternatives were discussed and any questions were answered. Informed consent was obtained. The patient was placed supine on the fluoroscopic table and prepped and draped in the usual sterile fash ion. Utilizing a 21 gauge needle and sonographic and fluoroscopic guidance, access in the left brac hial vein was achieved and there is placement of a 0.018 guidewire. The vein is patent. A 4-F sheat h was placed over the guidewire. The guidewire and dilator were removed and a 4-F. PICC line was roxanne carlyn through the sheath with the tip at the level of the SVC. The sheath was removed, the catheter wa s flushed and sutured into position. The patient was stable throughout the procedure and remained st able upon discharge from the Department of Radiology. The vein puncture was patent under ultrasound. A gee scale image was obtained to document patency of the vein punctured. All elements of the maximal barrier technique were utilized. FLUOROSCOPY TIME: DAP 0.1464Gy cm2 IMPRESSION: Successful PICC line placement under ultrasound and fluoroscopic guidance.
[2023-04-25 14:58] VITALS: BP 131/71; PULSE 93; RESP 17; TEMP 97.5
[2023-04-25] MEDS: VANCOMYCIN 1,750 MG in SODIUM CHLORIDE 0.9% 500 ML 500 ML IVPB SCH (16:20)
[2023-04-25 17:16] LABS: Glucose,Whole Blood 242 mg/dL (70-110)
[2023-04-26] MEDS ORDERED: VANCOMYCIN TROUGH DUE 1 EACH MISC MISCELLANE ONE (06:00)
== END 2023-04-25 18:35 | DRG 464 ==
LOC: EC 12:21 → 5NMEDONC 17:21
PROVIDERS: ADMIT Hospitalist; ATTEND Hospitalist
PROC: B548ZZA Ultrasonography of Superior Vena Cava, Guidance (ICD-10-PCS; 2023-04-18)
PROC: 02HV33Z Insertion of Infusion Device into Superior Vena Cava, Percutaneous Approach (ICD-10-PCS; 2023-04-18)
PROC: B5181ZA Fluoroscopy of Superior Vena Cava using Low Osmolar Contrast, Guidance (ICD-10-PCS; 2023-04-18)
PROC: 0JBR0ZZ Excision of Left Foot Subcutaneous Tissue and Fascia, Open Approach (ICD-10-PCS; 2023-04-20)
PROC: 2W1RX6Z Compression of Left Lower Leg using Pressure Dressing (ICD-10-PCS; 2023-04-20)
PROC: 0Y6N0ZD Detachment at Left Foot, Partial 4th Ray, Open Approach (ICD-10-PCS; principal; 2023-04-20 08:50)
DX: T87.89 Other complications of amputation stump (principal); E11.52 Type 2 diabetes mellitus with diabetic peripheral angiopathy with gangrene; L97.426 Non-pressure chronic ulcer of left heel and midfoot with bone involvement without evidence of necrosis; M86.172 Other acute osteomyelitis, left ankle and foot; Z16.39 Resistance to other specified antimicrobial drug; L03.116 Cellulitis of left lower limb; L03.032 Cellulitis of left toe; B95.2 Enterococcus as the cause of diseases classified elsewhere; B96.4 Proteus (mirabilis) (morganii) as the cause of diseases classified elsewhere; Y84.8 Other medical procedures as the cause of abnormal reaction of the patient, or of later complication, without mention of misadventure at the time of the procedure; I10 Essential (primary) hypertension; L97.524 Non-pressure chronic ulcer of other part of left foot with necrosis of bone; E11.621 Type 2 diabetes mellitus with foot ulcer; E11.69 Type 2 diabetes mellitus with other specified complication; Y83.5 Amputation of limb(s) as the cause of abnormal reaction of the patient, or of later complication, without mention of misadventure at the time of the procedure; E11.628 Type 2 diabetes mellitus with other skin complications; E66.9 Obesity, unspecified; Z68.30 Body mass index [BMI] 30.0-30.9, adult; Z79.2 Long term (current) use of antibiotics; Z79.4 Long term (current) use of insulin; Z79.899 Other long term (current) drug therapy; Z87.891 Personal history of nicotine dependence
CPT/HCPCS: 36415; 36573; 80048; 80053; 82565; 83036; 83605; 83690; 83735; 84100; 85025; 85027; 85652; 86140; 87040; 87070; 87075; 87077; 87186; 87205; 96361; 96365; 96375; 99285

== ENCOUNTER 2023-05-10 23:05 | Inpatient (IN) | payer MEDICARE ==
--- NOTE | 2023-05-10 23:20 | ED ---
SOB HPI - General Chief Complaint: Shortness of Breath Stated Complaint: SOB Time Seen by Provider: 05/10/23 23:12 Source: patient, EMS, RN notes reviewed, old records reviewed Mode of arrival: EMS Limitations: no limitations - History of Present Illness Initial Comments: This is a 88-year-old male to the emergency department for evaluation. Patient presents today for evaluation regards to severe shortness of breath, patient is a poor strain with complains of cough congestion states he has a cold. Per EMS patient had a oximetry level at facility in the 70s the ER, patient is initially poor historian MD Complaint: shortness of breath, cough -: days(s) Severity: moderate Severity scale (1-10): 4 Quality: aching Consistency: constant Improves With: nothing Known History Of: congestive heart failure, recurrent pneumonia Context: recent URI, recent illness Associated Symptoms: cough, sputum production Treatments Prior to Arrival: oxygen - Related Data Home Medications Medication Instructions Recorded Confirmed Famotidine [Pepcid] 20 mg PO DAILY@0800 04/18/23 05/11/23 Glucerna 1.2 John 120 ml PO BID@0800,1700 04/18/23 05/11/23 Heparin Sodium,Porcine (1 ml) 5,000 unit SQ Q12HR@08,21 04/18/23 05/11/23 [Heparin Sodium] INSULIN ASPART (NovoLOG) [NovoLOG 3 unit SQ AC-TID@04/18/23 05/11/23 (formulary)] INSULIN ASPART (NovoLOG) [NovoLOG See Protocol SQ 04/18/23 05/11/23 (formulary)] ACHS@,2129 Insulin Detemir (Levemir) [Levemir] 10 unit SQ HS@2100 04/18/23 05/11/23 Ipratropium-Albuterol Nebulize 3 ml INHALATION RT-Q6H PRN 04/18/23 05/11/23 [Duoneb 0.5 mg-3 mg/3 ml Soln] Magnesium Hydroxide [Milk of 7,200 mg PO DAILY PRN 04/18/23 05/11/23 Magnesia Concentrate] Na Phos,M-B/Na Phos,Di-Ba [Fleet 133 ml RECTAL DAILY PRN 04/18/23 05/11/23 Adult] Tamsulosin [Flomax] 0.4 mg PO DAILY@0800 04/18/23 05/11/23 amLODIPine [Norvasc] 10 mg PO DAILY@0800 04/18/23 05/11/23 bisacodyL [Dulcolax] 10 mg RECTAL DAILY PRN 04/18/23 05/11/23 polyethylene glycoL 3350 [Miralax] 17 gm PO DAILY@0800 04/18/23 05/11/23 Sodium Chloride 0.9% [Saline 0.9%] 10 ml IV Q6H 05/11/23 05/11/23 Vancomycin 1,750 mg IVPB Q24H 05/11/23 05/11/23 Previous Rx's Medication Instructions Recorded Acetaminophen Tab [Tylenol] 650 mg PO Q6HR PRN tab 01/01/23 Ampicillin-Sulbactam [Unasyn 3 gm 3 gm IVPB Q6HR 42 Days #168 each 04/25/23 vial] Furosemide [Lasix] 40 mg PO BID@0900,1600 tab 05/15/23 HYDROcodone/APAP 5-325MG [Ward 1 tab PO Q6HR PRN #4 tab 05/15/23 5-325] Ipratropium-Albuterol Nebulize 3 ml INHALATION RT-QID each 05/15/23 [Duoneb 0.5 mg-3 mg/3 ml Soln] Nystatin 100,000 Unit/gm Powd 1 applic TOPICAL BID each 05/15/23 [Mycostatin Powder] Valsartan [Diovan] 160 mg PO HS tab 05/15/23 Allergies Allergy/AdvReac Type Severity Reaction Status Date / Time No Known Allergies Allergy Verified 05/11/23 08:07 Review of Systems ROS Statement: Those systems with pertinent positive or pertinent negative responses have been documented in the HPI. ROS Other: All systems not noted in ROS Statement are negative. 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 Absent: scleral icterus, conjunctival injection, periorbital swelling ENT exam: Present: normal exam, mucous membranes moist Neck exam: Present: normal inspection. Absent: tenderness, meningismus, lymphadenopathy Respiratory exam: Present: respiratory distress, rales, rhonchi, accessory muscle use, decreased breath sounds, prolonged expiratory. Absent: stridor Cardiovascular Exam: Present: regular rate, normal rhythm, normal heart sounds. Absent: systolic murmur, diastolic murmur, rubs, gallop, clicks GI/Abdominal exam: Present: soft, normal bowel sounds. Absent: distended, tenderness, guarding, rebound, rigid Extremities exam: Present: normal inspection, full ROM, normal capillary refill. Absent: tenderness, pedal edema, joint swelling, calf tenderness Back exam: Present: normal inspection Neurological exam: Present: alert, oriented X3, CN II-XII intact Psychiatric exam: Present: normal affect, normal mood Skin exam: Present: warm, dry, intact, normal color. Absent: rash Course Vital Signs 05/10/23 05/11/23 05/11/23 23:06 00:19 01:00 Temperature 98.7 F Pulse Rate 100 95 93 Respiratory 22 30 H 22 Rate Blood Pressure 162/78 150/83 158/75 O2 Sat by Pulse 97 97 97 Oximetry 05/11/23 05/11/23 05/11/23 02:00 02:40 02:50 Temperature Pulse Rate 96 94 96 Respiratory 25 H Rate Blood Pressure 146/83 O2 Sat by Pulse 100 Oximetry 05/11/23 05/11/23 05/11/23 03:00 04:00 06:00 Temperature Pulse Rate 95 90 93 Respiratory 26 H 20 21 Rate Blood Pressure 140/74 148/90 149/77 O2 Sat by Pulse 99 96 97 Oximetry 01/05/24 01/05/24 01/05/24 08:30 11:00 14:00 Temperature 98.0 F Pulse Rate 90 70 Respiratory 18 20 Rate Blood Pressure 150/79 148/58 O2 Sat by Pulse 96 97 98 Oximetry 05/11/23 05/11/23 05/11/23 16:00 16:51 19:38 Temperature 97.8 F 98.2 F Pulse Rate 78 92 88 Respiratory 20 20 26 H Rate Blood Pressure 149/58 155/60 163/82 O2 Sat by Pulse 98 98 97 Oximetry 05/11/23 05/11/23 05/11/23 21:12 22:30 23:30 Temperature Pulse Rate 88 89 94 Respiratory 24 26 H 17 Rate Blood Pressure 154/82 153/82 161/76 O2 Sat by Pulse 100 100 100 Oximetry 05/12/23 05/12/23 05/12/23 00:30 02:30 07:05 Temperature 98.1 F Pulse Rate 82 85 89 Respiratory 26 H 24 18 Rate Blood Pressure 145/92 176/89 157/81 O2 Sat by Pulse 98 97 100 Oximetry 05/12/23 05/12/23 05/12/23 09:00 10:29 11:20 Temperature 97.5 F L Pulse Rate 82 85 89 Respiratory 18 18 18 Rate Blood Pressure 147/80 145/91 140/82 O2 Sat by Pulse 99 99 98 Oximetry 05/12/23 15:10 Temperature Pulse Rate 90 Respiratory 20 Rate Blood Pressure 156/87 O2 Sat by Pulse 100 Oximetry - Reevaluation(s) Reevaluation #1: 05/11/23 02:34 Record is reviewed Reevaluation #2: 05/11/23 02:34 Patient is improved with supplemental oxygen Reevaluation #3: 05/11/23 02:34 Patient informed of results and questions answered Reevaluation #4: 05/11/23 02:24 Was pt. sent in by a medical professional or institution (, PA, ACCOUNT LEADER, urgent care, hospital, or prison...) When possible be specific @ -no Did you speak to anyone other than the patient for history (EMS, parent, family, police, friend...)? What history was obtained from this source @ -no Did you review nursing and triage notes (agree or disagree)? Why? @ -agree Are old charts reviewed (outside hosp., previous admission, EMS record, old EKG, old radiological studies, urgent care reports/EKG's, prison records)? Report findings @ -yes Differential Diagnosis (chest pain, altered mental status, abdominal pain women, abdominal pain men, vaginal bleeding, weakness, fever, dyspnea, syncope, headache, dizziness, GI bleed, back pain, seizure, CVA, palpatations, mental health, musculoskeletal)? @ -prior EKG interpreted by me (3pts min.). @ -yes X-rays interpreted by me (1pt min.). @ -yes positive for CHF CT interpreted by me (1pt min.). @ -no U/S interpreted by me (1pt. min.). @ -no What testing was considered but not performed or refused? (CT, X-rays, U/S, labs)? Why? @ -none What meds were considered but not given or refused? Why? @ -none Did you discuss the management of the patient with other professionals (professionals i.e. , PA, ACCOUNT LEADER, lab, RT, psych nurse, social welfare research worker, cartridge assembler, teacher, registration officer, lining caser)? Give summary @ -no Was smoking cessation discussed for >3mins.? @ -no Was critical care preformed (if so, how long)? @ -yes31 Were there social determinants of health that impacted care today? How? (Homelessness, low income, unemployed, alcoholism, drug addiction, transportation, low edu. Level, literacy, decrease access to med. care, skilled nursing, rehab)? @ -none Was there de-escalation of care discussed even if they declined (Discuss DNR or withdrawal of care, Hospice)? DNR status @ -no What co-morbidities impacted this encounter? (DM, HTN, Smoking, COPD, CAD, Cancer, CVA, ARF, Chemo, Hep., AIDS, mental health diagnosis, sleep apnea, morbid obesity)? @ -none Was patient admitted / discharged? Hospital course, mention meds given and route, prescriptions, significant lab abnormalities, going to OR and other pertinent info. @ - 88 male to the ER for evaluation with CHF on x-ray severely low oxygen on arrival prior travel patient be admitted for continued supportive care diuresis and monitoring of cardiopulmonary status Admitted Undiagnosed new problem with uncertain prognosis? @ -no Drug Therapy requiring intensive monitoring for toxicity (Heparin, Nitro, Insulin, Cardizem)? @ -no Were any procedures done? @ -no Diagnosis/symptom? @ -Hypoxia CHF Acute, or Chronic, or Acute on Chronic? @ -Acute Uncomplicated (without systemic symptoms) or Complicated (systemic symptoms)? @ -Complicated Side effects of treatment? @ -no Exacerbation, Progression, or Severe Exacerbation? @ -exacerbation Poses a threat to life or bodily function? How? (Chest pain, USA, IA, pneumonia, PE, COPD, DKA, ARF, appy, cholecystitis, CVA, Diverticulitis, Homicidal, Suicidal, threat to staff... and all critical care pts) @ -yes with significant hypoxia Reevaluation #5: 05/11/23 02:24 Differential Dyspnea: Coronary syndrome, arrhythmia, tamponade, asthma, COPD, pulmonary embolism, pneumonia, pneumothorax, pulmonary effusion, anaphylaxis, diabetic ketoacidosis, flailed chest, pulmonary contusion, diaphragmatic rupture, anemia, neuromuscular, this is not meant to be an all-inclusive list. - Consultations Consultation #1: Spoke with the admitting physicians who agreed to admit this patient Medical Decision Making - Medical Decision Making 88 male to the ER for evaluation with CHF on x-ray severely low oxygen on arrival prior travel patient be admitted for continued supportive care diuresis and monitoring of cardiopulmonary status - Lab Data Result diagrams: 05/15/23 10:44 05/16/23 08:09 Lab Results 05/10/23 05/10/23 05/10/23 Range/Units 23:35 23:35 23:35 WBC 6.3 (3.8-10.6) k/uL RBC 4.15 L (4.30-5.90) m/uL Hgb 12.8 L (13.0-17.5) gm/dL Hct 40.1 (39.0-53.0) % MCV 96.5 (80.0-100.0) fL MCH 30.8 (25.0-35.0) pg MCHC 31.9 (31.0-37.0) g/dL RDW 14.0 (11.5-15.5) % Plt Count 231 (150-450) k/uL MPV 7.0 Neutrophils % 60 % Lymphocytes % 23 % Monocytes % 7 % Eosinophils % 8 % Basophils % 0 % Neutrophils # 3.8 (1.3-7.7) k/uL Lymphocytes # 1.4 (1.0-4.8) k/uL Monocytes # 0.4 (0-1.0) k/uL Eosinophils # 0.5 (0-0.7) k/uL Basophils # 0.0 (0-0.2) k/uL Hypochromasia Slight PT 10.7 (10.0-12.5) sec INR 1.0 (<1.2) APTT 26.8 (22.0-30.0) sec Sodium 139 (137-145) mmol/L Potassium 4.8 (3.5-5.1) mmol/L Chloride 104 (98-107) mmol/L Carbon Dioxide 25 (22-30) mmol/L Anion Gap 10 mmol/L BUN 18 (9-20) mg/dL Creatinine 0.92 (0.66-1.25) mg/dL Est GFR (CKD-EPI)AfAm 86 (>60 ml/min/1.73 sqM) Est GFR (CKD-EPI)NonAf 75 (>60 ml/min/1.73 sqM) Glucose 218 H (74-99) mg/dL Plasma Lactic Acid Aleksander (0.7-2.0) mmol/L Calcium 9.3 (8.4-10.2) mg/dL Phosphorus 3.8 (2.5-4.5) mg/dL Magnesium 1.7 (1.6-2.3) mg/dL Total Bilirubin 0.3 (0.2-1.3) mg/dL AST 30 (17-59) U/L ALT 30 (4-49) U/L Alkaline Phosphatase 87 (38-126) U/L Troponin I (0.000-0.034) ng/mL NT-Pro-B Natriuret Pep 209 pg/mL Total Protein 6.7 (6.3-8.2) g/dL Albumin 3.3 L (3.5-5.0) g/dL 05/10/23 05/10/23 Range/Units 23:35 23:35 WBC (3.8-10.6) k/uL RBC (4.30-5.90) m/uL Hgb (13.0-17.5) gm/dL Hct (39.0-53.0) % MCV (80.0-100.0) fL MCH (25.0-35.0) pg MCHC (31.0-37.0) g/dL RDW (11.5-15.5) % Plt Count (150-450) k/uL MPV Neutrophils % % Lymphocytes % % Monocytes % % Eosinophils % % Basophils % % Neutrophils # (1.3-7.7) k/uL Lymphocytes # (1.0-4.8) k/uL Monocytes # (0-1.0) k/uL Eosinophils # (0-0.7) k/uL Basophils # (0-0.2) k/uL Hypochromasia PT (10.0-12.5) sec INR (<1.2) APTT (22.0-30.0) sec Sodium (137-145) mmol/L Potassium (3.5-5.1) mmol/L Chloride (98-107) mmol/L Carbon Dioxide (22-30) mmol/L Anion Gap mmol/L BUN (9-20) mg/dL Creatinine (0.66-1.25) mg/dL Est GFR (CKD-EPI)AfAm (>60 ml/min/1.73 sqM) Est GFR (CKD-EPI)NonAf (>60 ml/min/1.73 sqM) Glucose (74-99) mg/dL Plasma Lactic Acid Aleksander 0.8 (0.7-2.0) mmol/L Calcium (8.4-10.2) mg/dL Phosphorus (2.5-4.5) mg/dL Magnesium (1.6-2.3) mg/dL Total Bilirubin (0.2-1.3) mg/dL AST (17-59) U/L ALT (4-49) U/L Alkaline Phosphatase (38-126) U/L Troponin I 0.016 (0.000-0.034) ng/mL NT-Pro-B Natriuret Pep pg/mL Total Protein (6.3-8.2) g/dL Albumin (3.5-5.0) g/dL - EKG Data -: EKG Interpreted by Me (EKG is sinus 98 IL 131 QRS 130 QTC 409) - Radiology Data Radiology results: report reviewed (X-rays negative for acute disease), image reviewed Critical Care Time Critical Care Time: Yes Total Critical Care Time: 31 Disposition Clinical Impression: Altered mental status, Congestive heart failure, Acute pulmonary edema, Hypoxia Disposition: ADMITTED IP TO THIS HOSP Condition: Serious Is patient prescribed a controlled substance at d/c from ED?: No Time of Disposition: 02:20
[2023-05-10] MEDS ORDERED: SODIUM CHLORIDE 0.9% 1,000 ML IV STA (23:23)
[2023-05-10 23:45] LABS: Basophils % (A) 0 %; Eosinophils # (A) 0.5 k/uL (0-0.7); Eosinophils % (A) 8 %; HCT 40.1 % (39.0-53.0); HGB 12.8 gm/dL (13.0-17.5); Hypochromasia Slight; Lymphocytes # (A) 1.4 k/uL (1.0-4.8); Lymphocytes % (A) 23 %; MCH 30.8 pg (25.0-35.0); MCHC 31.9 g/dL (31.0-37.0); MCV 96.5 fL (80.0-100.0); Monocytes # (A) 0.4 k/uL (0-1.0); Monocytes % (A) 7 %; Neutrophils # (A) 3.8 k/uL (1.3-7.7); Neutrophils % (A) 60 %; Platelet Count 231 k/uL (150-450); RBC 4.15 m/uL (4.30-5.90); WBC 6.3 k/uL (3.8-10.6)
[2023-05-10 23:56] LABS: ALT 30 U/L (4-49); AST 30 U/L (17-59); African American GFR (CKD) 86 (>60 ml/min/1.73 sqM); Albumin 3.3 g/dL (3.5-5.0); Alkaline Phosphatase 87 U/L (38-126); Anion Gap 10 mmol/L; Blood Urea Nitrogen 18 mg/dL (9-20); Calcium 9.3 mg/dL (8.4-10.2); Carbon Dioxide 25 mmol/L (22-30); Chloride 104 mmol/L (98-107); Glucose 218 mg/dL (74-99); Magnesium 1.7 mg/dL (1.6-2.3); Non-African American GFR(CKD) 75 (>60 ml/min/1.73 sqM); Phosphorus 3.8 mg/dL (2.5-4.5); Potassium 4.8 mmol/L (3.5-5.1); Sodium 139 mmol/L (137-145); Total Bilirubin 0.3 mg/dL (0.2-1.3); Total Protein 6.7 g/dL (6.3-8.2)
[2023-05-11] MEDS ORDERED: IPRATROPIUM-ALBUTEROL 3 ML NEB INHALATION STA
[2023-05-11 00:04] LABS: NT-Pro-B-Type Natriuretic Pept 209 pg/mL
[2023-05-11 00:05] LABS: Partial Thromboplastin Time 26.8 sec (22.0-30.0); Prothrombin Time 10.7 sec (10.0-12.5)
--- NOTE | 2023-05-11 00:26 | XR ---
EXAM: XR Chest, 1 View CLINICAL HISTORY: ITS.REASON XR Reason: weak TECHNIQUE: Frontal view of the chest. COMPARISON: 12/26/22 FINDINGS: Lungs: Bibasilar airspace opacities. Reduced lung volume with bronchovascular crowding. Pleural space: Small pleural effusions. No pneumothorax. Heart: Cardiomegaly. Increasing vascular congestion with interstitial prominence. Bones/joints: No acute fracture. No dislocation. Tubes, lines and devices: Left PICC extends to the proximal SVC. IMPRESSION: 1. Cardiomegaly. Increasing vascular congestion with interstitial prominence, concerning for edema. 2. Small pleural effusions. 3. Bibasilar airspace opacities, atelectasis or pneumonia.
[2023-05-11] MEDS ORDERED: IPRATROPIUM-ALBUTEROL 3 ML NEB INHALATION PRN ×2 (02:12→13:31)
[2023-05-11] MEDS ORDERED: FUROSEMIDE 10 MG/ML 4 ML VIAL IV SCH (02:15)
[2023-05-11 07:18] LABS: Appearance,Urine Clear (Clear); Bilirubin,Urine Negative (Negative); Blood,Urine Negative (Negative); Color,Urine Colorless; Glucose,Urine (UA) Negative (Negative); Ketones,Urine Negative (Negative); Leukocyte Esterase,Urine Negative (Negative); Nitrite,Urine Negative (Negative); Protein,Urine Negative (Negative); Specific Gravity,Urine 1.007 (1.001-1.035); Urobilinogen,Urine <2.0 mg/dL (<2.0)
[2023-05-11] MEDS: FUROSEMIDE 10 MG/ML 4 ML VIAL IV SCH ×2 (08:48→20:55)
--- NOTE | 2023-05-11 10:57 | CA ---
Transthoracic Echo Report Name: El Shahid Age: 88 Gender: M : 1935 Exam Date: 05/11/2023 09:20 Exam Location: [facility] Ht (in): 72 Wt (lb): 190 Ordering Physician: Mak Gallegos DO Attending/Referring Phys: [id number], Rosy Flight Controls Engineer Marta Marquez RDCS Procedure CPT: Indications: Heart failure Cardiac Hx: Technical Quality: Fair Contrast 1: Total Dose (mL): Contrast 2: Total Dose (mL): MEASUREMENTS (Male / Female) Normal Values 2D ECHO LV Diastolic Diameter PLAX 4.1 cm 4.2 - 5.9 / 3.9 - 5.3 cm LV Systolic Diameter PLAX 2.7 cm IVS Diastolic Thickness 1.8 cm 0.6 - 1.0 / 0.6 - 0.9 cm LVPW Diastolic Thickness 1.7 cm 0.6 - 1.0 / 0.6 - 0.9 cm LV Relative Wall Thickness 0.8 RV Internal Dim ED PLAX 3.0 cm LA Volume 78.0 cm??? 18 - 58 / 22 - 52 cm??? LA Volume Index 37.1 cm???/m??? 16 - 28 cm???/m??? M-MODE Aortic Root Diameter MM 3.7 cm LA Systolic Diameter MM 4.0 cm LA Ao Ratio MM 1.1 AV Cusp Separation MM 2.5 cm DOPPLER AV Peak Velocity 160.3 cm/s AV Peak Gradient 10.3 mmHg AV Mean Velocity 109.2 cm/s AV Mean Gradient 5.2 mmHg AV Velocity Time Integral 28.3 cm AI Peak Velocity 415.9 cm/s AI Peak Gradient 69.2 mmHg AI Pressure Half Time 428.7 ms LVOT Peak Velocity 137.4 cm/s LVOT Peak Gradient 7.5 mmHg LVOT Velocity Time Integral 23.7 cm MV Area PHT 4.2 cm??? Mitral E Point Velocity 88.2 cm/s Mitral A Point Velocity 133.4 cm/s Mitral E to A Ratio 0.7 MV Deceleration Time 179.8 ms MV E' Velocity 6.9 cm/s Mitral E to MV E' Ratio 12.7 TR Peak Velocity 269.6 cm/s TR Peak Gradient 29.1 mmHg Right Ventricular Systolic Press 32.0 mmHg FINDINGS Left Ventricle Severely increased left ventricular wall thickness. Left ventricular cavity size normal. Normal left ventricular systolic function with no obvious regional wall motion abnormalities. Left ventricular ejection fraction is estimated at 55 %. Right Ventricle Normal right ventricular size and function. Right ventricular systolic pressure within normal limits. Right Atrium Normal right atrial size. Left Atrium Moderately increased left atrial volume. Mildly increased left atrial area. Mitral Valve Structurally normal mitral valve. Mitral valve thickened. Mild mitral annular calcification. Mild to Moderate mitral regurgitation. Aortic Valve Trileaflet aortic valve. Trace to mild aortic regurgitation. Tricuspid Valve Structurally normal tricuspid valve. Mild tricuspid regurgitation. Pulmonic Valve Structurally normal pulmonic valve. Pericardium No pericardial effusion. Aorta Aortic dilatation. CONCLUSIONS Normal LV size moderate to severe concentric LVH preserved contractility. Enlarged left atrium. Mild mitral and the calcification and mild to moderate mitral regurgitation. Mild tricuspid regurgitation no pericardial effusion. No significant pulmonary hypertension Previewed by: Dr. Sara Boland MD (Electronically Signed) Final Date: 11 May 2023 10:56
[2023-05-11] MEDS ORDERED: HYDROcodone/APAP 5-325MG 1 EACH TAB PO PRN (13:31)
[2023-05-11] MEDS ORDERED: bisacodyL 10 MG SUPP RECTAL PRN (13:31)
[2023-05-11] MEDS ORDERED: NA PHOS,M-B/NA PHOS,DI-BA 133 ML ENEMA RECTAL PRN (13:31)
[2023-05-11] MEDS ORDERED: MAGNESIUM HYDROXIDE 2,400 MG/30 ML CUP PO PRN (13:31)
[2023-05-11] MEDS ORDERED: VANCOMYCIN 1,750 MG in SODIUM CHLORIDE 0.9% 500 ML 500 ML IVPB SCH (13:45)
[2023-05-11] MEDS ORDERED: VANCOMYCIN 1,000 MG VIAL IVPB SCH (13:45)
[2023-05-11] MEDS ORDERED: VANCOMYCIN IV PER PHARMACY 1 EACH MISC MISCELLANE PRN (13:47)
--- NOTE | 2023-05-11 14:24 | P.CRDCN ---
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 We have been asked to evaluate the patient for CHF. The patient states he is feeling good. He states he's had some cold symptoms. He denies having any chest pain and no sputum production. Patient is a poor historian. Patient is seen today in the emergency center waiting for a bed on the cardiac stepdown unit. Patient was previously seen in the office in [address] VC Salguero with plan for prn follow up. Patient is status post 1 dose of IV Lasix 40 mg every 8 hours, 1 L of IV fluids and started on vancomycin and Unasyn which patient has as outpatient. EKG sinus rhythm Chest x-ray: Cardiomegaly. Increasing vascular congestion with interstitial prominence concerning for edema. Small pleural effusions. Bibasilar airspace opacities, atelectasis or pneumonia. WBC 6.3, hemoglobin 12.8, electrolytes BUN and creatinine within normal limits. Blood sugar 218. Troponin negative 3. Liver function tests are normal. Magnesium 1.7. Influenza A, influenza B, RSV, Covid 19 not detected. Urinalysis negative. Echocardiogram performed 05/11/2023 reveals EF of 55%, severe concentric left ventricle hypertrophy. [id number] mitral regurgitation, mild tricuspid regurgitation. No pulmonary hypertension. Home cardiac medications: Amlodipine 10 mg daily Review Of Systems: At the time of my exam: CONSTITUTIONAL: Denies fever or chills. CARDIOVASCULAR: Denies chest pain, Denies shortness of breath, no orthopnea, PND or palpitations. RESPIRATORY: Denies cough. GASTROINTESTINAL: Denies abdominal pain, diarrhea, constipation, nausea or vomiting. MUSCULOSKELETAL: Denies myalgias. NEUROLOGIC: Denies numbness, tingling or weakness. ENDOCRINE: Denies fatigue, weight change, polydipsia or polyurina. GENITOURINARY: Denies burning, hematuria or urgency with micturation. HEMATOLOGIC: Denies history of anemia or bleeding. Physical examination: Gen: This is an 88-year-old black male in no acute distress VS: reviewed HEENT: Head is atraumatic, normocephalic. Pupils equal, round. Sclerae is anicteric. NECK: Supple. No JVD. LUNGS: Clear to auscultation. No wheezes or rhonchi. No intercostal retractions. HEART: Regular rate and rhythm. Systolic murmur. ABDOMEN: Soft No tenderness. EXTREMITIES: No pedal edema. No calf tenderness. NEUROLOGICAL: Patient is awake, alert. Assessment: Acute diastolic heart failure Hypertension Diabetes mellitus Remote history of tobacco use Chronic wound and history of gangrene Plan: Resume patient's home cardiac medications Continue Lasix 40 mg IV every 12 hours Monitor MATHIEU, weights, electrolytes and renal function Obtain d-dimer Thank you kindly for this consultation. Nurse practitioner note has been reviewed, I agree with documented findings and plan of care. Patient was seen and examined. 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 Past Surgical History: Orthopedic Surgery Additional Past Surgical History / Comment(s): right wrist surgery Past Anesthesia/Blood Transfusion Reactions: No Reported Reaction Past Psychological History: No Psychological Hx Reported Smoking Status: Former smoker Past Alcohol Use History: None Reported Past Drug Use History: None Reported Medications and Allergies Home Medications Medication Instructions Recorded Confirmed Type Acetaminophen Tab [Tylenol] 650 mg PO Q6HR PRN tab 01/01/23 05/11/23 Rx Famotidine [Pepcid] 20 mg PO DAILY@0800 04/18/23 05/11/23 History Glucerna 1.2 John 120 ml PO BID@0800,1700 04/18/23 05/11/23 History Heparin Sodium,Porcine (1 ml) 5,000 unit SQ Q12HR@08,21 04/18/23 05/11/23 History [Heparin Sodium] INSULIN ASPART (NovoLOG) [NovoLOG 3 unit SQ AC-TID@07,11,1830 04/18/23 05/11/23 History (formulary)] INSULIN ASPART (NovoLOG) [NovoLOG See Protocol SQ 04/18/23 05/11/23 History (formulary)] ACHS@07,11,1830,2130 Insulin Detemir (Levemir) [Levemir] 10 unit SQ HS@2100 04/18/23 05/11/23 History Ipratropium-Albuterol Nebulize 3 ml INHALATION RT-Q6H PRN 04/18/23 05/11/23 History [Duoneb 0.5 mg-3 mg/3 ml Soln] Magnesium Hydroxide [Milk of 7,200 mg PO DAILY PRN 04/18/23 05/11/23 History Magnesia Concentrate] Na Phos,M-B/Na Phos,Di-Ba [Fleet 133 ml RECTAL DAILY PRN 04/18/23 05/11/23 History Adult] Tamsulosin [Flomax] 0.4 mg PO DAILY@0800 04/18/23 05/11/23 History amLODIPine [Norvasc] 10 mg PO DAILY@0800 04/18/23 05/11/23 History bisacodyL [Dulcolax] 10 mg RECTAL DAILY PRN 04/18/23 05/11/23 History polyethylene glycoL 3350 [Miralax] 17 gm PO DAILY@0800 04/18/23 05/11/23 History Ampicillin-Sulbactam [Unasyn 3 gm 3 gm IVPB Q6HR 42 Days #168 each 04/25/23 Rx vial] HYDROcodone/APAP 5-325MG [[place] 1 tab PO Q6HR PRN #4 tab 04/25/23 05/11/23 Rx 5-325] Sodium Chloride 0.9% [Saline 0.9%] 10 ml IV Q6H 05/11/23 05/11/23 History Vancomycin 1,750 mg IVPB Q24H 05/11/23 05/11/23 History Allergies Allergy/AdvReac Type Severity Reaction Status Date / Time No Known Allergies Allergy Verified 05/11/23 08:07 Physical Exam Vitals: Vital Signs Temp Pulse Resp BP Pulse Ox 05/11/23 06:00 93 21 149/77 97 05/11/23 04:00 90 20 148/90 96 05/11/23 03:00 95 26 H 140/74 99 05/11/23 02:50 96 05/11/23 02:40 94 05/11/23 02:00 96 25 H 146/83 100 05/11/23 01:00 93 22 158/75 97 05/11/23 00:19 95 30 H 150/83 97 05/10/23 23:06 98.7 F 100 22 162/78 97 Intake and Output 05/10/23 05/11/23 05/11/23 22:59 06:59 14:59 Other: Weight 86.183 kg Results 05/10/23 23:35 05/10/23 23:35 Cardiac Enzymes 05/10/23 05/10/23 05/11/23 Range/Units 23:35 23:35 03:42 AST 30 (17-59) U/L Troponin I 0.016 0.015 (0.000-0.034) ng/mL 05/11/23 Range/Units 07:08 AST (17-59) U/L Troponin I 0.015 (0.000-0.034) ng/mL Coagulation 05/10/23 Range/Units 23:35 PT 10.7 (10.0-12.5) sec APTT 26.8 (22.0-30.0) sec CBC 05/10/23 Range/Units 23:35 WBC 6.3 (3.8-10.6) k/uL RBC 4.15 L (4.30-5.90) m/uL Hgb 12.8 L (13.0-17.5) gm/dL Hct 40.1 (39.0-53.0) % Plt Count 231 (150-450) k/uL Comprehensive Metabolic Panel 05/10/23 Range/Units 23:35 Sodium 139 (137-145) mmol/L Potassium 4.8 (3.5-5.1) mmol/L Chloride 104 (98-107) mmol/L Carbon Dioxide 25 (22-30) mmol/L BUN 18 (9-20) mg/dL Creatinine 0.92 (0.66-1.25) mg/dL Glucose 218 H (74-99) mg/dL Calcium 9.3 (8.4-10.2) mg/dL AST 30 (17-59) U/L ALT 30 (4-49) U/L Alkaline Phosphatase 87 (38-126) U/L Total Protein 6.7 (6.3-8.2) g/dL Albumin 3.3 L (3.5-5.0) g/dL Current Medications Generic Name Dose Route Start Last Admin Trade Name Freq PRN Reason Stop Dose Admin Albuterol/Ipratropium 3 ml 05/11/23 02:12 Ipratropium-Albuterol 3 Ml Neb INHALATION RT-QID PRN Shortness Of Breath Or Wheezing Furosemide 40 mg 05/11/23 02:15 05/11/23 02:59 Furosemide 10 Mg/Ml 4 Ml Vial IV 40 mg Q8H SARAH Administration Intake and Output 05/10/23 05/11/23 05/11/23 22:59 06:59 14:59 Other: Weight 86.183 kg 05/10/23 23:35 05/10/23 23:35
[2023-05-11] MEDS: VANCOMYCIN 1,750 MG in SODIUM CHLORIDE 0.9% 500 ML 500 ML IVPB SCH (16:43)
[2023-05-11] MEDS ORDERED: GLUCERNA CAL PO SCH (17:00)
[2023-05-11 19:51] LABS: Glucose,Whole Blood 198 mg/dL (70-110)
[2023-05-11] MEDS: INSULIN ASPART (NovoLOG) 100 UNIT/ML VIAL SQ SCH ×3 (19:59→21:06)
[2023-05-11] MEDS: HEPARIN SODIUM,PORCINE 5,000 UNIT/ML 1 ML VIAL SQ SCH (20:24)
[2023-05-11] MEDS: INSULIN DETEMIR (LEVEMIR) 100 UNIT/ML SYR SQ SCH (20:27)
[2023-05-11] MEDS: AMPICILLIN-SULBACTAM 3 GM VIAL IVPB SCH ×2 (20:59→23:21)
[2023-05-11 21:03] LABS: Glucose,Whole Blood 190 mg/dL (70-110)
--- NOTE | 2023-05-11 22:09 | P.CONS ---
History of Present Illness - Reason for Consult Consult date: 05/11/23 Osteomyelitis Requesting physician: Alia Blackburn - Chief Complaint Not feeling well and increasing shortness of breath x few days - History of Present Illness Patient is a 88-year-old -[place] male with a past medical history significant for diabetes mellitus patient did have a history of left fifth toe gangrene status post amputation subsequently nonhealing wound with a readmission to the hospital requiring amputation of the left fourth toe in the middle of April 2023 wound culture at that point grew Proteus Mirabella's Enterococcus and MRSA patient did get a PICC line and was advised a 6-week course of IV vancomycin and Unasyn [facility] patient has been [facility] with the patient complaining of not feeling well along with increasing shortness of breath and this patient symptom has been getting worse for the last few days patient denies high-grade fever or any chills denies any chest pain no significant cough or sputum production no abdominal pain or diarrhea patient denies any worsening pain to the left foot wound care which is currently being treated with a wound VAC anjana ent was noted to be hypoxic on presented to the hospital requiring supplemental oxygen however no fever was noticed patient did have white count of 6.3 BUN/creatinine has been normal liver enzymes are normal urine has been negative vancomycin was 13.2 influenza RSV COVID testing was negative patient did have a chest x-ray cardiomegaly increasing vascular congestion with interstitial prominence and effusion patient has been continued on Unasyn and vancomycin infectious disease was consulted for further management of antibiotic therapy Review of Systems Positive point and negatives has been mentioned in the HPI, complete review of systems was performed and all other systems are negative Past Medical History Past Medical History: Diabetes Mellitus, Hypertension Additional Past Medical History / Comment(s): cellulitis of left foot, altered mental status, History of Any Multi-Drug Resistant Organisms: MRSA, VRE Year Discovered:: 04/20/23 MRSA; 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 Past Surgical History: Orthopedic Surgery Additional Past Surgical History / Comment(s): right wrist surgery Past Anesthesia/Blood Transfusion Reactions: No Reported Reaction Past Psychological History: No Psychological Hx Reported Smoking Status: Former smoker Past Alcohol Use History: None Reported Past Drug Use History: None Reported Medications and Allergies Home Medications Medication Instructions Recorded Confirmed Type Acetaminophen Tab [Tylenol] 650 mg PO Q6HR PRN tab 01/01/23 05/11/23 Rx Famotidine [Pepcid] 20 mg PO DAILY@0800 04/18/23 05/11/23 History Glucerna 1.2 John 120 ml PO BID@0800,1700 04/18/23 05/11/23 History Heparin Sodium,Porcine (1 ml) 5,000 unit SQ Q12HR@08,21 04/18/23 05/11/23 History [Heparin Sodium] INSULIN ASPART (NovoLOG) [NovoLOG 3 unit SQ AC-TID@,,1830 04/18/23 05/11/23 History (formulary)] INSULIN ASPART (NovoLOG) [NovoLOG See Protocol SQ 04/18/23 05/11/23 History (formulary)] ACHS@07,11,183,2130 Insulin Detemir (Levemir) [Levemir] 10 unit SQ HS@2100 04/18/23 05/11/23 History Ipratropium-Albuterol Nebulize 3 ml INHALATION RT-Q6H PRN 04/18/23 05/11/23 History [Duoneb 0.5 mg-3 mg/3 ml Soln] Magnesium Hydroxide [Milk of 7,200 mg PO DAILY PRN 04/18/23 05/11/23 History Magnesia Concentrate] Na Phos,M-B/Na Phos,Di-Ba [Fleet 133 ml RECTAL DAILY PRN 04/18/23 05/11/23 History Adult] Tamsulosin [Flomax] 0.4 mg PO DAILY@0800 04/18/23 05/11/23 History amLODIPine [Norvasc] 10 mg PO DAILY@0800 04/18/23 05/11/23 History bisacodyL [Dulcolax] 10 mg RECTAL DAILY PRN 04/18/23 05/11/23 History polyethylene glycoL 3350 [Miralax] 17 gm PO DAILY@0800 04/18/23 05/11/23 History Ampicillin-Sulbactam [Unasyn 3 gm 3 gm IVPB Q6HR 42 Days #168 each 04/25/23 05/11/23 Rx vial] Sodium Chloride 0.9% [Saline 0.9%] 10 ml IV Q6H 05/11/23 05/11/23 History Vancomycin 1,750 mg IVPB Q24H 05/11/23 05/11/23 History Furosemide [Lasix] 40 mg PO BID@0900,1600 tab 05/15/23 Rx HYDROcodone/APAP 5-325MG [[place] 1 tab PO Q6HR PRN #4 tab 05/15/23 Rx 5-325] Ipratropium-Albuterol Nebulize 3 ml INHALATION RT-QID each 05/15/23 Rx [Duoneb 0.5 mg-3 mg/3 ml Soln] Nystatin 100,000 Unit/gm Powd 1 applic TOPICAL BID each 05/15/23 Rx [Mycostatin Powder] Valsartan [Diovan] 160 mg PO HS tab 05/15/23 Rx Allergies Allergy/AdvReac Type Severity Reaction Status Date / Time No Known Allergies Allergy Verified 05/11/23 08:07 Physical Exam Vitals: Vital Signs Temp Pulse Resp BP Pulse Ox 05/11/23 11:00 90 18 150/79 97 05/11/23 08:30 96 05/11/23 06:00 93 21 149/77 97 05/11/23 04:00 90 20 148/90 96 05/11/23 03:00 95 26 H 140/74 99 05/11/23 02:50 96 05/11/23 02:40 94 05/11/23 02:00 96 25 H 146/83 100 05/11/23 01:00 93 22 158/75 97 05/11/23 00:19 95 30 H 150/83 97 05/10/23 23:06 98.7 F 100 22 162/78 97 Intake and Output 05/11/23 05/11/23 05/11/23 06:59 14:59 22:59 Other: Weight 86.183 kg GENERAL DESCRIPTION: Elderly male lying in bed, no distress. No tachypnea or accessory muscle of respiration use. HEENT: Shows Pallor , no scleral icterus. Oral mucous membrane is dry. NECK: Trachea central, no thyromegaly. LUNGS: Unlabored breathing. Decreased breath sound at the base HEART: S1, S2, regular rate and rhythm. No loud murmur ABDOMEN: Soft, no tenderness , guarding or rigidity, no organomegaly EXTREMITIES: Left foot wound is covered with a wound VAC SKIN: No rash, no masses palpable. NEUROLOGICAL: The patient is awake, alert, mood and affect normal. Results CBC & Chem 7: 05/15/23 10:44 05/16/23 08:09 Labs: Abnormal Lab Results - Last 24 Hours (Table) 05/10/23 05/10/23 05/11/23 Range/Units 23:35 23:35 08:33 RBC 4.15 L (4.30-5.90) m/uL Hgb 12.8 L (13.0-17.5) gm/dL D-Dimer 1.47 H (<0.60) mg/L FEU Glucose 218 H (74-99) mg/dL Albumin 3.3 L (3.5-5.0) g/dL Assessment and Plan (1) Foot osteomyelitis, left Status: Acute Code(s): M86.9 - OSTEOMYELITIS, UNSPECIFIED SNOMED Code(s): 8381295908367692 Plan: 1patient with a 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 lower extremity in this patient who did have history of left fifth toe gangrene status post amputation and subsequent nonhealing of the wound with repeat surgery on 04/20/2023 with the patient did have a amputation of the left fourth metatarsal wound culture at that time grew Proteus and Enterococcus and MRSA not being admitted to hospital increasing shortness of breath concerning for possible CHF being managed by cardiology patient with no fever or elevated white count denies any pain to the left foot or any problem with the wound VAC 2-we will continue patient on Unasyn 3 g every 6 and vancomycin pharmacy to dose while watching his kidney function closely 3-local wound care to the left foot wound with the wound VAC black foam continuous pressure 125 mmHg change Sunday We will follow on clinical condition and cultures to further adjust medication if needed Thank you for this consultation we will follow the patient along with you Dictation was produced using [employer] software. please excuse any grammatical, word or spelling errors. Time with Patient: Greater than 30
[2023-05-12 06:35] LABS: Glucose,Whole Blood 119 mg/dL (70-110)
[2023-05-12] MEDS: INSULIN ASPART (NovoLOG) 100 UNIT/ML VIAL SQ SCH ×7 (06:58→21:40)
[2023-05-12] MEDS: AMPICILLIN-SULBACTAM 3 GM VIAL IVPB SCH ×4 (07:03→23:11)
[2023-05-12] MEDS: polyethylene glycoL 3350 17 GM POWD.PACK PO SCH (09:04)
[2023-05-12] MEDS: FAMOTIDINE 20 MG TAB PO SCH (09:04)
[2023-05-12] MEDS: TAMSULOSIN 0.4 MG CAP.ER.24H PO SCH (09:04)
[2023-05-12] MEDS: amLODIPine 10 MG TAB PO SCH (09:04)
[2023-05-12] MEDS: FUROSEMIDE 10 MG/ML 4 ML VIAL IV SCH ×2 (09:04→21:40)
[2023-05-12] MEDS: HEPARIN SODIUM,PORCINE 5,000 UNIT/ML 1 ML VIAL SQ SCH ×2 (09:05→21:40)
[2023-05-12 10:25] LABS: Basophils # (A) 0.1 k/uL (0-0.2); Basophils % (A) 1 %; Eosinophils # (A) 0.5 k/uL (0-0.7); Eosinophils % (A) 8 %; HCT 41.3 % (39.0-53.0); HGB 13.1 gm/dL (13.0-17.5); Hypochromasia Slight; Lymphocytes # (A) 1.8 k/uL (1.0-4.8); Lymphocytes % (A) 26 %; MCH 30.8 pg (25.0-35.0); MCHC 31.8 g/dL (31.0-37.0); MCV 96.9 fL (80.0-100.0); Mean Platelet Volume 7.4; Monocytes # (A) 0.6 k/uL (0-1.0); Monocytes % (A) 9 %; Neutrophils # (A) 3.6 k/uL (1.3-7.7); Neutrophils % (A) 54 %; Platelet Count 248 k/uL (150-450); RBC 4.26 m/uL (4.30-5.90); WBC 6.8 k/uL (3.8-10.6)
[2023-05-12 10:40] LABS: African American GFR (CKD) 82 (>60 ml/min/1.73 sqM); Anion Gap 9 mmol/L; Blood Urea Nitrogen 21 mg/dL (9-20); Calcium 9.2 mg/dL (8.4-10.2); Carbon Dioxide 32 mmol/L (22-30); Chloride 99 mmol/L (98-107); Glucose 82 mg/dL (74-99); Non-African American GFR(CKD) 71 (>60 ml/min/1.73 sqM); Potassium 4.5 mmol/L (3.5-5.1); Sodium 140 mmol/L (137-145)
[2023-05-12 11:29] LABS: Glucose,Whole Blood 75 mg/dL (70-110)
--- NOTE | 2023-05-12 15:10 | P.PN ---
Subjective Progress Note Date: 05/12/23 The patient is an 88-year-old male with multiple comorbid conditions who presented to the hospital with upper respiratory like symptoms. Cardiology was consulted for heart failure. Echocardiogram shows preserved LV function with moderate to severe LVH and without significant valvular abnormalities. He has been diuresed over the last 24 hours. Patient was interviewed and examined resting comfortably in bed. He is confused with difficult to assess accurate review of systems. He currently denies any chest pain. GENERAL: Well-appearing, well-nourished and in no acute distress. NECK: Supple without JVD or thyromegaly. LUNGS: Breath sounds clear to auscultation bilaterally. Respiration equal and u nlabored. Bilateral wheezes. HEART: Regular rate and rhythm without murmurs, rubs or gallops. S1 and S2 heard. EXTREMITIES: Normal range of motion, no edema. No clubbing or cyanosis. Wound VAC noted on left lower extremity TELEMETRY: Sinus rhythm overnight IMPRESSION: Acute diastolic heart failure Hypertension with severe LVH Diabetes mellitus Remote history of tobacco use Chronic wound and history of gangrene PLAN: Start valsartan for uncontrolled hypertension Consider transitioning to oral diuretics tomorrow Further recommendations based on clinical course I am dictating on behalf of Dr Anish Hurst's history/physical and assessment/plan. Objective - Vital Signs Vital signs: Vital Signs Temp 97.5 F L 05/12/23 09:00 Pulse 89 05/12/23 11:20 Resp 18 05/12/23 11:20 BP 140/82 05/12/23 11:20 Pulse Ox 98 05/12/23 11:20 FiO2 Intake & Output 05/11/23 05/12/23 05/12/23 18:59 06:59 18:59 Output Total 2700 Balance -2700 Output: Urine 2700 Male - External 2700 - Labs CBC & Chem 7: 05/12/23 09:05 05/12/23 09:05 Labs: Abnormal Lab Results - Last 24 Hours (Table) 05/11/23 05/11/23 05/12/23 Range/Units 19:50 21:02 06:33 RBC (4.30-5.90) m/uL Carbon Dioxide (22-30) mmol/L BUN (9-20) mg/dL POC Glucose (mg/dL) 198 H 190 H 119 H (70-110) mg/dL 05/12/23 05/12/23 Range/Units 09:05 09:05 RBC 4.26 L (4.30-5.90) m/uL Carbon Dioxide 32 H (22-30) mmol/L BUN 21 H (9-20) mg/dL POC Glucose (mg/dL) (70-110) mg/dL
[2023-05-12 16:24] LABS: Glucose,Whole Blood 167 mg/dL (70-110)
--- NOTE | 2023-05-12 18:06 | P.HPIM ---
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 The patient states he is feeling good. He states he's had some cold symptoms. He denies having any chest pain and no sputum production. Patient is a poor historian. Patient is seen today in the emergency center waiting for a bed on the cardiac stepdown unit. Patient is status post 1 dose of IV Lasix 40 mg every 8 hours, 1 L of IV fluids and started on vancomycin and Unasyn which patient has as outpatient. EKG sinus rhythm Chest x-ray: Cardiomegaly. Increasing vascular congestion with interstitial prominence concerning for edema. Small pleural effusions. Bibasilar airspace opacities, atelectasis or pneumonia. WBC 6.3, hemoglobin 12.8, electrolytes BUN and creatinine within normal limits. Blood sugar 218. Troponin negative 3. Liver function tests are normal. Magnesium 1.7. Influenza A, influenza B, RSV, Covid 19 not detected. U rinalysis negative. Echocardiogram performed 05/11/2023 reveals EF of 55%, severe concentric left vent ricle hypertrophy. [id number] mitral regurgitation, mild tricuspid regurgitation. No pulmonary hypertension. Review of Systems REVIEW OF SYSTEMS: CONSTITUTIONAL: No fever, no malaise, no fatigue. HEENT: No recent visual problems or hearing problems. Denied any sore throat. CARDIOVASCULAR: No chest pain, orthopnea, PND, no palpitations, no syncope. PULMONARY: No shortness of breath, no cough, no hemoptysis. GASTROINTESTINAL: No diarrhea, no nausea, no vomiting, no abdominal pain. NEUROLOGICAL: No headaches, no weakness, no numbness. HEMATOLOGICAL: Denies any bleeding or petechiae. GENITOURINARY: Denies any burning micturition, frequency, or urgency. MUSCULOSKELETAL/RHEUMATOLOGICAL: Denies any joint pain, swelling, or any muscle pain. ENDOCRINE: Denies any polyuria or polydipsia. The rest of the 14-point review of systems is negative. 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 Past Surgical History: Orthopedic Surgery Additional Past Surgical History / Comment(s): right wrist surgery Past Anesthesia/Blood Transfusion Reactions: No Reported Reaction Past Psychological History: No Psychological Hx Reported Smoking Status: Former smoker Past Alcohol Use History: None Reported Past Drug Use History: None Reported Medications and Allergies Home Medications Medication Instructions Recorded Confirmed Type Acetaminophen Tab [Tylenol] 650 mg PO Q6HR PRN tab 01/01/23 05/11/23 Rx Famotidine [Pepcid] 20 mg PO DAILY@0800 04/18/23 05/11/23 History Glucerna 1.2 John 120 ml PO BID@0800,1700 04/18/23 05/11/23 History Heparin Sodium,Porcine (1 ml) 5,000 unit SQ Q12HR@08,21 04/18/23 05/11/23 History [Heparin Sodium] INSULIN ASPART (NovoLOG) [NovoLOG 3 unit SQ AC-TID@07,11,1830 04/18/23 05/11/23 History (formulary)] INSULIN ASPART (NovoLOG) [NovoLOG See Protocol SQ 04/18/23 05/11/23 History (formulary)] ACHS@07,11,1830,2130 Insulin Detemir (Levemir) [Levemir] 10 unit SQ HS@2100 04/18/23 05/11/23 History Ipratropium-Albuterol Nebulize 3 ml INHALATION RT-Q6H PRN 04/18/23 05/11/23 History [Duoneb 0.5 mg-3 mg/3 ml Soln] Magnesium Hydroxide [Milk of 7,200 mg PO DAILY PRN 04/18/23 05/11/23 History Magnesia Concentrate] Na Phos,M-B/Na Phos,Di-Ba [Fleet 133 ml RECTAL DAILY PRN 04/18/23 05/11/23 History Adult] Tamsulosin [Flomax] 0.4 mg PO DAILY@0800 04/18/23 05/11/23 History amLODIPine [Norvasc] 10 mg PO DAILY@0800 04/18/23 05/11/23 History bisacodyL [Dulcolax] 10 mg RECTAL DAILY PRN 04/18/23 05/11/23 History polyethylene glycoL 3350 [Miralax] 17 gm PO DAILY@0800 04/18/23 05/11/23 History Ampicillin-Sulbactam [Unasyn 3 gm 3 gm IVPB Q6HR 42 Days #168 each 04/25/23 05/11/23 Rx vial] HYDROcodone/APAP 5-325MG [[place] 1 tab PO Q6HR PRN #4 tab 04/25/23 05/11/23 Rx 5-325] Sodium Chloride 0.9% [Saline 0.9%] 10 ml IV Q6H 05/11/23 05/11/23 History Vancomycin 1,750 mg IVPB Q24H 05/11/23 05/11/23 History Allergies Allergy/AdvReac Type Severity Reaction Status Date / Time No Known Allergies Allergy Verified 05/11/23 08:07 Physical Exam Vitals: Vital Signs Temp Pulse Resp BP Pulse Ox 05/11/23 11:00 90 18 150/79 97 05/11/23 08:30 96 05/11/23 06:00 93 21 149/77 97 05/11/23 04:00 90 20 148/90 96 05/11/23 03:00 95 26 H 140/74 99 05/11/23 02:50 96 05/11/23 02:40 94 05/11/23 02:00 96 25 H 146/83 100 05/11/23 01:00 93 22 158/75 97 05/11/23 00:19 95 30 H 150/83 97 05/10/23 23:06 98.7 F 100 22 162/78 97 Intake and Output 05/10/23 05/11/23 05/11/23 22:59 06:59 14:59 Other: Weight 86.183 kg General appearance: alert, in no apparent distress, anxious, in distress Head exam: Present: atraumatic, normocephalic, normal inspection Eye exam: Present: normal appearance, PERRL, EOMI. Absent: scleral icterus, conjunctival injection, periorbital swelling ENT exam: Present: normal exam, mucous membranes moist Neck exam: Present: normal inspection. Absent: tenderness, meningismus, lymphadenopathy Respiratory exam: Present: respiratory distress, decreased breath sounds, prolonged expiratory. Absent: rales, rhonchi, stridor Cardiovascular Exam: Present: regular rate, normal rhythm, normal heart sounds. Absent: systolic murmur, diastolic murmur, rubs, gallop, clicks GI/Abdominal exam: Present: soft, normal bowel sounds. Absent: distended, tenderness, guarding, rebound, rigid Extremities exam: Present: normal inspection, full ROM, normal capillary refill. Absent: tenderness, pedal edema, joint swelling, calf tenderness Back exam: Present: normal inspection Neurological exam: Present: alert, oriented X3, CN II-XII intact Psychiatric exam: Present: normal affect, normal mood Skin exam: Present: warm, dry, intact, normal color. Absent: rash Results CBC & Chem 7: 05/12/23 09:05 05/12/23 09:05 Labs: Abnormal Lab Results - Last 24 Hours (Table) 05/10/23 05/10/23 05/11/23 Range/Units 23:35 23:35 08:33 RBC 4.15 L (4.30-5.90) m/uL Hgb 12.8 L (13.0-17.5) gm/dL D-Dimer 1.47 H (<0.60) mg/L FEU Glucose 218 H (74-99) mg/dL Albumin 3.3 L (3.5-5.0) g/dL Assessment and Plan Assessment: 1. Acute diastolic CHF - Patient received Lasix 40 mg IV 1 in ED; we will continue with Lasix 40 mg IV every 12 hours; monitor strict MATHIEU's, daily weights; low-salt and fluid restricted diet -- 2-D echo; consult cardiology 2. Nonhealing wound left lower extremity - Patient has history of gangrene left fifth toe and is status post amputation with subsequent nonhealing; required readmission to the hospital with amputation of left fourth toe in April 2023 - Wound culture grew Proteus mirabilis, enterococcus and MRSA - Patient has PICC line in place and is on antibiotics in form of IV vancomycin and Unasyn for a total of 6 week course - We'll continue with current antibiotics and consult ID for further recommendations 3. Hyperglycemia/uncontrolled diabetes mellitus with long-term insulin use; we will continue with home dose of Levemir; monitor Accu-Cheks before meals and at bedtime with insulin sliding scale 4. Hypertension; amlodipine 10 mg daily 5. BPH; Flomax 0.4 mg daily DVT prophylaxis; subcu heparin CODE STATUS; full code
--- NOTE | 2023-05-12 18:08 | P.PN ---
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 The patient states he is feeling good. He states he's had some cold symptoms. He denies having any chest pain and no sputum production. Patient is a poor historian. Patient is seen today in the emergency center waiting for a bed on the cardiac stepdown unit. Patient is status post 1 dose of IV Lasix 40 mg every 8 hours, 1 L of IV fluids and started on vancomycin and Unasyn which patient has as outpatient. EKG sinus rhythm Chest x-ray: Cardiomegaly. Increasing vascular congestion with interstitial prominence concerning for edema. Small pleural effusions. Bibasilar airspace opacities, atelectasis or pneumonia. WBC 6.3, hemoglobin 12.8, electrolytes BUN and creatinine within normal limits. Blood sugar 218. Troponin negative 3. Liver function tests are normal. Magnesium 1.7. Influenza A, influenza B, RSV, Covid 19 not detected. Urinalysis negative. Echocardiogram performed 05/11/2023 reveals EF of 55%, severe concentric left ventricle hypertrophy. [id number] mitral regurgitation, mild tricuspid regurgitation. No pulmonary hypertension. Objective - Vital Signs Vital signs: Vital Signs Temp 97.5 F L 05/12/23 09:00 Pulse 89 05/12/23 11:20 Resp 18 05/12/23 11:20 BP 140/82 05/12/23 11:20 Pulse Ox 98 05/12/23 11:20 FiO2 Intake & Output 05/11/23 05/12/23 05/12/23 18:59 06:59 18:59 Output Total 2700 Balance -2700 Output: Urine 2700 Male - External 2700 - Exam General appearance: alert, in no apparent distress, anxious, in distress Head exam: Present: atraumatic, normocephalic, normal inspection Eye exam: Present: normal appearance, PERRL, EOMI. Absent: scleral icterus, conjunctival injection, periorbital swelling ENT exam: Present: normal exam, mucous membranes moist Neck exam: Present: normal inspection. Absent: tenderness, meningismus, lymphadenopathy Respiratory exam: Present: respiratory distress, decreased breath sounds, prolonged expiratory. Absent: rales, rhonchi, stridor Cardiovascular Exam: Present: regular rate, normal rhythm, normal heart sounds. Absent: systolic murmur, diastolic murmur, rubs, gallop, clicks GI/Abdominal exam: Present: soft, normal bowel sounds. Absent: distended, tenderness, guarding, rebound, rigid Extremities exam: Present: normal inspection, full ROM, normal capillary refill. Absent: tenderness, pedal edema, joint swelling, calf tenderness Back exam: Present: normal inspection Neurological exam: Present: alert, oriented X3, CN II-XII intact Psychiatric exam: Present: normal affect, normal mood Skin exam: Present: warm, dry, intact, normal color. Absent: rash - Labs CBC & Chem 7: 05/12/23 09:05 05/12/23 09:05 Labs: Abnormal Lab Results - Last 24 Hours (Table) 05/11/23 05/11/23 05/12/23 Range/Units 19:50 21:02 06:33 RBC (4.30-5.90) m/uL Carbon Dioxide (22-30) mmol/L BUN (9-20) mg/dL POC Glucose (mg/dL) 198 H 190 H 119 H (70-110) mg/dL 05/12/23 05/12/23 Range/Units 09:05 09:05 RBC 4.26 L (4.30-5.90) m/uL Carbon Dioxide 32 H (22-30) mmol/L BUN 21 H (9-20) mg/dL POC Glucose (mg/dL) (70-110) mg/dL Assessment and Plan Assessment: 1. Acute diastolic CHF - Patient received Lasix 40 mg IV 1 in ED; we will continue with Lasix 40 mg IV every 12 hours; monitor strict MATHIEU's, daily weights; low-salt and fluid restricted diet -- 2-D echo; consult cardiology 2. Nonhealing wound left lower extremity - Patient has history of gangrene left fifth toe and is status post amputation with subsequent nonhealing; required readmission to the hospital with amputation of left fourth toe in April 2023 - Wound culture grew Proteus mirabilis, enterococcus and MRSA - Patient has PICC line in place and is on antibiotics in form of IV vancomycin and Unasyn for a total of 6 week course - We'll continue with current antibiotics and consult ID for further recommendations 3. Hyperglycemia/uncontrolled diabetes mellitus with long-term insulin use; we will continue with home dose of Levemir; monitor Accu-Cheks before meals and at bedtime with insulin sliding scale 4. Hypertension; amlodipine 10 mg daily 5. BPH; Flomax 0.4 mg daily DVT prophylaxis; subcu heparin CODE STATUS; full code
[2023-05-12] MEDS: VANCOMYCIN 1,750 MG in SODIUM CHLORIDE 0.9% 500 ML 500 ML IVPB SCH (18:14)
[2023-05-12 20:10] LABS: Glucose,Whole Blood 209 mg/dL (70-110)
[2023-05-12] MEDS: INSULIN DETEMIR (LEVEMIR) 100 UNIT/ML SYR SQ SCH (21:40)
[2023-05-12] MEDS: VALSARTAN 160 MG TAB PO SCH (22:31)
[2023-05-12 23:15] LABS: Chol/HDL Ratio 2.02 Ratio; LDL Cholesterol,Calculated 80.9 mg/dL (0.0-131.0); VLDL Calculation 10.88 mg/dL (5.00-40.00)
[2023-05-13 06:09] LABS: Glucose,Whole Blood 73 mg/dL (70-110)
[2023-05-13] MEDS: INSULIN ASPART (NovoLOG) 100 UNIT/ML VIAL SQ SCH ×7 (06:13→21:58)
[2023-05-13] MEDS: AMPICILLIN-SULBACTAM 3 GM VIAL IVPB SCH ×3 (06:38→16:32)
--- NOTE | 2023-05-13 07:02 | P.PN ---
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 The patient states he is feeling good. He states he's had some cold symptoms. He denies having any chest pain and no sputum production. Patient is a poor historian. Patient is seen today in the emergency center waiting for a bed on the cardiac stepdown unit. Patient is status post 1 dose of IV Lasix 40 mg every 8 hours, 1 L of IV fluids and started on vancomycin and Unasyn which patient has as outpatient. EKG sinus rhythm Chest x-ray: Cardiomegaly. Increasing vascular congestion with interstitial prominence concerning for edema. Small pleural effusions. Bibasilar airspace opacities, atelectasis or pneumonia. WBC 6.3, hemoglobin 12.8, electrolytes BUN and creatinine within normal limits. Blood sugar 218. Troponin negative 3. Liver function tests are normal. Magnesium 1.7. Influenza A, influenza B, RSV, Covid 19 not detected. Urinalysis negative. Echocardiogram performed 05/11/2023 reveals EF of 55%, severe concentric left ventricle hypertrophy. [id number]-[id number] mitral regurgitation, mild tricuspid regurgitation. No pulmonary hypertension. 05/13/2022 Patient is seen and evaluated in room at bedside; discussed with nursing staff; no specific complaints reported Vital signs temperature of 97.9, pulse 83, respiration 18 blood pressure 149/71 with O2 saturation 98% -- Patient is currently on Lasix 40 mg IV every 12 hours for CHF exacerbation; cardiology on board with plans for possible transition to oral diuretics -- Echocardiogram completed this admission reveals EF of 55% with severe concentric LVH, mild to moderate mitral regurgitation, mild tricuspid regu rgitation -- Cardiology on board; patient has been placed on valsartan for uncontrolled hypertension; plan is to possibly transition patient to oral diuretics this morning -- Consult PT/OT Objective - Vital Signs Vital signs: Vital Signs Temp 97.9 F 05/12/23 20:00 Pulse 93 05/12/23 20:00 Resp 18 05/12/23 20:00 BP 149/71 05/12/23 20:00 Pulse Ox 98 05/12/23 20:00 FiO2 Intake & Output 05/12/23 05/12/23 05/13/23 06:59 18:59 06:59 Intake Total 118 Output Total 2700 225 850 Balance -2700 -107 -850 Intake: Oral 118 Output: Urine 2700 225 850 Male - External 2700 Other: Voiding Method External Catheter - Exam General appearance: alert, in no apparent distress, anxious, in distress Head exam: Present: atraumatic, normocephalic, normal inspection Eye exam: Present: normal appearance, PERRL, EOMI. Absent: scleral icterus, conjunctival injection, periorbital swelling ENT exam: Present: normal exam, mucous membranes moist Neck exam: Present: normal inspection. Absent: tenderness, meningismus, lymphadenopathy Respiratory exam: Present: respiratory distress, decreased breath sounds, prolonged expiratory. Absent: rales, rhonchi, stridor Cardiovascular Exam: Present: regular rate, normal rhythm, normal heart sounds. Absent: systolic murmur, diastolic murmur, rubs, gallop, clicks GI/Abdominal exam: Present: soft, normal bowel sounds. Absent: distended, tenderness, guarding, rebound, rigid Extremities exam: Present: normal inspection, full ROM, normal capillary refill. Absent: tenderness, pedal edema, joint swelling, calf tenderness Back exam: Present: normal inspection Neurological exam: Present: alert, oriented X3, CN II-XII intact Psychiatric exam: Present: normal affect, normal mood Skin exam: Present: warm, dry, intact, normal color. Absent: rash - Labs CBC & Chem 7: 05/12/23 09:05 05/12/23 09:05 Labs: Abnormal Lab Results - Last 24 Hours (Table) 05/12/23 05/12/23 05/12/23 Range/Units 06:33 09:05 09:05 RBC 4.26 L (4.30-5.90) m/uL Carbon Dioxide 32 H (22-30) mmol/L BUN 21 H (9-20) mg/dL POC Glucose (mg/dL) 119 H (70-110) mg/dL HDL Cholesterol (40.00-60.00) mg/dL 05/12/23 05/12/23 05/12/23 Range/Units 09:15 16:22 20:09 RBC (4.30-5.90) m/uL Carbon Dioxide (22-30) mmol/L BUN (9-20) mg/dL POC Glucose (mg/dL) 167 H 209 H (70-110) mg/dL HDL Cholesterol 90.20 H (40.00-60.00) mg/dL Assessment and Plan Assessment: 1. Acute diastolic CHF - Patient received Lasix 40 mg IV 1 in ED; we will continue with Lasix 40 mg IV every 12 hours; monitor strict MATHIEU's, daily weights; low-salt and fluid restricted diet -- 2-D echo; consult cardiology 2. Nonhealing wound left lower extremity - Patient has history of gangrene left fifth toe and is status post amputation with subsequent nonhealing; required readmission to the hospital with amputation of left fourth toe in April 2023 - Wound culture grew Proteus mirabilis, enterococcus and MRSA - Patient has PICC line in place and is on antibiotics in form of IV vancomycin and Unasyn for a total of 6 week course - We'll continue with current antibiotics and consult ID for further recommendations 3. Hyperglycemia/uncontrolled diabetes mellitus with long-term insulin use; we will continue with home dose of Levemir; monitor Accu-Cheks before meals and at bedtime with insulin sliding scale 4. Hypertension; amlodipine 10 mg daily 5. BPH; Flomax 0.4 mg daily DVT prophylaxis; subcu heparin CODE STATUS; full code
[2023-05-13] MEDS: TAMSULOSIN 0.4 MG CAP.ER.24H PO SCH (07:21)
[2023-05-13] MEDS: polyethylene glycoL 3350 17 GM POWD.PACK PO SCH (07:22)
[2023-05-13] MEDS: amLODIPine 10 MG TAB PO SCH (07:22)
[2023-05-13] MEDS: FAMOTIDINE 20 MG TAB PO SCH (07:22)
[2023-05-13] MEDS: FUROSEMIDE 10 MG/ML 4 ML VIAL IV SCH (07:22)
[2023-05-13] MEDS: HEPARIN SODIUM,PORCINE 5,000 UNIT/ML 1 ML VIAL SQ SCH ×2 (07:22→21:57)
[2023-05-13 09:29] LABS: Basophils % (A) 1 %; Eosinophils # (A) 0.3 k/uL (0-0.7); Eosinophils % (A) 4 %; HCT 39.5 % (39.0-53.0); HGB 12.7 gm/dL (13.0-17.5); Hypochromasia Slight; Lymphocytes # (A) 1.8 k/uL (1.0-4.8); Lymphocytes % (A) 26 %; MCH 31.4 pg (25.0-35.0); MCHC 32.1 g/dL (31.0-37.0); MCV 97.6 fL (80.0-100.0); Mean Platelet Volume 7.7; Monocytes # (A) 0.4 k/uL (0-1.0); Monocytes % (A) 6 %; Neutrophils # (A) 4.2 k/uL (1.3-7.7); Neutrophils % (A) 61 %; Platelet Count 227 k/uL (150-450); RBC 4.05 m/uL (4.30-5.90); WBC 6.9 k/uL (3.8-10.6)
[2023-05-13 10:03] LABS: African American GFR (CKD) 76 (>60 ml/min/1.73 sqM); Anion Gap 11 mmol/L; Blood Urea Nitrogen 25 mg/dL (9-20); Carbon Dioxide 29 mmol/L (22-30); Chloride 97 mmol/L (98-107); Glucose 133 mg/dL (74-99); Non-African American GFR(CKD) 66 (>60 ml/min/1.73 sqM); Potassium 4.8 mmol/L (3.5-5.1); Sodium 137 mmol/L (137-145)
[2023-05-13] MEDS ORDERED: ZINC OXIDE PASTE (Z-GUARD) 1 APPLIC TOPICAL PRN (10:06)
[2023-05-13 11:54] LABS: Glucose,Whole Blood 158 mg/dL (70-110)
--- NOTE | 2023-05-13 15:10 | P.PN ---
Subjective Progress Note Date: 05/13/23 The patient is an 88-year-old male with multiple comorbid conditions who presented to the hospital with upper respiratory like symptoms. Cardiology was consulted for heart failure. Echocardiogram shows preserved LV function with moderate to severe LVH and without significant valvular abnormalities. He has been diuresed over the course of his admission. He appears stable from the heart failure standpoint. He is confused with difficult to assess accurate review of systems. He is currently resting comfortably in bed. GENERAL: Well-appearing, well-nourished and in no acute distress. NECK: Supple without JVD or thyromegaly. LUNGS: Breath sounds clear to auscultation bilaterally. Respiration equal and unlabored. Improved aeration. HEART: Regular rate and rhythm without murmurs, rubs or gallops. S1 and S2 heard. EXTREMITIES: Normal range of motion, no edema. No clubbing or cyanosis. Wound VAC noted on left lower extremity TELEMETRY: Sinus rhythm IMPRESSION: Acute diastolic heart failure Hypertension with severe LVH Diabetes mellitus Remote history of tobacco use Chronic wound and history of gangrene PLAN: Transitioning to oral diuretics Continue valsartan and amlodipine for blood pressure control No further recommendations from the cardiac standpoint I am dictating on behalf of Dr Anish Hurst's history/physical and assessment/plan. Objective - Vital Signs Vital signs: Vital Signs Temp 97.8 F 05/13/23 12:00 Pulse 88 05/13/23 12:00 Resp 18 05/13/23 12:00 BP 110/73 05/13/23 12:00 Pulse Ox 95 05/13/23 12:00 FiO2 Intake & Output 05/12/23 05/13/23 05/13/23 18:59 06:59 18:59 Intake Total 118 540 590 Output Total 225 850 400 Balance -107 -310 190 Weight 88.5 kg Intake: Oral 118 540 590 Output: Urine 225 850 400 Other: Voiding Method External Catheter - Labs CBC & Chem 7: 05/13/23 07:49 05/13/23 07:49 Labs: Abnormal Lab Results - Last 24 Hours (Table) 05/12/23 05/12/23 05/12/23 Range/Units 09:15 16:22 20:09 RBC (4.30-5.90) m/uL Hgb (13.0-17.5) gm/dL Chloride (98-107) mmol/L BUN (9-20) mg/dL Glucose (74-99) mg/dL POC Glucose (mg/dL) 167 H 209 H (70-110) mg/dL HDL Cholesterol 90.20 H (40.00-60.00) mg/dL 05/13/23 05/13/23 05/13/23 Range/Units 07:49 07:49 11:52 RBC 4.05 L (4.30-5.90) m/uL Hgb 12.7 L (13.0-17.5) gm/dL Chloride 97 L (98-107) mmol/L BUN 25 H (9-20) mg/dL Glucose 133 H (74-99) mg/dL POC Glucose (mg/dL) 158 H (70-110) mg/dL HDL Cholesterol (40.00-60.00) mg/dL
[2023-05-13] MEDS: VANCOMYCIN 1,750 MG in SODIUM CHLORIDE 0.9% 500 ML 500 ML IVPB SCH (16:33)
[2023-05-13] MEDS: FUROSEMIDE 40 MG TAB PO SCH (16:33)
[2023-05-13 16:37] LABS: Glucose,Whole Blood 184 mg/dL (70-110)
[2023-05-13 20:19] LABS: Glucose,Whole Blood 254 mg/dL (70-110)
[2023-05-13] MEDS: VALSARTAN 160 MG TAB PO SCH (21:58)
[2023-05-13] MEDS: INSULIN DETEMIR (LEVEMIR) 100 UNIT/ML SYR SQ SCH (21:58)
[2023-05-14] MEDS: AMPICILLIN-SULBACTAM 3 GM VIAL IVPB SCH ×5 (01:10→23:44)
[2023-05-14] MEDS: NYSTATIN 100,000 UNIT/GM POWD 15 GM TOPICAL SCH ×3 (01:10→21:24)
[2023-05-14 05:44] LABS: Glucose,Whole Blood 118 mg/dL (70-110)
[2023-05-14] MEDS: INSULIN ASPART (NovoLOG) 100 UNIT/ML VIAL SQ SCH ×7 (06:14→21:24)
[2023-05-14] MEDS: TAMSULOSIN 0.4 MG CAP.ER.24H PO SCH (09:15)
[2023-05-14] MEDS: amLODIPine 10 MG TAB PO SCH (09:15)
[2023-05-14] MEDS: HEPARIN SODIUM,PORCINE 5,000 UNIT/ML 1 ML VIAL SQ SCH ×2 (09:15→21:24)
[2023-05-14] MEDS: FUROSEMIDE 40 MG TAB PO SCH ×2 (09:15→16:59)
[2023-05-14] MEDS: FAMOTIDINE 20 MG TAB PO SCH (09:16)
[2023-05-14] MEDS: polyethylene glycoL 3350 17 GM POWD.PACK PO SCH (09:16)
[2023-05-14 09:24] LABS: Basophils % (A) 1 %; Eosinophils # (A) 0.4 k/uL (0-0.7); Eosinophils % (A) 7 %; HGB 12.1 gm/dL (13.0-17.5); Hypochromasia Slight; Lymphocytes # (A) 1.7 k/uL (1.0-4.8); Lymphocytes % (A) 31 %; MCH 30.9 pg (25.0-35.0); MCHC 31.7 g/dL (31.0-37.0); MCV 97.4 fL (80.0-100.0); Mean Platelet Volume 7.3; Monocytes # (A) 0.4 k/uL (0-1.0); Monocytes % (A) 8 %; Neutrophils # (A) 2.8 k/uL (1.3-7.7); Neutrophils % (A) 51 %; Platelet Count 225 k/uL (150-450); RDW 14.1 % (11.5-15.5); WBC 5.5 k/uL (3.8-10.6)
[2023-05-14 11:09] LABS: African American GFR (CKD) 75 (>60 ml/min/1.73 sqM); Anion Gap 6 mmol/L; Blood Urea Nitrogen 25 mg/dL (9-20); Carbon Dioxide 33 mmol/L (22-30); Chloride 99 mmol/L (98-107); Glucose 152 mg/dL (74-99); Non-African American GFR(CKD) 65 (>60 ml/min/1.73 sqM); Potassium 4.3 mmol/L (3.5-5.1); Sodium 138 mmol/L (137-145)
[2023-05-14 11:25] LABS: Glucose,Whole Blood 528 mg/dL (70-110)
[2023-05-14 11:25] LABS: Glucose,Whole Blood 221 mg/dL (70-110)
[2023-05-14 13:08] VITALS: BMI 26.4
--- NOTE | 2023-05-14 14:03 | XR ---
EXAM: XR chest 1V portable CLINICAL INDICATION:Male, 88 years old with history of short of breath; [facility] COMPARISON: 05/10/2023 TECHNIQUE: Chest single view. FINDINGS: Lines/tubes/devices: EKG leads overlie the chest. Left arm PICC with the tip over the left brachiocep halic vein just proximal to midline. Cardiomediastinum: Cardiac silhouette is partially obscured but likely enlarged. Grossly unremarkable mediastinal silhou ette. Vasculature: Moderate central congestion. Increased interstitial markings can be related to congesti on or infiltrates. Lungs/pleura: Lung volumes are further reduced from the prior study with increased bibasilar airspace opacities. Pr obable small pleural effusions. Bones/soft tissues: Bony thorax appears grossly intact as seen. Degenerative changes of the shoulders and spine. Other: Curvilinear lucency on the right and possibly also some on the left, partially outline bowel a nd appear to present pneumoperitoneum. IMPRESSION: 1. Pneumoperitoneum suggested beneath the diaphragm. Correlate for any recent surgery to explain thi s. If none, the finding is highly concerning for perforated viscus, and follow-up CT abdomen may be o f benefit. 2. Worsened appearance of the chest. Lung volumes are further diminished with increased bibasilar at electasis and/or infiltrates. 3. Cardiomegaly with increased vascular congestion and interstitial edema compared to prior. Similar small pleural effusions. 4. Left arm PICC tip over the left brachiocephalic vein.
[2023-05-14] MEDS: IOPAMIDOL CONTRAST (ORAL USE) VIAL PO PRN ×2 (15:05→15:52)
[2023-05-14 16:54] LABS: Glucose,Whole Blood 116 mg/dL (70-110)
[2023-05-14] MEDS: VANCOMYCIN 1,750 MG in SODIUM CHLORIDE 0.9% 500 ML 500 ML IVPB SCH (16:59)
--- NOTE | 2023-05-14 18:54 | CT ---
EXAMINATION TYPE: CT ChestAbdPelvis wo con DATE OF EXAM: 05/14/2023 INDICATION: air under diaphragm? COMPARISON: None CT DLP: 1158.8 mGycm CONTRAST: Performed with Oral Contrast. TECHNIQUE: Axial images at 5 mm thick sections. Reconstructed images in the coronal plane. Delayed images through the kidneys. FINDINGS: CT CHEST: Portion of the thyroid visualized is normal. Some pleural thickening along the anterior lateral left lung measuring 2.5 cm. Series 204 image 25. S mall right and minimal left pleural effusions are present. Compressive atelectasis or consolidation at the right lung base may be present. There is a hypodensity within the posterior left thyroid lobe measuring 1.0 cm. It appears to be dens e calcification within the posterior right thyroid lobe. No suspicious mediastinal or hilar adenopathy is identified on this noncontrast study. Descending tho racic aorta at the main pulmonary artery is 4.3 cm. Main pulmonary artery bifurcation is 3.[address] ABDOMEN: No free air is identified. There is a periumbilical hernia containing mesenteric fat. The re are loops of colon anterior to the liver extending to the dome of the diaphragm. 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 Liver: Normal Spleen: Normal Pancreas: Normal Adrenal glands: The adrenal glands are normal. Gallbladder: Distended Kidneys: No masses are evident. No hydronephrosis is present. No cysts are present. No renal stone s are identified. Aorta: Vascular calcification is within the aorta. Inferior vena cava: Normal. CT PELVIS: Large fecal bolus is at the rectum. Correlate for fecal impaction. There is contrast within the right lower quadrant small bowel loops. There are loops of bowel which a re incompletely distended or lack oral contrast limiting their evaluation. Appendix: Normal as visualized. Urinary bladder: Normal. Genitourinary structures: No enlarged prostate is identified. Osseous structures: No suspicious lytic or sclerotic lesions are evident. IMPRESSION: 1. No pneumoperitoneum evident. 2. Thickening along the anterior lateral left pleural margin. Follow-up is recommended. 3. Small right and minimal left pleural effusion. 4. Compressive atelectasis versus pneumonia right lower lobe. 5. Chilaiditi's syndrome. 6. Ascending thoracic aortic aneurysm of 4.3 cm.
[2023-05-14 20:51] LABS: Glucose,Whole Blood 220 mg/dL (70-110)
[2023-05-14] MEDS: INSULIN DETEMIR (LEVEMIR) 100 UNIT/ML SYR SQ SCH (21:24)
[2023-05-14] MEDS: VALSARTAN 160 MG TAB PO SCH (21:24)
[2023-05-15] MEDS: AMPICILLIN-SULBACTAM 3 GM VIAL IVPB SCH (05:37)
[2023-05-15 05:52] LABS: Glucose,Whole Blood 155 mg/dL (70-110)
[2023-05-15] MEDS: INSULIN ASPART (NovoLOG) 100 UNIT/ML VIAL SQ SCH ×7 (06:31→20:18)
[2023-05-15] MEDS: FAMOTIDINE 20 MG TAB PO SCH (08:55)
[2023-05-15] MEDS: HEPARIN SODIUM,PORCINE 5,000 UNIT/ML 1 ML VIAL SQ SCH ×2 (08:55→20:17)
[2023-05-15] MEDS: polyethylene glycoL 3350 17 GM POWD.PACK PO SCH (08:55)
[2023-05-15] MEDS: TAMSULOSIN 0.4 MG CAP.ER.24H PO SCH (08:55)
[2023-05-15] MEDS: amLODIPine 10 MG TAB PO SCH (08:55)
[2023-05-15] MEDS: FUROSEMIDE 40 MG TAB PO SCH ×2 (08:55→17:40)
[2023-05-15] MEDS: NYSTATIN 100,000 UNIT/GM POWD 15 GM TOPICAL SCH ×2 (08:56→20:17)
[2023-05-15 11:16] LABS: Basophils % (A) 0 %; Eosinophils # (A) 0.5 k/uL (0-0.7); Eosinophils % (A) 8 %; HCT 38.1 % (39.0-53.0); HGB 11.9 gm/dL (13.0-17.5); Hypochromasia Moderate; Lymphocytes # (A) 1.5 k/uL (1.0-4.8); Lymphocytes % (A) 24 %; MCH 30.7 pg (25.0-35.0); MCHC 31.3 g/dL (31.0-37.0); MCV 98.2 fL (80.0-100.0); Mean Platelet Volume 7.6; Monocytes # (A) 0.5 k/uL (0-1.0); Monocytes % (A) 8 %; Neutrophils # (A) 3.5 k/uL (1.3-7.7); Neutrophils % (A) 57 %; Platelet Count 235 k/uL (150-450); RBC 3.88 m/uL (4.30-5.90); RDW 14.2 % (11.5-15.5); WBC 6.2 k/uL (3.8-10.6)
[2023-05-15 11:40] LABS: African American GFR (CKD) 68 (>60 ml/min/1.73 sqM); Anion Gap 6 mmol/L; Blood Urea Nitrogen 23 mg/dL (9-20); Calcium 9.1 mg/dL (8.4-10.2); Carbon Dioxide 36 mmol/L (22-30); Chloride 95 mmol/L (98-107); Glucose 194 mg/dL (74-99); Non-African American GFR(CKD) 58 (>60 ml/min/1.73 sqM); Potassium 4.7 mmol/L (3.5-5.1); Sodium 137 mmol/L (137-145)
[2023-05-15 12:06] LABS: Glucose,Whole Blood 209 mg/dL (70-110)
--- NOTE | 2023-05-15 12:17 | PN ---
PROGRESS NOTE DATE OF SERVICE: 05/14/2023 SUBJECTIVE: This 88-year-old gentleman with multiple complex medical issues, admitted at this time with CHF acute exacerbation and hypoxia. The patient continues to be mildly confused. The patient is on IV Lasix. The patient also has left lower extremity wound, on wound VAC. Antibiotics recommendations are being given by Dr. Giron. The patient also complains of weakness. The chest x-ray showed bilateral lesions. PAST MEDICAL HISTORY: Reviewed. REVIEW OF SYSTEMS: The 14-point review is negative as mentioned. CURRENT MEDICATIONS: Reviewed include, 1. DuoNeb. 3. Unasyn. Rest of medications noted. PHYSICAL EXAMINATION: VITAL SIGNS: Pulse 80, blood pressure n, respirations 18. HEENT: Conjunctivae normal. NECK: No jugular venous distention. CARDIOVASCULAR: S1, S2 muffled. RESPIRATIONS: A few scattered rhonchi. ABDOMEN: Mild distention. LEGS: Normal. NERVOUS SYSTEM: Nonfocal. LABORATORY DATA: Reviewed. ASSESSMENT: 1. Congestive heart failure acute exacerbation with acute on chronic diastolic congestive heart failure. 2. Possible air under the right diaphragm. 3. Nonhealing wound of the left lower extremity on IV antibiotics. 4. Hyperglycemia. 5. Change in mental status. 6. Hypertension. 7. BPH. 8. Gait dysfunction. RECOMMENDATION: This 88-year-old gentleman presents with multiple complex medical issues, we will monitor the patient closely and continue the current management and treatment. I would recommend CT scan of the chest, abdomen, pelvis to rule out any acute abnormality. Otherwise, I would also recommend to continue the antibiotics, PT/OT evaluation. Guarded prognosis. Further recommendations to follow. MMODL / IJN: [id number] / MTDD
[2023-05-15] MEDS: AMPICILLIN-SULBACTAM 3 GM in SODIUM CHLORIDE 0.9% 100 ML IVPB SCH ×2 (13:26→20:17)
--- NOTE | 2023-05-15 14:50 | P.PN ---
Subjective Progress Note Date: 05/15/23 88-year-old male with past medical history of gangrene left toe status post amputation with chronic wound, hypertension, diabetes mellitus insulin requiring, remote history of tobacco use, presents to ED for evaluation of severe shortness of breath; patient is a very poor historian. The patient states he is feeling good. He states he's had some cold symptoms. He denies having any chest pain and no sputum production. Patient is a poor historian. Patient is seen today in the emergency center waiting for a bed on the cardiac stepdown unit. Patient is status post 1 dose of IV Lasix 40 mg every 8 hours, 1 L of IV fluids and started on vancomycin and Unasyn which patient has as outpatient. EKG sinus rhythm Chest x-ray: Cardiomegaly. Increasing vascular congestion with interstitial prominence concerning for edema. Small pleural effusions. Bibasilar airspace opacities, atelectasis or pneumonia. WBC 6.3, hemoglobin 12.8, electrolytes BUN and creatinine within normal limits. Blood sugar 218. Troponin negative 3. Liver function tests are normal. Magnesium 1.7. Influenza A, influenza B, RSV, Covid 19 not detected. Urinalysis negative. Echocardiogram performed 05/11/2023 reveals EF of 55%, severe concentric left ventricle hypertrophy. [id number] mitral regurgitation, mild tricuspid regurgitation. No pulmonary hypertension. 05/13/2022 Patient is seen and evaluated in room at bedside; discussed with nursing staff; no specific complaints reported Vital signs temperature of 97.9, pulse 83, respiration 18 blood pressure 149/71 with O2 saturation 98% -- Patient is currently on Lasix 40 mg IV every 12 hours for CHF exacerbation; cardiology on board with plans for possible transition to oral diuretics -- Echocardiogram completed this admission reveals EF of 55% with severe concentric LVH, mild to moderate mitral regurgitation, mild tricuspid re gurgitation -- Cardiology on board; patient has been placed on valsartan for uncontrolled hypertension; plan is to possibly transition patient to oral diuretics this morning -- Consult PT/OT 05/15/2023 Patient is seen in follow-up this morning with infectious disease following. Patient will continue on antibiotics in the outpatient setting for a total of 4 more weeks per ID recommendations and patient does have a PICC line. Patient also seen and evaluated by cardiology recommending outpatient follow-up. 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 Pulmonary consulted for lucio luation and appreciate input recommendations. Plan is for patient returning to [facility] once stabilized and discharged. Patient is currently afebrile with no reported chest pain or shortness of breath. Patient is tolerating diet with no reported nausea or vomiting. Review of systems: Constitutional: No reports of fatigue, fever, or chills Cardiovascular: No reports of chest pain or palpitations Respiratory: No reports of shortness of breath or cough GI: No reports of nausea, vomiting, or diarrhea : No reports of dysuria or retention Neurovascular: reports of generalized weakness All medications have been reviewed Physical Exam: General appearance: alert and oriented 2-3, well-developed, well-nourished, elderly-appearing Head exam: Present: atraumatic, normocephalic, normal inspection Eye exam: Present: normal appearance, PERRL, EOMI. ENT exam: Present: normal exam, mucous membranes moist Neck exam: Present: normal inspection. Respiratory exam: Diminished breath sounds bilaterally with some scattered rhonchi noted, no accessory muscle use noted Cardiovascular Exam: Present: regular rate, normal rhythm, normal heart sounds. GI/Abdominal exam: Present: soft, normal bowel sounds. Extremities exam: Present: normal inspection, full ROM, normal capillary refill. Back exam: Present: normal inspection Neurological exam: Present: alert, oriented X3, CN II-XII intact Psychiatric exam: Present: normal affect, normal mood Skin exam: Present: warm, dry, intact, normal color. No rashes or lesions present Assessment: Acute on chronic diastolic congestive heart failure acute exacerbation Left lower extremity nonhealing wound status post gangrene of the left toe with amputation and nonhealing with amputation also of the left fourth toe in 04/2023 Culture showing Proteus mirabilis enterococcus and MRSA, status post PICC line Uncontrolled diabetes, insulin-dependent with hyperglycemia hypertension History of BPH Former smoker GI prophylaxis DVT prophylaxis Plan: Patient is continued on IV antibiotics with infectious disease following and has a PICC line and will continue with current antibiotics on discharge to complete 4 more weeks Pulmonary consulted and appreciate input recommendations regarding chest CT with bilateral pleural effusions Patient follow-up with infectious disease outpatient and continue with local wound care Follow-up with cardiology outpatient Plan is for patient to return to [facility] with probable discharge in 24 hours Due to multiple complex medical issues, prognosis is guarded The impression and plan of care has been dictated by Shereen Fragoso, Nurse Practitioner as directed. Dr. Ned MD I have performed a history and examination and MDM of this patient, discussed the same with the dictator, and agree with the dictator's assessment and plan as written ,documented as a scribe. Based on total visit time, I have performed more than 50% of the visit. Objective - Vital Signs Vital signs: Vital Signs Temp 97.2 F L 05/15/23 04:00 Pulse 70 05/15/23 04:00 Resp 18 05/15/23 04:00 BP 124/63 05/15/23 04:00 Pulse Ox 95 05/15/23 04:00 FiO2 Intake & Output 05/14/23 05/15/23 05/15/23 18:59 06:59 18:59 Intake Total 360 240 Output Total 1200 200 Balance -840 -200 240 Weight 88.5 kg 88.5 kg Intake: Oral 360 240 Output: Urine 1200 200 Other: Voiding Method External Catheter External Catheter - Labs CBC & Chem 7: 05/15/23 10:44 05/15/23 10:44 Labs: Abnormal Lab Results - Last 24 Hours (Table) 05/14/23 05/14/23 05/15/23 Range/Units 16:50 20:50 05:50 RBC (4.30-5.90) m/uL Hgb (13.0-17.5) gm/dL Hct (39.0-53.0) % Chloride (98-107) mmol/L Carbon Dioxide (22-30) mmol/L BUN (9-20) mg/dL Glucose (74-99) mg/dL POC Glucose (mg/dL) 116 H 220 H 155 H (70-110) mg/dL 05/15/23 05/15/23 05/15/23 Range/Units 10:44 10:44 11:58 RBC 3.88 L (4.30-5.90) m/uL Hgb 11.9 L (13.0-17.5) gm/dL Hct 38.1 L (39.0-53.0) % Chloride 95 L (98-107) mmol/L Carbon Dioxide 36 H (22-30) mmol/L BUN 23 H (9-20) mg/dL Glucose 194 H (74-99) mg/dL POC Glucose (mg/dL) 209 H (70-110) mg/dL
[2023-05-15] MEDS ORDERED: VANCOMYCIN TROUGH DUE 1 EACH MISC MISCELLANE ONE (15:00)
--- NOTE | 2023-05-15 15:38 | P.PN ---
Subjective Progress Note Date: 05/12/23 Principal diagnosis: Reason for follow-up is left diabetic foot infection with osteomyelitis Patient is a 88-year-old -[place] male with a past medical history significant for diabetes mellitus patient did have a history of left fifth toe gangrene status post amputation subsequently nonhealing wound with a readmission to the hospital requiring amputation of the left fourth toe in the middle of April 2023 wound culture at that point grew Proteus Mirabella's Enterococcus and MRSA patient did get a PICC line and was advised a 6-week course of IV vancomycin and Unasyn that the patient was receiving at the residential, patient subsequently presented to hospital with not feeling well shortness of breath and has been diagnosed with acute diastolic heart failure being managed by cardiology. On today's evaluation that is 05/12/2023 patient denies having any fever or any chills patient is breathing comfortably on 2 L nasal cannula oxygen patient denies having any chest pain no worsening cough or sputum patient abdominal pain no diarrhea or pain to the left foot wound. Patient did have a white count of 6.8, creatinine 0.97 Objective - Vital Signs Vital signs: Vital Signs Temp 98.1 F 05/12/23 07:05 Pulse 89 05/12/23 07:05 Resp 18 05/12/23 07:05 BP 157/81 05/12/23 07:05 Pulse Ox 100 05/12/23 07:05 FiO2 Intake & Output 05/11/23 05/12/23 05/12/23 18:59 06:59 18:59 Output Total 2700 Balance -2700 Output: Urine 2700 Male - External 2700 - Exam GENERAL DESCRIPTION: An elderly male lying in bed in no distress RESPIRATORY SYSTEM: Unlabored breathing , decreased breath sounds at bases HEART: S1 S2 regular rate and rhythm , ABDOMEN: Soft , no tenderness EXTREMITIES: Left foot wound is covered with a wound VAC - Labs CBC & Chem 7: 05/15/23 10:44 05/15/23 10:44 Labs: Abnormal Lab Results - Last 24 Hours (Table) 05/11/23 05/11/23 05/11/23 Range/Units 08:33 19:50 21:02 D-Dimer 1.47 H (<0.60) mg/L FEU POC Glucose (mg/dL) 198 H 190 H (70-110) mg/dL 05/12/23 Range/Units 06:33 D-Dimer (<0.60) mg/L FEU POC Glucose (mg/dL) 119 H (70-110) mg/dL Assessment and Plan (1) Foot osteomyelitis, left Current Visit: Yes Status: Acute Code(s): M86.9 - OSTEOMYELITIS, UNSPECIFIED SNOMED Code(s): 4301898069176383 (2) Type 2 diabetes mellitus with foot ulcer Current Visit: No Status: Acute Code(s): E11.621 - TYPE 2 DIABETES MELLITUS WITH FOOT ULCER; L97.509 - NON-PRESSURE CHRONIC ULCER OTH PRT UNSP FOOT W UNSP SEVERITY SNOMED Code(s): 586254821 Plan: 1patient with a 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 lower extremity in this patient who did have history of left fifth toe gangrene status post amputation and subsequent nonhealing of the wound with repeat surgery on 04/20/2023 with the patient did have a amputation of the left fourth metatarsal wound culture at that time grew Proteus and Enterococcus and MRSA not being admitted to hospital increasing shortness of breath concerning for possible CHF being managed by cardiology patient with no fever or elevated white count denies any pain to the left foot or any problem with the wound VAC 2-we will continue patient on Unasyn 3 g every 6 and vancomycin pharmacy to dose while watching his kidney function closely 3-local wound care to the left foot wound with the wound VAC black foam continuous pressure 125 mmHg change Sunday Dictation was produced using [employer] dictation software. please excuse any grammatical, word or spelling errors. Time with Patient: Less than 30
--- NOTE | 2023-05-15 15:40 | P.PN ---
Subjective Progress Note Date: 05/13/23 Principal diagnosis: Reason for follow-up is left diabetic foot infection with osteomyelitis Patient is a 88-year-old -[place] male with a past medical history significant for diabetes mellitus patient did have a history of left fifth toe gangrene status post amputation subsequently nonhealing wound with a readmission to the hospital requiring amputation of the left fourth toe in the middle of April 2023 wound culture at that point grew Proteus Mirabella's Enterococcus and MRSA patient did get a PICC line and was advised a 6-week course of IV vancomycin and Unasyn that the patient was receiving at the alf, patient subsequently presented to hospital with not feeling well shortness of breath and has been diagnosed with acute diastolic heart failure being managed by cardiology. On today's evaluation that is 05/13/2023 patient remains to be afebrile, patient is breathing comfortably on 2 L nasal cannula oxygen, patient denies having any chest pain, did have occasional dry cough but no sputum production, patient denies abdominal pain no diarrhea or pain to the left foot wound. Patient did have a white count of 6.9, creatinine 1.02 Objective - Vital Signs Vital signs: Vital Signs Temp 97.9 F 05/13/23 16:00 Pulse 81 05/13/23 16:00 Resp 18 05/13/23 16:00 BP 112/79 05/13/23 16:00 Pulse Ox 97 05/13/23 16:00 FiO2 Intake & Output 05/12/23 05/13/23 05/13/23 18:59 06:59 18:59 Intake Total 118 540 590 Output Total 225 850 800 Balance -107 -310 -210 Weight 88.5 kg Intake: Oral 118 540 590 Output: Urine 225 850 800 Other: Voiding Method External Catheter - Exam GENERAL DESCRIPTION: An elderly male lying in bed in no distress RESPIRATORY SYSTEM: Unlabored breathing , decreased breath sounds at bases HEART: S1 S2 regular rate and rhythm , ABDOMEN: Soft , no tenderness EXTREMITIES: Left foot wound is covered with a wound VAC - Labs CBC & Chem 7: 05/15/23 10:44 05/15/23 10:44 Labs: Abnormal Lab Results - Last 24 Hours (Table) 05/12/23 05/12/23 05/13/23 Range/Units 09:15 20:09 07:49 RBC 4.05 L (4.30-5.90) m/uL Hgb 12.7 L (13.0-17.5) gm/dL Chloride (98-107) mmol/L BUN (9-20) mg/dL Glucose (74-99) mg/dL POC Glucose (mg/dL) 209 H (70-110) mg/dL HDL Cholesterol 90.20 H (40.00-60.00) mg/dL 05/13/23 05/13/23 05/13/23 Range/Units 07:49 11:52 16:35 RBC (4.30-5.90) m/uL Hgb (13.0-17.5) gm/dL Chloride 97 L (98-107) mmol/L BUN 25 H (9-20) mg/dL Glucose 133 H (74-99) mg/dL POC Glucose (mg/dL) 158 H 184 H (70-110) mg/dL HDL Cholesterol (40.00-60.00) mg/dL Assessment and Plan (1) Foot osteomyelitis, left Current Visit: Yes Status: Acute Code(s): M86.9 - OSTEOMYELITIS, UNSPECIFIED SNOMED Code(s): 3677504265687413 (2) Type 2 diabetes mellitus with foot ulcer Current Visit: No Status: Acute Code(s): E11.621 - TYPE 2 DIABETES MELLITUS WITH FOOT ULCER; L97.509 - NON-PRESSURE CHRONIC ULCER OTH PRT UNSP FOOT W UNSP SEVERITY SNOMED Code(s): 679701782 Plan: 1patient with a 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 lower extremity in this patient who did have history of left fifth toe gangrene status post amputation and subsequent nonhealing of the wound with repeat surgery on 04/20/2023 with the patient did have a amputation of the left fourth metatarsal wound culture at that time grew Proteus and Enterococcus and MRSA not being admitted to hospital increasing shortness of breath concerning for possible CHF being managed by cardiology patient with no fever or elevated white count denies any pain to the left foot or any problem with the wound VAC 2-local wound care to the left foot wound with the wound VAC black foam continuous pressure 125 mmHg change Sunday 3-we will continue patient on Unasyn 3 g every 6 and vancomycin pharmacy to dose while watching his kidney function closely Dictation was produced using [employer] software. please excuse any gra mmatical, word or spelling errors. Time with Patient: Less than 30
--- NOTE | 2023-05-15 15:44 | P.PN ---
Subjective Progress Note Date: 05/15/23 Principal diagnosis: Reason for follow-up is left diabetic foot infection with osteomyelitis Patient is a 88-year-old -[place] male with a past medical history significant for diabetes mellitus patient did have a history of left fifth toe gangrene status post amputation subsequently nonhealing wound with a readmission to the hospital requiring amputation of the left fourth toe in the middle of April 2023 wound culture at that point grew Proteus Mirabella's Enterococcus and MRSA patient did get a PICC line and was advised a 6-week course of IV vancomycin and Unasyn that the patient was receiving at the senior living, patient subsequently presented to hospital with not feeling well shortness of breath and has been diagnosed with acute diastolic heart failure being managed by cardiology. On today's evaluation that is 05/15/2023 patient remains to be afebrile, patient is breathing comfortably on 2 L nasal cannula oxygen, patient denies chest pain did have occasional cough but breathing more comfortably, patient denies abdominal pain no diarrhea or pain to the left foot wound. No new symptoms Patient did have a white count of 6.2, creatinine 1.13, patient did have a chest x-ray suspicious for pneumoperitoneum, Patient subsequently did have a CT of the chest abdominal pelvis with no evidence of pneumoperitoneum small right and minimal left effusion compressive atelectasis right lower lobe Objective - Vital Signs Vital signs: Vital Signs Temp 97.2 F L 05/15/23 04:00 Pulse 70 05/15/23 04:00 Resp 18 05/15/23 04:00 BP 124/63 05/15/23 04:00 Pulse Ox 95 05/15/23 04:00 FiO2 Intake & Output 05/14/23 05/15/23 05/15/23 18:59 06:59 18:59 Intake Total 360 240 Output Total 1200 200 Balance -840 -200 240 Weight 88.5 kg 88.5 kg Intake: Oral 360 240 Output: Urine 1200 200 Other: Voiding Method External Catheter External Catheter - Exam GENERAL DESCRIPTION: An elderly male lying in bed in no distress RESPIRATORY SYSTEM: Unlabored breathing , decreased breath sounds at bases HEART: S1 S2 regular rate and rhythm , ABDOMEN: Soft , no tenderness EXTREMITIES: Left foot wound base with some slough tissue no surrounding redness or foul-smelling drainage - Labs CBC & Chem 7: 05/15/23 10:44 05/15/23 10:44 Labs: Abnormal Lab Results - Last 24 Hours (Table) 05/14/23 05/14/23 05/15/23 Range/Units 16:50 20:50 05:50 RBC (4.30-5.90) m/uL Hgb (13.0-17.5) gm/dL Hct (39.0-53.0) % Chloride (98-107) mmol/L Carbon Dioxide (22-30) mmol/L BUN (9-20) mg/dL Glucose (74-99) mg/dL POC Glucose (mg/dL) 116 H 220 H 155 H (70-110) mg/dL 05/15/23 05/15/23 05/15/23 Range/Units 10:44 10:44 11:58 RBC 3.88 L (4.30-5.90) m/uL Hgb 11.9 L (13.0-17.5) gm/dL Hct 38.1 L (39.0-53.0) % Chloride 95 L (98-107) mmol/L Carbon Dioxide 36 H (22-30) mmol/L BUN 23 H (9-20) mg/dL Glucose 194 H (74-99) mg/dL POC Glucose (mg/dL) 209 H (70-110) mg/dL Assessment and Plan (1) Foot osteomyelitis, left Current Visit: Yes Status: Acute Code(s): M86.9 - OSTEOMYELITIS, UNSPECIFIED SNOMED Code(s): 4547155950442138 (2) Type 2 diabetes mellitus with foot ulcer Current Visit: No Status: Acute Code(s): E11.621 - TYPE 2 DIABETES MELLITUS WITH FOOT ULCER; L97.509 - NON-PRESSURE CHRONIC ULCER OTH PRT UNSP FOOT W UNSP SEVERITY SNOMED Code(s): 574205767 Plan: 1patient with a 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 lower extremity in this patient who did have history of left fifth toe gangrene status post amputation and subsequent nonhealing of the wound with repeat surgery on 04/20/2023 with the patient did have a amputation of the left fourth metatarsal wound culture at that time grew Proteus and Enterococcus and MRSA not being admitted to hospital increasing shortness of breath concerning for possible CHF being managed by cardiology patient with no fever or elevated white count denies any pain to the left foot or any problem with the wound VAC 2-local wound care to the left foot wound with the wound VAC black foam continuous pressure 125 mmHg change Sunday 3-we will continue patient on Unasyn 3 g every 6 and vancomycin pharmacy to dose while watching his kidney function closely 4-patient did have a chest x-ray suspicious for pneumoperitoneum CT chest abdominal pelvis which did not show any evidence of pneumoperitoneum did have effusion and compressive atelectasis clinical not behaving as pneumonia, recommended to continue with his Unasyn and vancomycin to finish 6-week course of therapy along with weekly monitoring of CRP and sed rate and close outpatient follow-up Dictation was produced using [employer] dictation software. please excuse any grammatical, word or spelling errors.
[2023-05-15 16:42] LABS: Glucose,Whole Blood 115 mg/dL (70-110)
[2023-05-15] MEDS: VANCOMYCIN 1,750 MG in SODIUM CHLORIDE 0.9% 500 ML 500 ML IVPB SCH (17:40)
[2023-05-15 20:15] LABS: Glucose,Whole Blood 127 mg/dL (70-110)
[2023-05-15] MEDS: INSULIN DETEMIR (LEVEMIR) 100 UNIT/ML SYR SQ SCH (20:17)
[2023-05-15] MEDS: VALSARTAN 160 MG TAB PO SCH (20:18)
[2023-05-15 20:21] VITALS: TEMP 97.6
[2023-05-16] MEDS: AMPICILLIN-SULBACTAM 3 GM in SODIUM CHLORIDE 0.9% 100 ML IVPB SCH ×3 (00:13→11:34)
--- NOTE | 2023-05-16 03:29 | P.CNPUL ---
History of Present Illness Consult date: 05/16/23 Requesting physician: Shereen Fragoso Reason for consult: pleural effusion Chief complaint: Shortness of breath History of present illness: I am seeing this patient in consultation 05/16/2023 for bilateral pleural effusions. Note that the patient was admitted back on 05/10/2023 mostly for acute exacerbation of diastolic congestive heart failure. He also may have had URI like symptoms. Patient has a 88-year-old -[place] male with past medical history significant for diabetes mellitus, previous left fifth toe amputation and chronic wound, hypertension, hyperlipidemia. Patient is overall a poor historian. He apparently resides at [facility]. He was sent to the emergency room back on 05/10/2023 for acute on chronic dyspnea. Chest x-ray at that time demonstrated cardiomegaly with increased vascular congestion and interstitial prominence, concerning for edema. There were small bilateral pleural effusions. Echocardiogram done this admission estimates a preserved left ventricular ejection fraction of 55%. There was severe LVH and mild to moderate mitral regurgitation. Currently, receiving Lasix 40 mg by mouth twice a day. The pulmonary team was not consulted until now. We are asked to see this patient prior to discharge in regards to his bilateral pleural effusions. 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 There is a small right and minimal left pleural effusion. There is likely associated compressive atelectasis, doubt pneumonia. Patient is currently lying in bed, on 2 L/m nasal cannula, in no acute distress. He is overall a poor historian. States he doesn't wear oxygen at [facility]. He currently denies any infectious symptoms such as cough, fever, chest pain. He states that he mostly just sits around all day at the nursing facility. He does report shortness of breath with exertion, such as ADLs. He is likely deconditioned. CBC from yesterday: WBC count of 6.2, hemoglobin 11.9, hematocrit 38.1, platelets 235. BMP from yesterday: Sodium 137, potassium 4.7, chloride 95, serum bicarbonate 36, BUN 23, creatinine 1.13, glucose 194. He is currently on a combination of Unasyn and vancomycin for his chronic left foot wound. This is being managed by infectious disease. Afebrile. Vital signs are stable. Review of Systems REVIEW OF SYSTEMS: CONSTITUTIONAL: Denies any recent significant weight loss or weight gain. EYES: Denies change in vision. EARS, NOSE, MOUTH, THROAT: Denies headaches, denies sore throat. CARDIOVASCULAR: Denies chest pain, palpitations or syncopal episodes. RESPIRATORY: Denies cough, congestion or hemoptysis. Admits exertional shortn ess of breath mostly with ADLs. GASTROINTESTINAL: Denies change in appetite, abdominal pain, nausea and vomiting, or diarrhea GENITOURINARY: Denies hematuria, denies infections. MUSKULOSKELETAL: Denies pain, denies swelling. INTEGUMENTARY: Denies rash, denies eczema. Admits chronic left foot wound NEUROLOGICAL: Denies recent memory loss, no recent seizure activity. PSYCHIATRIC: Denies anxiety, denies depression. 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 Past Surgical History: Orthopedic Surgery Additional Past Surgical History / Comment(s): right wrist surgery Past Anesthesia/Blood Transfusion Reactions: No Reported Reaction Past Psychological History: No Psychological Hx Reported Smoking Status: Former smoker Past Alcohol Use History: None Reported Past Drug Use History: None Reported Medications and Allergies Home Medications Medication Instructions Recorded Confirmed Type Acetaminophen Tab [Tylenol] 650 mg PO Q6HR PRN tab 01/01/23 05/11/23 Rx Famotidine [Pepcid] 20 mg PO DAILY@0800 04/18/23 05/11/23 History Glucerna 1.2 John 120 ml PO BID@0800,1700 04/18/23 05/11/23 History Heparin Sodium,Porcine (1 ml) 5,000 unit SQ Q12HR@08,21 04/18/23 05/11/23 History [Heparin Sodium] INSULIN ASPART (NovoLOG) [NovoLOG 3 unit SQ AC-TID@07,11,1830 04/18/23 05/11/23 History (formulary)] INSULIN ASPART (NovoLOG) [NovoLOG See Protocol SQ 04/18/23 05/11/23 History (formulary)] ACHS@07,11,1830,2130 Insulin Detemir (Levemir) [Levemir] 10 unit SQ HS@2100 04/18/23 05/11/23 History Ipratropium-Albuterol Nebulize 3 ml INHALATION RT-Q6H PRN 04/18/23 05/11/23 History [Duoneb 0.5 mg-3 mg/3 ml Soln] Magnesium Hydroxide [Milk of 7,200 mg PO DAILY PRN 04/18/23 05/11/23 History Magnesia Concentrate] Na Phos,M-B/Na Phos,Di-Ba [Fleet 133 ml RECTAL DAILY PRN 04/18/23 05/11/23 History Adult] Tamsulosin [Flomax] 0.4 mg PO DAILY@0800 04/18/23 05/11/23 History amLODIPine [Norvasc] 10 mg PO DAILY@0800 04/18/23 05/11/23 History bisacodyL [Dulcolax] 10 mg RECTAL DAILY PRN 04/18/23 05/11/23 History polyethylene glycoL 3350 [Miralax] 17 gm PO DAILY@0800 04/18/23 05/11/23 History Ampicillin-Sulbactam [Unasyn 3 gm 3 gm IVPB Q6HR 42 Days #168 each 04/25/23 05/11/23 Rx vial] Sodium Chloride 0.9% [Saline 0.9%] 10 ml IV Q6H 05/11/23 05/11/23 History Vancomycin 1,750 mg IVPB Q24H 05/11/23 05/11/23 History Furosemide [Lasix] 40 mg PO BID@0900,1600 tab 05/15/23 Rx HYDROcodone/APAP 5-325MG [[place] 1 tab PO Q6HR PRN #4 tab 05/15/23 Rx 5-325] Ipratropium-Albuterol Nebulize 3 ml INHALATION RT-QID each 05/15/23 Rx [Duoneb 0.5 mg-3 mg/3 ml Soln] Nystatin 100,000 Unit/gm Powd 1 applic TOPICAL BID each 05/15/23 Rx [Mycostatin Powder] Valsartan [Diovan] 160 mg PO HS tab 05/15/23 Rx Allergies Allergy/AdvReac Type Severity Reaction Status Date / Time No Known Allergies Allergy Verified 05/11/23 08:07 Physical Exam Vitals: Vital Signs Temp Pulse Resp BP Pulse Ox 05/16/23 01:05 18 05/16/23 00:00 82 18 126/61 96 05/15/23 20:00 97.6 F 89 18 132/73 98 05/15/23 15:59 97.9 F 81 18 122/59 98 05/15/23 12:00 97.3 F L 88 18 147/65 99 05/15/23 08:00 97.2 F L 84 18 151/72 98 05/15/23 04:00 97.2 F L 70 18 124/63 95 Intake and Output 05/15/23 05/15/23 05/16/23 14:59 22:59 06:59 Intake Total 240 840 Output Total 1100 Balance 240 840 -1100 Intake: Intake, IV Titration 600 Amount Ampicillin-Sulbactam 3 gm 100 In Sodium Chloride 0.9% 100 ml @ 200 mls/hr IVPB Q6HR COUNTS INCLUDE 234 BEDS AT THE [facility] Rx#:[id number] Vancomycin 1,750 mg In 500 Sodium Chloride 0.9% 500 ml 500 ml @ 167 mls/hr IVPB Q24H COUNTS INCLUDE 234 BEDS AT THE [facility] Rx#: [id number] Oral 240 240 Output: Urine 1100 Other: Voiding Method External Catheter External Catheter External Catheter Weight 88.5 kg GENERAL EXAM: Alert, 88-year-old -[place] male, fairly debilitated, comfortable in no apparent distress. HEAD: Normocephalic and atraumatic EYES: Normal reaction of pupils, equal size. NOSE: Clear with pink turbinates. THROAT: No erythema or exudates. NECK: No masses, no JVD. CHEST: No chest wall deformity. LUNGS: Equal air entry with no crackles, wheeze, rhonchi or dullness. On 2 L/m nasal cannula. SpO2 98%. No conversational dyspnea or accessory muscle use while at rest CVS: S1 and S2 normal with no audible murmur, regular rhythm. No extra heart sounds ABDOMEN: No hepatosplenomegaly, active bowel sounds, no guarding or rigidity. SPINE: No scoliosis or deformity SKIN: No rashes. There is a chronic left foot wound and previous left fifth toe amputation with wound VAC. CENTRAL NERVOUS SYSTEM: No focal deficits, tone is normal in all 4 extremities. EXTREMITIES: There is no peripheral edema, clubbing, or cyanosis. Peripheral pulses are intact. Results - Laboratory Findings CBC and BMP: 05/15/23 10:44 05/15/23 10:44 PT/INR, D-dimer PT 10.7 sec (10.0-12.5) 05/10/23 23:35 INR 1.0 (<1.2) 05/10/23 23:35 D-Dimer 1.47 mg/L FEU (<0.60) H 05/11/23 08:33 Abnormal lab findings: Abnormal Labs 05/10/23 05/10/23 05/11/23 23:35 23:35 08:33 RBC 4.15 L Hgb 12.8 L Hct D-Dimer 1.47 H Chloride Carbon Dioxide BUN Glucose 218 H POC Glucose (mg/dL) Albumin 3.3 L HDL Cholesterol 05/11/23 05/11/23 05/12/23 19:50 21:02 06:33 RBC Hgb Hct D-Dimer Chloride Carbon Dioxide BUN Glucose POC Glucose (mg/dL) 198 H 190 H 119 H Albumin HDL Cholesterol 05/12/23 05/12/23 05/12/23 09:05 09:05 09:15 RBC 4.26 L Hgb Hct D-Dimer Chloride Carbon Dioxide 32 H BUN 21 H Glucose POC Glucose (mg/dL) Albumin HDL Cholesterol 90.20 H 05/12/23 05/12/23 05/13/23 16:22 20:09 07:49 RBC 4.05 L Hgb 12.7 L Hct D-Dimer Chloride Carbon Dioxide BUN Glucose POC Glucose (mg/dL) 167 H 209 H Albumin HDL Cholesterol 05/13/23 05/13/23 05/13/23 07:49 11:52 16:35 RBC Hgb Hct D-Dimer Chloride 97 L Carbon Dioxide BUN 25 H Glucose 133 H POC Glucose (mg/dL) 158 H 184 H Albumin HDL Cholesterol 05/13/23 05/14/23 05/14/23 20:18 05:42 08:40 RBC 3.90 L Hgb 12.1 L Hct 38.0 L D-Dimer Chloride Carbon Dioxide BUN Glucose POC Glucose (mg/dL) 254 H 118 H Albumin HDL Cholesterol 05/14/23 05/14/23 05/14/23 08:40 11:21 11:23 RBC Hgb Hct D-Dimer Chloride Carbon Dioxide 33 H BUN 25 H Glucose 152 H POC Glucose (mg/dL) 528 H 221 H Albumin HDL Cholesterol 05/14/23 05/14/23 05/15/23 16:50 20:50 05:50 RBC Hgb Hct D-Dimer Chloride Carbon Dioxide BUN Glucose POC Glucose (mg/dL) 116 H 220 H 155 H Albumin HDL Cholesterol 05/15/23 05/15/23 05/15/23 10:44 10:44 11:58 RBC 3.88 L Hgb 11.9 L Hct 38.1 L D-Dimer Chloride 95 L Carbon Dioxide 36 H BUN 23 H Glucose 194 H POC Glucose (mg/dL) 209 H Albumin HDL Cholesterol 05/15/23 05/15/23 16:39 20:13 RBC Hgb Hct D-Dimer Chloride Carbon Dioxide BUN Glucose POC Glucose (mg/dL) 115 H 127 H Albumin HDL Cholesterol - Diagnostic Findings Chest x-ray: image reviewed CT scan - chest: image reviewed Assessment and Plan Assessment: Acute hypoxemic respiratory failure, secondary to an acute exacerbation of diastolic congestive heart failure. Patient was admitted back on May 10. Chest x-ray at that time showed cardiomegaly, pulmonary vascular congestion, and small bilateral pleural effusions. Patient has been diuresed, he is currently receiving Lasix 40 mg PO twice a day. We were asked to see this patient prior to discharge for persistent bilateral small pleural effusions. CT of the abdomen and chest and pelvis done yesterday demonstrates loops of the colon anterior to the liver extending to the dome of the diaphragm consistent with Chilaiditi's syndrome. There is a small right and minimal left pleural effusion. There is likely associated compressive atelectasis, doubt pneumonia. Chronic dyspnea, likely related to a combination of above and deconditioning Diabetes mellitus, insulin-dependent History of hyperlipidemia History of hypertension Chronic left foot wound, with previous gangrene and left fifth toe amputation. Currently with wound VAC. Previously with polymicrobial resistant organisms, antibiotics being managed by infectious disease. Plan: Patient's medications, labs, imaging reviewed. Continue supplemental oxygen and wean as tolerated. Patient does have persistent small right and trace left pleural effusion. I doubt the patient will have any clinically significant improvement in his dyspnea from a thoracentesis. Will obtain chest ultrasound to evaluate size of pleural effusions. I would continue Lasix 40 mg by mouth twice a day. Encourage activity as tolerated. Final recommendations pending chest ultrasound. I have personally seen and examined the patient, performed the documentation and the assessment and plan as written. Number of minutes spent on the visit:20 Time with Patient: Greater than 30
[2023-05-16 06:20] LABS: Glucose,Whole Blood 105 mg/dL (70-110)
[2023-05-16] MEDS: INSULIN ASPART (NovoLOG) 100 UNIT/ML VIAL SQ SCH ×4 (06:27→11:34)
--- NOTE | 2023-05-16 08:08 | US ---
EXAMINATION TYPE: US chest DATE OF EXAM: 05/16/2023 COMPARISON: NONE CLINICAL INDICATION: Male, 88 years old with history of bilateral pleural effusions; pleural effusion TECHNIQUE: Targeted ultrasound of the posterior lower bilateral hemithoraces EXAM MEASUREMENTS: Right Pleural Effusion pocket size: 3.6 cm - not marked due to lung tissue Right skin surface to fluid distance: 2.5 cm Left Pleural Effusion pocket size: 1.7 cm Left skin surface to fluid distance: 2.4 cm Right side NOT marked for possible thoracentesis outside the dept. Left side NOT marked for possible thoracentesis outside the dept. Pulmonologists are able to review the images in the patient?s EMR. IMPRESSIONS: Very minimal pleural effusions.
[2023-05-16] MEDS: polyethylene glycoL 3350 17 GM POWD.PACK PO SCH (08:24)
[2023-05-16] MEDS: FAMOTIDINE 20 MG TAB PO SCH (08:25)
[2023-05-16] MEDS: HEPARIN SODIUM,PORCINE 5,000 UNIT/ML 1 ML VIAL SQ SCH (08:25)
[2023-05-16] MEDS: amLODIPine 10 MG TAB PO SCH (08:25)
[2023-05-16] MEDS: FUROSEMIDE 40 MG TAB PO SCH ×2 (08:25→16:57)
[2023-05-16] MEDS: TAMSULOSIN 0.4 MG CAP.ER.24H PO SCH (08:25)
[2023-05-16] MEDS: NYSTATIN 100,000 UNIT/GM POWD 15 GM TOPICAL SCH (08:26)
[2023-05-16 09:25] LABS: African American GFR (CKD) 86 (>60 ml/min/1.73 sqM); Non-African American GFR(CKD) 75 (>60 ml/min/1.73 sqM)
[2023-05-16 11:15] LABS: Glucose,Whole Blood 188 mg/dL (70-110)
[2023-05-16 11:51] VITALS: BP 167/76; PULSE 75; RESP 16
--- NOTE | 2023-05-16 13:16 | P.DS ---
Providers Date of admission: 05/11/23 02:07 Expected date of discharge: 05/16/23 Attending physician: Carloz Marino Consults: 05/11/23 13:33 Consult Physician Routine Consulting Provider: Yojana Giron Consult Reason/Comments: Osteomyelitis Do you want consulting provider notified?: Yes 05/15/23 09:52 Consult Physician Urgent Consulting Provider: Magdaleno Gibson Consult Reason/Comments: hypoxia, effusion Do you want consulting provider notified?: Yes Primary care physician: Jorje Kiser Hospital Course: Final diagnosis Acute on chronic diastolic congestive heart failure acute exacerbation Left lower extremity nonhealing wound status post gangrene of the left toe with amputation and nonhealing with amputation also of the left fourth toe in 04/2023 Culture showing Proteus mirabilis enterococcus and MRSA, status post PICC line Uncontrolled diabetes, insulin-dependent with hyperglycemia hypertension History of BPH Former smoker GI prophylaxis DVT prophylaxis Discharge disposition Patient is being discharged in a stable condition with guarded prognosis to [facility]. Patient will follow-up with Dr. Kiser in the outpatient setting upon discharge. Patient is to continue with PICC line and antibiotics with close outpatient follow-up with infectious disease as scheduled. Patient follow-up with pulmonary and cardiology in the outpatient setting. Total time taken is greater than 35 minutes. Hospital course This is a 88-year-old male who was recently admitted with increased shortness of breath and feeling unwell with CHF exacerbation. Patient was diuresed with IV Lasix and reports feeling better. Patient was evaluated by pulmonary with concerns of bilateral pleural effusions although chest ultrasound shows they are very tiny and not applicable for thoracentesis. Cardiology following and has cleared the patient for discharge with outpatient follow-up. Patient does have a PICC line for chronic left lower extremity wound and will continue on IV antibiotics per ID recommendations and outpatient follow-up with Dr. Giron. Please refer to other consultation notes for further HPI. Currently no reports of chest pain, shortness of breath, or palpitations. Patient is afebrile. No reports of nausea or vomiting and patient is tolerating diet. Patient will be going to [facility] today. Guarded prognosis and high risk for readmission given patient's significant comorbidities and age. Physical exam: Gen: This is a 88-year-old male who is awake, alert and oriented 2-3, well- developed, well-nourished, elderly-appearing HEENT: Head is atraumatic, normocephalic. Pupils equal, round. Sclerae is anicteric. NECK: Supple. No JVD. No lymphadenopathy. No thyromegaly. LUNGS: Diminished breath sounds bilaterally otherwise Clear to auscultation. No wheezes or rhonchi. No intercostal retractions. HEART: Regular rate and rhythm. No murmur. ABDOMEN: Soft. Bowel sounds are present. No masses. No tenderness. EXTREMITIES: No pedal edema. No calf tenderness. Left lower extremity wound dressing is dry and intact NEUROLOGICAL: Patient is awake, alert and oriented x2-3. Cranial nerves 2 through 12 are grossly intact. Diffusely weak Please refer to medication reconciliation sheet for a list of medications. The impression and plan of care has been dictated by Shereen Fragoso, Nurse Practitioner as directed. Dr. Ned MD I have performed a history and examination and MDM of this patient, discussed the same with the dictator, and agree with the dictator's assessment and plan as written ,documented as a scribe. Based on total visit time, I have performed more than 50% of the visit. Patient Condition at Discharge: Fair Plan - Discharge Summary New Discharge Prescriptions: New Ipratropium-Albuterol Nebulize [Duoneb 0.5 mg-3 mg/3 ml Soln] 3 ml INHALATION RT-QID each Furosemide [Lasix] 40 mg PO BID@0900,1600 tab Valsartan [Diovan] 160 mg PO HS tab Nystatin 100,000 Unit/gm Powd [Mycostatin Powder] 1 applic TOPICAL BID each Continue Acetaminophen Tab [Tylenol] 650 mg PO Q6HR PRN tab PRN Reason: Mild Pain Or Fever > 100.5 INSULIN ASPART (NovoLOG) [NovoLOG (formulary)] See Protocol SQ ACHS@07,11,1830,2130 Glucerna 1.2 John 120 ml PO BID@0800,1700 Insulin Detemir (Levemir) [Levemir] 10 unit SQ HS@2100 Famotidine [Pepcid] 20 mg PO DAILY@0800 amLODIPine [Norvasc] 10 mg PO DAILY@0800 Tamsulosin [Flomax] 0.4 mg PO DAILY@0800 Ipratropium-Albuterol Nebulize [Duoneb 0.5 mg-3 mg/3 ml Soln] 3 ml INHALATION RT-Q6H PRN PRN Reason: Shortness Of Breath Ampicillin-Sulbactam [Unasyn 3 gm vial] 3 gm IVPB Q6HR 42 Days #168 each Vancomycin 1,750 mg IVPB Q24H HYDROcodone/APAP 5-325MG [Wolf 5-325] 1 tab PO Q6HR PRN #4 tab PRN Reason: Pain bisacodyL [Dulcolax] 10 mg RECTAL DAILY PRN PRN Reason: Constipation Na Phos,M-B/Na Phos,Di-Ba [Fleet Adult] 133 ml RECTAL DAILY PRN PRN Reason: Constipation Magnesium Hydroxide [Milk of Magnesia Concentrate] 7,200 mg PO DAILY PRN PRN Reason: Constipation INSULIN ASPART (NovoLOG) [NovoLOG (formulary)] 3 unit SQ AC-TID@ Heparin Sodium,Porcine (1 ml) [Heparin Sodium] 5,000 unit SQ Q12HR@ polyethylene glycoL 3350 [Miralax] 17 gm PO DAILY@0800 Sodium Chloride 0.9% [Saline 0.9%] 10 ml IV Q6H Discharge Medication List Acetaminophen Tab [Tylenol] 650 mg PO Q6HR PRN tab 01/01/23 [Rx] Famotidine [Pepcid] 20 mg PO DAILY@0800 04/18/23 [History] Glucerna 1.2 Jhon 120 ml PO BID@0800,1700 04/18/23 [History] Heparin Sodium,Porcine (1 ml) [Heparin Sodium] 5,000 unit SQ Q12HR@04/18/23 [History] INSULIN ASPART (NovoLOG) [NovoLOG (formulary)] 3 unit SQ AC-TID@04/18/23 [History] INSULIN ASPART (NovoLOG) [NovoLOG (formulary)] See Protocol SQ ACHS@,212904/18/23 [History] Insulin Detemir (Levemir) [Levemir] 10 unit SQ HS@2100 04/18/23 [History] Ipratropium-Albuterol Nebulize [Duoneb 0.5 mg-3 mg/3 ml Soln] 3 ml INHALATION RT-Q6H PRN 04/18/23 [History] Magnesium Hydroxide [Milk of Magnesia Concentrate] 7,200 mg PO DAILY PRN 04/18/23 [History] Na Phos,M-B/Na Phos,Di-Ba [Fleet Adult] 133 ml RECTAL DAILY PRN 04/18/23 [History] Tamsulosin [Flomax] 0.4 mg PO DAILY@0800 04/18/23 [History] amLODIPine [Norvasc] 10 mg PO DAILY@0800 04/18/23 [History] bisacodyL [Dulcolax] 10 mg RECTAL DAILY PRN 04/18/23 [History] polyethylene glycoL 3350 [Miralax] 17 gm PO DAILY@0800 04/18/23 [History] Ampicillin-Sulbactam [Unasyn 3 gm vial] 3 gm IVPB Q6HR 42 Days #168 each 04/25/23 [Rx] Sodium Chloride 0.9% [Saline 0.9%] 10 ml IV Q6H 05/11/23 [History] Vancomycin 1,750 mg IVPB Q24H 05/11/23 [History] Furosemide [Lasix] 40 mg PO BID@0900,1600 tab 05/15/23 [Rx] HYDROcodone/APAP 5-325MG [Wolf 5-325] 1 tab PO Q6HR PRN #4 tab 05/15/23 [Rx] Ipratropium-Albuterol Nebulize [Duoneb 0.5 mg-3 mg/3 ml Soln] 3 ml INHALATION RT-QID each 05/15/23 [Rx] Nystatin 100,000 Unit/gm Powd [Mycostatin Powder] 1 applic TOPICAL BID each 05/15/23 [Rx] Valsartan [Diovan] 160 mg PO HS tab 05/15/23 [Rx] Follow up Appointment(s)/Referral(s): Jorje Kiser MD [Primary Care Provider] - 1-2 days Patient Instructions/Handouts: Hypoxemia (DC) Activity/Diet/Wound Care/Special Instructions: [facility] is returning to [facility] Activity as tolerated Patient has a PICC line and continue with Unasyn 3 g every 6 hours and vancomycin with pharmacy to dose with labs in Vanco trough for the next 4 weeks to complete the course patient continue with the wound VAC and dressing changes Sunday/Sunday/Sunday with black foam continuous with a pressure of 125 mmHg recommend repeat CBC, CMP, sed rate, CRP, magnesium in the next 2-3 days Continue monitoring Accu-Cheks before meals and at bedtime and continue with heart healthy diabetic diet NovoLog sliding scale 0-150 equals 0 units 151-200 equals 2 units 201-250 equals 4 units 251-300 equals 6 units 301-350 equals 8 units 351-400 equals 10 units Please notify provider if blood sugar is 400 or above Follow-up with cardiology outpatient follow-up with infectious disease in the wound care center outpatient Follow-up pulmonary outpatient Discharge Disposition: TRANSFER TO SNF/ECF
[2023-05-16 16:42] LABS: Glucose,Whole Blood 149 mg/dL (70-110)
--- NOTE | 2023-05-22 18:21 | P.PN ---
Subjective Progress Note Date: 05/14/23 Principal diagnosis: Reason for follow-up is left diabetic foot infection with osteomyelitis Patient is a 88-year-old -Greek male with a past medical history significant for diabetes mellitus patient did have a history of left fifth toe gangrene status post amputation subsequently nonhealing wound with a readmission to the hospital requiring amputation of the left fourth toe in the middle of April 2023 wound culture at that point grew Proteus Mirabella's Enterococcus and MRSA patient did get a PICC line and was advised a 6-week course of IV vancomycin and [facility], patient subsequently presented to hospital with not feeling well shortness of breath and has been diagnosed with acute diastolic heart failure being managed by cardiology. On today's evaluation that is 05/14/2023 patient continues to be afebrile, patient is breathing comfortably on 2 L nasal cannula oxygen, patient denies chest pain and no significant cough or sputum production, patient denies abdominal pain no diarrhea or pain to the left foot wound. Patient did have a white count of 5.5, creatinine 1.04, patient did have a chest x-ray suspicious for pneumoperitoneum, CT has been ordered Objective - Vital Signs Vital signs: Vital Signs Temp 97.8 F 05/14/23 04:00 Pulse 80 05/14/23 04:00 Resp 18 05/14/23 04:00 BP 107/59 05/14/23 04:00 Pulse Ox 97 05/14/23 04:00 FiO2 Intake & Output 05/13/23 05/14/23 05/14/23 18:59 06:59 18:59 Intake Total 708 360 Output Total 800 200 700 Balance -92 -200 -340 Intake: Oral 708 360 Output: Urine 800 200 700 Other: Voiding Method External Catheter - Exam GENERAL DESCRIPTION: An elderly male lying in bed in no distress RESPIRATORY SYSTEM: Unlabored breathing , decreased breath sounds at bases HEART: S1 S2 regular rate and rhythm , ABDOMEN: Soft , no tenderness EXTREMITIES: Left foot wound is covered with a wound VAC - Labs CBC & Chem 7: 05/15/23 10:44 05/15/23 10:44 Labs: Abnormal Lab Results - Last 24 Hours (Table) 05/13/23 05/13/23 05/13/23 Range/Units 11:52 16:35 20:18 RBC (4.30-5.90) m/uL Hgb (13.0-17.5) gm/dL Hct (39.0-53.0) % Carbon Dioxide (22-30) mmol/L BUN (9-20) mg/dL Glucose (74-99) mg/dL POC Glucose (mg/dL) 158 H 184 H 254 H (70-110) mg/dL 05/14/23 05/14/23 05/14/23 Range/Units 05:42 08:40 08:40 RBC 3.90 L (4.30-5.90) m/uL Hgb 12.1 L (13.0-17.5) gm/dL Hct 38.0 L (39.0-53.0) % Carbon Dioxide 33 H (22-30) mmol/L BUN 25 H (9-20) mg/dL Glucose 152 H (74-99) mg/dL POC Glucose (mg/dL) 118 H (70-110) mg/dL 05/14/23 05/14/23 Range/Units 11:21 11:23 RBC (4.30-5.90) m/uL Hgb (13.0-17.5) gm/dL Hct (39.0-53.0) % Carbon Dioxide (22-30) mmol/L BUN (9-20) mg/dL Glucose (74-99) mg/dL POC Glucose (mg/dL) 528 H 221 H (70-110) mg/dL Assessment and Plan (1) Foot osteomyelitis, left Current Visit: Yes Status: Acute Code(s): M86.9 - OSTEOMYELITIS, UNSPECIFIED SNOMED Code(s): 2640869267249828 (2) Type 2 diabetes mellitus with foot ulcer Current Visit: No Status: Acute Code(s): E11.621 - TYPE 2 DIABETES MELLITUS WITH FOOT ULCER; L97.509 - NON-PRESSURE CHRONIC ULCER OTH PRT UNSP FOOT W UNSP SEVERITY SNOMED Code(s): 276460920 Plan: 1patient with a 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 lower extremity in this patient who did have history of left fifth toe gangrene status post amputation and subsequent nonhealing of the wound with repeat surgery on 04/20/2023 with the patient did have a amputation of the left fourth metatarsal wound culture at that time grew Proteus and Enterococcus and MRSA not being admitted to hospital increasing shortness of breath concerning for possible CHF being managed by cardiology patient with no fever or elevated white count denies any pain to the left foot or any problem with the wound VAC 2-local wound care to the left foot wound with the wound VAC black foam continuous pressure 125 mmHg change Sunday 3-we will continue patient on Unasyn 3 g every 6 and vancomycin pharmacy to dose while watching his kidney function closely 4-patient did have a chest x-ray suspicious for pneumoperitoneum CT chest abdominal pelvis has been ordered results will be followed clinically not behaving as perforated bowel Dictation was produced using [employer] dictation software. please excuse any grammatical, word or spelling errors. Time with Patient: Less than 30
--- NOTE | 2023-05-22 18:21 | P.PN ---
Subjective Progress Note Date: 05/16/23 Principal diagnosis: Reason for follow-up is left diabetic foot infection with osteomyelitis Patient is a 88-year-old -Norwegian male with a past medical history significant for diabetes mellitus patient did have a history of left fifth toe gangrene status post amputation subsequently nonhealing wound with a readmission to the hospital requiring amputation of the left fourth toe in the middle of April 2023 wound culture at that point grew Proteus Mirabella's Enterococcus and MRSA patient did get a PICC line and was advised a 6-week course of IV vancomycin and Unasyn that the patient was receiving at the [facility], patient subsequently presented to hospital with not feeling well shortness of breath and has been diagnosed with acute diastolic heart failure being managed by cardiology. On today's evaluation that is 05/16/2023 patient continues to be afebrile, patient is breathing comfortably on 2 L nasal cannula oxygen, patient denies chest pain, the patient did have occasional cough but no sputum production, patient denies abdominal pain no diarrhea or pain to the left foot wound. Feeling better Patient did have a white count of 6.2, creatinine 1.13 as of yesterday no lab draw today, patient did have a chest x-ray suspicious for pneumoperitoneum, Jabier stoll subsequently did have a CT of the chest abdominal pelvis with no evidence of pneumoperitoneum small right and minimal left effusion compressive atelectasis right lower lobe Objective - Vital Signs Vital signs: Vital Signs Temp 97.6 F 05/15/23 20:00 Pulse 75 05/16/23 11:33 Resp 16 05/16/23 11:33 BP 167/76 05/16/23 11:33 Pulse Ox 97 05/16/23 11:33 FiO2 Intake & Output 05/15/23 05/16/23 05/16/23 18:59 06:59 18:59 Intake Total 1080 240 Output Total 1100 Balance 1080 -1100 240 Weight 88.5 kg 82.5 kg Intake: Intake, IV Titration 600 Amount Ampicillin-Sulbactam 3 gm 100 In Sodium Chloride 0.9% 100 ml @ 200 mls/hr IVPB Q6HR SARAH Rx#:[id number] Vancomycin 1,750 mg In 500 Sodium Chloride 0.9% 500 ml 500 ml @ 167 mls/hr IVPB Q24H SARAH Rx#: [id number] Oral 480 240 Output: Urine 1100 Other: Voiding Method External Catheter External Catheter External Catheter # Voids 1 # Bowel Movements 1 - Exam GENERAL DESCRIPTION: An elderly male lying in bed in no distress RESPIRATORY SYSTEM: Unlabored breathing , decreased breath sounds at bases HEART: S1 S2 regular rate and rhythm , ABDOMEN: Soft , no tenderness EXTREMITIES: Left foot wound base with some slough tissue no surrounding redness or foul-smelling drainage - Labs CBC & Chem 7: 05/15/23 10:44 05/16/23 08:09 Labs: Abnormal Lab Results - Last 24 Hours (Table) 05/15/23 05/15/23 05/16/23 Range/Units 16:39 20:13 11:14 POC Glucose (mg/dL) 115 H 127 H 188 H (70-110) mg/dL Assessment and Plan (1) Foot osteomyelitis, left Status: Acute Code(s): M86.9 - OSTEOMYELITIS, UNSPECIFIED SNOMED Code(s): 9639501983947581 (2) Type 2 diabetes mellitus with foot ulcer Status: Acute Code(s): E11.621 - TYPE 2 DIABETES MELLITUS WITH FOOT ULCER; L97.509 - NON-PRESSURE CHRONIC ULCER OTH PRT UNSP FOOT W UNSP SEVERITY SNOMED Code(s): 189464030 Plan: 1patient with a 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 lower extremity in this patient who did have history of left fifth toe gangrene status post amputation and subsequent nonhealing of the wound with repeat surgery on 04/20/2023 with the patient did have a amputation of the left fourth metatarsal wound culture at that time grew Proteus and Enterococcus and MRSA not being admitted to hospital increasing shortness of breath concerning for possible CHF being managed by cardiology patient with no fever or elevated white count denies any pain to the left foot or any problem with the wound VAC 2-local wound care to the left foot wound with the wound VAC black foam continuous pressure 125 mmHg change Sunday 3-we will continue patient on Unasyn 3 g every 6 and vancomycin pharmacy to dose while watching his kidney function closely to finish 6-week course of therapy and close outpatient follow-up discussed with the admitting team working on discharge Dictation was produced using [employer] software. please excuse any grammatical, word or spelling errors. Time with Patient: Less than 30
== END 2023-05-16 17:43 | DRG 291 ==
LOC: EC 23:05 → 4SSUR 05-11 02:07 → 3SCARD 05-11 03:10
PROVIDERS: ADMIT Hospitalist; ATTEND Hospitalist
DX: I11.0 Hypertensive heart disease with heart failure (principal); I50.33 Acute on chronic diastolic (congestive) heart failure; J96.01 Acute respiratory failure with hypoxia; M86.9 Osteomyelitis, unspecified; Q43.3 Congenital malformations of intestinal fixation; J98.11 Atelectasis; E11.621 Type 2 diabetes mellitus with foot ulcer; L97.529 Non-pressure chronic ulcer of other part of left foot with unspecified severity; E11.69 Type 2 diabetes mellitus with other specified complication; I71.20 Thoracic aortic aneurysm, without rupture, unspecified; E11.65 Type 2 diabetes mellitus with hyperglycemia; Z89.422 Acquired absence of other left toe(s); Z79.4 Long term (current) use of insulin; I34.0 Nonrheumatic mitral (valve) insufficiency; N40.0 Benign prostatic hyperplasia without lower urinary tract symptoms; E78.5 Hyperlipidemia, unspecified; R41.82 Altered mental status, unspecified; R26.9 Unspecified abnormalities of gait and mobility; Z79.2 Long term (current) use of antibiotics; Z79.899 Other long term (current) drug therapy; Z87.01 Personal history of pneumonia (recurrent); Z87.891 Personal history of nicotine dependence; Z86.14 Personal history of Methicillin resistant Staphylococcus aureus infection; Z86.19 Personal history of other infectious and parasitic diseases
CPT/HCPCS: 36415; 71045; 71250; 74176; 76604; 80048; 80053; 80061; 80202; 81003; 82565; 83605; 83735; 83880; 84100; 84443; 84484; 85025; 85379; 85610; 85730; 87636; 93005; 93306; 94640; 94760; 96361; 96365; 96366; 96375; 96376; 99291

== ENCOUNTER 2023-07-13 08:41 | Inpatient (IN) | payer MEDICARE ==
--- NOTE | 2023-07-13 08:55 | ED ---
General Adult HPI - General Stated complaint: Sepsis Time Seen by Provider: 07/13/23 08:44 Source: patient, EMS, RN notes reviewed, old records reviewed Mode of arrival: EMS Limitations: no limitations - History of Present Illness Initial comments: Patient is an 88-year-old male presenting to the ER from skilled nursing with concern for infection. Patient did have toe amputation done several months ago. Patient denies any specific problems however does complain of discomfort on evaluation there. Patient does complain his mouth feels dry. - Related Data Home Medications Medication Instructions Recorded Confirmed Famotidine [Pepcid] 20 mg PO DAILY@0800 04/18/23 05/11/23 Glucerna 1.2 John 120 ml PO BID@0800,1700 04/18/23 05/11/23 Heparin Sodium,Porcine (1 ml) 5,000 unit SQ Q12HR@08,21 04/18/23 05/11/23 [Heparin Sodium] INSULIN ASPART (NovoLOG) [NovoLOG 3 unit SQ AC-TID@,18304/18/23 05/11/23 (formulary)] INSULIN ASPART (NovoLOG) [NovoLOG See Protocol SQ 04/18/23 05/11/23 (formulary)] ACHS@,,1829,2130 Insulin Detemir (Levemir) [Levemir] 10 unit SQ HS@2100 04/18/23 05/11/23 Ipratropium-Albuterol Nebulize 3 ml INHALATION RT-Q6H PRN 04/18/23 05/11/23 [Duoneb 0.5 mg-3 mg/3 ml Soln] Magnesium Hydroxide [Milk of 7,200 mg PO DAILY PRN 04/18/23 05/11/23 Magnesia Concentrate] Na Phos,M-B/Na Phos,Di-Ba [Fleet 133 ml RECTAL DAILY PRN 04/18/23 05/11/23 Adult] Tamsulosin [Flomax] 0.4 mg PO DAILY@0800 04/18/23 05/11/23 amLODIPine [Norvasc] 10 mg PO DAILY@0800 04/18/23 05/11/23 bisacodyL [Dulcolax] 10 mg RECTAL DAILY PRN 04/18/23 05/11/23 polyethylene glycoL 3350 [Miralax] 17 gm PO DAILY@0800 04/18/23 05/11/23 Sodium Chloride 0.9% [Saline 0.9%] 10 ml IV Q6H 05/11/23 05/11/23 Vancomycin 1,750 mg IVPB Q24H 05/11/23 05/11/23 Previous Rx's Medication Instructions Recorded Acetaminophen Tab [Tylenol] 650 mg PO Q6HR PRN tab 01/01/23 Ampicillin-Sulbactam [Unasyn 3 gm 3 gm IVPB Q6HR 42 Days #168 each 04/25/23 vial] Furosemide [Lasix] 40 mg PO BID@0900,1600 tab 05/15/23 HYDROcodone/APAP 5-325MG [[place] 1 tab PO Q6HR PRN #4 tab 05/15/23 5-325] Ipratropium-Albuterol Nebulize 3 ml INHALATION RT-QID each 05/15/23 [Duoneb 0.5 mg-3 mg/3 ml Soln] Nystatin 100,000 Unit/gm Powd 1 applic TOPICAL BID each 05/15/23 [Mycostatin Powder] Valsartan [Diovan] 160 mg PO HS tab 05/15/23 Allergies Allergy/AdvReac Type Severity Reaction Status Date / Time No Known Allergies Allergy Verified 07/13/23 10:58 Review of Systems ROS Statement: Those systems with pertinent positive or pertinent negative responses have been documented in the HPI. ROS Other: All systems not noted in ROS Statement are negative. 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 Past Surgical History: Orthopedic Surgery Additional Past Surgical History / Comment(s): right wrist surgery Past Anesthesia/Blood Transfusion Reactions: No Reported Reaction Past Psychological History: No Psychological Hx Reported Smoking Status: Former smoker Past Alcohol Use History: None Reported Past Drug Use History: None Reported General Exam Limitations: no limitations General appearance: alert, in no apparent distress Head exam: Present: normocephalic Eye exam: Present: normal appearance ENT exam: Present: mucous membranes dry Neck exam: Present: normal inspection Respiratory exam: Present: normal lung sounds bilaterally Cardiovascular Exam: Present: regular rate, normal rhythm GI/Abdominal exam: Present: soft. Absent: tenderness Extremities exam: Present: other (Left foot with amputation left fourth and fifth digit. There is underlying wound, stage III with discharge. Left anterior ankle also with wound stage III with discharge) Neurological exam: Present: alert. Absent: motor sensory deficit Psychiatric exam: Present: normal affect, normal mood Skin exam: Present: other (Foot wounds) Course Vital Signs 07/13/23 08:43 Temperature 98.4 F Pulse Rate 85 Respiratory 16 Rate Blood Pressure 116/61 O2 Sat by Pulse 99 Oximetry EKG Findings - EKG Results: EKG: interpreted by ERMD (Left axis. Septal Q waves.), sinus rhythm, normal ST/T Medical Decision Making - Medical Decision Making Was pt. sent in by a medical professional or institution (, PA, RN GYN, urgent care, hospital, or skilled nursing...) When possible be specific @ -Patient was sent from skilled nursing Did you speak to anyone other than the patient for history (EMS, parent, family, police, friend...)? What history was obtained from this source @ -No Did you review nursing and triage notes (agree or disagree)? Why? @ -I reviewed and agree with nursing and triage notes Were old charts reviewed (outside hosp., previous admission, EMS record, old EKG, old radiological studies, urgent care reports/EKG's, skilled nursing records)? Report findings @ -Previous x-rays reviewed Differential Diagnosis (chest pain, altered mental status, abdominal pain women, abdominal pain men, vaginal bleeding, weakness, fever, dyspnea, syncope, headache, dizziness, GI bleed, back pain, seizure, CVA, palpatations, mental health, musculoskeletal)? @ -Differential Fever: Pneumonia, viral URI, endocarditis, myocarditis, pericarditis, otitis, sinusitis, peritonsillar Abscess, retropharyngeal Abscess, epiglottitis, peritonitis, appendicitis, Nayely cystitis, diverticulitis, hepatitis, colitis, UTI, PID, TOA, pyelonephritis, prostatitis, epididymitis, meningitis, encephalitis, pulmonary embolism, CVA, thyroid storm, pancreatitis, adrenal crisis, cavernous sinus thrombosis, this is not meant to be an all-inclusive list. EKG interpreted by me (3pts min.). @ -As above X-rays interpreted by me (1pt min.). @ -Left foot x-ray shows postoperative changes. Chest x-ray shows Hypoinflation CT interpreted by me (1pt min.). @ -None done U/S interpreted by me (1pt. min.). @ -None done What testing was considered but not performed or refused? (CT, X-rays, U/S, labs)? Why? @ -None What meds were considered but not given or refused? Why? @ -None Did you discuss the management of the patient with other professionals (professionals i.e. , PA, RN GYN, lab, RT, psych nurse, social security specialist, city planning engineer, teacher, risk control officer, corrections caseworker)? Give summary @ -Case was discussed with Dr. Crawford, who will admit covering Dr. Kiser Was smoking cessation discussed for >3mins.? @ -No Was critical care preformed (if so, how long)? @ -No Were there social determinants of health that impacted care today? How? (Homelessness, low income, unemployed, alcoholism, drug addiction, transportation, low edu. Level, literacy, decrease access to med. care, assisted, rehab)? @ -No Was there de-escalation of care discussed even if they declined (Discuss DNR or withdrawal of care, Hospice)? DNR status @ -No What co-morbidities impacted this encounter? (DM, HTN, Smoking, COPD, CAD, Cancer, CVA, ARF, Chemo, Hep., AIDS, mental health diagnosis, sleep apnea, morbid obesity)? @ -Previous amputation Was patient admitted / discharged? Hospital course, mention meds given and route, prescriptions, significant lab abnormalities, going to OR and other pertinent info. @ -Patient reevaluated and updated. Admission orders written. Patient will be admitted with IV antibiotics and infectious disease consult. Undiagnosed new problem with uncertain prognosis? @ -No Drug Therapy requiring intensive monitoring for toxicity (Heparin, Nitro, Insulin, Cardizem)? @ -No Were any procedures done? @ -No Diagnosis/symptom? @ -Foot ulcer Acute, or Chronic, or Acute on Chronic? @ -Acute Uncomplicated (without systemic symptoms) or Complicated (systemic symptoms)? @ -Default Side effects of treatment? @ -No Exacerbation, Progression, or Severe Exacerbation? @ -No Poses a threat to life or bodily function? How? (Chest pain, [place], [place], pneumonia, PE, COPD, DKA, ARF, appy, cholecystitis, CVA, Diverticulitis, Homicidal, Suicidal, threat to staff... and all critical care pts) @ -No - Lab Data Result diagrams: 07/13/23 09:05 07/13/23 09:05 Lab Results 07/13/23 07/13/23 07/13/23 Range/Units 09:05 09:05 09:05 WBC 11.0 H (3.8-10.6) k/uL RBC 3.64 L (4.30-5.90) m/uL Hgb 11.0 L (13.0-17.5) gm/dL Hct 34.2 L (39.0-53.0) % MCV 93.8 (80.0-100.0) fL MCH 30.2 (25.0-35.0) pg MCHC 32.2 (31.0-37.0) g/dL RDW 13.5 (11.5-15.5) % Plt Count 275 (150-450) k/uL MPV 6.8 Neutrophils % 75 % Lymphocytes % 14 % Monocytes % 6 % Eosinophils % 3 % Basophils % 0 % Neutrophils # 8.2 H (1.3-7.7) k/uL Lymphocytes # 1.6 (1.0-4.8) k/uL Monocytes # 0.7 (0-1.0) k/uL Eosinophils # 0.3 (0-0.7) k/uL Basophils # 0.0 (0-0.2) k/uL PT 11.3 (10.0-12.5) sec INR 1.0 (<1.2) APTT 25.9 (22.0-30.0) sec Sodium 138 (137-145) mmol/L Potassium 4.7 (3.5-5.1) mmol/L Chloride 101 (98-107) mmol/L Carbon Dioxide 28 (22-30) mmol/L Anion Gap 9 mmol/L BUN 38 H (9-20) mg/dL Creatinine 1.39 H (0.66-1.25) mg/dL Est GFR (CKD-EPI)AfAm 52 (>60 ml/min/1.73 sqM) Est GFR (CKD-EPI)NonAf 45 (>60 ml/min/1.73 sqM) Glucose 102 H (74-99) mg/dL Plasma Lactic Acid Aleksander (0.7-2.0) mmol/L Calcium 9.0 (8.4-10.2) mg/dL Total Bilirubin 0.5 (0.2-1.3) mg/dL AST 17 (17-59) U/L ALT 14 (4-49) U/L Alkaline Phosphatase 86 (38-126) U/L Total Protein 6.4 (6.3-8.2) g/dL Albumin 3.0 L (3.5-5.0) g/dL /12/28 Range/Units 09:05 WBC (3.8-10.6) k/uL RBC (4.30-5.90) m/uL Hgb (13.0-17.5) gm/dL Hct (39.0-53.0) % MCV (80.0-100.0) fL MCH (25.0-35.0) pg MCHC (31.0-37.0) g/dL RDW (11.5-15.5) % Plt Count (150-450) k/uL MPV Neutrophils % % Lymphocytes % % Monocytes % % Eosinophils % % Basophils % % Neutrophils # (1.3-7.7) k/uL Lymphocytes # (1.0-4.8) k/uL Monocytes # (0-1.0) k/uL Eosinophils # (0-0.7) k/uL Basophils # (0-0.2) k/uL PT (10.0-12.5) sec INR (<1.2) APTT (22.0-30.0) sec Sodium (137-145) mmol/L Potassium (3.5-5.1) mmol/L Chloride (98-107) mmol/L Carbon Dioxide (22-30) mmol/L Anion Gap mmol/L BUN (9-20) mg/dL Creatinine (0.66-1.25) mg/dL Est GFR (CKD-EPI)AfAm (>60 ml/min/1.73 sqM) Est GFR (CKD-EPI)NonAf (>60 ml/min/1.73 sqM) Glucose (74-99) mg/dL Plasma Lactic Acid Aleksander 0.7 (0.7-2.0) mmol/L Calcium (8.4-10.2) mg/dL Total Bilirubin (0.2-1.3) mg/dL AST (17-59) U/L ALT (4-49) U/L Alkaline Phosphatase (38-126) U/L Total Protein (6.3-8.2) g/dL Albumin (3.5-5.0) g/dL Disposition Clinical Impression: Wound of left foot Disposition: ADMITTED IP TO THIS HOSP Is patient prescribed a controlled substance at d/c from ED?: No Referrals: Jorje Kiser MD [Primary Care Provider] - 1-2 days Time of Disposition: 11:04
[2023-07-13 09:45] LABS: Basophils % (A) 0 %; Eosinophils # (A) 0.3 k/uL (0-0.7); Eosinophils % (A) 3 %; HCT 34.2 % (39.0-53.0); Lymphocytes # (A) 1.6 k/uL (1.0-4.8); Lymphocytes % (A) 14 %; MCH 30.2 pg (25.0-35.0); MCHC 32.2 g/dL (31.0-37.0); MCV 93.8 fL (80.0-100.0); Mean Platelet Volume 6.8; Monocytes # (A) 0.7 k/uL (0-1.0); Monocytes % (A) 6 %; Neutrophils # (A) 8.2 k/uL (1.3-7.7); Neutrophils % (A) 75 %; Platelet Count 275 k/uL (150-450); RBC 3.64 m/uL (4.30-5.90); RDW 13.5 % (11.5-15.5)
[2023-07-13 09:58] LABS: ALT 14 U/L (4-49); AST 17 U/L (17-59); African American GFR (CKD) 52 (>60 ml/min/1.73 sqM); Alkaline Phosphatase 86 U/L (38-126); Anion Gap 9 mmol/L; Blood Urea Nitrogen 38 mg/dL (9-20); Carbon Dioxide 28 mmol/L (22-30); Chloride 101 mmol/L (98-107); Glucose 102 mg/dL (74-99); Non-African American GFR(CKD) 45 (>60 ml/min/1.73 sqM); Potassium 4.7 mmol/L (3.5-5.1); Sodium 138 mmol/L (137-145); Total Bilirubin 0.5 mg/dL (0.2-1.3); Total Protein 6.4 g/dL (6.3-8.2)
[2023-07-13 10:01] LABS: Partial Thromboplastin Time 25.9 sec (22.0-30.0); Prothrombin Time 11.3 sec (10.0-12.5)
--- NOTE | 2023-07-13 10:57 | XR ---
EXAMINATION TYPE: XR chest 2V DATE OF EXAM: 07/13/2023 COMPARISON: 05/14/2023. HISTORY: Fever. TECHNIQUE: Frontal and lateral views of the chest are obtained. IMPRESSION: Cardiac silhouette is moderately enlarged and is patchy parenchymal and interstitial ellington ges throughout the lungs which may relate to some mild edema. Hazy opacities in the lower lobes bilaterally may represent a combination of atelectasis and/or pneum onia. Trace bilateral pleural effusions..
--- NOTE | 2023-07-13 11:02 | XR ---
Two-view left foot. DATE: 2023. COMPARISON: None available. Clinical history: Fever with nonhealing ulcer. IMPRESSION: There is amputation of the fourth and fifth digits from the level of the mid to distal metatarsal bon es. Question open wound along the cut margin. There is soft tissue swelling otherwise seen surrounding the plantar aspect of the foot. There is no subcutaneous air. There is no definite osseous destructive process identified radiographically. There are some minimal degenerative changes otherwise noted with metatarsal bones. The joint spaces o therwise appear preserved.
[2023-07-13] MEDS ORDERED: NALOXONE 0.4 MG/ML 1 ML VIAL IV PRN (11:06)
[2023-07-13] MEDS: PIPERACILLIN-TAZOBACTAM 3.375 GM in SODIUM CHLORIDE 0.9% 100 ML IVPB SCH (11:48)
[2023-07-13] MEDS: SODIUM CHLORIDE 0.9% 1,000 ML IV SCH (11:49)
[2023-07-13 13:59] LABS: Appearance,Urine Clear (Clear); Bilirubin,Urine Negative (Negative); Blood,Urine Negative (Negative); Color,Urine Light Yellow; Glucose,Urine (UA) Negative (Negative); Ketones,Urine Negative (Negative); Leukocyte Esterase,Urine Negative (Negative); Nitrite,Urine Negative (Negative); PH, Urine 5.5 (5.0-8.0); Protein,Urine Trace (Negative); Specific Gravity,Urine 1.014 (1.001-1.035); Urobilinogen,Urine <2.0 mg/dL (<2.0)
[2023-07-13] MEDS ORDERED: bisacodyL 10 MG SUPP RECTAL PRN (14:50)
[2023-07-13] MEDS ORDERED: IPRATROPIUM-ALBUTEROL 3 ML NEB INHALATION PRN (14:50)
[2023-07-13] MEDS ORDERED: MAGNESIUM HYDROXIDE 2,400 MG/30 ML CUP PO PRN (14:50)
--- NOTE | 2023-07-13 14:50 | P.HPIM ---
History of Present Illness This is a pleasant 88 years old male with multiple medical problems. Was sent from [facility] for not feeling well and and leukocytosis Patient is poor historian so information was obtained from the staff and records Patient is afebrile Labs reviewed showing WBC 11,000, hemoglobin 11, creatinine 1.3 which is at baseline of 1.3-1.5. Rest of BMP and liver enzymes were unremarkable Left foot x-ray showing amputated fourth and fifth toes with soft tissue swelling of the plantar aspect and possible open wound on the lateral side dis tally Chest x-ray showing bilateral basal atelectasis versus consolidation EKG sinus rhythm at [address]-T changes Patient started on Zosyn Normal Saline 75 mL/h Review of Systems ROS unobtainable: due to mental status 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 Past Surgical History: Orthopedic Surgery Additional Past Surgical History / Comment(s): right wrist surgery Past Anesthesia/Blood Transfusion Reactions: No Reported Reaction Past Psychological History: No Psychological Hx Reported Smoking Status: Former smoker Past Alcohol Use History: None Reported Past Drug Use History: None Reported - Past Family History Father History Unknown: Yes Mother History Unknown: Yes Medications and Allergies Home Medications Medication Instructions Recorded Confirmed Type Acetaminophen Tab [Tylenol] 650 mg PO Q6HR PRN tab 01/01/23 07/13/23 Rx Famotidine [Pepcid] 20 mg PO DAILY@0800 04/18/23 07/13/23 History Glucerna 1.2 John 120 ml PO BID@0800,1700 04/18/23 07/13/23 History Heparin Sodium,Porcine (1 ml) 5,000 unit SQ Q12HR@08,21 04/18/23 07/13/23 Hi story [Heparin Sodium] INSULIN ASPART (NovoLOG) [NovoLOG 3 unit SQ AC-TID@,1830 04/18/23 07/13/23 History (formulary)] INSULIN ASPART (NovoLOG) [NovoLOG See Protocol SQ 12/13/23 03/08/24 History (formulary)] ACHS@07,11,1830,2130 Insulin Detemir (Levemir) [Levemir] 10 unit SQ HS@2100 04/18/23 07/13/23 History Ipratropium-Albuterol Nebulize 3 ml INHALATION RT-Q6H PRN 04/18/23 07/13/23 History [Duoneb 0.5 mg-3 mg/3 ml Soln] Magnesium Hydroxide [Milk of 7,200 mg PO DAILY PRN 04/18/23 07/13/23 History Magnesia Concentrate] Na Phos,M-B/Na Phos,Di-Ba [Fleet 133 ml RECTAL DAILY PRN 04/18/23 07/13/23 History Adult] Tamsulosin [Flomax] 0.4 mg PO DAILY@0800 04/18/23 07/13/23 History amLODIPine [Norvasc] 10 mg PO DAILY@0800 04/18/23 07/13/23 History bisacodyL [Dulcolax] 10 mg RECTAL DAILY PRN 04/18/23 07/13/23 History polyethylene glycoL 3350 [Miralax] 17 gm PO DAILY@0800 04/18/23 07/13/23 History HYDROcodone/APAP 5-325MG [[place] 1 tab PO Q6HR PRN #4 tab 05/15/23 07/13/23 Rx 5-325] Ipratropium-Albuterol Nebulize 3 ml INHALATION RT-QID each 05/15/23 07/13/23 Rx [Duoneb 0.5 mg-3 mg/3 ml Soln] Valsartan [Diovan] 160 mg PO HS tab 05/15/23 07/13/23 Rx Furosemide [Lasix] 40 mg PO BID@0800,1700 07/13/23 07/13/23 History Allergies Allergy/AdvReac Type Severity Reaction Status Date / Time No Known Allergies Allergy Verified 07/13/23 11:34 Physical Exam Vitals: Vital Signs Temp Pulse Resp BP Pulse Ox 07/13/23 08:43 98.4 F 85 16 116/61 99 Intake and Output 07/12/23 07/13/23 07/13/23 22:59 06:59 14:59 Other: Weight 87.997 kg -GENERAL: The patient is confused and does not follow commands HEENT: Pupils are round and equally reacting to light. EOMI. No scleral icterus. No conjunctival pallor. Normocephalic, atraumatic. No pharyngeal erythema. No thyromegaly. CARDIOVASCULAR: S1 and S2 present. No murmurs, rubs, or gallops. PULMONARY: Chest is clear to auscultation, no wheezing , no crackles. ABDOMEN: Soft, nontender, nondistended, normoactive bowel sounds. No palpable organomegaly. MUSCULOSKELETAL: No joint swelling or deformity. EXTREMITIES: No cyanosis, clubbing, or pedal edema. -NEUROLOGICAL: Gross neurological examination did not reveal any focal deficits. Left leg is swollen, erythematous with superficial wounds anteriorly status post amputated lateral 2 toes with infection in the area. SKIN: No rashes. no petechiae. Results CBC & Chem 7: 07/13/23 09:05 07/13/23 09:05 Labs: Abnormal Lab Results - Last 24 Hours (Table) 07/13/23 07/13/23 Range/Units 09:05 09:05 WBC 11.0 H (3.8-10.6) k/uL RBC 3.64 L (4.30-5.90) m/uL Hgb 11.0 L (13.0-17.5) gm/dL Hct 34.2 L (39.0-53.0) % Neutrophils # 8.2 H (1.3-7.7) k/uL BUN 38 H (9-20) mg/dL Creatinine 1.39 H (0.66-1.25) mg/dL Glucose 102 H (74-99) mg/dL Albumin 3.0 L (3.5-5.0) g/dL Assessment and Plan Assessment: Left foot infected wound and cellulitis Altered mental status, mostly metabolic/toxic encephalopathy on the top of his dementia Diabetes mellitus Hypertension History of osteoarthritis Plan: Continue with antibiotics Infectious disease consult Follow-up culture results Check ultrasound of the left lower extremity Labs and medication were reviewed.. Continue same treatment. Continue with symptomatic treatment. Resume home medication. Monitor lytes and vitals. DVT and GI prophylaxis. Further recommendations depends on the clinical course of the patient DVT prophylaxis: Subcutaneous heparin GI Prophylaxis: Pepcid PT/OT: Pending Prognosis is guarded
--- NOTE | 2023-07-13 15:38 | US ---
EXAMINATION TYPE: US venous doppler duplex LE LT DATE OF EXAM: 07/13/2023 3:31 PM COMPARISON: NONE CLINICAL INDICATION: Male, 88 years old with history of Swelling; edema limited due to swelling. SIDE PERFORMED: Left TECHNIQUE: The lower extremity deep venous system is examined utilizing real time linear array sonog casandra with graded compression, doppler sonography and color-flow sonography. VESSELS IMAGED: Common Femoral Vein Deep Femoral Vein Greater Saphenous Vein * Femoral Vein Popliteal Vein Small Saphenous Vein * Proximal Calf Veins (* superficial vessels) Left Leg: Negative for DVT IMPRESSION: No evidence of deep venous thrombosis.
[2023-07-13 17:15] LABS: Glucose,Whole Blood 97 mg/dL (70-110)
[2023-07-13] MEDS: FUROSEMIDE 40 MG TAB PO SCH (17:20)
[2023-07-13] MEDS: INSULIN ASPART (NovoLOG) 100 UNIT/ML VIAL SQ SCH (17:21)
[2023-07-13 19:53] LABS: Glucose,Whole Blood 213 mg/dL (70-110)
[2023-07-13] MEDS: HYDROcodone/APAP 5-325MG 1 EACH TAB PO PRN (20:39)
[2023-07-13] MEDS: VALSARTAN 160 MG TAB PO SCH (20:39)
[2023-07-13] MEDS: HEPARIN SODIUM,PORCINE 5,000 UNIT/ML 1 ML VIAL SQ SCH (20:39)
--- NOTE | 2023-07-13 22:16 | P.CONS ---
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 Patient on presentation to the hospital was afebrile and no fever have been called subsequently patient is breathing comfortably on 2 L nasal cannula oxygen complaining of feeling thirsty denies any headache or URI symptoms no chest pain or shortness of breath occasional cough no nausea no vomiting no abdominal pain Silva catheter placed in the ER no diarrhea reported and denies having any worsening pain to the left foot wound area unable for foul-smelling drainage patient on presentation to the hospital was afebrile he did have white count of 11,000 BUN/creatinine mildly elevated liver isms are normal urine has been negative patient did have a chest x-ray trace bilateral effusion x-ray of the foot did not show any bony erosion or osteomyelitis patient was started on Zosyn infectious disease was consulted for further management of antibiotic therapy Review of Systems Positive point and negatives has been mentioned in the HPI, complete review of systems was performed and all other systems are negative Past Medical History Past Medical History: Diabetes Mellitus, Hypertension Additional Past Medical History / Comment(s): cellulitis of left foot, altered mental status, History of Any Multi-Drug Resistant Organisms: MRSA, VRE Year Discovered:: 04/20/23 MRSA; 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 Past Surgical History: Orthopedic Surgery Additional Past Surgical History / Comment(s): right wrist surgery Past Anesthesia/Blood Transfusion Reactions: No Reported Reaction Past Psychological History: No Psychological Hx Reported Smoking Status: Former smoker Past Alcohol Use History: None Reported Past Drug Use History: None Reported - Past Family History Father History Unknown: Yes Mother History Unknown: Yes Medications and Allergies Home Medications Medication Instructions Recorded Confirmed Type Acetaminophen Tab [Tylenol] 650 mg PO Q6HR PRN tab 01/01/23 07/13/23 Rx Famotidine [Pepcid] 20 mg PO DAILY@0800 04/18/23 07/13/23 History Glucerna 1.2 John 120 ml PO BID@0800,1700 04/18/23 07/13/23 History Heparin Sodium,Porcine (1 ml) 5,000 unit SQ Q12HR@,04/18/23 07/13/23 History [Heparin Sodium] INSULIN ASPART (NovoLOG) [NovoLOG 3 unit SQ AC-TID@,,182904/18/23 07/13/23 History (formulary)] INSULIN ASPART (NovoLOG) [NovoLOG See Protocol SQ 04/18/23 07/13/23 History (formulary)] ACHS@07,,1829,0 Insulin Detemir (Levemir) [Levemir] 10 unit SQ HS@2100 04/18/23 07/13/23 History Ipratropium-Albuterol Nebulize 3 ml INHALATION RT-Q6H PRN 04/18/23 07/13/23 History [Duoneb 0.5 mg-3 mg/3 ml Soln] Magnesium Hydroxide [Milk of 7,200 mg PO DAILY PRN 04/18/23 07/13/23 History Magnesia Concentrate] Na Phos,M-B/Na Phos,Di-Ba [Fleet 133 ml RECTAL DAILY PRN 04/18/23 07/13/23 History Adult] Tamsulosin [Flomax] 0.4 mg PO DAILY@0800 04/18/23 07/13/23 History amLODIPine [Norvasc] 10 mg PO DAILY@0800 04/18/23 07/13/23 History bisacodyL [Dulcolax] 10 mg RECTAL DAILY PRN 04/18/23 07/13/23 History polyethylene glycoL 3350 [Miralax] 17 gm PO DAILY@0800 04/18/23 07/13/23 History Ipratropium-Albuterol Nebulize 3 ml INHALATION RT-QID each 05/15/23 07/13/23 Rx [Duoneb 0.5 mg-3 mg/3 ml Soln] Valsartan [Diovan] 160 mg PO HS tab 05/15/23 07/13/23 Rx Furosemide [Lasix] 40 mg PO BID@0800,1700 07/13/23 07/13/23 History DAPTOmycin [Cubicin] 500 mg IVPB Q24HR@1400 42 Days #42 07/18/23 Rx each Ertapenem [INVanz] 1 gm IVPB DAILY 42 Days #42 each 07/18/23 Rx HYDROcodone/APAP 5-325MG [[place] 1 tab PO Q6HR PRN #4 tab 07/18/23 Rx 5-325] Allergies Allergy/AdvReac Type Severity Reaction Status Date / Time No Known Allergies Allergy Verified 07/13/23 11:34 Physical Exam Vitals: Vital Signs Temp Pulse Resp BP Pulse Ox 07/13/23 08:43 98.4 F 85 16 116/61 99 Intake and Output 07/12/23 07/13/23 07/13/23 22:59 06:59 14:59 Other: Weight 87.997 kg GENERAL DESCRIPTION: Elderly male lying in bed, no distress. No tachypnea or accessory muscle of respiration use. HEENT: Shows Pallor , no scleral icterus. Oral mucous membrane is dry. No pharyngeal erythema or thrush NECK: Trachea central, no thyromegaly. LUNGS: Unlabored breathing. Clear to auscultation anteriorly. No wheeze or crackle. HEART: S1, S2, regular rate and rhythm. No loud murmur ABDOMEN: Soft, no tenderness , guarding or rigidity, no organomegaly EXTREMITIES: Left foot lateral border wound with no significant slough tissue minimal swelling no redness or foul-smelling drainage SKIN: No rash, no masses palpable. NEUROLOGICAL: The patient is awake, alert, mood and affect normal. Results CBC & Chem 7: 07/17/23 05:51 07/17/23 05:51 Labs: Abnormal Lab Results - Last 24 Hours (Table) 07/13/23 07/13/23 Range/Units 09:05 09:05 WBC 11.0 H (3.8-10.6) k/uL RBC 3.64 L (4.30-5.90) m/uL Hgb 11.0 L (13.0-17.5) gm/dL Hct 34.2 L (39.0-53.0) % Neutrophils # 8.2 H (1.3-7.7) k/uL BUN 38 H (9-20) mg/dL Creatinine 1.39 H (0.66-1.25) mg/dL Glucose 102 H (74-99) mg/dL Albumin 3.0 L (3.5-5.0) g/dL Assessment and Plan (1) Cellulitis of left foot Status: Acute Code(s): L03.116 - CELLULITIS OF LEFT LOWER LIMB SNOMED Code(s): 73789027185298965 (2) Type 2 diabetes mellitus with foot ulcer Status: Acute Code(s): E11.621 - TYPE 2 DIABETES MELLITUS WITH FOOT ULCER; L97.509 - NON-PRESSURE CHRONIC ULCER OTH PRT UNSP FOOT W UNSP SEVERITY SNOMED Code(s): 768876086 (3) Wound of left foot Status: Acute Code(s): S91.302A - UNSPECIFIED OPEN WOUND, LEFT FOOT, INITIAL ENCOUNTER SNOMED Code(s): 67795544828116135 Plan: 1patient has been sent to the ER from the senior living concerning for infection on the basis of mildly elevated white count and he did have elevated sed rate patient did have a 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 after amputation of the fifth followed by fourth toe and did have an episode of osteomyelitis back in April culture grew Proteus Enterococcus and MRSA for the patient received more than 8 weeks of IV antibiotic therapy patient is currently not running any fever left foot did have a nonhealing wound however borders not probed no slough was noticed on the surrounding redness, clinically doubt elevated sed rate is entirely due to the infection at this point 2-local culture has been deemed results will be followed 3-will recheck inflammatory markers 4-local wound care with a dry Aquacel silver dressing changed to 48 hours 5-we will check a Bone scan 6-continue with the Zosyn while waiting for the workup to be completed We will follow on clinical condition and cultures to further adjust medication if needed Thank you for this consultation we will follow the patient along with you Dictation was produced using [employer] dictation software. please excuse any grammatical, word or spelling errors. Time with Patient: Greater than 30
[2023-07-14 07:14] LABS: Glucose,Whole Blood 112 mg/dL (70-110)
[2023-07-14] MEDS: TAMSULOSIN 0.4 MG CAP.ER.24H PO SCH (08:38)
[2023-07-14] MEDS: FAMOTIDINE 20 MG TAB PO SCH (08:38)
[2023-07-14] MEDS: amLODIPine 10 MG TAB PO SCH (08:38)
[2023-07-14 09:38] LABS: Basophils # (A) 0.04 X 10*3/uL (0.00-0.10); Basophils % (A) 0.3 %; Eosinophils # (A) 0.39 X 10*3/uL (0.04-0.35); Eosinophils % (A) 3.2 %; HCT 35.2 % (39.6-50.0); HGB 11.1 g/dL (13.0-17.0); Lymphocytes # (A) 1.44 X 10*3/uL (0.90-5.00); Lymphocytes % (A) 11.7 %; MCH 29.4 pg (27.0-32.0); MCHC 31.5 g/dL (32.0-37.0); MCV 93.4 FL (80.0-97.0); Monocytes # (A) 1.16 X 10*3/uL (0.20-1.00); Monocytes % (A) 9.4 %; NRBC Per 100 WBC 0 X 10*3/uL (0.00-0.01); Neutrophils # (A) 9.21 X 10*3/uL (1.80-7.70); Neutrophils % (A) 74.9 %; Platelet Count 300 X 10*3/uL (140-440); RBC 3.77 X 10*6/uL (4.40-5.60); RDW 13.5 % (11.5-14.5)
[2023-07-14 10:19] LABS: BUN/Creat Ratio 21.77 Ratio (12.00-20.00); Blood Urea Nitrogen 28.3 mg/dL (9.0-27.0); Calcium 9.3 mg/dL (8.7-10.3); Chloride 100 mmol/L (96-109); Glucose 116 mg/dL (70-110); Potassium 5.2 mmol/L (3.5-5.5); Sodium 140 mmol/L (135-145)
[2023-07-14 10:34] LABS: Erythrocyte Sedimentation Rate 82 mm/Hr (0-20)
--- NOTE | 2023-07-14 11:34 | P.PN ---
Subjective This is a pleasant 88 years old male with multiple medical problems. Was sent from [facility] for not feeling well and and leukocytosis Patient is poor historian so information was obtained from the staff and records Patient is afebrile Labs reviewed showing WBC 11,000, hemoglobin 11, creatinine 1.3 which is at baseline of 1.3-1.5. Rest of BMP and liver enzymes were unremarkable Left foot x-ray showing amputated fourth and fifth toes with soft tissue swelling of the plantar aspect and possible open wound on the lateral side distally Chest x-ray showing bilateral basal atelectasis versus consolidation EKG sinus rhythm at [address]-T changes Patient started on Zosyn Normal Saline 75 mL/h 07/14/23 Patient is awake alert today, answers questions appropriately. He has good appetite. He denies specific complaint Is still being treated for his left foot cellulitis. Ultrasound was negative for DVT in the left leg Patient remains on Unasyn Objective - Vital Signs Vital signs: Vital Signs Temp 98.4 F 07/14/23 06:59 Pulse 87 07/14/23 06:59 Resp 16 07/14/23 06:59 BP 143/74 07/14/23 06:59 Pulse Ox 86 L 07/14/23 06:59 FiO2 Intake & Output 07/13/23 07/14/23 07/14/23 18:59 06:59 18:59 Intake Total 940 Output Total 500 600 Balance -500 340 Weight 81.5 kg Intake: Intake, IV Titration 700 Amount Piperacillin-Tazobactam 3 100 .375 gm In Sodium Chloride 0.9% 100 ml @ 25 mls/hr IVPB Q8H SARAH Rx#: [id number] Sodium Chloride 0.9% 1, 600 000 ml @ 50 mls/hr IV . Q20H SARAH Rx#:[id number] Oral 240 Output: Urine 500 600 Uretheral (Silva) 600 Other: Voiding Method Indwelling Catheter Indwelling Catheter - Exam -GENERAL: The patient is alert and oriented x2-3, not in any acute distress. Well developed, well nourished. HEENT: Pupils are round and equally reacting to light. EOMI. No scleral icterus. No conjunctival pallor. Normocephalic, atraumatic. No pharyngeal erythema. No thyromegaly. CARDIOVASCULAR: S1 and S2 present. No murmurs, rubs, or gallops. PULMONARY: Chest is clear to auscultation, no wheezing , no crackles. ABDOMEN: Soft, nontender, nondistended, normoactive bowel sounds. No palpable organomegaly. MUSCULOSKELETAL: No joint swelling or deformity. EXTREMITIES: No cyanosis, clubbing, or pedal edema. -NEUROLOGICAL: Gross neurological examination did not reveal any focal deficits. Left leg is swollen, erythematous with superficial wounds anteriorly status post amputated lateral 2 toes with infection in the area. SKIN: No rashes. no petechiae. - Labs CBC & Chem 7: 07/14/23 05:10 07/14/23 05:10 Labs: Abnormal Lab Results - Last 24 Hours (Table) 07/13/23 07/13/23 07/14/23 Range/Units 09:05 19:48 05:10 WBC 12.30 H (4.50-10.00) X 10*3/uL RBC 3.77 L (4.40-5.60) X 10*6/uL Hgb 11.1 L (13.0-17.0) g/dL Hct 35.2 L (39.6-50.0) % MCHC 31.5 L (32.0-37.0) g/dL MPV 9.0 L (9.5-12.2) FL Immature Gran # 0.06 H (0.00-0.04) X 10*3/uL Neutrophils # 9.21 H (1.80-7.70) X 10*3/uL Monocytes # 1.16 H (0.20-1.00) X 10*3/uL Eosinophils # 0.39 H (0.04-0.35) X 10*3/uL ESR 82 H (0-20) mm/Hr BUN (9.0-27.0) mg/dL Est GFR (CKD-EPI) (>=60) BUN/Creatinine Ratio (12.00-20.00) Ratio Glucose (70-110) mg/dL POC Glucose (mg/dL) 213 H (70-110) mg/dL C-Reactive Protein (0.00-0.80) mg/dL Urine Protein Trace H (Negative) 07/14/23 07/14/23 Range/Units 05:10 07:14 WBC (4.50-10.00) X 10*3/uL RBC (4.40-5.60) X 10*6/uL Hgb (13.0-17.0) g/dL Hct (39.6-50.0) % MCHC (32.0-37.0) g/dL MPV (9.5-12.2) FL Immature Gran # (0.00-0.04) X 10*3/uL Neutrophils # (1.80-7.70) X 10*3/uL Monocytes # (0.20-1.00) X 10*3/uL Eosinophils # (0.04-0.35) X 10*3/uL ESR (0-20) mm/Hr BUN 28.3 H (9.0-27.0) mg/dL Est GFR (CKD-EPI) 53 L (>=60) BUN/Creatinine Ratio 21.77 H (12.00-20.00) Ratio Glucose 116 H (70-110) mg/dL POC Glucose (mg/dL) 112 H (70-110) mg/dL C-Reactive Protein 21.20 H (0.00-0.80) mg/dL Urine Protein (Negative) Microbiology - Last 24 Hours (Table) 07/13/23 09:10 Gram Stain - Preliminary Ankle - Left Assessment and Plan Assessment: Left foot infected wound and cellulitis Altered mental status, mostly metabolic/toxic encephalopathy on the top of his dementia Diabetes mellitus Hypertension History of osteoarthritis Plan: Continue with antibiotics Infectious disease consult currently on Zosyn Follow-up culture results Check ultrasound of the left lower extremity Labs and medication were reviewed.. Continue same treatment. Continue with symptomatic treatment. Resume home medication. Monitor lytes and vitals. DVT and GI prophylaxis. Further recommendations depends on the clinical course of the patient DVT prophylaxis: Subcutaneous heparin GI Prophylaxis: Pepcid PT/OT: Pending Prognosis is guarded
[2023-07-14 11:54] LABS: Glucose,Whole Blood 207 mg/dL (70-110)
--- NOTE | 2023-07-14 14:16 | P.PN ---
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 On today's visit that is 07/14/2023, patient has been afebrile, patient is breathing comfortably and is currently on 2 L nasal cannula oxygen, patient denies having any significant cough no chest pain shortness of breath, patient denies nausea vomiting or diarrhea and no abdominal pain. Patient white count is 12.30, creatinine is 1.3 sed rate is 82 CRP is 21.20 cultures currently pending Objective - Vital Signs Vital signs: Vital Signs Temp 98.8 F 07/14/23 12:23 Pulse 79 07/14/23 12:23 Resp 16 07/14/23 12:56 BP 126/66 07/14/23 12:23 Pulse Ox 98 07/14/23 12:56 FiO2 Intake & Output 07/13/23 07/14/23 07/14/23 18:59 06:59 18:59 Intake Total 940 Output Total 500 600 Balance -500 340 Weight 81.5 kg Intake: Intake, IV Titration 700 Amount Piperacillin-Tazobactam 3 100 .375 gm In Sodium Chloride 0.9% 100 ml @ 25 mls/hr IVPB Q8H SARAH Rx#: [id number] Sodium Chloride 0.9% 1, 600 000 ml @ 50 mls/hr IV . Q20H SARAH Rx#:[id number] Oral 240 Output: Urine 500 600 Uretheral (Silva) 600 Other: Voiding Method Indwelling Catheter Indwelling Catheter - Exam GENERAL DESCRIPTION: An elderly male lying in bed in no distress RESPIRATORY SYSTEM: Unlabored breathing , decreased breath sounds at bases HEART: S1 S2 regular rate and rhythm , ABDOMEN: Soft , no tenderness EXTREMITIES: Left foot is currently dressed - Labs CBC & Chem 7: 07/14/23 05:10 07/14/23 05:10 Labs: Abnormal Lab Results - Last 24 Hours (Table) 03/12/2807/14/23 07/14/23 Range/Units 19:48 05:10 05:10 WBC 12.30 H (4.50-10.00) X 10*3/uL RBC 3.77 L (4.40-5.60) X 10*6/uL Hgb 11.1 L (13.0-17.0) g/dL Hct 35.2 L (39.6-50.0) % MCHC 31.5 L (32.0-37.0) g/dL MPV 9.0 L (9.5-12.2) FL Immature Gran # 0.06 H (0.00-0.04) X 10*3/uL Neutrophils # 9.21 H (1.80-7.70) X 10*3/uL Monocytes # 1.16 H (0.20-1.00) X 10*3/uL Eosinophils # 0.39 H (0.04-0.35) X 10*3/uL ESR 82 H (0-20) mm/Hr BUN 28.3 H (9.0-27.0) mg/dL Est GFR (CKD-EPI) 53 L (>=60) BUN/Creatinine Ratio 21.77 H (12.00-20.00) Ratio Glucose 116 H (70-110) mg/dL POC Glucose (mg/dL) 213 H (70-110) mg/dL C-Reactive Protein 21.20 H (0.00-0.80) mg/dL 07/14/23 07/14/23 Range/Units 07:14 11:53 WBC (4.50-10.00) X 10*3/uL RBC (4.40-5.60) X 10*6/uL Hgb (13.0-17.0) g/dL Hct (39.6-50.0) % MCHC (32.0-37.0) g/dL MPV (9.5-12.2) FL Immature Gran # (0.00-0.04) X 10*3/uL Neutrophils # (1.80-7.70) X 10*3/uL Monocytes # (0.20-1.00) X 10*3/uL Eosinophils # (0.04-0.35) X 10*3/uL ESR (0-20) mm/Hr BUN (9.0-27.0) mg/dL Est GFR (CKD-EPI) (>=60) BUN/Creatinine Ratio (12.00-20.00) Ratio Glucose (70-110) mg/dL POC Glucose (mg/dL) 112 H 207 H (70-110) mg/dL C-Reactive Protein (0.00-0.80) mg/dL Microbiology - Last 24 Hours (Table) 07/13/23 09:10 Gram Stain - Preliminary Ankle - Left Assessment and Plan (1) Leukocytosis Current Visit: Yes Status: Acute Code(s): D72.829 - ELEVATED WHITE BLOOD CELL COUNT, UNSPECIFIED SNOMED Code(s): 517948785 (2) Wound of left foot Current Visit: Yes Status: Acute Code(s): S91.302A - UNSPECIFIED OPEN WOUND, LEFT FOOT, INITIAL ENCOUNTER SNOMED Code(s): 33844030472813442 (3) Cellulitis of left foot Current Visit: No Status: Acute Code(s): L03.116 - CELLULITIS OF LEFT LOWER LIMB SNOMED Code(s): 89915119940801203 Plan: 1patient has been [facility] concerning for infection on the basis of mildly elevated white count and he did have elevated sed rate patient did have a 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 after amputation of the fifth followed by fourth toe and did have an episode of osteomyelitis back in April culture grew Proteus Enterococcus and MRSA for the patient received more than 8 weeks of IV antibiotic therapy patient is currently not running any fever left foot did have a nonhealing wound however borders not probed no slough was noticed on the surrounding redness, clinically doubt elevated sed rate is entirely due to the infection at this point 2-local culture has been obtained send culture currently pending 3-w patient did have elevated sed rate of 82 CRP is 21.2 4-local wound care with a dry Aquacel silver dressing changed to 48 hours 5-currently waiting for the bone scan 6-patient to continue with the Zosyn while waiting for the workup to be completed and monitor clinical course closely Dictation was produced using [employer] dictation software. please excuse any grammatical, word or spelling errors. Time with Patient: Less than 30
[2023-07-14 16:55] LABS: Glucose,Whole Blood 209 mg/dL (70-110)
[2023-07-14 19:59] LABS: Glucose,Whole Blood 194 mg/dL (70-110)
[2023-07-15 07:12] LABS: Glucose,Whole Blood 127 mg/dL (70-110)
[2023-07-15 11:55] LABS: Glucose,Whole Blood 168 mg/dL (70-110)
--- NOTE | 2023-07-15 13:00 | P.PN ---
Subjective This is a pleasant 88 years old male with multiple medical problems. Was sent from [facility] for not feeling well and and leukocytosis Patient is poor historian so information was obtained from the staff and records Patient is afebrile Labs reviewed showing WBC 11,000, hemoglobin 11, creatinine 1.3 which is at baseline of 1.3-1.5. Rest of BMP and liver enzymes were unremarkable Left foot x-ray showing amputated fourth and fifth toes with soft tissue swelling of the plantar aspect and possible open wound on the lateral side distally Chest x-ray showing bilateral basal atelectasis versus consolidation EKG sinus rhythm at [address]-T changes Patient started on Zosyn Normal Saline 75 mL/h 07/14/23 Patient is awake alert today, answers questions appropriately. He has good appetite. He denies specific complaint Is still being treated for his left foot cellulitis. Ultrasound was negative for DVT in the left leg Patient remains on Unasyn 07/15/23 Patient is still treated for his left foot infection Wound culture is growing presumptive MRSA and gram-negative bacilli He was on Zosyn and daptomycin was added to the regimen. Patient denies any other complaint He continue with gentle hydration 50 mL/h. Will give one-time small dose of Lasix 20 mg Objective - Vital Signs Vital signs: Vital Signs Temp 98.2 F 07/15/23 07:13 Pulse 76 07/15/23 07:13 Resp 28 H 07/15/23 07:13 BP 127/67 07/15/23 07:13 Pulse Ox 100 07/15/23 07:13 FiO2 Intake & Output 07/14/23 07/15/23 07/15/23 17:59 06:59 18:59 Output Total 600 Balance -600 Output: Urine 600 Other: Voiding Method Indwelling Catheter - Exam -GENERAL: The patient is alert and oriented x2-3, not in any acute distress. Well developed, well nourished. HEENT: Pupils are round and equally reacting to light. EOMI. No scleral icterus. No conjunctival pallor. Normocephalic, atraumatic. No pharyngeal erythema. No thyromegaly. CARDIOVASCULAR: S1 and S2 present. No murmurs, rubs, or gallops. PULMONARY: Chest is clear to auscultation, no wheezing , no crackles. ABDOMEN: Soft, nontender, nondistended, normoactive bowel sounds. No palpable organomegaly. MUSCULOSKELETAL: No joint swelling or deformity. EXTREMITIES: No cyanosis, clubbing, or pedal edema. -NEUROLOGICAL: Gross neurological examination did not reveal any focal deficits. Left leg is swollen, erythematous with superficial wounds anteriorly status post amputated lateral 2 toes with infection in the area. SKIN: No rashes. no petechiae. - Labs CBC & Chem 7: 07/14/23 05:10 07/14/23 05:10 Labs: Abnormal Lab Results - Last 24 Hours (Table) 07/14/23 07/14/23 07/14/23 Range/Units 05:10 05:10 11:53 WBC 12.30 H (4.50-10.00) X 10*3/uL RBC 3.77 L (4.40-5.60) X 10*6/uL Hgb 11.1 L (13.0-17.0) g/dL Hct 35.2 L (39.6-50.0) % MCHC 31.5 L (32.0-37.0) g/dL MPV 9.0 L (9.5-12.2) FL Immature Gran # 0.06 H (0.00-0.04) X 10*3/uL Neutrophils # 9.21 H (1.80-7.70) X 10*3/uL Monocytes # 1.16 H (0.20-1.00) X 10*3/uL Eosinophils # 0.39 H (0.04-0.35) X 10*3/uL ESR 82 H (0-20) mm/Hr BUN 28.3 H (9.0-27.0) mg/dL Est GFR (CKD-EPI) 53 L (>=60) BUN/Creatinine Ratio 21.77 H (12.00-20.00) Ratio Glucose 116 H (70-110) mg/dL POC Glucose (mg/dL) 207 H (70-110) mg/dL C-Reactive Protein 21.20 H (0.00-0.80) mg/dL 07/14/23 07/14/23 07/15/23 Range/Units 16:53 19:54 07:11 WBC (4.50-10.00) X 10*3/uL RBC (4.40-5.60) X 10*6/uL Hgb (13.0-17.0) g/dL Hct (39.6-50.0) % MCHC (32.0-37.0) g/dL MPV (9.5-12.2) FL Immature Gran # (0.00-0.04) X 10*3/uL Neutrophils # (1.80-7.70) X 10*3/uL Monocytes # (0.20-1.00) X 10*3/uL Eosinophils # (0.04-0.35) X 10*3/uL ESR (0-20) mm/Hr BUN (9.0-27.0) mg/dL Est GFR (CKD-EPI) (>=60) BUN/Creatinine Ratio (12.00-20.00) Ratio Glucose (70-110) mg/dL POC Glucose (mg/dL) 209 H 194 H 127 H (70-110) mg/dL C-Reactive Protein (0.00-0.80) mg/dL Microbiology - Last 24 Hours (Table) 07/13/23 09:10 Gram Stain - Preliminary Ankle - Left Wound Culture - Preliminary Gram Neg Bacilli Presumptive MRSA 07/13/23 09:13 Blood Culture - Preliminary Blood 07/13/23 09:34 Blood Culture - Preliminary Blood Assessment and Plan Assessment: Left foot infected wound and cellulitis. Secondary to presumptive MRSA and gram-negative bacilli Altered mental status, mostly metabolic/toxic encephalopathy on the top of his dementia Diabetes mellitus Hypertension History of osteoarthritis Plan: Continue with antibiotics Infectious disease consult currently on Zosyn Follow-up culture results Check ultrasound of the left lower extremity Labs and medication were reviewed.. Continue same treatment. Continue with symptomatic treatment. Resume home medication. Monitor lytes and vitals. DVT and GI prophylaxis. Further recommendations depends on the clinical course of the patient DVT prophylaxis: Subcutaneous heparin GI Prophylaxis: Pepcid PT/OT: Pending Prognosis is guarded
[2023-07-15] MEDS: DAPTOmycin 500 MG in SODIUM CHLORIDE 0.9% 50 ML IVPB SCH (14:09)
--- NOTE | 2023-07-15 15:08 | P.PN ---
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 On today's visit that is 07/15/2023,the patient denies any fever or any chills, patient is breathing comfortably on 2 L nasal cannula oxygen, the patient denies chest pain shortness of breath did have occasional cough, patient denies abdominal pain, no nausea vomiting or diarrhea. No worsening pain to the left foot wound area. No new labs drawn today cultures growing gram-negative and present MRSA Objective - Vital Signs Vital signs: Vital Signs Temp 98.2 F 07/15/23 07:13 Pulse 76 07/15/23 07:13 Resp 28 H 07/15/23 07:13 BP 127/67 07/15/23 07:13 Pulse Ox 100 07/15/23 07:13 FiO2 Intake & Output 07/14/23 07/15/23 07/15/23 17:59 06:59 18:59 Output Total 600 Balance -600 Output: Urine 600 Other: Voiding Method Indwelling Catheter - Exam GENERAL DESCRIPTION: An elderly male lying in bed in no distress RESPIRATORY SYSTEM: Unlabored breathing , decreased breath sounds at bases HEART: S1 S2 regular rate and rhythm , ABDOMEN: Soft , no tenderness EXTREMITIES: Left foot is currently dressed - Labs CBC & Chem 7: 07/14/23 05:10 07/14/23 05:10 Labs: Abnormal Lab Results - Last 24 Hours (Table) 07/14/23 07/14/23 07/14/23 Range/Units 11:53 16:53 19:54 POC Glucose (mg/dL) 207 H 209 H 194 H (70-110) mg/dL 07/15/23 07/15/23 Range/Units 07:11 11:53 POC Glucose (mg/dL) 127 H 168 H (70-110) mg/dL Microbiology - Last 24 Hours (Table) 07/13/23 09:10 Gram Stain - Preliminary Ankle - Left Wound Culture - Preliminary Gram Neg Bacilli Presumptive MRSA 07/13/23 09:13 Blood Culture - Preliminary Blood 07/13/23 09:34 Blood Culture - Preliminary Blood Assessment and Plan (1) Leukocytosis Current Visit: Yes Status: Acute Code(s): D72.829 - ELEVATED WHITE BLOOD CELL COUNT, UNSPECIFIED SNOMED Code(s): 335985366 (2) Wound of left foot Current Visit: Yes Status: Acute Code(s): S91.302A - UNSPECIFIED OPEN WOUND, LEFT FOOT, INITIAL ENCOUNTER SNOMED Code(s): 01537546182063977 (3) Cellulitis of left foot Current Visit: No Status: Acute Code(s): L03.116 - CELLULITIS OF LEFT LOWER LIMB SNOMED Code(s): 82893788420938024 Plan: 1[facility] infection on the basis of mildly elevated white count and he did have elevated sed rate patient did have a 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2 4-local wound care with a dry Aquacel silver dressing changed to 48 hours 5-currently waiting for the bone scan 6-patient to continue with the Zosyn will add daptomycin to cover for the MRSA Dictation was produced using [employer] dictation software. please excuse any grammatical, word or spelling errors. Time with Patient: Less than 30
[2023-07-15 17:13] LABS: Glucose,Whole Blood 183 mg/dL (70-110)
[2023-07-15 20:14] LABS: Glucose,Whole Blood 206 mg/dL (70-110)
[2023-07-16 07:52] LABS: Glucose,Whole Blood 133 mg/dL (70-110)
[2023-07-16 11:07] LABS: Basophils # (A) 0.05 X 10*3/uL (0.00-0.10); Basophils % (A) 0.5 %; Eosinophils # (A) 0.43 X 10*3/uL (0.04-0.35); Eosinophils % (A) 3.9 %; HCT 32.3 % (39.6-50.0); HGB 10.2 g/dL (13.0-17.0); Lymphocytes # (A) 1.79 X 10*3/uL (0.90-5.00); Lymphocytes % (A) 16.2 %; MCH 29.8 pg (27.0-32.0); MCHC 31.6 g/dL (32.0-37.0); MCV 94.4 FL (80.0-97.0); Monocytes # (A) 1.03 X 10*3/uL (0.20-1.00); Monocytes % (A) 9.3 %; NRBC Per 100 WBC 0 X 10*3/uL (0.00-0.01); Neutrophils # (A) 7.71 X 10*3/uL (1.80-7.70); Neutrophils % (A) 69.8 %; Platelet Count 327 X 10*3/uL (140-440); RBC 3.42 X 10*6/uL (4.40-5.60); RDW 13.2 % (11.5-14.5); WBC 11.04 X 10*3/uL (4.50-10.00)
[2023-07-16 11:16] LABS: BUN/Creat Ratio 19.29 Ratio (12.00-20.00); Calcium 9.3 mg/dL (8.7-10.3); Carbon Dioxide 29.4 mmol/L (21.6-31.8); Chloride 100 mmol/L (96-109); Glucose 138 mg/dL (70-110); Potassium 4.8 mmol/L (3.5-5.5); Sodium 139 mmol/L (135-145)
[2023-07-16 12:22] LABS: Glucose,Whole Blood 254 mg/dL (70-110)
--- NOTE | 2023-07-16 12:38 | P.PN ---
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 On today's visit that is 07/16/2023,the patient remains to be afebrile, patient is on 2 L nasal cannula supplemental oxygen and denies any shortness of breath no chest pain or cough.Patient denies having any nausea or vomiting, no abdominal pain and no diarrhea has been reported or any worsening pain to the left foot. Patient white count is down to 11.04 creatinine is 1.4 cultures growing MRSA P roteus and Streptococcus agalactiae Objective - Vital Signs Vital signs: Vital Signs Temp 98.4 F 07/16/23 07:11 Pulse 87 07/16/23 07:11 Resp 19 07/16/23 07:11 BP 125/69 07/16/23 07:11 Pulse Ox 96 07/16/23 08:10 FiO2 Intake & Output 07/15/23 07/16/23 07/16/23 18:59 06:59 18:59 Output Total 1250 1400 Balance -1250 -1400 Output: Urine 1250 1400 Other: Voiding Method Indwelling Catheter Indwelling Catheter Indwelling Catheter # Bowel Movements 1 - Exam GENERAL DESCRIPTION: An elderly male lying in bed in no distress RESPIRATORY SYSTEM: Unlabored breathing , decreased breath sounds at bases HEART: S1 S2 regular rate and rhythm , ABDOMEN: Soft , no tenderness EXTREMITIES: Left foot is currently dressed - Labs CBC & Chem 7: 07/16/23 05:40 07/16/23 05:40 Labs: Abnormal Lab Results - Last 24 Hours (Table) 07/15/23 07/15/23 07/16/23 Range/Units 17:12 20:09 05:40 WBC 11.04 H (4.50-10.00) X 10*3/uL RBC 3.42 L (4.40-5.60) X 10*6/uL Hgb 10.2 L (13.0-17.0) g/dL Hct 32.3 L (39.6-50.0) % MCHC 31.6 L (32.0-37.0) g/dL MPV 9.0 L (9.5-12.2) FL Neutrophils # 7.71 H (1.80-7.70) X 10*3/uL Monocytes # 1.03 H (0.20-1.00) X 10*3/uL Eosinophils # 0.43 H (0.04-0.35) X 10*3/uL Est GFR (CKD-EPI) (>=60) Glucose (70-110) mg/dL POC Glucose (mg/dL) 183 H 206 H (70-110) mg/dL 07/16/23 07/16/23 07/16/23 Range/Units 05:40 07:51 12:21 WBC (4.50-10.00) X 10*3/uL RBC (4.40-5.60) X 10*6/uL Hgb (13.0-17.0) g/dL Hct (39.6-50.0) % MCHC (32.0-37.0) g/dL MPV (9.5-12.2) FL Neutrophils # (1.80-7.70) X 10*3/uL Monocytes # (0.20-1.00) X 10*3/uL Eosinophils # (0.04-0.35) X 10*3/uL Est GFR (CKD-EPI) 49 L (>=60) Glucose 138 H (70-110) mg/dL POC Glucose (mg/dL) 133 H 254 H (70-110) mg/dL Microbiology - Last 24 Hours (Table) 07/13/23 17:00 Anaerobic Culture - Preliminary Foot - Left 07/13/23 17:00 Gram Stain - Final Foot - Left Wound Culture - Final Methicillin resist S. aureus Proteus mirabilis Strep agalactiae - (group b) 07/13/23 09:10 Gram Stain - Final Ankle - Left Wound Culture - Preliminary Proteus mirabilis Methicillin resist S. aureus Strep agalactiae - (group b) 07/13/23 09:10 Gram Stain - Final Ankle - Left Wound Culture - Final Proteus mirabilis Methicillin resist S. aureus Strep agalactiae - (group b) 07/13/23 09:13 Blood Culture - Preliminary Blood 07/13/23 09:34 Blood Culture - Preliminary Blood Assessment and Plan (1) Leukocytosis Current Visit: Yes Status: Acute Code(s): D72.829 - ELEVATED WHITE BLOOD CELL COUNT, UNSPECIFIED SNOMED Code(s): 186237707 (2) Wound of left foot Current Visit: Yes Status: Acute Code(s): S91.302A - UNSPECIFIED OPEN WOUND, LEFT FOOT, INITIAL ENCOUNTER SNOMED Code(s): 43254587268546016 (3) Cellulitis of left foot Current Visit: No Status: Acute Code(s): L03.116 - CELLULITIS OF LEFT LOWER LIMB SNOMED Code(s): 24936419332088521 Plan: 1patient has been sent to the ER from the detention concerning for infection on the basis of mildly elevated white count and he did have elevated sed rate patient did have a 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 after amputation of the fifth followed by fourth toe and did have an episode of osteomyelitis back in April culture grew Proteus Enterococcus and MRSA for the patient received more than 8 weeks of IV antibiotic therapy patient is currently not running any fever left foot did have a nonhealing wound however borders not probed no slough was noticed on the surrounding redness, clinically doubt elevated sed rate is entirely due to the infection at this point 2-local culture has been obtained and currently growing MRSA Proteus and Streptococcus agalactiae 3 patient did have elevated sed rate of 82 CRP is 21.2 4-local wound care with a dry Aquacel silver dressing changed to 48 hours 5- bone scan is currently in progress and results were followed 6-patient to continue with daptomycin however will discontinue Zosyn and start the patient on Rocephin and Flagyl to cover for the Proteus and Streptococcus agalactiae Dictation was produced using [employer] dictation software. please excuse any grammatical, word or spelling errors. Time with Patient: Less than 30
--- NOTE | 2023-07-16 13:59 | NM ---
EXAMINATION TYPE: NM bone 3 phase DATE OF EXAM: 07/16/2023 COMPARISON: Radiograph 07/13/2023 CLINICAL INDICATION: Male, 88 years old with history of Left foot wound and question of osteomyelitis ; Technique: Triple phase bone scintigraphy was performed following the injection of 25.8 mCi Tc 99m MD P. Immediate images and 5 hours post injection images acquired. Imaging centered at the bilateral di stal lower extremities. FINDINGS: The exam is very limited to only single projection at the patient could not be easily moved and was i nishant on his hospital bed. Multiple views could therefore not be acquired. Imaging had to be done in the medial position. There is three-phase bone scan positive increased activity along the left midfoot. No other abnormal tracer activity is seen. IMPRESSION: 3 phase bone scan positive involving the left midfoot. The patient could be imaged only i n one projection limiting the assessment. However, given three-phase positive findings, findings are highly suggestive of a contiguous osteomyelitis. When correlating with radiographs, this should corre spond to the fourth and fifth metatarsal osteotomy margins.
[2023-07-16 17:12] LABS: Glucose,Whole Blood 168 mg/dL (70-110)
[2023-07-16] MEDS: metroNIDAZOLE 500 MG TAB PO SCH (17:12)
[2023-07-16 20:22] LABS: Glucose,Whole Blood 243 mg/dL (70-110)
--- NOTE | 2023-07-17 05:21 | P.PN ---
Subjective Progress Note Date: 07/16/23 This is a pleasant 88 years old male with multiple medical problems. Was sent from [facility] for not feeling well and and leukocytosis Patient is poor historian so information was obtained from the staff and records Patient is afebrile Labs reviewed showing WBC 11,000, hemoglobin 11, creatinine 1.3 which is at baseline of 1.3-1.5. Rest of BMP and liver enzymes were unremarkable Left foot x-ray showing amputated fourth and fifth toes with soft tissue swelling of the plantar aspect and possible open wound on the lateral side distally Chest x-ray showing bilateral basal atelectasis versus consolidation EKG sinus rhythm at [address]-T changes Patient started on Zosyn Normal Saline 75 mL/h 07/14/23 Patient is awake alert today, answers questions appropriately. He has good appetite. He denies specific complaint Is still being treated for his left foot cellulitis. Ultrasound was negative for DVT in the left leg Patient remains on Unasyn 07/15/23 Patient is still treated for his left foot infection Wound culture is growing presumptive MRSA and gram-negative bacilli He was on Zosyn and daptomycin was added to the regimen. Patient denies any other complaint He continue with gentle hydration 50 mL/h. Will give one-time small dose of Lasix 20 mg 07/16/2023 Patient is seen and evaluated in follow-up undergoing a bone scan today with infectious disease following maintained on IV antibiotics with culture showing Proteus, MRSA, strep group B and continued on vancomycin. Continue with local wound care per infectious disease recommendations and will discuss further once bone scan has resulted regarding treatment plan moving forward. Patient does reside at [facility] with plans on returning there. Patient is afebrile with no reports of chest pain or shortness of breath. Patient is tolerating diet with no reported nausea or vomiting. Recommend PT/OT therapy evaluation. Review of systems: Constitutional: No reports of fatigue, fever, or chills Cardiovascular: No reports of chest pain or palpitations Respiratory: No reports of shortness of breath or cough GI: No reports of nausea, vomiting, or diarrhea : No reports of dysuria or retention Neurovascular: reports of weakness, denies foot pain All medications have been reviewed Physical exam: GENERAL: The patient is alert and oriented x2-3, elderly appearing. Well developed, well nourished. HEENT: Pupils are round and equally reacting to light. EOMI. No scleral icterus. No conjunctival pallor. Normocephalic, atraumatic. No pharyngeal erythema. No thyromegaly. CARDIOVASCULAR: S1 and S2 muffled PULMONARY: Diminished breath sounds bilaterally otherwise chest is clear to auscultation, no wheezing , no crackles. ABDOMEN: Soft, nontender, nondistended, normoactive bowel sounds. No palpable organomegaly. MUSCULOSKELETAL: No joint swelling or deformity. EXTREMITIES: No cyanosis, clubbing, or pedal edema. Kerlix dressing is dry and intact on the left lower extremity NEUROLOGICAL: Gross neurological examination did not reveal any focal deficits. Left leg is swollen, erythematous with superficial wounds anteriorly status post amputated lateral 2 toes with infection in the area. SKIN: No rashes. no petechiae. Assessment: Left foot infected wound with surrounding cellulitis. Present on admission secondary to presumptive MRSA and Proteus Mirabella's with strep group B Altered mental status, mostly metabolic/toxic encephalopathy on the top of his dementia, improved History of dementia Diabetes mellitus, type II, insulin-dependent, uncontrolled with hyperglycemia Hypertension history History of osteoarthritis GI prophylaxis DVT prophylaxis Full code Plan: Continue with antibiotics with infectious disease following in the form of vancomycin. Awaiting cultures and showing Proteus Mirabella's, MRSA, strep group B Patient under going a bone scan currently and will await report and discuss further with infectious disease on discharge planning and treatment plan moving forward PT/OT to evaluate the patient Case management following as patient will be returning to [facility] where he r esides on discharge Continue with local wound care and elevate lower extremities while at rest Due to multiple complex medical issues, prognosis is guarded The impression and plan of care has been dictated by Shereen Fragoso, Nurse Practitioner as directed. Dr. Keagan MD I have performed a history and examination and MDM of this patient, discussed the same with the dictator, and agree with the dictator's assessment and plan as written ,documented as a scribe. Based on total visit time, I have performed more than 50% of the visit. Objective - Vital Signs Vital signs: Vital Signs Temp 98.4 F 07/16/23 07:11 Pulse 87 07/16/23 07:11 Resp 19 07/16/23 07:11 BP 125/69 07/16/23 07:11 Pulse Ox 96 03/11/24 08:10 FiO2 Intake & Output 07/15/23 07/16/23 07/16/23 18:59 06:59 18:59 Output Total 1250 1400 Balance -1250 -1400 Output: Urine 1250 1400 Other: Voiding Method Indwelling Catheter Indwelling Catheter Indwelling Catheter # Bowel Movements 1 - Labs CBC & Chem 7: 07/16/23 05:40 07/16/23 05:40 Labs: Abnormal Lab Results - Last 24 Hours (Table) 07/15/23 07/15/23 07/15/23 Range/Units 11:53 17:12 20:09 POC Glucose (mg/dL) 168 H 183 H 206 H (70-110) mg/dL 07/16/23 Range/Units 07:51 POC Glucose (mg/dL) 133 H (70-110) mg/dL Microbiology - Last 24 Hours (Table) 07/13/23 09:10 Gram Stain - Final Ankle - Left Wound Culture - Preliminary Proteus mirabilis Methicillin resist S. aureus Strep agalactiae - (group b) 07/13/23 09:13 Blood Culture - Preliminary Blood 07/13/23 09:34 Blood Culture - Preliminary Blood
[2023-07-17 07:21] LABS: Glucose,Whole Blood 142 mg/dL (70-110)
[2023-07-17 11:15] LABS: Basophils # (A) 0.05 X 10*3/uL (0.00-0.10); Basophils % (A) 0.5 %; Eosinophils # (A) 0.37 X 10*3/uL (0.04-0.35); Eosinophils % (A) 3.6 %; HCT 32.1 % (39.6-50.0); Lymphocytes # (A) 2.18 X 10*3/uL (0.90-5.00); MCH 29.3 pg (27.0-32.0); MCHC 31.2 g/dL (32.0-37.0); MCV 94.1 FL (80.0-97.0); Monocytes # (A) 0.79 X 10*3/uL (0.20-1.00); Monocytes % (A) 7.6 %; NRBC Per 100 WBC 0 X 10*3/uL (0.00-0.01); Neutrophils # (A) 6.95 X 10*3/uL (1.80-7.70); Neutrophils % (A) 66.9 %; Platelet Count 324 X 10*3/uL (140-440); RBC 3.41 X 10*6/uL (4.40-5.60); RDW 13.4 % (11.5-14.5); WBC 10.38 X 10*3/uL (4.50-10.00)
[2023-07-17 11:24] LABS: BUN/Creat Ratio 18.36 Ratio (12.00-20.00); Blood Urea Nitrogen 25.7 mg/dL (9.0-27.0); Calcium 8.9 mg/dL (8.7-10.3); Carbon Dioxide 27.9 mmol/L (21.6-31.8); Chloride 100 mmol/L (96-109); Glucose 145 mg/dL (70-110); Magnesium 1.9 mg/dL (1.5-2.4); Potassium 4.7 mmol/L (3.5-5.5); Sodium 137 mmol/L (135-145)
[2023-07-17 12:00] LABS: Glucose,Whole Blood 149 mg/dL (70-110)
[2023-07-17] MEDS: LIDOCAINE 1% INJ 10MG/ML (5 ML VIAL-PF) SQ ONE (12:15)
--- NOTE | 2023-07-17 12:27 | P.PCN ---
Date of Procedure: 07/17/23 Preoperative Diagnosis: Diabetic foot infection, need for long-term IV antibiotics Postoperative Diagnosis: Same Procedure(s) Performed: Left upper extremity basilic vein PICC placement under fluoroscopic and ultrasound guidance Anesthesia: local Surgeon: Walker Sprague Disposition: floor Description of Procedure: After written and informed consent was obtained the patient and all risks, benefits and competitions were described the patient was brought to the Film [facility] and laid in a supine position with his left arm outstretched on an armboard. The area of the left arm was prepped and draped in usual sterile fashion. Timeout was performed in normal fashion. Utilizing ultrasound the basilic vein was visualized and shown to be compressible without any visible thrombus. Under ultrasound guidance the basilic vein was then cannulated with a micropuncture needle and wire was placed under direct visualization of fluoroscopy. Introducer sheath was then placed. The catheter was measured and cut to the appropriate length which was 49 cm. The catheter was then guided through the breakaway sheath and the sheath was removed with good positioning was visualized under fluoroscopy. The catheter was pulled and flushed easily. It was then secured in place in normal fashion. Patient tolerated the procedure well was sent back to his room for recovery.
[2023-07-17] MEDS: ERTAPENEM 1 GM in SODIUM CHLORIDE 0.9% 50 ML IVPB SCH (14:14)
--- NOTE | 2023-07-17 16:36 | P.PN ---
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 On today's visit that is 07/17/2023, the patient continues to be afebrile, the patient is on 2 L nasal cannula oxygen and breathing comfortably, the Pt has been complaining of feeling not well but unable to quantify his symptoms no vomiting diarrhea reported or worsening pain to the left foot. Patient white count is down to 10.38, creatinine is 1.4 cultures growing MRSA ESBL Proteus and Streptococcus agalactiae Objective - Vital Signs Vital signs: Vital Signs Temp 98.1 F 07/17/23 11:58 Pulse 85 07/17/23 11:58 Resp 16 07/17/23 11:58 BP 111/58 07/17/23 11:58 Pulse Ox 93 L 07/17/23 11:58 FiO2 Intake & Output 07/16/23 07/17/23 07/17/23 18:59 06:59 18:59 Intake Total 1100 Output Total 1001 800 Balance 99 -800 Intake: Intake, IV Titration 600 Amount Sodium Chloride 0.9% 1, 600 000 ml @ 50 mls/hr IV . Q20H [facility] Rx#:[id number] Oral 500 Output: Urine 1000 800 Stool 1 Other: Voiding Method Indwelling Catheter Indwelling Catheter Indwelling Catheter - Exam GENERAL DESCRIPTION: An elderly male lying in bed in no distress RESPIRATORY SYSTEM: Unlabored breathing , decreased breath sounds at bases HEART: S1 S2 regular rate and rhythm , ABDOMEN: Soft , no tenderness EXTREMITIES: Left foot is currently dressed - Labs CBC & Chem 7: 07/17/23 05:51 07/17/23 05:51 Labs: Abnormal Lab Results - Last 24 Hours (Table) 07/16/23 07/16/23 07/17/23 Range/Units 17:10 20:20 05:51 WBC 10.38 H (4.50-10.00) X 10*3/uL RBC 3.41 L (4.40-5.60) X 10*6/uL Hgb 10.0 L (13.0-17.0) g/dL Hct 32.1 L (39.6-50.0) % MCHC 31.2 L (32.0-37.0) g/dL MPV 9.0 L (9.5-12.2) FL Eosinophils # 0.37 H (0.04-0.35) X 10*3/uL Est GFR (CKD-EPI) (>=60) Glucose (70-110) mg/dL POC Glucose (mg/dL) 168 H 243 H (70-110) mg/dL 07/17/23 07/17/23 07/17/23 Range/Units 05:51 07:19 11:59 WBC (4.50-10.00) X 10*3/uL RBC (4.40-5.60) X 10*6/uL Hgb (13.0-17.0) g/dL Hct (39.6-50.0) % MCHC (32.0-37.0) g/dL MPV (9.5-12.2) FL Eosinophils # (0.04-0.35) X 10*3/uL Est GFR (CKD-EPI) 49 L (>=60) Glucose 145 H (70-110) mg/dL POC Glucose (mg/dL) 142 H 149 H (70-110) mg/dL Microbiology - Last 24 Hours (Table) 07/13/23 09:13 Blood Culture - Preliminary Blood 07/13/23 09:34 Blood Culture - Preliminary Blood 07/13/23 17:00 Anaerobic Culture - Preliminary Foot - Left 07/13/23 17:00 Gram Stain - Final Foot - Left Wound Culture - Final Methicillin resist S. aureus Proteus mirabilis Strep agalactiae - (group b) 07/13/23 09:10 Gram Stain - Final Ankle - Left Wound Culture - Preliminary Proteus mirabilis Methicillin resist S. aureus Strep agalactiae - (group b) 07/13/23 09:10 Gram Stain - Final Ankle - Left Wound Culture - Final Proteus mirabilis Methicillin resist S. aureus Strep agalactiae - (group b) Assessment and Plan (1) Leukocytosis Current Visit: Yes Status: Acute Code(s): D72.829 - ELEVATED WHITE BLOOD CELL COUNT, UNSPECIFIED SNOMED Code(s): 092155301 (2) Wound of left foot Current Visit: Yes Status: Acute Code(s): S91.302A - UNSPECIFIED OPEN WOUND, LEFT FOOT, INITIAL ENCOUNTER SNOMED Code(s): 68654030293117589 (3) Cellulitis of left foot Current Visit: No Status: Acute Code(s): L03.116 - CELLULITIS OF LEFT LOWER LIMB SNOMED Code(s): 48386013947946493 Plan: 1patient has been [facility] concerning for infection on the basis of mildly elevated white count and he did have elevated sed rate patient did have a 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 after amputation of the fifth followed by fourth toe and did have an episode of osteomyelitis back in April culture grew Proteus Enterococcus and MRSA for the patient received more than 8 weeks of IV antibiotic therapy patient is currently not running any fever left foot did have a nonhealing wound however borders not probed no slough was noticed on the surrounding redness, clinically doubt elevated sed rate is entirely due to the infection at this point 2-local culture has been obtained and currently growing MRSA, ESBL Proteus and Streptococcus agalactiae 3 patient did have elevated sed rate of 82 CRP is 21.2 4-local wound care with a dry Aquacel silver dressing changed to 48 hours 5- bone scan is suspicious for osteomyelitis involving the left fourth and fifth amputation site 6-patient to continue with daptomycin however will discontinue Rocephin and Flagyl and start the patient on Invanz to cover for the ESBL Proteus and Streptococcus agalactiae, plan is for 6-week course of Invanz and daptomycin on discharge this was discussed with S[employer]IOR [employer]WORK SYSTEMS ENGINEER for admitting team Dictation was produced using [employer] dictation software. please excuse any grammatical, word or spelling errors. Time with Patient: Less than 30
[2023-07-17 16:43] LABS: Glucose,Whole Blood 256 mg/dL (70-110)
--- NOTE | 2023-07-17 20:13 | P.PN ---
Subjective Progress Note Date: 07/17/23 This is a pleasant 88 years old male with multiple medical problems. Was sent from [facility] for not feeling well and and leukocytosis Patient is poor historian so information was obtained from the staff and records Patient is afebrile Labs reviewed showing WBC 11,000, hemoglobin 11, creatinine 1.3 which is at baseline of 1.3-1.5. Rest of BMP and liver enzymes were unremarkable Left foot x-ray showing amputated fourth and fifth toes with soft tissue swelling of the plantar aspect and possible open wound on the lateral side distally Chest x-ray showing bilateral basal atelectasis versus consolidation EKG sinus rhythm at [address]-T changes Patient started on Zosyn Normal Saline 75 mL/h 07/14/23 Patient is awake alert today, answers questions appropriately. He has good appetite. He denies specific complaint Is still being treated for his left foot cellulitis. Ultrasound was negative for DVT in the left leg Patient remains on Unasyn 07/15/23 Patient is still treated for his left foot infection Wound culture is growing presumptive MRSA and gram-negative bacilli He was on Zosyn and daptomycin was added to the regimen. Patient denies any other complaint He continue with gentle hydration 50 mL/h. Will give one-time small dose of Lasix 20 mg 07/16/2023 Patient is seen and evaluated in follow-up undergoing a bone scan today with infectious disease following maintained on IV antibiotics with culture showing Proteus, MRSA, strep group B and continued on vancomycin. Continue with local wound care per infectious disease recommendations and will discuss further once bone scan has resulted regarding treatment plan moving forward. Patient does reside at [facility] with plans on returning there. Patient is afebrile with no reports of chest pain or shortness of breath. Patient is tolerating diet with no reported nausea or vomiting. Recommend PT/OT therapy evaluation. 07/17/2023 Patient is seen and evaluated in follow-up today scheduled to receive a PICC line. Bone scan was suggestive of osteomyelitis and patient will be continued on IV antibiotics at [facility]. Infectious disease following and currently maintained on ceftriaxone and Flagyl and will be continuing on 6 weeks of daptomycin and ertapenem in the outpatient setting. Case management following as patient will require insurance authorization for [facility]. Patient is currently afebrile with no reports of chest pain or shortness of breath. Patient is tolerating diet with no reported nausea or vomiting. PT/OT therapy to evaluate the patient with plans on discharge to [facility] once insurance authorization is obtained. Review of systems: Constitutional: No reports of fatigue, fever, or chills Cardiovascular: No reports of chest pain or palpitations Respiratory: No reports of shortness of breath or cough GI: No reports of nausea, vomiting, or diarrhea : No reports of dysuria or retention Neurovascular: reports of weakness, denies foot pain All medications have been reviewed Physical exam: GENERAL: The patient is alert and oriented x2-3, elderly appearing. Well developed, well nourished. HEENT: Pupils are round and equally reacting to light. EOMI. No scleral icterus. No conjunctival pallor. Normocephalic, atraumatic. No pharyngeal erythema. No thyromegaly. CARDIOVASCULAR: S1 and S2 muffled PULMONARY: Diminished breath sounds bilaterally otherwise chest is clear to auscultation, no wheezing , no crackles. ABDOMEN: Soft, nontender, nondistended, normoactive bowel sounds. No palpable organomegaly. MUSCULOSKELETAL: No joint swelling or deformity. EXTREMITIES: No cyanosis, clubbing, or pedal edema. Kerlix dressing is dry and intact on the left lower extremity NEUROLOGICAL: Gross neurological examination did not reveal any focal deficits. Left leg is swollen, erythematous with superficial wounds anteriorly status post amputated lateral 2 toes with infection in the area. SKIN: No rashes. no petechiae. Assessment: Left foot infected wound with surrounding cellulitis. Present on admission secondary to presumptive MRSA and Proteus Mirabella's with strep group B Bone scan showing osteomyelitis Altered mental status, mostly metabolic/toxic encephalopathy on the top of his dementia, improved History of dementia Diabetes mellitus, type II, insulin-dependent, uncontrolled with hyperglycemia Hypertension history History of osteoarthritis GI prophylaxis DVT prophylaxis Full code Plan: Continue with antibiotics with infectious disease following in the form of vancomycin. cultures showing Proteus Mirabella's, MRSA, strep group B Patient underwent a bone scan suggestive of osteomyelitis and will order PICC line for outpatient IV abx Plan is for 6 weeks of ertapenem and daptomycin. Case management made aware as patient will require insurance authorization PT/OT to evaluate the patient Continue with local wound care and elevate lower extremities while at rest Due to multiple complex medical issues, prognosis is guarded The impression and plan of care has been dictated by Shereen Fragoso, Nurse Practitioner as directed. Dr. Keagan MD I have performed a history and examination and MDM of this patient, discussed the same with the dictator, and agree with the dictator's assessment and plan as written ,documented as a scribe. Based on total visit time, I have performed more than 50% of the visit. Objective - Vital Signs Vital signs: Vital Signs Temp 98.5 F 07/17/23 07:12 Pulse 92 07/17/23 07:12 Resp 20 07/17/23 07:12 BP 137/65 07/17/23 07:12 Pulse Ox 98 07/17/23 07:50 FiO2 Intake & Output 07/16/23 07/17/23 07/17/23 18:59 06:59 18:59 Intake Total 1100 Output Total 1001 Balance 99 Intake: Intake, IV Titration 600 Amount Sodium Chloride 0.9% 1, 600 000 ml @ 50 mls/hr IV . Q20H [facility] Rx#:[id number] Oral 500 Output: Urine 1000 Stool 1 Other: Voiding Method Indwelling Catheter Indwelling Catheter - Labs CBC & Chem 7: 07/17/23 05:51 07/17/23 05:51 Labs: Abnormal Lab Results - Last 24 Hours (Table) 07/16/23 07/16/23 07/16/23 Range/Units 05:40 05:40 12:21 WBC 11.04 H (4.50-10.00) X 10*3/uL RBC 3.42 L (4.40-5.60) X 10*6/uL Hgb 10.2 L (13.0-17.0) g/dL Hct 32.3 L (39.6-50.0) % MCHC 31.6 L (32.0-37.0) g/dL MPV 9.0 L (9.5-12.2) FL Neutrophils # 7.71 H (1.80-7.70) X 10*3/uL Monocytes # 1.03 H (0.20-1.00) X 10*3/uL Eosinophils # 0.43 H (0.04-0.35) X 10*3/uL Est GFR (CKD-EPI) 49 L (>=60) Glucose 138 H (70-110) mg/dL POC Glucose (mg/dL) 254 H (70-110) mg/dL 07/16/23 07/16/23 07/17/23 Range/Units 17:10 20:20 07:19 WBC (4.50-10.00) X 10*3/uL RBC (4.40-5.60) X 10*6/uL Hgb (13.0-17.0) g/dL Hct (39.6-50.0) % MCHC (32.0-37.0) g/dL MPV (9.5-12.2) FL Neutrophils # (1.80-7.70) X 10*3/uL Monocytes # (0.20-1.00) X 10*3/uL Eosinophils # (0.04-0.35) X 10*3/uL Est GFR (CKD-EPI) (>=60) Glucose (70-110) mg/dL POC Glucose (mg/dL) 168 H 243 H 142 H (70-110) mg/dL Microbiology - Last 24 Hours (Table) 07/13/23 09:13 Blood Culture - Preliminary Blood 07/13/23 09:34 Blood Culture - Preliminary Blood 07/13/23 17:00 Anaerobic Culture - Preliminary Foot - Left 07/13/23 17:00 Gram Stain - Final Foot - Left Wound Culture - Final Methicillin resist S. aureus Proteus mirabilis Strep agalactiae - (group b) 07/13/23 09:10 Gram Stain - Final Ankle - Left Wound Culture - Preliminary Proteus mirabilis Methicillin resist S. aureus Strep agalactiae - (group b) 07/13/23 09:10 Gram Stain - Final Ankle - Left Wound Culture - Final Proteus mirabilis Methicillin resist S. aureus Strep agalactiae - (group b)
[2023-07-17 20:26] LABS: Glucose,Whole Blood 175 mg/dL (70-110)
[2023-07-18 07:22] LABS: Glucose,Whole Blood 143 mg/dL (70-110)
--- NOTE | 2023-07-18 09:24 | IR ---
EXAMINATION TYPE: IR cvc insert >=5 years Intraoperative/procedural fluoroscopic services were provid ed. CLINICAL INDICATION:Male, 88 years old with history of Abx, 0.4m/0.8578DAP, 4F 49cm Lt basilic PICC; , [facility] Total fluoroscopy time is 0.5 min. DAP: 84.70 uGym2 Please see the operative/procedural note for further details.
[2023-07-18 11:44] VITALS: BMI 24.3
[2023-07-18 12:23] LABS: Glucose,Whole Blood 219 mg/dL (70-110)
[2023-07-18 13:25] VITALS: BP 131/65; PULSE 78; RESP 16; TEMP 98.2
[2023-07-18] MEDS: ACETAMINOPHEN TAB 325 MG TAB PO PRN (13:58)
--- NOTE | 2023-07-18 14:40 | P.DS ---
Providers Date of admission: 07/13/23 11:10 Expected date of discharge: 07/18/23 Attending physician: Nikita Cain MD Consults: 07/13/23 11:06 Consult Physician Routine Consulting Provider: Yojana Giron Consult Reason/Comments: Foot wound Do you want consulting provider notified?: Yes Primary care physician: Jorje Kiser Hospital Course: Final diagnosis Left foot infected wound with surrounding cellulitis. Present on admission secondary to presumptive MRSA and Proteus Mirabella's with strep group B Bone scan showing osteomyelitis Altered mental status, mostly metabolic/toxic encephalopathy on the top of his dementia, improved History of dementia Diabetes mellitus, type II, insulin-dependent, uncontrolled with hyperglycemia Hypertension history History of osteoarthritis GI prophylaxis DVT prophylaxis Full code Discharge disposition Patient is being discharged in a stable condition with guarded prognosis to [facility]. Patient will follow-up with Dr. Kiser in the outpatient setting upon discharge. Patient is to continue with IV daptomycin as well as IV or ertapenem outpatient with his PICC line for the next 6 weeks. Total time taken is greater than 35 minutes. Hospital course This is a 88-year-old male who was recently admitted with left foot infected wound with surrounding cellulitis being closely monitored. Patient being evaluated by infectious disease maintained on antibiotics and wound cultures of the left foot showing MRSA with Proteus Mirabella's and strep group B and also underwent a bone scan which was suggestive of osteomyelitis. Patient will continue with local wound care and elevating lower extremities while at rest. Patient has received a PICC line and will be continued on IV antibiotics for the next 6 weeks per ID recommendations. Recommend wound care as instructed below. Patient is currently cleared for discharge by consultations. Please refer to other consultation notes for further HPI. Currently no reports of chest pain, shortness of breath, or palpitations. Patient is afebrile. No reports of nausea or vomiting and patient is tolerating diet. Patient will be going to [facility] today. Physical exam: Gen: This is a pleasant 88-year-old male who is awake, alert and oriented x 2, well-developed, elderly appearing HEENT: Head is atraumatic, normocephalic. Pupils equal, round. Sclerae is anicte sharon. NECK: Supple. No JVD. No lymphadenopathy. No thyromegaly. LUNGS: Diminished breath sounds bilaterally otherwise clear to auscultation. No wheezes or rhonchi. No intercostal retractions. HEART: S1, S2 are muffled ABDOMEN: Soft. Bowel sounds are present. No masses. No tenderness. EXTREMITIES: No pedal edema. No calf tenderness. Left lower extremity currently dressed with Kerlex that is dry and intact NEUROLOGICAL: Patient is awake, alert and oriented x3. Cranial nerves 2 through 12 are grossly intact. Please refer to medication reconciliation sheet for a list of medications. The impression and plan of care has been dictated by Shereen Fragoso, Nurse Practitioner as directed. Dr. Keagan MD I have performed a history and examination and MDM of this patient, discussed the same with the dictator, and agree with the dictator's assessment and plan as written ,documented as a scribe. Based on total visit time, I have performed more than 50% of the visit. Patient Condition at Discharge: Stable Plan - Discharge Summary New Discharge Prescriptions: New DAPTOmycin [Cubicin] 500 mg IVPB Q24HR@1400 42 Days #42 each Ertapenem [INVanz] 1 gm IVPB DAILY 42 Days #42 each Continue Acetaminophen Tab [Tylenol] 650 mg PO Q6HR PRN tab PRN Reason: Mild Pain Or Fever > 100.5 INSULIN ASPART (NovoLOG) [NovoLOG (formulary)] See Protocol SQ ACHS@07,11,1830,2130 Glucerna 1.2 John 120 ml PO BID@0800,1700 Insulin Detemir (Levemir) [Levemir] 10 unit SQ HS@2100 Famotidine [Pepcid] 20 mg PO DAILY@0800 amLODIPine [Norvasc] 10 mg PO DAILY@0800 Tamsulosin [Flomax] 0.4 mg PO DAILY@0800 Ipratropium-Albuterol Nebulize [Duoneb 0.5 mg-3 mg/3 ml Soln] 3 ml INHALATION RT-Q6H PRN PRN Reason: Shortness Of Breath Ipratropium-Albuterol Nebulize [Duoneb 0.5 mg-3 mg/3 ml Soln] 3 ml INHALATION RT-QID each HYDROcodone/APAP 5-325MG [Aurora 5-325] 1 tab PO Q6HR PRN #4 tab PRN Reason: Pain bisacodyL [Dulcolax] 10 mg RECTAL DAILY PRN PRN Reason: Constipation Na Phos,M-B/Na Phos,Di-Ba [Fleet Adult] 133 ml RECTAL DAILY PRN PRN Reason: Constipation Magnesium Hydroxide [Milk of Magnesia Concentrate] 7,200 mg PO DAILY PRN PRN Reason: Constipation INSULIN ASPART (NovoLOG) [NovoLOG (formulary)] 3 unit SQ AC-TID@ Heparin Sodium,Porcine (1 ml) [Heparin Sodium] 5,000 unit SQ Q12HR@ polyethylene glycoL 3350 [Miralax] 17 gm PO DAILY@0800 Valsartan [Diovan] 160 mg PO HS tab Furosemide [Lasix] 40 mg PO BID@0800,1700 Discharge Medication List Acetaminophen Tab [Tylenol] 650 mg PO Q6HR PRN tab 01/01/23 [Rx] Famotidine [Pepcid] 20 mg PO DAILY@0800 04/18/23 [History] Glucerna 1.2 John 120 ml PO BID@0800,1700 04/18/23 [History] Heparin Sodium,Porcine (1 ml) [Heparin Sodium] 5,000 unit SQ Q12HR@08,04/18/23 [History] INSULIN ASPART (NovoLOG) [NovoLOG (formulary)] 3 unit SQ AC-TID@04/18/23 [History] INSULIN ASPART (NovoLOG) [NovoLOG (formulary)] See Protocol SQ ACHS@,212904/18/23 [History] Insulin Detemir (Levemir) [Levemir] 10 unit SQ HS@2100 04/18/23 [History] Ipratropium-Albuterol Nebulize [Duoneb 0.5 mg-3 mg/3 ml Soln] 3 ml INHALATION RT-Q6H PRN 04/18/23 [History] Magnesium Hydroxide [Milk of Magnesia Concentrate] 7,200 mg PO DAILY PRN [History] Na Phos,M-B/Na Phos,Di-Ba [Fleet Adult] 133 ml RECTAL DAILY PRN 04/18/23 [History] Tamsulosin [Flomax] 0.4 mg PO DAILY@0800 04/18/23 [History] amLODIPine [Norvasc] 10 mg PO DAILY@0800 04/18/23 [History] bisacodyL [Dulcolax] 10 mg RECTAL DAILY PRN 04/18/23 [History] polyethylene glycoL 3350 [Miralax] 17 gm PO DAILY@0800 04/18/23 [History] Ipratropium-Albuterol Nebulize [Duoneb 0.5 mg-3 mg/3 ml Soln] 3 ml INHALATION RT-QID each 05/15/23 [Rx] Valsartan [Diovan] 160 mg PO HS tab 05/15/23 [Rx] Furosemide [Lasix] 40 mg PO BID@0800,1700 07/13/23 [History] DAPTOmycin [Cubicin] 500 mg IVPB Q24HR@1400 42 Days #42 each 07/18/23 [Rx] Ertapenem [INVanz] 1 gm IVPB DAILY 42 Days #42 each 07/18/23 [Rx] HYDROcodone/APAP 5-325MG [Aurora 5-325] 1 tab PO Q6HR PRN #4 tab 07/18/23 [Rx] Follow up Appointment(s)/Referral(s): Jorje Kiser MD [Primary Care Provider] - 1-2 days Yojana Giron MD [STAFF PHYSICIAN] - 1 Week Ambulatory/Diagnostic Orders: Basic Metabolic Panel [LAB.AMB] Location: None Selected C Reactive Protein [LAB.AMB] Location: None Selected Complete Blood Count w/diff [LAB.AMB] Location: None Selected Erythrocyte Sedimentation Rate [LAB.AMB] Location: None Selected Patient Instructions/Handouts: Heart Failure (DC), Type 2 Diabetes in Adults: New Diagnosis (DC), Diabetic Foot Ulcers (DC) Activity/Diet/Wound Care/Special Instructions: Patient is returning to [facility] Activity as tolerated Follow-up with primary care provider on discharge Continue with IV antibiotics with a PICC line in the form of ertapenem and daptomycin Continue monitoring Accu-Cheks before meals and at bedtime and continue with sliding scale and current insulin regimen Continue local wound care with Opticell silver, moistened with saline, covered with a dry gauze and then Kerlex wrapped every 48 hours or if becoming soiled Continue consistent carb heart healthy diet Discharge Disposition: TRANSFER TO SNF/ECF
[2023-07-18 16:52] LABS: Glucose,Whole Blood 185 mg/dL (70-110)
--- NOTE | 2023-07-18 21:14 | P.PN ---
Subjective Progress Note Date: 07/18/23 This is a pleasant 88 years old male with multiple medical problems. Was sent from [facility] for not feeling well and and leukocytosis Patient is poor historian so information was obtained from the staff and records Patient is afebrile Labs reviewed showing WBC 11,000, hemoglobin 11, creatinine 1.3 which is at baseline of 1.3-1.5. Rest of BMP and liver enzymes were unremarkable Left foot x-ray showing amputated fourth and fifth toes with soft tissue swelling of the plantar aspect and possible open wound on the lateral side distally Chest x-ray showing bilateral basal atelectasis versus consolidation EKG sinus rhythm at [address]-T changes Patient started on Zosyn Normal Saline 75 mL/h 07/14/23 Patient is awake alert today, answers questions appropriately. He has good appetite. He denies specific complaint Is still being treated for his left foot cellulitis. Ultrasound was negative for DVT in the left leg Patient remains on Unasyn 07/15/23 Patient is still treated for his left foot infection Wound culture is growing presumptive MRSA and gram-negative bacilli He was on Zosyn and daptomycin was added to the regimen. Patient denies any other complaint He continue with gentle hydration 50 mL/h. Will give one-time small dose of Lasix 20 mg 07/16/2023 Patient is seen and evaluated in follow-up undergoing a bone scan today with infectious disease following maintained on IV antibiotics with culture showing Proteus, MRSA, strep group B and continued on vancomycin. Continue with local wound care per infectious disease recommendations and will discuss further once bone scan has resulted regarding treatment plan moving forward. Patient does reside at [facility] with plans on returning there. Patient is afebrile with no reports of chest pain or shortness of breath. Patient is tolerating diet with no reported nausea or vomiting. Recommend PT/OT therapy evaluation. 07/17/2023 Patient is seen and evaluated in follow-up today scheduled to receive a PICC line. Bone scan was suggestive of osteomyelitis and patient will be continued on IV antibiotics at [facility]. Infectious disease following and currently maintained on ceftriaxone and Flagyl and will be continuing on 6 weeks of daptomycin and ertapenem in the outpatient setting. Case management following as patient will require insurance authorization for [facility]. Patient is currently afebrile with no reports of chest pain or shortness of breath. Patient is tolerating diet with no reported nausea or vomiting. PT/OT therapy to evaluate the patient with plans on discharge to [facility] once insurance authorization is obtained. 07/18/2023 Patient is seen in follow-up today with no acute overnight issues noted. Patient has received a PICC line and is continued on ertapenem along with daptomycin infectious disease following. Plan is for 6 weeks of IV antibiotics on return to [facility]. Continuing to await for insurance authorization which was submitted yesterday. Patient is afebrile with no reports of chest pain or shortness of breath. Patient reports to some tenderness and tingling at the infection site and will use as needed pain medications. Patient to have dressing changes with continued wound care as instructed. Patient is medically stable for discharge to [facility] once insurance authorization has been obtained. Review of systems: Constitutional: No reports of fatigue, fever, or chills Cardiovascular: No reports of chest pain or palpitations Respiratory: No reports of shortness of breath or cough GI: No reports of nausea, vomiting, or diarrhea : No reports of dysuria or retention Neurovascular: reports of weakness, reports some mild tingling and foot pain All medications have been reviewed Physical exam: GENERAL: The patient is alert and oriented x2-3, elderly appearing. Well developed, well nourished. HEENT: Pupils are round and equally reacting to light. EOMI. No scleral icterus. No conjunctival pallor. Normocephalic, atraumatic. No pharyngeal erythema. No thyromegaly. CARDIOVASCULAR: S1 and S2 muffled PULMONARY: Diminished breath sounds bilaterally otherwise chest is clear to auscultation, no wheezing , no crackles. ABDOMEN: Soft, nontender, nondistended, normoactive bowel sounds. No palpable organomegaly. MUSCULOSKELETAL: No joint swelling or deformity. EXTREMITIES: No cyanosis, clubbing, or pedal edema. Kerlix dressing is dry and intact on the left lower extremity NEUROLOGICAL: Gross neurological examination did not reveal any focal deficits. Left leg is swollen, erythematous with superficial wounds anteriorly status post amputated lateral 2 toes with infection in the area. SKIN: No rashes. no petechiae. Assessment: Left foot infected wound with surrounding cellulitis. Present on admission secondary to presumptive MRSA and Proteus Mirabella's with strep group B Bone scan showing osteomyelitis Altered mental status, mostly metabolic/toxic encephalopathy on the top of his dementia, improved History of dementia Diabetes mellitus, type II, insulin-dependent, uncontrolled with hyperglycemia Hypertension history History of osteoarthritis GI prophylaxis DVT prophylaxis Full code Plan: Continue with antibiotics with infectious disease following in the form of vancomycin. cultures showing Proteus Mirabella's, MRSA, strep group B Patient underwent a bone scan suggestive of osteomyelitis and has received a PICC line for outpatient IV abx. Patient will continue on ertapenem and daptomycin per ID recommendations for 6 weeks on discharge. Case management following and has submitted insurance authorization. Insurance authorization remains pending at this time. Continue monitoring Accu-Cheks before meals and at bedtime and will continue current regimen Continue with local wound care and elevate lower extremities while at rest Due to multiple complex medical issues, prognosis is guarded The impression and plan of care has been dictated by Shereen Fragoso, Nurse Practitioner as directed. Dr. Keagan MD I have performed a history and examination and MDM of this patient, discussed the same with the dictator, and agree with the dictator's assessment and plan as written ,documented as a scribe. Based on total visit time, I have performed more than 50% of the visit. Objective - Vital Signs Vital signs: Vital Signs Temp 98.7 F 07/18/23 07:20 Pulse 99 07/18/23 07:20 Resp 20 07/18/23 07:20 BP 145/75 07/18/23 07:20 Pulse Ox 93 L 07/18/23 07:20 FiO2 Intake & Output 07/17/23 07/18/23 07/18/23 18:59 06:59 18:59 Intake Total 700 500 Output Total 800 1600 Balance -100 -1100 Intake: Intake, IV Titration 700 Amount DAPTOmycin 500 mg In 50 Sodium Chloride 0.9% 50 ml @ 100 mls/hr IVPB Q24HR@1400 SARAH Rx#: [id number] Ertapenem 1 gm In Sodium 50 Chloride 0.9% 50 ml @ 100 mls/hr IVPB DAILY SARAH Rx #:[id number] Sodium Chloride 0.9% 1, 600 000 ml @ 50 mls/hr IV . Q20H SARAH Rx#:[id number] Oral 500 Output: Urine 800 1600 Other: Voiding Method Indwelling Catheter Indwelling Catheter # Bowel Movements 1 - Labs CBC & Chem 7: 07/17/23 05:51 07/17/23 05:51 Labs: Abnormal Lab Results - Last 24 Hours (Table) 07/17/23 07/17/23 07/17/23 Range/Units 05:51 05:51 11:59 WBC 10.38 H (4.50-10.00) X 10*3/uL RBC 3.41 L (4.40-5.60) X 10*6/uL Hgb 10.0 L (13.0-17.0) g/dL Hct 32.1 L (39.6-50.0) % MCHC 31.2 L (32.0-37.0) g/dL MPV 9.0 L (9.5-12.2) FL Eosinophils # 0.37 H (0.04-0.35) X 10*3/uL Est GFR (CKD-EPI) 49 L (>=60) Glucose 145 H (70-110) mg/dL POC Glucose (mg/dL) 149 H (70-110) mg/dL 07/17/23 07/17/23 07/18/23 Range/Units 16:42 20:25 07:21 WBC (4.50-10.00) X 10*3/uL RBC (4.40-5.60) X 10*6/uL Hgb (13.0-17.0) g/dL Hct (39.6-50.0) % MCHC (32.0-37.0) g/dL MPV (9.5-12.2) FL Eosinophils # (0.04-0.35) X 10*3/uL Est GFR (CKD-EPI) (>=60) Glucose (70-110) mg/dL POC Glucose (mg/dL) 256 H 175 H 143 H (70-110) mg/dL Microbiology - Last 24 Hours (Table) 07/13/23 17:00 Anaerobic Culture - Final Foot - Left
--- NOTE | 2023-07-20 14:53 | P.PN ---
Subjective Progress Note Date: 07/18/23 Principal diagnosis: Reason for follow-up is left diabetic foot infection and leukocytosis Patient is a 88-year-old -[place] male with a past medical history significant for left fifth toe amputation and osteomyelitis with gangrene subsequently developing worsening wound infection and requiring amputation of the fourth toe and an episode of osteomyelitis back in April 2023 culture grew Proteus Enterococcus and MRSA for the patient has completed his course of antibiotic therapy patient has not been sent to the ER by the skilled nursing concerning for wound infection. On today's visit that is 07/18/2023, Patient is afebrile patient is currently on room air and denies having any shortness of breath, the patient denies any chest pain or cough, the patient denies any nausea vomiting did not have any abdominal pain and no diarrhea, denies any worsening pain to the left foot Patient white count is down to 10.38, creatinine is 1.4 as of yesterday no lab draw today, cultures growing MRSA ESBL Proteus and Streptococcus agalactiae Objective - Vital Signs Vital signs: Vital Signs Temp 98.2 F 07/18/23 12:21 Pulse 78 07/18/23 12:21 Resp 16 07/18/23 12:21 BP 131/65 07/18/23 12:21 Pulse Ox 95 07/18/23 12:21 FiO2 Intake & Output 07/17/23 07/18/23 07/18/23 18:59 06:59 18:59 Intake Total 700 500 Output Total 800 1600 Balance -100 -1100 Weight 81.5 kg Intake: Intake, IV Titration 700 Amount DAPTOmycin 500 mg In 50 Sodium Chloride 0.9% 50 ml @ 100 mls/hr IVPB Q24HR@1400 SARAH Rx#: [id number] Ertapenem 1 gm In Sodium 50 Chloride 0.9% 50 ml @ 100 mls/hr IVPB DAILY SARAH Rx #:[id number] Sodium Chloride 0.9% 1, 600 000 ml @ 50 mls/hr IV . Q20H SARAH Rx#:[id number] Oral 500 Output: Urine 800 1600 Other: Voiding Method Indwelling Catheter Indwelling Catheter # Bowel Movements 1 - Exam GENERAL DESCRIPTION: An elderly male lying in bed in no distress RESPIRATORY SYSTEM: Unlabored breathing , decreased breath sounds at bases HEART: S1 S2 regular rate and rhythm , ABDOMEN: Soft , no tenderness EXTREMITIES: Left foot is currently dressed - Labs CBC & Chem 7: 07/17/23 05:51 07/17/23 05:51 Labs: Abnormal Lab Results - Last 24 Hours (Table) 07/17/23 07/17/23 07/18/23 Range/Units 16:42 20:25 07:21 POC Glucose (mg/dL) 256 H 175 H 143 H (70-110) mg/dL 07/18/23 Range/Units 12:21 POC Glucose (mg/dL) 219 H (70-110) mg/dL Microbiology - Last 24 Hours (Table) 07/13/23 17:00 Anaerobic Culture - Final Foot - Left Assessment and Plan (1) Leukocytosis Status: Acute Code(s): D72.829 - ELEVATED WHITE BLOOD CELL COUNT, UNSPECIFIED SNOMED Code(s): 433744624 (2) Wound of left foot Status: Acute Code(s): S91.302A - UNSPECIFIED OPEN WOUND, LEFT FOOT, INITIAL ENCOUNTER SNOMED Code(s): 25128106979828816 (3) Cellulitis of left foot Status: Acute Code(s): L03.116 - CELLULITIS OF LEFT LOWER LIMB SNOMED Code(s): 75389498637295100 Plan: 1patient has been sent to the ER from the skilled nursing concerning for infection on the basis of mildly elevated white count and he did have elevated sed rate patient did have a 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 after amputation of the fifth followed by fourth toe and did have an episode of osteomyelitis back in April culture grew Proteus Enterococcus and MRSA for the patient received more than 8 weeks of IV antibiotic therapy patient is currently not running any fever left foot did have a nonhealing wound however borders not probed no slough was noticed on the surrounding redness, clinically doubt elevated sed rate is entirely due to the infection at this point 2-local culture has been obtained and currently growing MRSA, ESBL Proteus and Streptococcus agalactiae 3 patient did have elevated sed rate of 82 CRP is 21.2 4-local wound care with a dry Aquacel silver dressing changed to 48 hours 5- bone scan is suspicious for osteomyelitis involving the left fourth and fifth amputation site 6-patient to continue with daptomycin and Invanz x 6-week on discharge with weekly monitoring of CRP sed rate and close outpatient follow-up Dictation was produced using [employer] software. please excuse any grammatical, word or spelling errors. Time with Patient: Less than 30
== END 2023-07-18 19:43 | DRG 564 ==
LOC: EC 08:41 → 5NMEDONC 11:10
PROVIDERS: ADMIT Internal Medicine; ATTEND Internal Medicine
PROC: 02HV33Z Insertion of Infusion Device into Superior Vena Cava, Percutaneous Approach (ICD-10-PCS; principal; 2023-07-17 09:55)
DX: T87.44 Infection of amputation stump, left lower extremity (principal); G92.8 Other toxic encephalopathy; L03.116 Cellulitis of left lower limb; J98.11 Atelectasis; M86.8X7 Other osteomyelitis, ankle and foot; E11.69 Type 2 diabetes mellitus with other specified complication; I10 Essential (primary) hypertension; E11.621 Type 2 diabetes mellitus with foot ulcer; L97.529 Non-pressure chronic ulcer of other part of left foot with unspecified severity; M19.90 Unspecified osteoarthritis, unspecified site; F03.90 Unspecified dementia, unspecified severity, without behavioral disturbance, psychotic disturbance, mood disturbance, and anxiety; B95.62 Methicillin resistant Staphylococcus aureus infection as the cause of diseases classified elsewhere; B96.4 Proteus (mirabilis) (morganii) as the cause of diseases classified elsewhere; B95.1 Streptococcus, group B, as the cause of diseases classified elsewhere; Z79.899 Other long term (current) drug therapy; Z79.4 Long term (current) use of insulin; Z87.891 Personal history of nicotine dependence; Z86.14 Personal history of Methicillin resistant Staphylococcus aureus infection
CPT/HCPCS: 36415; 36573; 51702; 71046; 78315; 80048; 80053; 81003; 83605; 83735; 85025; 85610; 85652; 85730; 86140; 87040; 87070; 87075; 87077; 87186; 87205; 93005; 94760; 96365; 96366; 99285

== ENCOUNTER 2023-07-29 12:37 | Inpatient (IN) | payer MEDICARE ==
[2023-07-29 12:53] LABS: Glucose,Whole Blood 138 mg/dL (70-110)
--- NOTE | 2023-07-29 13:23 | ED ---
Altered Mental Status HPI - General Chief Complaint: Altered Mental Status Stated Complaint: Altered Mental Status Time Seen by Provider: 07/29/23 12:42 Source: patient, EMS, RN notes reviewed, old records reviewed Mode of arrival: EMS Limitations: no limitations - History of Present Illness Initial Comments: 88-year-old male with recent hospitalization with discharge on the of this month he was here for a left wound infection and found to have osteomyelitis he also has a history of diabetes hypertension who was found to be demonstrating a decreased level of consciousness today he is currently awake alert and oriented. He was found to have a blood pressure 86/42 afebrile but also found to have a glucose of over 400 this morning at the nursing facility later was checked and found to be low and he was giving glucagon. This did seem to improve the sugar. He presents by EMS at this time. MD Complaint: altered mental status - Related Data Home Medications Medication Instructions Recorded Confirmed Famotidine [Pepcid] 20 mg PO DAILY@0800 04/18/23 07/13/23 Glucerna 1.2 John 120 ml PO BID@0800,1700 04/18/23 07/13/23 Heparin Sodium,Porcine (1 ml) 5,000 unit SQ Q12HR@08,21 04/18/23 07/13/23 [Heparin Sodium] INSULIN ASPART (NovoLOG) [NovoLOG 3 unit SQ AC-TID@04/18/23 07/13/23 (formulary)] INSULIN ASPART (NovoLOG) [NovoLOG See Protocol SQ 04/18/23 07/13/23 (formulary)] ACHS@,2129 Insulin Detemir (Levemir) [Levemir] 10 unit SQ HS@2100 04/18/23 07/13/23 Ipratropium-Albuterol Nebulize 3 ml INHALATION RT-Q6H PRN 04/18/23 07/13/23 [Duoneb 0.5 mg-3 mg/3 ml Soln] Magnesium Hydroxide [Milk of 7,200 mg PO DAILY PRN 04/18/23 07/13/23 Magnesia Concentrate] Na Phos,M-B/Na Phos,Di-Ba [Fleet 133 ml RECTAL DAILY PRN 04/18/23 07/13/23 Adult] Tamsulosin [Flomax] 0.4 mg PO DAILY@0800 04/18/23 07/13/23 amLODIPine [Norvasc] 10 mg PO DAILY@0800 04/18/23 07/13/23 bisacodyL [Dulcolax] 10 mg RECTAL DAILY PRN 04/18/23 07/13/23 polyethylene glycoL 3350 [Miralax] 17 gm PO DAILY@0800 04/18/23 07/13/23 Furosemide [Lasix] 40 mg PO BID@0800,1700 07/13/23 07/13/23 Previous Rx's Medication Instructions Recorded Acetaminophen Tab [Tylenol] 650 mg PO Q6HR PRN tab 01/01/23 Ipratropium-Albuterol Nebulize 3 ml INHALATION RT-QID each 05/15/23 [Duoneb 0.5 mg-3 mg/3 ml Soln] Valsartan [Diovan] 160 mg PO HS tab 05/15/23 DAPTOmycin [Cubicin] 500 mg IVPB Q24HR@1400 42 Days #42 07/18/23 each Ertapenem [INVanz] 1 gm IVPB DAILY 42 Days #42 each 07/18/23 HYDROcodone/APAP 5-325MG [Mcdonough 1 tab PO Q6HR PRN #4 tab 07/18/23 5-325] Allergies Allergy/AdvReac Type Severity Reaction Status Date / Time No Known Allergies Allergy Verified 07/29/23 12:52 Review of Systems ROS Statement: Those systems with pertinent positive or pertinent negative responses have been documented in the HPI. ROS Other: All systems not noted in ROS Statement are negative. 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 Past Surgical History: Orthopedic Surgery Additional Past Surgical History / Comment(s): right wrist surgery Past Anesthesia/Blood Transfusion Reactions: No Reported Reaction Past Psychological History: No Psychological Hx Reported Smoking Status: Former smoker Past Alcohol Use History: None Reported Past Drug Use History: None Reported - Past Family History Father History Unknown: Yes Mother History Unknown: Yes General Exam - General Exam Comments Initial Comments: Is a well-developed well-nourished awake alert lethargic male Limitations: no limitations General appearance: alert Head exam: Present: atraumatic, normocephalic, normal inspection Eye exam: Present: normal appearance, PERRL, EOMI. Absent: scleral icterus, conjunctival injection, periorbital swelling ENT exam: Present: mucous membranes dry Neck exam: Present: normal inspection, full ROM, other. Absent: tenderness, meningismus, lymphadenopathy Respiratory exam: Present: decreased breath sounds. Absent: respiratory distress, wheezes, rales, rhonchi, stridor Cardiovascular Exam: Present: regular rate, normal rhythm, normal heart sounds. Absent: systolic murmur, diastolic murmur, rubs, gallop, clicks GI/Abdominal exam: Present: soft, normal bowel sounds. Absent: distended, ten derness, guarding, rebound, rigid, bruit, pulsatile mass Extremities exam: Present: normal capillary refill, other (Left foot demonstrates evidence of cellulitis with eschar of the great toe some drainage noted. A clean dressing had been applied prior to transport to this facility.). Absent: tenderness, pedal edema, joint swelling, calf tenderness Back exam: Present: normal inspection Neurological exam: Present: alert, altered, CN II-XII intact Psychiatric exam: Present: normal affect, normal mood Skin exam: Present: warm, dry, intact, normal color. Absent: rash Course Vital Signs 07/29/23 12:40 Temperature 97.2 F L Pulse Rate 83 Respiratory 24 Rate Blood Pressure 108/62 O2 Sat by Pulse 98 Oximetry Medical Decision Making - Medical Decision Making I did discuss the case with Dr. Quispe was pt. sent in by a medical professional or institution (, PA, DRYING MACHINE OPERATOR [employer]NS, urgent care, hospital, or assisted...) When possible be specific @ -No Did you speak to anyone other than the patient for history (EMS, parent, family, police, friend...)? What history was obtained from this source @ -Paramedics upon arrival Did you review nursing and triage notes (agree or disagree)? Why? @ -I reviewed and agree with nursing and triage notes Were old charts reviewed (outside hosp., previous admission, EMS record, old EKG, old radiological studies, urgent care reports/EKG's, assisted records)? Report findings @ -Last admission old charts were reviewed Differential Diagnosis (chest pain, altered mental status, abdominal pain women, abdominal pain men, vaginal bleeding, weakness, fever, dyspnea, syncope, headache, dizziness, GI bleed, back pain, seizure, CVA, palpatations, mental health, musculoskeletal)? @ -Altered mental status EKG interpreted by me (3pts min.). @ -As above EKG interpreted by me sinus rhythm with sinus arrhythmia rate 79 parable 172 QRS duration 109 QT/QTc 388/423 left anterior fascicular block noted no acute changes X-rays interpreted by me (1pt min.). @ -Initial interpretation by me no acute process CT interpreted by me (1pt min.). @ -CT brain interpreted by me plain brain noncontrast no acute process seen U/S interpreted by me (1pt. min.). @ -None done What testing was considered but not performed or refused? (CT, X-rays, U/S, labs)? Why? @ -None What meds were considered but not given or refused? Why? @ -None Did you discuss the management of the patient with other professionals (professionals i.e. , PA, DRYING MACHINE OPERATOR [employer]ARNS, lab, RT, psych nurse, social media assistant, mechanical facilities technician, teacher, corporate security officer, case picker)? Give summary @ -Dr. Quispe Was smoking cessation discussed for >3mins.? @ -No Was critical care preformed (if so, how long)? @ -No Were there social determinants of health that impacted care today? How? (Homelessness, low income, unemployed, alcoholism, drug addiction, transportation, low edu. Level, literacy, decrease access to med. care, fpc, rehab)? @ -No Was there de-escalation of care discussed even if they declined (Discuss DNR or withdrawal of care, Hospice)? DNR status @ -No What co-morbidities impacted this encounter? (DM, HTN, Smoking, COPD, CAD, Cancer, CVA, ARF, Chemo, Hep., AIDS, mental health diagnosis, sleep apnea, morbid obesity)? @ -Diabetes, hypertension, left foot osteomyelitis Was patient admitted / discharged? Hospital course, mention meds given and route, prescriptions, significant lab abnormalities, going to OR and other pertinent info. @ -Hospital course patient was admitted to this facility for inpatient evaluation and treatment consultation by infectious disease and nephrology Undiagnosed new problem with uncertain prognosis? @ -Acute kidney injury, altered mental status Drug Therapy requiring intensive monitoring for toxicity (Heparin, Nitro, Insulin, Cardizem)? @ -No Were any procedures done? @ -No Diagnosis/symptom? @ -Altered mental status, acute kidney injury, dehydration, leukocytosis, osteomyelitis left foot Acute, or Chronic, or Acute on Chronic? @ -Acute Uncomplicated (without systemic symptoms) or Complicated (systemic symptoms)? @ -Complicated Side effects of treatment? @ -No Exacerbation, Progression, or Severe Exacerbation? @ -No Poses a threat to life or bodily function? How? (Chest pain, [place], [place], pneumonia, PE, COPD, DKA, ARF, appy, cholecystitis, CVA, Diverticulitis, Homicidal, Suicidal, threat to staff... and all critical care pts) @ -Potential From: Discussed with Dr. Quispe from [facility] medical group patient will be admitted for inpatient evaluation infectious disease and nephrology consulted. - Lab Data Result diagrams: 07/29/23 13:22 07/29/23 13:22 Lab Results 07/29/23 07/29/23 07/29/23 Range/Units 12:51 13:22 13:22 WBC 12.2 H (3.8-10.6) k/uL RBC 3.43 L (4.30-5.90) m/uL Hgb 10.5 L (13.0-17.5) gm/dL Hct 31.6 L (39.0-53.0) % MCV 92.1 (80.0-100.0) fL MCH 30.7 (25.0-35.0) pg MCHC 33.4 (31.0-37.0) g/dL RDW 13.2 (11.5-15.5) % Plt Count 330 (150-450) k/uL MPV 7.7 Neutrophils % 81 % Lymphocytes % 10 % Monocytes % 6 % Eosinophils % 2 % Basophils % 0 % Neutrophils # 9.9 H (1.3-7.7) k/uL Lymphocytes # 1.2 (1.0-4.8) k/uL Monocytes # 0.7 (0-1.0) k/uL Eosinophils # 0.3 (0-0.7) k/uL Basophils # 0.0 (0-0.2) k/uL PT 11.5 (10.0-12.5) sec INR 1.1 (<1.2) APTT 22.5 (22.0-30.0) sec Sodium (137-145) mmol/L Potassium (3.5-5.1) mmol/L Chloride (98-107) mmol/L Carbon Dioxide (22-30) mmol/L Anion Gap mmol/L BUN (9-20) mg/dL Creatinine (0.66-1.25) mg/dL Est GFR (CKD-EPI)AfAm (>60 ml/min/1.73 sqM) Est GFR (CKD-EPI)NonAf (>60 ml/min/1.73 sqM) Glucose (74-99) mg/dL POC Glucose (mg/dL) 138 H (70-110) mg/dL POC Glu Blending Plant Operator KIMBERLY [place] Plasma Lactic Acid Aleksander (0.7-2.0) mmol/L Calcium (8.4-10.2) mg/dL Total Bilirubin (0.2-1.3) mg/dL AST (17-59) U/L ALT (4-49) U/L Alkaline Phosphatase (38-126) U/L Ammonia (<30) umol/L Creatine Kinase (55-170) U/L Troponin I (0.000-0.034) ng/mL Total Protein (6.3-8.2) g/dL Albumin (3.5-5.0) g/dL 07/29/23 07/29/23 07/29/23 Range/Units 13:22 13:22 13:22 WBC (3.8-10.6) k/uL RBC (4.30-5.90) m/uL Hgb (13.0-17.5) gm/dL Hct (39.0-53.0) % MCV (80.0-100.0) fL MCH (25.0-35.0) pg MCHC (31.0-37.0) g/dL RDW (11.5-15.5) % Plt Count (150-450) k/uL MPV Neutrophils % % Lymphocytes % % Monocytes % % Eosinophils % % Basophils % % Neutrophils # (1.3-7.7) k/uL Lymphocytes # (1.0-4.8) k/uL Monocytes # (0-1.0) k/uL Eosinophils # (0-0.7) k/uL Basophils # (0-0.2) k/uL PT (10.0-12.5) sec INR (<1.2) APTT (22.0-30.0) sec Sodium 134 L (137-145) mmol/L Potassium 4.9 (3.5-5.1) mmol/L Chloride 97 L (98-107) mmol/L Carbon Dioxide 29 (22-30) mmol/L Anion Gap 8 mmol/L BUN 43 H (9-20) mg/dL Creatinine 1.85 H (0.66-1.25) mg/dL Est GFR (CKD-EPI)AfAm 37 (>60 ml/min/1.73 sqM) Est GFR (CKD-EPI)NonAf 32 (>60 ml/min/1.73 sqM) Glucose 171 H (74-99) mg/dL POC Glucose (mg/dL) (70-110) mg/dL POC Glu Blending Plant Operator ID Plasma Lactic Acid Aleksander 0.7 (0.7-2.0) mmol/L Calcium 9.0 (8.4-10.2) mg/dL Total Bilirubin 0.3 (0.2-1.3) mg/dL AST 21 (17-59) U/L ALT 13 (4-49) U/L Alkaline Phosphatase 73 (38-126) U/L Ammonia <9 (<30) umol/L Creatine Kinase 140 (55-170) U/L Troponin I <0.012 (0.000-0.034) ng/mL Total Protein 6.4 (6.3-8.2) g/dL Albumin 2.9 L (3.5-5.0) g/dL - EKG Data -: EKG Interpreted by Me (EKG sinus rhythm with sinus arrhythmia noted no acute ST-T wave changes) - Radiology Data Interpreted by me: CT brain imaging no acute process seen at this time interpreted by me Disposition Clinical Impression: Delirium due to general medical condition, Dehydration, Acute kidney injury, Osteomyelitis of left foot, Leukocytosis Disposition: ADMITTED IP TO THIS [facility] Condition: Fair Referrals: Jorje Kiser MD [Primary Care Provider] - 1-2 days Time of Disposition: 14:30 Decision Date: 07/29/23 Decision Time: 14:30
[2023-07-29] MEDS: SODIUM CHLORIDE 0.9% 1,000 ML IV ONE (14:00)
[2023-07-29] MEDS: SODIUM CHLORIDE 0.9% 1,000 ML IV STA (14:00)
[2023-07-29 14:03] LABS: Lactic Acid, Venous 0.7 mmol/L (0.7-2.0)
[2023-07-29 14:04] LABS: ALT 13 U/L (4-49); AST 21 U/L (17-59); African American GFR (CKD) 37 (>60 ml/min/1.73 sqM); Albumin 2.9 g/dL (3.5-5.0); Alkaline Phosphatase 73 U/L (38-126); Anion Gap 8 mmol/L; Blood Urea Nitrogen 43 mg/dL (9-20); Carbon Dioxide 29 mmol/L (22-30); Chloride 97 mmol/L (98-107); Creatine Kinase 140 U/L (55-170); Glucose 171 mg/dL (74-99); Non-African American GFR(CKD) 32 (>60 ml/min/1.73 sqM); Potassium 4.9 mmol/L (3.5-5.1); Sodium 134 mmol/L (137-145); Total Bilirubin 0.3 mg/dL (0.2-1.3); Total Protein 6.4 g/dL (6.3-8.2)
[2023-07-29 14:06] LABS: INR 1.1 (<1.2); Partial Thromboplastin Time 22.5 sec (22.0-30.0); Prothrombin Time 11.5 sec (10.0-12.5)
[2023-07-29 14:12] LABS: Basophils % (A) 0 %; Eosinophils # (A) 0.3 k/uL (0-0.7); Eosinophils % (A) 2 %; HCT 31.6 % (39.0-53.0); HGB 10.5 gm/dL (13.0-17.5); Lymphocytes # (A) 1.2 k/uL (1.0-4.8); Lymphocytes % (A) 10 %; MCH 30.7 pg (25.0-35.0); MCHC 33.4 g/dL (31.0-37.0); MCV 92.1 fL (80.0-100.0); Mean Platelet Volume 7.7; Monocytes # (A) 0.7 k/uL (0-1.0); Monocytes % (A) 6 %; Neutrophils # (A) 9.9 k/uL (1.3-7.7); Neutrophils % (A) 81 %; Platelet Count 330 k/uL (150-450); RBC 3.43 m/uL (4.30-5.90); RDW 13.2 % (11.5-15.5); WBC 12.2 k/uL (3.8-10.6)
--- NOTE | 2023-07-29 14:33 | CT ---
EXAMINATION TYPE: CT brain wo con CT DLP: 1095.4 mGycm, Automated exposure control for dose reduction was used. DATE OF EXAM: 07/29/2023 2:23 PM COMPARISON: CT brain 10/16/2021. CLINICAL INDICATION:Male, 88 years old with history of Altered mental status, AMS TECHNIQUE: Brain: Axial CT images of the brain were obtained with coronal and sagittal reformats created and rev iewed. Contrast used: None. Oral contrast used: None. FINDINGS: Of note, motion artifact does limit evaluation of the vertex. Brain: Extra-axial spaces: No abnormal extra-axial fluid collections. Ventricular system: Within normal limits Cerebral parenchyma: Cerebral atrophy. No acute intraparenchymal hemorrhage or mass effect. The gee -white junction is well differentiated. Scattered hypoattenuating areas are seen within the white mat ter. Cerebellum: Unremarkable. Mass effect: No evidence of midline shift. Intracranial vasculature: Atherosclerotic calcifications of the intracranial vessels. Soft tissues: Normal. Calvarium/osseous structures: No depressed skull fracture. Paranasal sinuses and mastoid air cells: Mild scattered paranasal sinus disease. Visualized orbits: Bilateral aphakia IMPRESSION: No acute intracranial process within limitations of motion artifact.
[2023-07-29] MEDS ORDERED: ACETAMINOPHEN TAB 325 MG TAB PO PRN (14:47)
[2023-07-29] MEDS ORDERED: NALOXONE 0.4 MG/ML 1 ML VIAL IV PRN (14:47)
[2023-07-29] MEDS ORDERED: IPRATROPIUM-ALBUTEROL 3 ML NEB INHALATION PRN (14:51)
[2023-07-29] MEDS ORDERED: MAGNESIUM HYDROXIDE 2,400 MG/30 ML CUP PO PRN (14:51)
[2023-07-29] MEDS ORDERED: HYDROcodone/APAP 5-325MG 1 EACH TAB PO PRN (14:51)
[2023-07-29] MEDS ORDERED: NA PHOS,M-B/NA PHOS,DI-BA 133 ML ENEMA RECTAL PRN (14:51)
[2023-07-29] MEDS ORDERED: bisacodyL 10 MG SUPP RECTAL PRN (14:51)
--- NOTE | 2023-07-29 15:02 | XR ---
EXAMINATION TYPE: XR chest 2V DATE OF EXAM: 07/29/2023 2:53 PM CLINICAL INDICATION:Male, 88 years old with history of altered mental status; [facility] COMPARISON: Chest radiographs from 07/13/2023. TECHNIQUE: XR chest 2V Frontal and lateral views of the chest. FINDINGS: Lungs/Pleura: Bilateral trace pleural effusions are appreciated. Patchy airspace opacities are noted throughout the lungs. Pulmonary vascularity: Mild pulmonary vascular congestion. Heart/mediastinum: Cardiomediastinal silhouette is prominent in size. Musculoskeletal: No acute osseous pathology. IMPRESSION: Cardiomegaly with bilateral small pleural effusions and pulmonary vascular congestion. Findings likel y related to underlying heart failure.
[2023-07-29] MEDS: SODIUM CHLORIDE 0.9% 1,000 ML IV SCH (15:04)
[2023-07-29 15:44] LABS: Appearance,Urine Clear (Clear); Bilirubin,Urine Negative (Negative); Blood,Urine Negative (Negative); Color,Urine Light Yellow; Glucose,Urine (UA) Negative (Negative); Hyaline Casts,Urine 3 /lpf (0-2); Ketones,Urine Negative (Negative); Leukocyte Esterase,Urine Small (Negative); Mucus,Urine Rare /hpf; Nitrite,Urine Negative (Negative); PH, Urine 5.5 (5.0-8.0); Protein,Urine Trace (Negative); Specific Gravity,Urine 1.013 (1.001-1.035); Urobilinogen,Urine <2.0 mg/dL (<2.0); WBC,Urine <1 /hpf (0-5)
[2023-07-29 15:45] LABS: Amphetamine Screen,Urine Not Detected (NotDetected); Barbiturate Screen,Urine Not Detected (NotDetected); Benzodiazepines Screen,Urine Not Detected (NotDetected); Cocaine Screen,Urine Not Detected (NotDetected); Methadone Screen, Urine Not Detected (NotDetected); Opiate Screen,Urine Detected (NotDetected); Oxycodone Screen, Urine Not Detected (NotDetected); Phencyclidine Screen,Urine Not Detected (NotDetected); Tricyclic Antidepressant,Urine Not Detected (NotDetected); Urn Cannabinoid Scrn Not Detected (NotDetected)
[2023-07-29] MEDS ORDERED: GLUCERNA CAL PO SCH (17:00)
[2023-07-29] MEDS: FUROSEMIDE 40 MG TAB PO SCH (18:40)
[2023-07-29 18:41] LABS: Glucose,Whole Blood 169 mg/dL (70-110)
[2023-07-29 19:27] LABS: Glucose,Whole Blood 196 mg/dL (70-110)
[2023-07-29] MEDS: INSULIN ASPART (NovoLOG) 100 UNIT/ML VIAL SQ SCH (19:28)
[2023-07-29] MEDS: HEPARIN SODIUM,PORCINE 5,000 UNIT/ML 1 ML VIAL SQ SCH (20:58)
[2023-07-29] MEDS: INSULIN DETEMIR (LEVEMIR) 100 UNIT/ML SYR SQ SCH (20:58)
[2023-07-29] MEDS: VALSARTAN 160 MG TAB PO SCH (21:01)
--- NOTE | 2023-07-29 21:07 | P.CONS ---
History of Present Illness - Reason for Consult Consult date: 07/29/23 Osteomyelitis left foot Requesting physician: Magdaleno Jolly - Chief Complaint Decreased level of consciousness x 1 day - History of Present Illness Patient is a 88-year-old male with a past medical history significant for diabetes mellitus hypertension the patient did have a history of left fifth toe gangrene requiring amputation and subsequent admitted to hospital with worsening diabetic foot wound and requiring further amputation of the fourth toe and debridement of the wound recently readmitted to the hospital with worsening wound to the left foot both skin was positive for MRSA ESBL Proteus and Streptococcus patient did get a PICC line and was advised a 6-week course of daptomycin and Invanz with the patient was currently sitting at the local [facility] home patient has been sent back to the ER on 07/26/2023 for evaluation of decreased level of consciousness that happened the day of presentation to the hospital and the patient also noted to be hypotensive with a blood pressure of 86/42 and also have elevated blood sugar at the time my evaluation patient is awake and alert he knows that he is in the hospital he is breathing comfortably on room air denies any fever however has been complaining of feeling cold and chills no headache or URI symptoms no chest pain shortness of breath or cough no nausea no vomiting no abdominal pain or any worsening pain to the left foot or any drainage patient on presentation to the hospital did have white count of 12.2 BUN/creatinine has been mildly elevated liver enzymes are normal urine was mildly positive urine toxin positive for opiates patient did have a chest x-ray cardiomegaly bilateral small effusion and pulmonary vascular congestion patient was admitted to the hospital infectious disease was consulted for further management of antibiotic therapy Review of Systems Positive point and negatives has been mentioned in the HPI, complete review of systems was performed and all other systems are negative Past Medical History Past Medical History: Diabetes Mellitus, Hypertension Additional Past Medical History / Comment(s): cellulitis of left foot, altered mental status, History of Any Multi-Drug Resistant Organisms: MRSA, VRE Year Discovered:: 04/20/23 MRSA; 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 Past Surgical History: Orthopedic Surgery Additional Past Surgical History / Comment(s): right wrist surgery Past Anesthesia/Blood Transfusion Reactions: No Reported Reaction Past Psychological History: No Psychological Hx Reported Smoking Status: Former smoker Past Alcohol Use History: None Reported Past Drug Use History: None Reported - Past Family History Father History Unknown: Yes Mother History Unknown: Yes Medications and Allergies Home Medications Medication Instructions Recorded Confirmed Type Acetaminophen Tab [Tylenol] 650 mg PO Q6HR PRN tab 01/01/23 07/29/23 Rx Famotidine [Pepcid] 20 mg PO DAILY@0800 04/18/23 07/29/23 History Heparin Sodium,Porcine (1 ml) 5,000 unit SQ Q12HR@,04/18/23 07/29/23 History [Heparin Sodium] INSULIN ASPART (NovoLOG) [NovoLOG 3 unit SQ AC-TID@04/18/23 07/29/23 History (formulary)] INSULIN ASPART (NovoLOG) [NovoLOG See Protocol SQ 04/18/23 07/29/23 History (formulary)] ACHS@,,1829,0 Insulin Detemir (Levemir) [Levemir] 10 unit SQ HS@2100 04/18/23 07/29/23 History Ipratropium-Albuterol Nebulize 3 ml INHALATION RT-Q6H PRN 04/18/23 07/29/23 History [Duoneb 0.5 mg-3 mg/3 ml Soln] Magnesium Hydroxide [Milk of 7,200 mg PO DAILY PRN 04/18/23 07/29/23 History Magnesia Concentrate] Na Phos,M-B/Na Phos,Di-Ba [Fleet 133 ml RECTAL DAILY PRN 04/18/23 07/29/23 Hi story Adult] Tamsulosin [Flomax] 0.4 mg PO DAILY@79904/18/23 07/29/23 History amLODIPine [Norvasc] 10 mg PO DAILY@79904/18/23 07/29/23 History bisacodyL [Dulcolax] 10 mg RECTAL DAILY PRN 04/18/23 07/29/23 History polyethylene glycoL 3350 [Miralax] 17 gm PO DAILY@0800 04/18/23 07/29/23 History Ipratropium-Albuterol Nebulize 3 ml INHALATION RT-QID each 05/15/23 07/29/23 Rx [Duoneb 0.5 mg-3 mg/3 ml Soln] Valsartan [Diovan] 160 mg PO HS tab 05/15/23 07/29/23 Rx Furosemide [Lasix] 40 mg PO BID@0800,1700 07/13/23 07/29/23 History Ertapenem [INVanz] 1 gm IVPB DAILY 42 Days #42 each 07/18/23 07/29/23 Rx Collagenase [Santyl Ointment] 1 applic TOPICAL DAILY 07/29/23 07/29/23 History DAPTOmycin [Cubicin] 500 mg IV DAILY 07/29/23 07/29/23 History HYDROcodone/APAP 5-325MG [[employer] 1 tab PO Q6HR PRN #9 tab 08/01/23 Rx 5-325] Allergies Allergy/AdvReac Type Severity Reaction Status Date / Time No Known Allergies Allergy Verified 07/29/23 19:52 Physical Exam Vitals: Vital Signs Temp Pulse Resp BP Pulse Ox 07/29/23 15:02 73 18 115/57 99 07/29/23 12:40 97.2 F L 83 24 108/62 98 Intake and Output 07/29/23 07/29/23 07/29/23 06:59 14:59 22:59 Other: Weight 79.379 kg GENERAL DESCRIPTION: Elderly male lying in bed, no distress. No tachypnea or accessory muscle of respiration use. HEENT: Shows Pallor , no scleral icterus. Oral mucous membrane is dry. No pharyngeal erythema or thrush NECK: Trachea central, no thyromegaly. LUNGS: Unlabored breathing. Clear to auscultation anteriorly. No wheeze or crackle. HEART: S1, S2, regular rate and rhythm. No loud murmur ABDOMEN: Soft, no tenderness , guarding or rigidity, no organomegaly EXTREMITIES: Left foot lateral border wound has decreased in size seem to have dried out he did have 2 wounds on the dorsum as well left foot with no slough tissue SKIN: No rash, no masses palpable. NEUROLOGICAL: The patient is awake, mood and affect normal. Results CBC & Chem 7: 08/01/23 08:04 08/01/23 08:04 Labs: Abnormal Lab Results - Last 24 Hours (Table) 07/29/23 07/29/23 07/29/23 Range/Units 12:51 13:22 13:22 WBC 12.2 H (3.8-10.6) k/uL RBC 3.43 L (4.30-5.90) m/uL Hgb 10.5 L (13.0-17.5) gm/dL Hct 31.6 L (39.0-53.0) % Neutrophils # 9.9 H (1.3-7.7) k/uL Sodium (137-145) mmol/L Chloride (98-107) mmol/L BUN (9-20) mg/dL Creatinine (0.66-1.25) mg/dL Glucose (74-99) mg/dL POC Glucose (mg/dL) 138 H (70-110) mg/dL Albumin (3.5-5.0) g/dL Urine Protein Trace H (Negative) Ur Leukocyte Esterase Small H (Negative) Hyaline Casts 3 H (0-2) /lpf Urine Mucus Rare H (None) /hpf Urine Opiates Screen Detected H (NotDetected) 07/29/23 Range/Units 13:22 WBC (3.8-10.6) k/uL RBC (4.30-5.90) m/uL Hgb (13.0-17.5) gm/dL Hct (39.0-53.0) % Neutrophils # (1.3-7.7) k/uL Sodium 134 L (137-145) mmol/L Chloride 97 L (98-107) mmol/L BUN 43 H (9-20) mg/dL Creatinine 1.85 H (0.66-1.25) mg/dL Glucose 171 H (74-99) mg/dL POC Glucose (mg/dL) (70-110) mg/dL Albumin 2.9 L (3.5-5.0) g/dL Urine Protein (Negative) Ur Leukocyte Esterase (Negative) Hyaline Casts (0-2) /lpf Urine Mucus (None) /hpf Urine Opiates Screen (NotDetected) Assessment and Plan (1) Cellulitis of left foot Status: Acute Code(s): L03.116 - CELLULITIS OF LEFT LOWER LIMB SNOMED Code(s): 28905649051348019 (2) Foot osteomyelitis, left Status: Acute Code(s): M86.9 - OSTEOMYELITIS, UNSPECIFIED SNOMED Code(s): 1560820932776446 (3) Leukocytosis Status: Acute Code(s): D72.829 - ELEVATED WHITE BLOOD CELL COUNT, UNSPECIFIED SNOMED Code(s): 508026224 (4) Type 2 diabetes mellitus with foot ulcer Status: Acute Code(s): E11.621 - TYPE 2 DIABETES MELLITUS WITH FOOT ULCER; L97.509 - NON-PRESSURE CHRONIC ULCER OTH PRT UNSP FOOT W UNSP SEVERITY SNOMED Code(s): 346580988 Plan: 1patient with a history of left diabetic foot wound with underlying osteomyelitis culture positive for MRSA ESBL Proteus and Streptococcus for the patient was getting Invanz and daptomycin has a local long term has been sent to the hospital for evaluation of mental status changes and hypotension patient mentation does seem to be back to the baseline no fever has been recorded he did have mild elevated white count left foot lateral border wound overall healing well and no evidence of any worsening was noticed urine was barely positive chest x-ray negative 2-we will check inflammatory markers 3-continue with the daptomycin and Invanz and local wound care with Aquacel silver dressing keep the area of the pressure We will follow on clinical condition and cultures to further adjust medication if needed Thank you for this consultation we will follow the patient along with you Dictation was produced using [employer] dictation software. please excuse any grammatical, word or spelling errors. Time with Patient: Greater than 30
[2023-07-29] MEDS: ERTAPENEM 1 GM in SODIUM CHLORIDE 0.9% 50 ML IVPB SCH (21:33)
[2023-07-30 05:52] LABS: Glucose,Whole Blood 82 mg/dL (70-110)
[2023-07-30] MEDS ORDERED: ERTAPENEM 1 GM VIAL IVPB SCH (09:00)
[2023-07-30] MEDS: polyethylene glycoL 3350 17 GM POWD.PACK PO SCH (09:25)
[2023-07-30] MEDS: TAMSULOSIN 0.4 MG CAP.ER.24H PO SCH (09:25)
[2023-07-30] MEDS: FAMOTIDINE 20 MG TAB PO SCH (09:25)
[2023-07-30] MEDS: amLODIPine 10 MG TAB PO SCH (09:25)
[2023-07-30 09:26] LABS: African American GFR (CKD) 60 (>60 ml/min/1.73 sqM); Anion Gap 8 mmol/L; Blood Urea Nitrogen 36 mg/dL (9-20); C Reactive Protein 8.3 mg/dL (<1.0); Calcium 9.2 mg/dL (8.4-10.2); Carbon Dioxide 26 mmol/L (22-30); Chloride 102 mmol/L (98-107); Glucose 80 mg/dL (74-99); Magnesium 2.1 mg/dL (1.6-2.3); Non-African American GFR(CKD) 52 (>60 ml/min/1.73 sqM); Potassium 4.8 mmol/L (3.5-5.1); Sodium 136 mmol/L (137-145)
[2023-07-30] MEDS: DAPTOmycin 500 MG in SODIUM CHLORIDE 0.9% 50 ML IVPB SCH (11:15)
--- NOTE | 2023-07-30 11:20 | P.NPCON ---
History of Present Illness - Reason for Consult acute renal failure - History of Present Illness Reason for consultation: Acute kidney injury History of present illness: Patient is a 88-year-old male seen in renal consultation for acute kidney injury. Patient's creatinine admission was 1.85 and is down to 1.25 today. Patient's creatinine dated May 16, 2023 was as low as 0.92. Patient is not a very reliable historian. Patient came to the hospital on July 29, 2023 due to altered mental status. Patient was noted to be hypotensive with systolic blood pressure in the 80s. Patient received a liter bolus of normal saline and is currently maintained on normal saline at 130 cc an hour. He is also receiving Lasix 40 mg orally twice daily as well as Diovan. Patient has history of left fifth toe gangrene requiring amputation and was admitted with worsening diabetic foot wound and required further amputation of the fourth toe. Patient's cultures from July 13, 2023 from the left foot were positive for MRSA, Proteus as well as group B strep. He is being followed by infectious disease and receiving IV antibiotics. Patient's chest x-ray showed pleural effusions and vascular congestion. Echocardiogram from May 2023 showed preserved ejection fraction with mild to moderate mitral regurgitation. Patient does have history of diabetes. Blood pressures currently well-controlled. He has been voiding but is incontinent. Vital signs are stable. General: No acute distress. HEENT: Head exam is unremarkable. LUNGS: No audible rhonchi or wheezes. HEART: Rate and Rhythm are regular. ABDOMEN: Nontender. EXTREMITITES: No edema. Chronic changes noted. 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 Past Surgical History: Orthopedic Surgery Additional Past Surgical History / Comment(s): right wrist surgery Past Anesthesia/Blood Transfusion Reactions: No Reported Reaction Past Psychological History: No Psychological Hx Reported Smoking Status: Former smoker Past Alcohol Use History: None Reported Past Drug Use History: None Reported - Past Family History Father History Unknown: Yes Mother History Unknown: Yes Medications and Allergies Home Medications Medication Instructions Recorded Confirmed Type Acetaminophen Tab [Tylenol] 650 mg PO Q6HR PRN tab 01/01/23 07/29/23 Rx Famotidine [Pepcid] 20 mg PO DAILY@0804/18/23 07/29/23 History Heparin Sodium,Porcine (1 ml) 5,000 unit SQ Q12HR@08,21 04/18/23 07/29/23 History [Heparin Sodium] INSULIN ASPART (NovoLOG) [NovoLOG 3 unit SQ AC-TID@04/18/23 07/29/23 History (formulary)] INSULIN ASPART (NovoLOG) [NovoLOG See Protocol SQ 04/18/23 07/29/23 History (formulary)] ACHS@,2129 Insulin Detemir (Levemir) [Levemir] 10 unit SQ HS@2100 04/18/23 07/29/23 History Ipratropium-Albuterol Nebulize 3 ml INHALATION RT-Q6H PRN 04/18/23 07/29/23 History [Duoneb 0.5 mg-3 mg/3 ml Soln] Magnesium Hydroxide [Milk of 7,200 mg PO DAILY PRN 04/18/23 07/29/23 History Magnesia Concentrate] Na Phos,M-B/Na Phos,Di-Ba [Fleet 133 ml RECTAL DAILY PRN 04/18/23 07/29/23 History Adult] Tamsulosin [Flomax] 0.4 mg PO DAILY@0804/18/23 07/29/23 History amLODIPine [Norvasc] 10 mg PO DAILY@79904/18/23 07/29/23 History bisacodyL [Dulcolax] 10 mg RECTAL DAILY PRN 04/18/23 07/29/23 History polyethylene glycoL 3350 [Miralax] 17 gm PO DAILY@79904/18/23 07/29/23 History Ipratropium-Albuterol Nebulize 3 ml INHALATION RT-QID each 05/15/23 07/29/23 Rx [Duoneb 0.5 mg-3 mg/3 ml Soln] Valsartan [Diovan] 160 mg PO HS tab 05/15/23 07/29/23 Rx Furosemide [Lasix] 40 mg PO BID@0800,1700 07/13/23 07/29/23 History Ertapenem [INVanz] 1 gm IVPB DAILY 42 Days #42 each 07/18/23 07/29/23 Rx HYDROcodone/APAP 5-325MG [[place] 1 tab PO Q6HR PRN #4 tab 07/18/23 07/29/23 Rx 5-325] Collagenase [Santyl Ointment] 1 applic TOPICAL DAILY 07/29/23 07/29/23 History DAPTOmycin [Cubicin] 500 mg IV DAILY 07/29/23 07/29/23 History Allergies Allergy/AdvReac Type Severity Reaction Status Date / Time No Known Allergies Allergy Verified 07/29/23 19:52 Physical Exam Vitals: Vital Signs Temp Pulse Pulse Resp BP BP Pulse Ox 07/30/23 09:03 54 L 15 07/30/23 08:23 97 07/30/23 08:00 97.9 F 54 L 15 131/84 95 07/30/23 06:00 96 113/63 97 07/30/23 01:03 97.4 F L 92 117/63 96 07/29/23 21:04 97.8 F 92 18 110/76 97 07/29/23 19:43 88 18 115/71 95 07/29/23 18:01 97.3 F L 90 16 115/71 96 07/29/23 15:02 73 18 115/57 99 07/29/23 12:40 97.2 F L 83 24 108/62 98 Intake and Output 07/29/23 07/30/23 07/30/23 22:59 06:59 14:59 Other: # Voids 1 # Bowel Movements 1 Weight 79.379 kg Results - Lab Results Most recent lab results Calcium 9.2 mg/dL (8.4-10.2) 07/30/23 07:53 Magnesium 2.1 mg/dL (1.6-2.3) 07/30/23 07:53 07/29/23 13:22 07/30/23 07:53 Assessment and Plan Plan: Assessment: 1. Acute kidney injury secondary to vasomotor nephropathy secondary to hypotension. Further worsen with the use of Lasix and losartan. Renal function improving. Creatinine 1.85 on admission and is 1.25 today. UA fairly benign. 2. Chronic diastolic CHF with mild to moderate mitral agitation. 3. Benign hypertension. Currently controlled. 4. Diabetes mellitus. 5. Left diabetic foot wound with recent culture positive for MRSA, ESBL, strep on IV antibiotics. ID following. Plan: Decrease rate of normal saline to 50 cc an hour. Hold valsartan for systolic blood pressure less than 120. Stop Lasix for now. Check renal ultrasound. Avoid nephrotoxins. Stop Fleet enemas. Repeat labs in the morning. Encouraged oral intake. Thank you for the consultation. I will continue to follow the patient with you during his hospital stay.
[2023-07-30 11:29] LABS: Glucose,Whole Blood 73 mg/dL (70-110)
--- NOTE | 2023-07-30 12:22 | US ---
EXAMINATION TYPE: US kidneys/renal and bladder DATE OF EXAM: 07/30/2023 COMPARISON: NONE CLINICAL INDICATION: Male, 88 years old with history of matthew; MATTHEW EXAM MEASUREMENTS: Right Kidney: 10.7 x 5.2 x 4.7 cm Left Kidney: 9.2 x 5.0 x 4.9 cm Right Kidney: No evidence of hydro, upper and lower poles difficult to visualize due to overlying bow el gas Left Kidney: Immobile pt- difficult to visualize left kidney- No evidence of hydro, upper and lower poles difficult to visualize due to overlying bowel gas Bladder: Pt has cath in place IMPRESSION: 1. Limited visualization. Portions of the kidneys visualized appear unremarkable. 2. The patient is catheterized, urinary bladder cannot be evaluated.
[2023-07-30] MEDS ORDERED: DAPTOmycin 500 MG VIAL IVPB SCH (14:00)
--- NOTE | 2023-07-30 14:31 | P.HPIM ---
History of Present Illness H&P Date: 07/30/23 History of present illness; patient 88-year-old gentleman past medical history significant for dementia, hypertension, diabetes mellitus who was recently discharged from our facility after being admitted for left foot osteomyelitis, patient had PICC line placed and was discharged on IV daptomycin and ertapenem for 6 weeks per ID recommendations. [facility] and today was noted to be more confused. There was reduced level of consciousness and patient was found by nursing staff to not be in his usual self. There was no complaint of fever but patient was complaining of chills. There was no complaint nausea, vomiting abdominal pain. There was no complaint of chest pain. Because of the symptoms, patient was sent to the ER Initial lab work done in the ER showed WBC 12.2, hemoglobin 10.5, platelet count 330, sodium 134, potassium 4.9, BUN 43, creatinine 1.85 glucose 171, UA negative for any infection EKG done in the ER showed heart rate of 79, no ST segment elevation or depression seen, no T-wave inversions seen. Chest x-ray done in the ER showed cardiomegaly with bilateral pleural effusions and pulmonary congestion CT head done showed no acute intracranial process Patient admitted to internal medicine service REVIEW OF SYSTEMS: CONSTITUTIONAL: No fever, no malaise, no fatigue. HEENT: No recent visual problems or hearing problems. Denied any sore throat. CARDIOVASCULAR: No chest pain, orthopnea, PND, no palpitations, no syncope. PULMONARY: No shortness of breath, no cough, no hemoptysis. GASTROINTESTINAL: No diarrhea, no nausea, no vomiting, no abdominal pain. NEUROLOGICAL: No headaches, no weakness, no numbness. HEMATOLOGICAL: Denies any bleeding or petechiae. GENITOURINARY: Denies any burning micturition, frequency, or urgency. MUSCULOSKELETAL/RHEUMATOLOGICAL: Complaining of left foot pain ENDOCRINE: Denies any polyuria or polydipsia. The rest of the 14-point review of systems is negative. PHYSICAL EXAMINATION: GENERAL: The patient is alert to self, chronically ill, disheveled HEENT: Pupils are round and equally reacting to light. EOMI. No scleral icterus. No conjunctival pallor. Normocephalic, atraumatic. No pharyngeal erythema. No thyromegaly. CARDIOVASCULAR: S1 and S2 present. No murmurs, rubs, or gallops. PULMONARY: Chest is clear to auscultation, no wheezing or crackles. ABDOMEN: Soft, nontender, nondistended, normoactive bowel sounds. No palpable organomegaly. MUSCULOSKELETAL: Left foot bandage seen EXTREMITIES: No cyanosis, clubbing, or pedal edema. NEUROLOGICAL: Gross neurological examination did not reveal any focal deficits. SKIN: No rashes. Assessment and plan Acute metabolic encephalopathy Acute kidney injury Left foot diabetic wound Left foot osteomyelitis History of dementia Diabetes mellitus, type II, insulin-dependent, uncontrolled with hyperglycemia Hypertension history History of osteoarthritis Monitor vital signs Monitor CBC Monitor CMP Continue telemetry monitoring Follow-up on blood cultures Continue wound care Continue IV daptomycin and ertapenem Continue IV fluids Consult nephrology Consult ID Labs and medication were reviewed.. Continue same treatment. Continue with symptomatic treatment. Resume home medication. Monitor labs and vitals. DVT and GI prophylaxis. Further recommendations as per clinical course of the patient Dictation was produced using [employer] dictation software. please excuse any grammatical, word or spelling errors. 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 Past Surgical History: Orthopedic Surgery Additional Past Surgical History / Comment(s): right wrist surgery Past Anesthesia/Blood Transfusion Reactions: No Reported Reaction Past Psychological History: No Psychological Hx Reported Smoking Status: Former smoker Past Alcohol Use History: None Reported Past Drug Use History: None Reported - Past Family History Father History Unknown: Yes Mother History Unknown: Yes Medications and Allergies Home Medications Medication Instructions Recorded Confirmed Type Acetaminophen Tab [Tylenol] 650 mg PO Q6HR PRN tab 01/01/23 07/29/23 Rx Famotidine [Pepcid] 20 mg PO DAILY@0800 04/18/23 07/29/23 History Heparin Sodium,Porcine (1 ml) 5,000 unit SQ Q12HR@08,21 04/18/23 07/29/23 History [Heparin Sodium] INSULIN ASPART (NovoLOG) [NovoLOG 3 unit SQ AC-TID@04/18/23 07/29/23 History (formulary)] INSULIN ASPART (NovoLOG) [NovoLOG See Protocol SQ 04/18/23 07/29/23 History (formulary)] ACHS@,,1829,2129 Insulin Detemir (Levemir) [Levemir] 10 unit SQ HS@2100 04/18/23 07/29/23 History Ipratropium-Albuterol Nebulize 3 ml INHALATION RT-Q6H PRN 04/18/23 07/29/23 History [Duoneb 0.5 mg-3 mg/3 ml Soln] Magnesium Hydroxide [Milk of 7,200 mg PO DAILY PRN 04/18/23 07/29/23 History Magnesia Concentrate] Na Phos,M-B/Na Phos,Di-Ba [Fleet 133 ml RECTAL DAILY PRN 04/18/23 07/29/23 History Adult] Tamsulosin [Flomax] 0.4 mg PO DAILY@0800 04/18/23 07/29/23 History amLODIPine [Norvasc] 10 mg PO DAILY@0800 04/18/23 07/29/23 History bisacodyL [Dulcolax] 10 mg RECTAL DAILY PRN 04/18/23 07/29/23 History polyethylene glycoL 3350 [Miralax] 17 gm PO DAILY@0800 04/18/23 07/29/23 History Ipratropium-Albuterol Nebulize 3 ml INHALATION RT-QID each 05/15/23 07/29/23 Rx [Duoneb 0.5 mg-3 mg/3 ml Soln] Valsartan [Diovan] 160 mg PO HS tab 05/15/23 07/29/23 Rx Furosemide [Lasix] 40 mg PO BID@0800,1700 07/13/23 07/29/23 History Ertapenem [INVanz] 1 gm IVPB DAILY 42 Days #42 each 07/18/23 07/29/23 Rx HYDROcodone/APAP 5-325MG [[place] 1 tab PO Q6HR PRN #4 tab 07/18/23 07/29/23 Rx 5-325] Collagenase [Santyl Ointment] 1 applic TOPICAL DAILY 07/29/23 07/29/23 History DAPTOmycin [Cubicin] 500 mg IV DAILY 07/29/23 07/29/23 History Allergies Allergy/AdvReac Type Severity Reaction Status Date / Time No Known Allergies Allergy Verified 07/29/23 19:52 Physical Exam Vitals: Vital Signs Temp Pulse Pulse Resp BP BP Pulse Ox 07/30/23 09:03 54 L 15 07/30/23 08:23 97 07/30/23 08:00 97.9 F 54 L 15 131/84 95 07/30/23 06:00 96 113/63 97 07/30/23 01:03 97.4 F L 92 117/63 96 07/29/23 21:04 97.8 F 92 18 110/76 97 07/29/23 19:43 88 18 115/71 95 07/29/23 18:01 97.3 F L 90 16 115/71 96 07/29/23 15:02 73 18 115/57 99 07/29/23 12:40 97.2 F L 83 24 108/62 98 Intake and Output 07/29/23 07/30/23 07/30/23 22:59 06:59 14:59 Other: # Voids 1 # Bowel Movements 1 Weight 79.379 kg Results CBC & Chem 7: 07/29/23 13:22 07/30/23 07:53 Labs: Abnormal Lab Results - Last 24 Hours (Table) 07/29/23 07/29/23 07/29/23 Range/Units 12:51 13:22 13:22 WBC 12.2 H (3.8-10.6) k/uL RBC 3.43 L (4.30-5.90) m/uL Hgb 10.5 L (13.0-17.5) gm/dL Hct 31.6 L (39.0-53.0) % Neutrophils # 9.9 H (1.3-7.7) k/uL Sodium (137-145) mmol/L Chloride (98-107) mmol/L BUN (9-20) mg/dL Creatinine (0.66-1.25) mg/dL Glucose (74-99) mg/dL POC Glucose (mg/dL) 138 H (70-110) mg/dL C-Reactive Protein (<1.0) mg/dL Albumin (3.5-5.0) g/dL Urine Protein Trace H (Negative) Ur Leukocyte Esterase Small H (Negative) Hyaline Casts 3 H (0-2) /lpf Urine Mucus Rare H (None) /hpf Urine Opiates Screen Detected H (NotDetected) 07/29/23 07/29/23 07/29/23 Range/Units 13:22 18:39 19:24 WBC (3.8-10.6) k/uL RBC (4.30-5.90) m/uL Hgb (13.0-17.5) gm/dL Hct (39.0-53.0) % Neutrophils # (1.3-7.7) k/uL Sodium 134 L (137-145) mmol/L Chloride 97 L (98-107) mmol/L BUN 43 H (9-20) mg/dL Creatinine 1.85 H (0.66-1.25) mg/dL Glucose 171 H (74-99) mg/dL POC Glucose (mg/dL) 169 H 196 H (70-110) mg/dL C-Reactive Protein (<1.0) mg/dL Albumin 2.9 L (3.5-5.0) g/dL Urine Protein (Negative) Ur Leukocyte Esterase (Negative) Hyaline Casts (0-2) /lpf Urine Mucus (None) /hpf Urine Opiates Screen (NotDetected) 07/30/23 Range/Units 07:53 WBC (3.8-10.6) k/uL RBC (4.30-5.90) m/uL Hgb (13.0-17.5) gm/dL Hct (39.0-53.0) % Neutrophils # (1.3-7.7) k/uL Sodium 136 L (137-145) mmol/L Chloride (98-107) mmol/L BUN 36 H (9-20) mg/dL Creatinine (0.66-1.25) mg/dL Glucose (74-99) mg/dL POC Glucose (mg/dL) (70-110) mg/dL C-Reactive Protein 8.3 H (<1.0) mg/dL Albumin (3.5-5.0) g/dL Urine Protein (Negative) Ur Leukocyte Esterase (Negative) Hyaline Casts (0-2) /lpf Urine Mucus (None) /hpf Urine Opiates Screen (NotDetected) Thrombosis Risk Factor Assmnt - Choose All That Apply Any of the Below Risk Factors Present?: Yes Each Risk Factor Represents 3 Points: Age 75 years or older Thrombosis Risk Factor Assessment Total Risk Factor Score: 3 Thrombosis Risk Factor Assessment Level: Moderate Risk
[2023-07-30 16:49] LABS: Glucose,Whole Blood 70 mg/dL (70-110)
[2023-07-30] MEDS: INSULIN ASPART (NovoLOG) 100 UNIT/ML VIAL SQ SCH (17:08)
--- NOTE | 2023-07-30 17:55 | P.PN ---
Subjective Progress Note Date: 07/30/23 Principal diagnosis: Reason for follow-up is left diabetic foot infection/osteomyelitis Patient is a 88-year-old male with a past medical history significant for diabetes mellitus hypertension as well as left diabetic foot infection gangrene did have amputation of the left fourth and fifth toe with a nonhealing wound and recent diagnosis of osteomyelitis culture positive for MRSA ESBL Proteus for the patient was receiving daptomycin and Invanz presenting to the hospital with hypotension decreased level of consciousness. On today's visit that is 07/30/2023,the patient is more awake and alert today, denies any fever or any chills, patient is breathing comfortably on room air, the patient denies chest pain shortness of breath and no significant cough, patient denies abdominal pain, no nausea vomiting or diarrhea. Denies pain to the left foot. No CBC was done today creatinine is 1.25 CRP is 8.3 Objective - Vital Signs Vital signs: Vital Signs Temp 97.9 F 07/30/23 08:00 Pulse 54 L 07/30/23 09:03 Resp 15 07/30/23 09:03 BP 131/84 07/30/23 08:00 Pulse Ox 97 07/30/23 08:23 FiO2 Intake & Output 07/29/23 07/30/23 07/30/23 18:59 06:59 18:59 Weight 79.379 kg Other: # Voids 1 # Bowel Movements 1 - Exam GENERAL DESCRIPTION: An elderly male lying in bed in no distress RESPIRATORY SYSTEM: Unlabored breathing , decreased breath sounds at bases HEART: S1 S2 regular rate and rhythm , ABDOMEN: Soft , no tenderness EXTREMITIES: Left foot lateral border wound has decreased in size with no slough tissue left foot dorsum wound with no slough tissue or drainage - Labs CBC & Chem 7: 07/29/23 13:22 07/30/23 07:53 Labs: Abnormal Lab Results - Last 24 Hours (Table) 07/29/23 07/29/23 07/29/23 Range/Units 13:22 13:22 13:22 WBC 12.2 H (3.8-10.6) k/uL RBC 3.43 L (4.30-5.90) m/uL Hgb 10.5 L (13.0-17.5) gm/dL Hct 31.6 L (39.0-53.0) % Neutrophils # 9.9 H (1.3-7.7) k/uL Sodium 134 L (137-145) mmol/L Chloride 97 L (98-107) mmol/L BUN 43 H (9-20) mg/dL Creatinine 1.85 H (0.66-1.25) mg/dL Glucose 171 H (74-99) mg/dL POC Glucose (mg/dL) (70-110) mg/dL C-Reactive Protein (<1.0) mg/dL Albumin 2.9 L (3.5-5.0) g/dL Urine Protein Trace H (Negative) Ur Leukocyte Esterase Small H (Negative) Hyaline Casts 3 H (0-2) /lpf Urine Mucus Rare H (None) /hpf Urine Opiates Screen Detected H (NotDetected) 07/29/23 07/29/23 07/30/23 Range/Units 18:39 19:24 07:53 WBC (3.8-10.6) k/uL RBC (4.30-5.90) m/uL Hgb (13.0-17.5) gm/dL Hct (39.0-53.0) % Neutrophils # (1.3-7.7) k/uL Sodium 136 L (137-145) mmol/L Chloride (98-107) mmol/L BUN 36 H (9-20) mg/dL Creatinine (0.66-1.25) mg/dL Glucose (74-99) mg/dL POC Glucose (mg/dL) 169 H 196 H (70-110) mg/dL C-Reactive Protein 8.3 H (<1.0) mg/dL Albumin (3.5-5.0) g/dL Urine Protein (Negative) Ur Leukocyte Esterase (Negative) Hyaline Casts (0-2) /lpf Urine Mucus (None) /hpf Urine Opiates Screen (NotDetected) Assessment and Plan (1) Foot osteomyelitis, left Current Visit: Yes Status: Acute Code(s): M86.9 - OSTEOMYELITIS, UNSPECIFIED SNOMED Code(s): 2836459500560307 (2) Leukocytosis Current Visit: Yes Status: Acute Code(s): D72.829 - ELEVATED WHITE BLOOD CELL COUNT, UNSPECIFIED SNOMED Code(s): 146404492 (3) Type 2 diabetes mellitus with foot ulcer Current Visit: No Status: Acute Code(s): E11.621 - TYPE 2 DIABETES MELLITUS WITH FOOT ULCER; L97.509 - NON-PRESSURE CHRONIC ULCER OTH PRT UNSP FOOT W UNSP SEVERITY SNOMED Code(s): 946685633 Plan: 1patient with a history of left diabetic foot wound with underlying osteomyelitis culture positive for MRSA ESBL Proteus and Streptococcus for the patient was getting Invanz and daptomycin has a local jail has been sent to the hospital for evaluation of mental status changes and hypotension patient mentation does seem to be back to the baseline no fever has been recorded he did have mild elevated white count left foot lateral border wound overall healing well and no evidence of any worsening was noticed urine was barely positive chest x-ray negative 2-patient did have elevated CRP sed rate is currently pending 3-patient to continue with the daptomycin and Invanz and local wound care with Aquacel silver dressing and keep the area of the pressure Dictation was produced using [employer] dictation software. please excuse any grammatical, word or spelling errors.
[2023-07-30 20:08] LABS: Glucose,Whole Blood 184 mg/dL (70-110)
[2023-07-31 06:10] LABS: Glucose,Whole Blood 74 mg/dL (70-110)
--- NOTE | 2023-07-31 11:20 | P.PN ---
Subjective Patient is seen in follow-up for acute kidney injury. Morning labs pending. Oral intake fair. Hemodynamically stable. Has been voiding. Incontinent. Vital signs are stable. General: No acute distress. HEENT: Head exam is unremarkable. LUNGS: No audible rhonchi or wheezes. HEART: Rate and Rhythm are regular. ABDOMEN: Nontender. EXTREMITITES: No edema. Chronic changes noted. Objective - Vital Signs Vital signs: Vital Signs Temp 97.3 F L 07/31/23 07:49 Pulse 91 07/31/23 07:49 Resp 20 07/31/23 07:49 BP 137/50 07/31/23 07:49 Pulse Ox 97 07/31/23 07:49 FiO2 Intake & Output 07/30/23 07/31/23 07/31/23 18:59 06:59 18:59 Other: # Voids 4 2 # Bowel Movements 1 1 - Labs CBC & Chem 7: 07/29/23 13:22 07/30/23 07:53 Labs: Abnormal Lab Results - Last 24 Hours (Table) 07/30/23 07/30/23 Range/Units 13:39 20:06 ESR 110 H (0-20) mm/Hr POC Glucose (mg/dL) 184 H (70-110) mg/dL Microbiology - Last 24 Hours (Table) 07/29/23 19:00 Blood Culture - Preliminary Blood 07/29/23 13:45 Blood Culture - Preliminary Blood Assessment and Plan Plan: Assessment: 1. Acute kidney injury secondary to vasomotor nephropathy secondary to hypotension. Further worsen with the use of Lasix and losartan. Renal function improving. Creatinine 1.85 on admission and down to 1.25 yesterday. UA fairly benign. No hydronephrosis noted on kidney ultrasound. 2. Chronic diastolic CHF with mild to moderate mitral agitation. 3. Benign hypertension. Currently controlled. 4. Diabetes mellitus. 5. Left diabetic foot wound with recent culture positive for MRSA, ESBL, strep on IV antibiotics. ID following. Plan: Hep-Lock IV fluids. Hold valsartan for systolic blood pressure less than 120. Avoid nephrotoxins. Stopped Fleet enemas. Repeat labs in the morning. Morning labs pending. Encouraged oral intake.
[2023-07-31 11:42] LABS: Glucose,Whole Blood 98 mg/dL (70-110)
[2023-07-31 11:44] LABS: BUN/Creat Ratio 19.75 Ratio (12.00-20.00); Blood Urea Nitrogen 23.7 mg/dL (9.0-27.0); Calcium 9.1 mg/dL (8.7-10.3); Carbon Dioxide 28.1 mmol/L (21.6-31.8); Chloride 99 mmol/L (96-109); Glucose 66 mg/dL (70-110); Potassium 4.8 mmol/L (3.5-5.5); Sodium 138 mmol/L (135-145)
--- NOTE | 2023-07-31 13:31 | P.PN ---
Subjective Progress Note Date: 07/31/23 patient 88-year-old gentleman past medical history significant for dementia, hypertension, diabetes mellitus who was recently discharged from our facility after being admitted for left foot osteomyelitis, patient had PICC line placed and was discharged on IV daptomycin and ertapenem for 6 weeks per ID re commendations. Patient was [facility] to [facility] facility and today was noted to be more confused. There was reduced level of consciousness and patient was found by nursing staff to not be in his usual self. There was no complaint of fever but patient was complaining of chills. There was no complaint nausea, vomiting abdominal pain. There was no complaint of chest pain. Because of the symptoms, patient was sent to the ER Initial lab work done in the ER showed WBC 12.2, hemoglobin 10.5, platelet count 330, sodium 134, potassium 4.9, BUN 43, creatinine 1.85 glucose 171, UA negative for any infection EKG done in the ER showed heart rate of 79, no ST segment elevation or depression seen, no T-wave inversions seen. Chest x-ray done in the ER showed cardiomegaly with bilateral pleural effusions and pulmonary congestion CT head done showed no acute intracranial process Patient admitted to internal medicine service 07/30. Patient seen and examined. Patient is very lethargic. Labs this morning showed sodium 130, potassium 4.8, BUN 23.7, creatinine 1.2 REVIEW OF SYSTEMS: CONSTITUTIONAL: No fever, no malaise,. CARDIOVASCULAR: No chest pain, no palpitations, no syncope. PULMONARY: No shortness of breath, no cough, GASTROINTESTINAL: No diarrhea, no nausea, no vomiting, no abdominal pain. NEUROLOGICAL: No headaches, no weakness, PHYSICAL EXAMINATION: GENERAL: The patient is alert to self, chronically ill, disheveled HEENT: Pupils are round and equally reacting to light. EOMI. No scleral icterus. No conjunctival pallor. Normocephalic, atraumatic. No pharyngeal erythema. No thyromegaly. CARDIOVASCULAR: S1 and S2 present. No murmurs, rubs, or gallops. PULMONARY: Chest is clear to auscultation, no wheezing or crackles. ABDOMEN: Soft, nontender, nondistended, normoactive bowel sounds. No palpable organomegaly. MUSCULOSKELETAL: Left foot bandage seen EXTREMITIES: No cyanosis, clubbing, or pedal edema. NEUROLOGICAL: Gross neurological examination did not reveal any focal deficits. SKIN: No rashes. Assessment and plan Acute metabolic encephalopathy Acute kidney injury Left foot diabetic wound Left foot osteomyelitis History of dementia Diabetes mellitus, type II, insulin-dependent, uncontrolled with hyperglycemia Hypertension history History of osteoarthritis Monitor vital signs Monitor CBC Monitor CMP Continue telemetry monitoring Follow-up on blood cultures Continue wound care Continue IV daptomycin and ertapenem DC fluids Monitor blood sugar levels, continue current insulin regimen Nephrology following ID following Labs and medication were reviewed.. Continue same treatment. Continue with symptomatic treatment. Resume home medication. Monitor labs and vitals. DVT and GI prophylaxis. Further recommendations as per clinical course of the patient Dictation was produced using [employer] dictation software. please excuse any grammatical, word or spelling errors. Objective - Vital Signs Vital signs: Vital Signs Temp 97.3 F L 07/31/23 07:49 Pulse 91 07/31/23 07:49 Resp 20 07/31/23 07:49 BP 137/50 07/31/23 07:49 Pulse Ox 97 07/31/23 07:49 FiO2 Intake & Output 07/30/23 07/31/23 07/31/23 18:59 06:59 18:59 Other: # Voids 4 2 # Bowel Movements 1 1 - Labs CBC & Chem 7: 07/29/23 13:22 07/31/23 05:58 Labs: Abnormal Lab Results - Last 24 Hours (Table) 07/30/23 07/30/23 07/31/23 Range/Units 13:39 20:06 05:58 ESR 110 H (0-20) mm/Hr Est GFR (CKD-EPI) 59 L (>=60) Glucose 66 L (70-110) mg/dL POC Glucose (mg/dL) 184 H (70-110) mg/dL Microbiology - Last 24 Hours (Table) 07/29/23 19:00 Blood Culture - Preliminary Blood 07/29/23 13:45 Blood Culture - Preliminary Blood
--- NOTE | 2023-07-31 15:24 | P.PN ---
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 On today's visit that is 07/31/2023,the patient remains to be afebrile, patient is on room air not requiring supplemental oxygen patient slightly lethargic today and did not answer any question no significant change reported by the nursing staff. Patient did have a creatinine 1.24 CBC was done today blood culture negative so far Objective - Vital Signs Vital signs: Vital Signs Temp 97.9 F 07/31/23 14:20 Pulse 90 07/31/23 14:20 Resp 20 07/31/23 14:20 BP 107/56 07/31/23 14:20 Pulse Ox 96 07/31/23 14:20 FiO2 Intake & Output 07/30/23 07/31/23 07/31/23 18:59 06:59 18:59 Other: # Voids 4 2 # Bowel Movements 1 1 - Exam GENERAL DESCRIPTION: An elderly male lying in bed in no distress RESPIRATORY SYSTEM: Unlabored breathing , decreased breath sounds at bases HEART: S1 S2 regular rate and rhythm , ABDOMEN: Soft , no tenderness EXTREMITIES: Left foot lateral border wound has decreased in size with no slough tissue left foot dorsum wound with no slough tissue or drainage - Labs CBC & Chem 7: 07/29/23 13:22 07/31/23 05:58 Labs: Abnormal Lab Results - Last 24 Hours (Table) 07/30/23 07/30/23 07/31/23 Range/Units 13:39 20:06 05:58 ESR 110 H (0-20) mm/Hr Est GFR (CKD-EPI) 59 L (>=60) Glucose 66 L (70-110) mg/dL POC Glucose (mg/dL) 184 H (70-110) mg/dL Microbiology - Last 24 Hours (Table) 07/29/23 19:00 Blood Culture - Preliminary Blood 07/29/23 13:45 Blood Culture - Preliminary Blood Assessment and Plan (1) Foot osteomyelitis, left Current Visit: Yes Status: Acute Code(s): M86.9 - OSTEOMYELITIS, UNSPECIFIED SNOMED Code(s): 2228114993012597 (2) Leukocytosis Current Visit: Yes Status: Acute Code(s): D72.829 - ELEVATED WHITE BLOOD CELL COUNT, UNSPECIFIED SNOMED Code(s): 740812909 (3) Type 2 diabetes mellitus with foot ulcer Current Visit: No Status: Acute Code(s): E11.621 - TYPE 2 DIABETES MELLITUS WITH FOOT ULCER; L97.509 - NON-PRESSURE CHRONIC ULCER OTH PRT UNSP FOOT W UNSP SEVERITY SNOMED Code(s): 484370349 Plan: 1patient with a history of left diabetic foot wound with underlying osteomyelitis culture positive for MRSA ESBL Proteus and Streptococcus for the patient was getting Invanz and daptomycin has a local [facility] has been sent to the hospital for evaluation of mental status changes and hypotension patient mentation does seem to be back to the baseline no fever has been recorded he did have mild elevated white count left foot lateral border wound overall healing well and no evidence of any worsening was noticed urine was barely positive chest x-ray negative 2-patient did have elevated CRP sed rate is 110 3-patient to continue with the daptomycin and Invanz and local wound care with Aquacel silver dressing and keep the area of the pressure and will repeat a CBC with a.m. lab to make sure white count is trending down Dictation was produced using [employer] dictation software. please excuse any grammatical, word or spelling errors.
[2023-07-31 17:25] LABS: Glucose,Whole Blood 175 mg/dL (70-110)
[2023-07-31 20:18] LABS: Glucose,Whole Blood 150 mg/dL (70-110)
[2023-08-01 06:09] LABS: Glucose,Whole Blood 75 mg/dL (70-110)
[2023-08-01 09:15] LABS: Basophils % (A) 1 %; Eosinophils # (A) 0.3 k/uL (0-0.7); Eosinophils % (A) 4 %; HCT 35.1 % (39.0-53.0); HGB 10.6 gm/dL (13.0-17.5); Lymphocytes # (A) 1.9 k/uL (1.0-4.8); Lymphocytes % (A) 30 %; MCH 28.3 pg (25.0-35.0); MCHC 30.3 g/dL (31.0-37.0); MCV 93.5 fL (80.0-100.0); Mean Platelet Volume 7.9; Monocytes # (A) 0.6 k/uL (0-1.0); Monocytes % (A) 9 %; Neutrophils # (A) 3.5 k/uL (1.3-7.7); Neutrophils % (A) 54 %; Platelet Count 318 k/uL (150-450); RBC 3.75 m/uL (4.30-5.90); RDW 13.2 % (11.5-15.5); WBC 6.5 k/uL (3.8-10.6)
[2023-08-01 09:33] LABS: ALT 13 U/L (4-49); AST 21 U/L (17-59); African American GFR (CKD) 66 (>60 ml/min/1.73 sqM); Albumin 2.9 g/dL (3.5-5.0); Albumin/Globulin Ratio 0.8; Alkaline Phosphatase 71 U/L (38-126); Anion Gap 8 mmol/L; Blood Urea Nitrogen 22 mg/dL (9-20); Calcium 9.1 mg/dL (8.4-10.2); Carbon Dioxide 25 mmol/L (22-30); Chloride 103 mmol/L (98-107); Globulin 3.6 g/dL; Glucose 72 mg/dL (74-99); Magnesium 2.1 mg/dL (1.6-2.3); Non-African American GFR(CKD) 57 (>60 ml/min/1.73 sqM); Potassium 4.5 mmol/L (3.5-5.1); Sodium 136 mmol/L (137-145); Total Bilirubin 0.4 mg/dL (0.2-1.3); Total Protein 6.5 g/dL (6.3-8.2)
--- NOTE | 2023-08-01 11:36 | P.PN ---
Subjective Patient is seen in follow-up for acute kidney injury. Renal function improved. Creatinine stable. Oral intake fair. Hemodynamically stable. Has been voiding. Incontinent. Vital signs are stable. General: No acute distress. HEENT: Head exam is unremarkable. LUNGS: No audible rhonchi or wheezes. HEART: Rate and Rhythm are regular. ABDOMEN: Nontender. EXTREMITITES: No edema. Chronic changes noted. Objective - Vital Signs Vital signs: Vital Signs Temp 98.0 F 08/01/23 07:11 Pulse 90 08/01/23 08:00 Resp 19 08/01/23 08:00 BP 139/66 08/01/23 07:11 Pulse Ox 98 08/01/23 07:11 FiO2 Intake & Output 07/31/23 08/01/23 08/01/23 18:59 06:59 18:59 Intake Total 0 Balance 0 Intake: Oral 0 Other: # Voids 2 # Bowel Movements 1 1 - Labs CBC & Chem 7: 08/01/23 08:04 08/01/23 08:04 Labs: Abnormal Lab Results - Last 24 Hours (Table) 07/31/23 07/31/23 07/31/23 Range/Units 05:58 17:23 20:16 RBC (4.30-5.90) m/uL Hgb (13.0-17.5) gm/dL Hct (39.0-53.0) % MCHC (31.0-37.0) g/dL Sodium (137-145) mmol/L BUN (9-20) mg/dL Est GFR (CKD-EPI) 59 L (>=60) Glucose 66 L (70-110) mg/dL POC Glucose (mg/dL) 175 H 150 H (70-110) mg/dL Albumin (3.5-5.0) g/dL 08/01/23 08/01/23 Range/Units 08:04 08:04 RBC 3.75 L (4.30-5.90) m/uL Hgb 10.6 L (13.0-17.5) gm/dL Hct 35.1 L (39.0-53.0) % MCHC 30.3 L (31.0-37.0) g/dL Sodium 136 L (137-145) mmol/L BUN 22 H (9-20) mg/dL Est GFR (CKD-EPI) (>=60) Glucose 72 L (70-110) mg/dL POC Glucose (mg/dL) (70-110) mg/dL Albumin 2.9 L (3.5-5.0) g/dL Microbiology - Last 24 Hours (Table) 07/29/23 19:00 Blood Culture - Preliminary Blood 07/29/23 13:45 Blood Culture - Preliminary Blood Assessment and Plan Plan: Assessment: 1. Acute kidney injury secondary to vasomotor nephropathy secondary to hypotension. Further worsen with the use of Lasix and losartan. Renal function improving. Creatinine 1.85 on admission and down to 1.16 today. UA fairly benign. No hydronephrosis noted on kidney ultrasound. 2. Chronic diastolic CHF with mild to moderate mitral agitation. 3. Benign hypertension. Currently controlled. 4. Diabetes mellitus. 5. Left diabetic foot wound with recent culture positive for MRSA, ESBL, strep on IV antibiotics. ID following. Plan: Remains off IV fluids. Hold valsartan for systolic blood pressure less than 120. Avoid nephrotoxins. Stopped Fleet enemas. Encouraged oral intake.
[2023-08-01 11:40] LABS: Glucose,Whole Blood 170 mg/dL (70-110)
--- NOTE | 2023-08-01 12:17 | P.DS ---
Providers Date of admission: 07/29/23 14:47 Expected date of discharge: 08/01/23 Attending physician: Sukumar Quispe MD Consults: 07/29/23 14:47 Consult Physician Routine Consulting Provider: Lucius Iniguez Consult Reason/Comments: Acute kidney injury Do you want consulting provider notified?: Yes Consult Physician Routine Consulting Provider: Yojana Giron Consult Reason/Comments: Osteomyelitis left foot Do you want consulting provider notified?: Yes Primary care physician: Jorje Kiser Hospital Course: Discharge diagnoses; Acute metabolic encephalopathy Acute kidney injury Left foot diabetic wound Left foot osteomyelitis History of dementia Diabetes mellitus, type II, insulin-dependent, uncontrolled with hyperglycemia Hypertension history History of osteoarthritis Hospital course; patient 88-year-old gentleman past medical history significant for dementia, hypertension, diabetes mellitus who was recently discharged from our facility after being admitted for left foot osteomyelitis, patient had PICC line placed and was discharged on IV daptomycin and ertapenem for 6 weeks per ID recommendations. Patient was discharged to [facility] facility and today was noted to be more confused. There was reduced level of consciousness and patient was found by nursing staff to not be in his usual self. There was no complaint of fever but patient was complaining of chills. There was no complaint nausea, vomiting abdominal pain. There was no complaint of chest pain. Because of the symptoms, patient was sent to the ER Initial lab work done in the ER showed WBC 12.2, hemoglobin 10.5, platelet count 330, sodium 134, potassium 4.9, BUN 43, creatinine 1.85 glucose 171, UA negative for any infection EKG done in the ER showed heart rate of 79, no ST segment elevation or depression seen, no T-wave inversions seen. Chest x-ray done in the ER showed cardiomegaly with bilateral pleural effusions and pulmonary congestion CT head done showed no acute intracranial process Patient admitted to internal medicine service 07/30. Patient seen and examined. Patient is very lethargic. Labs this morning showed sodium 130, potassium 4.8, BUN 23.7, creatinine 1.2 07/31. Patient seen and examined blood work done showed WBCs 0.5, hemoglobin 10.6, sodium 136, potassium 4.5 BUN 20, creatinine 1.16. Nephrology has signed off. ID recommend discharging patient on current antibiotic regimen of Dapto and Invanz. Outpatient follow-up with ID PHYSICAL EXAMINATION: GENERAL: The patient is alert to self, chronically ill, disheveled HEENT: Pupils are round and equally reacting to light. EOMI. No scleral icterus. No conjunctival pallor. Normocephalic, atraumatic. No pharyngeal erythema. No thyromegaly. CARDIOVASCULAR: S1 and S2 present. No murmurs, rubs, or gallops. PULMONARY: Chest is clear to auscultation, no wheezing or crackles. ABDOMEN: Soft, nontender, nondistended, normoactive bowel sounds. No palpable organomegaly. MUSCULOSKELETAL: Left foot bandage seen EXTREMITIES: No cyanosis, clubbing, or pedal edema. NEUROLOGICAL: Gross neurological examination did not reveal any focal deficits. SKIN: No rashes. Dictation was produced using [employer] dictation software. please excuse any grammatical, word or spelling errors. Patient Condition at Discharge: Fair Plan - Discharge Summary Discharge Rx Participant: Yes New Discharge Prescriptions: Continue Acetaminophen Tab [Tylenol] 650 mg PO Q6HR PRN tab PRN Reason: Mild Pain Or Fever > 100.5 INSULIN ASPART (NovoLOG) [NovoLOG (formulary)] See Protocol SQ ACHS@07,11,1830,2130 Insulin Detemir (Levemir) [Levemir] 10 unit SQ HS@2100 Famotidine [Pepcid] 20 mg PO DAILY@0800 amLODIPine [Norvasc] 10 mg PO DAILY@0800 Tamsulosin [Flomax] 0.4 mg PO DAILY@0800 Ipratropium-Albuterol Nebulize [Duoneb 0.5 mg-3 mg/3 ml Soln] 3 ml INHALATION RT-Q6H PRN PRN Reason: Shortness Of Breath Ipratropium-Albuterol Nebulize [Duoneb 0.5 mg-3 mg/3 ml Soln] 3 ml INHALATION RT-QID each Ertapenem [INVanz] 1 gm IVPB DAILY 42 Days #42 each DAPTOmycin [Cubicin] 500 mg IV DAILY bisacodyL [Dulcolax] 10 mg RECTAL DAILY PRN PRN Reason: Constipation Na Phos,M-B/Na Phos,Di-Ba [Fleet Adult] 133 ml RECTAL DAILY PRN PRN Reason: Constipation Magnesium Hydroxide [Milk of Magnesia Concentrate] 7,200 mg PO DAILY PRN PRN Reason: Constipation INSULIN ASPART (NovoLOG) [NovoLOG (formulary)] 3 unit SQ AC-TID@ Heparin Sodium,Porcine (1 ml) [Heparin Sodium] 5,000 unit SQ Q12HR@ polyethylene glycoL 3350 [Miralax] 17 gm PO DAILY@0800 Valsartan [Diovan] 160 mg PO HS tab Furosemide [Lasix] 40 mg PO BID@0800,1700 Collagenase [Santyl Ointment] 1 applic TOPICAL DAILY HYDROcodone/APAP 5-325MG [[place] 5-325] 1 tab PO Q6HR PRN #9 tab PRN Reason: Pain Discharge Medication List Acetaminophen Tab [Tylenol] 650 mg PO Q6HR PRN tab 01/01/23 [Rx] Famotidine [Pepcid] 20 mg PO DAILY@0804/18/23 [History] Heparin Sodium,Porcine (1 ml) [Heparin Sodium] 5,000 unit SQ Q12HR@04/18/23 [History] INSULIN ASPART (NovoLOG) [NovoLOG (formulary)] 3 unit SQ AC-TID@04/18/23 [History] INSULIN ASPART (NovoLOG) [NovoLOG (formulary)] See Protocol SQ ACHS@,212904/18/23 [History] Insulin Detemir (Levemir) [Levemir] 10 unit SQ HS@2100 04/18/23 [History] Ipratropium-Albuterol Nebulize [Duoneb 0.5 mg-3 mg/3 ml Soln] 3 ml INHALATION RT-Q6H PRN 04/18/23 [History] Magnesium Hydroxide [Milk of Magnesia Concentrate] 7,200 mg PO DAILY PRN 04/18/23 [History] Na Phos,M-B/Na Phos,Di-Ba [Fleet Adult] 133 ml RECTAL DAILY PRN 04/18/23 [History] Tamsulosin [Flomax] 0.4 mg PO DAILY@0800 04/18/23 [History] amLODIPine [Norvasc] 10 mg PO DAILY@0800 04/18/23 [History] bisacodyL [Dulcolax] 10 mg RECTAL DAILY PRN 04/18/23 [History] polyethylene glycoL 3350 [Miralax] 17 gm PO DAILY@0800 04/18/23 [History] Ipratropium-Albuterol Nebulize [Duoneb 0.5 mg-3 mg/3 ml Soln] 3 ml INHALATION RT-QID each 05/15/23 [Rx] Valsartan [Diovan] 160 mg PO HS tab 05/15/23 [Rx] Furosemide [Lasix] 40 mg PO BID@0800,1700 07/13/23 [History] Ertapenem [INVanz] 1 gm IVPB DAILY 42 Days #42 each 07/18/23 [Rx] Collagenase [Santyl Ointment] 1 applic TOPICAL DAILY 07/29/23 [History] DAPTOmycin [Cubicin] 500 mg IV DAILY 07/29/23 [History] HYDROcodone/APAP 5-325MG [[place] 5-325] 1 tab PO Q6HR PRN #9 tab 08/01/23 [Rx] Follow up Appointment(s)/Referral(s): Jorje Kiser MD [Primary Care Provider] - 1-2 days Discharge Disposition: TRANSFER TO SNF/ECF
[2023-08-01 14:39] VITALS: BP 123/64; PULSE 78; RESP 17; TEMP 97.8
--- NOTE | 2023-08-01 14:52 | P.PN ---
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 On today's visit that is08/01/2023, the patient continues to be afebrile, the patient is on room air and breathing comfortably, the Pt denies having any chest pain or cough, the patient denies having any abdominal pain no vomiting or any diarrhea, feeling better no new symptoms. Patient white count 6.5, creatinine is 1.16 blood culture repeat has been negative Objective - Vital Signs Vital signs: Vital Signs Temp 97.8 F 08/01/23 14:00 Pulse 78 08/01/23 14:00 Resp 17 08/01/23 14:00 BP 123/64 08/01/23 14:00 Pulse Ox 97 08/01/23 14:00 FiO2 Intake & Output 07/31/23 08/01/23 08/01/23 18:59 06:59 18:59 Intake Total 0 Balance 0 Intake: Oral 0 Other: # Voids 2 # Bowel Movements 1 1 - Exam GENERAL DESCRIPTION: An elderly male lying in bed in no distress RESPIRATORY SYSTEM: Unlabored breathing , decreased breath sounds at bases HEART: S1 S2 regular rate and rhythm , ABDOMEN: Soft , no tenderness EXTREMITIES: Left foot lateral border wound currently dressed - Labs CBC & Chem 7: 08/01/23 08:04 08/01/23 08:04 Labs: Abnormal Lab Results - Last 24 Hours (Table) 07/31/23 07/31/23 08/01/23 Range/Units 17:23 20:16 08:04 RBC 3.75 L (4.30-5.90) m/uL Hgb 10.6 L (13.0-17.5) gm/dL Hct 35.1 L (39.0-53.0) % MCHC 30.3 L (31.0-37.0) g/dL Sodium (137-145) mmol/L BUN (9-20) mg/dL Glucose (74-99) mg/dL POC Glucose (mg/dL) 175 H 150 H (70-110) mg/dL Albumin (3.5-5.0) g/dL 08/01/23 08/01/23 Range/Units 08:04 11:39 RBC (4.30-5.90) m/uL Hgb (13.0-17.5) gm/dL Hct (39.0-53.0) % MCHC (31.0-37.0) g/dL Sodium 136 L (137-145) mmol/L BUN 22 H (9-20) mg/dL Glucose 72 L (74-99) mg/dL POC Glucose (mg/dL) 170 H (70-110) mg/dL Albumin 2.9 L (3.5-5.0) g/dL Microbiology - Last 24 Hours (Table) 07/29/23 19:00 Blood Culture - Preliminary Blood 07/29/23 13:45 Blood Culture - Preliminary Blood Assessment and Plan (1) Foot osteomyelitis, left Status: Acute Code(s): M86.9 - OSTEOMYELITIS, UNSPECIFIED SNOMED Code(s): 0928602785582845 (2) Leukocytosis Status: Acute Code(s): D72.829 - ELEVATED WHITE BLOOD CELL COUNT, UNSPECIFIED SNOMED Code(s): 301548254 (3) Type 2 diabetes mellitus with foot ulcer Status: Acute Code(s): E11.621 - TYPE 2 DIABETES MELLITUS WITH FOOT ULCER; L97.509 - NON-PRESSURE CHRONIC ULCER OTH PRT UNSP FOOT W UNSP SEVERITY SNOMED Code(s): 635916737 Plan: 1patient with a history of left diabetic foot wound with underlying osteomyelitis culture positive for MRSA ESBL Proteus and Streptococcus for the patient was getting Invanz and daptomycin has a local [facility] has been sent to the hospital for evaluation of mental status changes and hypotension patient mentation does seem to be back to the baseline no fever has been recorded he did have mild elevated white count left foot lateral border wound overall healing well and no evidence of any worsening was noticed urine was barely positive chest x-ray negative 2-patient did have elevated CRP sed rate is 110 3-patient remains to be afebrile patient white count normalized blood culture pending so far plan is to continue with the daptomycin and Invanz to finish 6- week course of therapy and close outpatient follow-up Dictation was produced using [employer] software. please excuse any grammatical, word or spelling errors.
== END 2023-08-01 14:35 | DRG 637 ==
LOC: EC 12:37 → EEVIPCON 12:37 → 4SSUR 14:47
PROVIDERS: ADMIT Internal Medicine; ATTEND Internal Medicine
DX: E11.621 Type 2 diabetes mellitus with foot ulcer (principal); G93.41 Metabolic encephalopathy; I50.32 Chronic diastolic (congestive) heart failure; L97.528 Non-pressure chronic ulcer of other part of left foot with other specified severity; M86.8X7 Other osteomyelitis, ankle and foot; E11.21 Type 2 diabetes mellitus with diabetic nephropathy; N17.0 Acute kidney failure with tubular necrosis; E11.628 Type 2 diabetes mellitus with other skin complications; E11.69 Type 2 diabetes mellitus with other specified complication; I11.0 Hypertensive heart disease with heart failure; M19.90 Unspecified osteoarthritis, unspecified site; Z79.4 Long term (current) use of insulin; I95.9 Hypotension, unspecified; E11.65 Type 2 diabetes mellitus with hyperglycemia; E86.0 Dehydration; R32 Unspecified urinary incontinence; F03.90 Unspecified dementia, unspecified severity, without behavioral disturbance, psychotic disturbance, mood disturbance, and anxiety; Z79.899 Other long term (current) drug therapy; I44.4 Left anterior fascicular block; Z86.14 Personal history of Methicillin resistant Staphylococcus aureus infection; Z87.891 Personal history of nicotine dependence
CPT/HCPCS: 36415; 70450; 71046; 76770; 80048; 80053; 80306; 81001; 82140; 82550; 83605; 83735; 84484; 85025; 85610; 85652; 85730; 86140; 87040; 93005; 94760; 96361; 96365; 96372; 99285

== ENCOUNTER 2023-08-07 05:02 | Emergency (ER) | payer MEDICARE ==
[2023-08-07 05:17] LABS: Glucose,Whole Blood 103 mg/dL (70-110)
--- NOTE | 2023-08-07 06:11 | ED ---
Fall HPI - General Chief Complaint: Fall Stated Complaint: Fall Time Seen by Provider: 08/07/23 05:05 Source: EMS Mode of arrival: EMS - History of Present Illness Initial Comments: 88-year-old male who presents to the emergency department from [facility]. Patient had an unwitnessed fall out of bed. Patient does have history of falls. He states that he just rolled out of bed on accident. It is unknown if the patient hit his head. He is on blood thinners. No loss of consciousness. Patient denies any pain. HPI is limited as the patient is a poor historian - Related Data Home Medications Medication Instructions Recorded Confirmed Famotidine [Pepcid] 20 mg PO DAILY@0800 04/18/23 07/29/23 Heparin Sodium,Porcine (1 ml) 5,000 unit SQ Q12HR@,04/18/23 07/29/23 [Heparin Sodium] INSULIN ASPART (NovoLOG) [NovoLOG 3 unit SQ AC-TID@04/18/23 07/29/23 (formulary)] INSULIN ASPART (NovoLOG) [NovoLOG See Protocol SQ 04/18/23 07/29/23 (formulary)] ACHS@07,,1829,0 Insulin Detemir (Levemir) [Levemir] 10 unit SQ HS@2100 04/18/23 07/29/23 Ipratropium-Albuterol Nebulize 3 ml INHALATION RT-Q6H PRN 04/18/23 07/29/23 [Duoneb 0.5 mg-3 mg/3 ml Soln] Magnesium Hydroxide [Milk of 7,200 mg PO DAILY PRN 04/18/23 07/29/23 Magnesia Concentrate] Na Phos,M-B/Na Phos,Di-Ba [Fleet 133 ml RECTAL DAILY PRN 04/18/23 07/29/23 Adult] Tamsulosin [Flomax] 0.4 mg PO DAILY@0800 04/18/23 07/29/23 amLODIPine [Norvasc] 10 mg PO DAILY@0800 04/18/23 07/29/23 bisacodyL [Dulcolax] 10 mg RECTAL DAILY PRN 04/18/23 07/29/23 polyethylene glycoL 3350 [Miralax] 17 gm PO DAILY@0800 04/18/23 07/29/23 Furosemide [Lasix] 40 mg PO BID@0800,1700 07/13/23 07/29/23 Collagenase [Santyl Ointment] 1 applic TOPICAL DAILY 07/29/23 07/29/23 DAPTOmycin [Cubicin] 500 mg IV DAILY 07/29/23 07/29/23 Previous Rx's Medication Instructions Recorded Acetaminophen Tab [Tylenol] 650 mg PO Q6HR PRN tab 01/01/23 Ipratropium-Albuterol Nebulize 3 ml INHALATION RT-QID each 05/15/23 [Duoneb 0.5 mg-3 mg/3 ml Soln] Valsartan [Diovan] 160 mg PO HS tab 05/15/23 Ertapenem [INVanz] 1 gm IVPB DAILY 42 Days #42 each 07/18/23 HYDROcodone/APAP 5-325MG [Pep 1 tab PO Q6HR PRN #9 tab 08/01/23 5-325] Allergies Allergy/AdvReac Type Severity Reaction Status Date / Time No Known Allergies Allergy Verified 08/07/23 05:10 Review of Systems ROS Statement: Those systems with pertinent positive or pertinent negative responses have been documented in the HPI. ROS Other: All systems not noted in ROS Statement are negative. 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 Past Surgical History: Orthopedic Surgery Additional Past Surgical History / Comment(s): right wrist surgery Past Anesthesia/Blood Transfusion Reactions: No Reported Reaction Past Psychological History: No Psychological Hx Reported Smoking Status: Former smoker Past Alcohol Use History: None Reported Past Drug Use History: None Reported - Past Family History Father History Unknown: Yes Mother History Unknown: Yes General Exam Limitations: altered mental status General appearance: alert, in no apparent distress Head exam: Present: other (Patient appears to have a small hematoma to the right forehead) Eye exam: Present: normal appearance, PERRL, EOMI. Absent: scleral icterus, conjunctival injection, periorbital swelling ENT exam: Present: normal exam, mucous membranes moist Neck exam: Present: normal inspection. Absent: tenderness, meningismus, lymphadenopathy Respiratory exam: Present: normal lung sounds bilaterally. Absent: respiratory distress, wheezes, rales, rhonchi, stridor Cardiovascular Exam: Present: regular rate, normal rhythm, normal heart sounds. Absent: systolic murmur, diastolic murmur, rubs, gallop, clicks GI/Abdominal exam: Present: soft, normal bowel sounds. Absent: distended, tenderness, guarding, rebound, rigid Extremities exam: Present: tenderness (To palpation of the left hip) Neurological exam: Present: alert Skin exam: Present: warm, dry, intact, normal color. Absent: rash Course Vital Signs 08/07/23 08/07/23 08/07/23 05:04 06:53 07:29 Temperature 97.0 F L 97.6 F Pulse Rate 92 100 98 Respiratory 18 16 20 Rate Blood Pressure 99/83 124/71 131/74 O2 Sat by Pulse 99 99 98 Oximetry 08/07/23 08:42 Temperature Pulse Rate 93 Respiratory 20 Rate Blood Pressure 131/74 O2 Sat by Pulse 97 Oximetry Medical Decision Making - Medical Decision Making Was pt. sent in by a medical professional or institution (, PA, SENIOR WEB ARCHITECT, urgent care, hospital, or care home...) When possible be specific @ -Patient was sent in from [facility] Did you speak to anyone other than the patient for history (EMS, parent, family, police, friend...)? What history was obtained from this source @ -Spoke with EMS Did you review nursing and triage notes (agree or disagree)? Why? @ -I reviewed and agree with nursing and triage notes Were old charts reviewed (outside hosp., previous admission, EMS record, old EKG, old radiological studies, urgent care reports/EKG's, care home records)? Report findings @ -No old charts were reviewed Differential Diagnosis (chest pain, altered mental status, abdominal pain women, abdominal pain men, vaginal bleeding, weakness, fever, dyspnea, syncope, headache, dizziness, GI bleed, back pain, seizure, CVA, palpatations, mental health, musculoskeletal)? @ -Differential Musculoskeletal Muscular strain, contusion, ligament sprain, fracture, arthritis, septic arthritis, bursitis, cellulitis, muscle spasm, nerve compression, DVT, arterial occlusion, herpes zoster, electrolyte abnormality, tumor.... This is not meant to be in all inclusive list EKG interpreted by me (3pts min.). @ -Yes and demonstrates sinus rhythm with a rate of 90. [place] interval 158. QRS 115. QTc of 407. No acute ST segment elevations or depressions X-rays interpreted by me (1pt min.). @ -Yes and demonstrates no acute injuries CT interpreted by me (1pt min.). @ -Yes and demonstrates no acute injuries U/S interpreted by me (1pt. min.). @ -None done What testing was considered but not performed or refused? (CT, X-rays, U/S, labs)? Why? @ -None What meds were considered but not given or refused? Why? @ -None Did you discuss the management of the patient with other professionals (professionals i.e. , PA, SENIOR WEB ARCHITECT, lab, RT, psych nurse, social insurance analyst, traffic signal repairer, teacher, combat information center officer, case management specialist)? Give summary @ -No Was smoking cessation discussed for >3mins.? @ -No Was critical care preformed (if so, how long)? @ -No Were there social determinants of health that impacted care today? How? (Homelessness, low income, unemployed, alcoholism, drug addiction, transportation, low edu. Level, literacy, decrease access to med. care, penitentiary, rehab)? @ -Patient resides in rehab Was there de-escalation of care discussed even if they declined (Discuss DNR or withdrawal of care, Hospice)? DNR status @ -No What co-morbidities impacted this encounter? (DM, HTN, Smoking, COPD, CAD, Cancer, CVA, ARF, Chemo, Hep., AIDS, mental health diagnosis, sleep apnea, morbid obesity)? @ -Dementia Was patient admitted / discharged? Hospital course, mention meds given and route, prescriptions, significant lab abnormalities, going to OR and other pertinent info. @ -Upon arrival patient was placed into trauma 2. Thorough history and physical exam was performed. Patient is a poor historian. There is outward signs of trauma to the patient's head. He is known to be on blood thinners. I do feel that the patient requires imaging as there is obvious signs of injury which was unwitnessed and patient is not reliable to discuss symptoms. EMS also reports that the patient may be slightly off from his baseline. CT was performed which demonstrates no acute injuries. X-ray of the chest and pelvis was also performed which demonstrates no acute issues. At this time the patient is stable for discharge back to rehab Undiagnosed new problem with uncertain prognosis? @ -No Drug Therapy requiring intensive monitoring for toxicity (Heparin, Nitro, Insulin, Cardizem)? @ -No Were any procedures done? @ -No Diagnosis/symptom? @ -Acute unwitnessed fall, blunt head trauma, anticoagulation use Acute, or Chronic, or Acute on Chronic? @ -Acute Uncomplicated (without systemic symptoms) or Complicated (systemic symptoms)? @ -Complicated Side effects of treatment? @ -No Exacerbation, Progression, or Severe Exacerbation? @ -No Poses a threat to life or bodily function? How? (Chest pain, USA, ID, pneumonia, PE, COPD, DKA, ARF, appy, cholecystitis, CVA, Diverticulitis, Homicidal, Suicidal, threat to staff... and all critical care pts) @ -Yes as patient did sustain head injury on blood thinners - Lab Data Lab Results 08/07/23 Range/Units 05:15 POC Glucose (mg/dL) 103 (70-110) mg/dL POC Glu Excellence Manager ID Bella Layne Disposition Clinical Impression: Fall, Head injury Disposition: HOME SELF-CARE Condition: Stable Instructions (If sedation given, give patient instructions): Fall Prevention for Older Adults (ED) Additional Instructions: Your scans are all negative. Please follow-up with your primary care doctor and return for any new or worsening symptoms Is patient prescribed a controlled substance at d/c from ED?: No Referrals: Jorje Kiser MD [Primary Care Provider] - 1-2 days Time of Disposition: 08:10
--- NOTE | 2023-08-07 07:41 | CT ---
EXAMINATION TYPE: CT brain miqueline wo con DATE OF EXAM: 08/07/2023 COMPARISON: 07/29/2023 HISTORY: fall no LOC CT DLP: [address] of the brain was performed. The ventricles, basal cisterns and sulci overlying the cerebral convexities demonstrate mild enlargem ent. There is no evidence for intracranial hemorrhage or sulcal effacement. There is decreased attenuatio n about the periventricular white matter and deep white matter of both cerebral hemispheres, compatib le with chronic small vessel ischemia. No mass effects are seen. If symptoms persist consider MRI. Osseous calvarium is intact. IMPRESSION: 1. Age related atrophic and chronic small vessel ischemic change without acute intracranial process seen at this time. CT Cervical Spine: Unenhanced CT of the cervical spine was performed with bone and soft tissue window settings submitted . Coronal and sagittal reconstruction is obtained. There is normal alignment and prevertebral soft tissues. No evidence for acute cervical fracture . Scattered degenerative disc disease and spondylosis. Biapical scarring. IMPRESSION: 1. No evidence for acute fracture or subluxation of the cervical spine.
[2023-08-07 08:03] VITALS: BP 131/74; RESP 20; TEMP 97.6
--- NOTE | 2023-08-07 08:05 | XR ---
EXAMINATION TYPE: XR chest 1V portable DATE OF EXAM: 08/07/2023 COMPARISON: 07/29/2023 INDICATION: Fall from bed TECHNIQUE: Single frontal view of the chest is obtained. FINDINGS: The heart size is normal. The pulmonary vasculature is normal. Streak opacities at the right base. Mild platelike atelectasis at the left base Correlate for atelect asis. PICC line enters on the left with the tip in the proximal right atrium. No pneumothorax is evident. Patient is rotated to the left. IMPRESSION: 1. Streak atelectasis left lung and mild plate atelectasis left base. 2. No acute posttraumatic change.
--- NOTE | 2023-08-07 08:06 | XR ---
EXAMINATION TYPE: XR pelvis AP view DATE OF EXAM: 08/07/2023 COMPARISON: 10/16/2021 HISTORY: Fall from bed TECHNIQUE: AP pelvis FINDINGS: Femoral heads articulate with the acetabulum. No acute fractures or dislocations evident. S acroiliac joints are patent. Symphysis pubis appears normal. IMPRESSION: 1. No acute posttraumatic changes
[2023-08-07 08:43] VITALS: PULSE 93
== END 2023-08-07 09:18 | disposition home or self-care (01) ==
LOC: EC 05:02
DX: S09.90XA Unspecified injury of head, initial encounter (principal); F03.90 Unspecified dementia, unspecified severity, without behavioral disturbance, psychotic disturbance, mood disturbance, and anxiety; Z87.891 Personal history of nicotine dependence; W06.XXXA Fall from bed, initial encounter
CPT/HCPCS: 36415; 70450; 71045; 72125; 72170; 99285

== ENCOUNTER 2023-08-23 21:23 | Emergency (ER) | payer MEDICARE ==
[2023-08-23 21:35] LABS: Glucose,Whole Blood 129 mg/dL (70-110)
[2023-08-23 22:34] VITALS: TEMP 98.3
[2023-08-23 22:52] LABS: Basophils % (A) 0 %; Eosinophils # (A) 0.2 k/uL (0-0.7); Eosinophils % (A) 3 %; Lymphocytes # (A) 1.1 k/uL (1.0-4.8); Lymphocytes % (A) 16 %; MCHC 32.5 g/dL (31.0-37.0); MCV 92.2 fL (80.0-100.0); Mean Platelet Volume 7.3; Monocytes # (A) 0.4 k/uL (0-1.0); Monocytes % (A) 6 %; Neutrophils # (A) 4.8 k/uL (1.3-7.7); Neutrophils % (A) 72 %; Platelet Count 206 k/uL (150-450); RBC 4.01 m/uL (4.30-5.90); RDW 14.9 % (11.5-15.5); WBC 6.6 k/uL (3.8-10.6)
[2023-08-23 22:56] LABS: Partial Thromboplastin Time 28.9 sec (22.0-30.0); Prothrombin Time 11.2 sec (10.0-12.5)
[2023-08-23] MEDS: SODIUM CHLORIDE 0.9% 500 ML 500 ML IV STA (23:00)
[2023-08-23 23:05] LABS: ALT 24 U/L (4-49); AST 43 U/L (17-59); African American GFR (CKD) 87 (>60 ml/min/1.73 sqM); Albumin 3.3 g/dL (3.5-5.0); Alkaline Phosphatase 71 U/L (38-126); Anion Gap 9 mmol/L; Blood Urea Nitrogen 17 mg/dL (9-20); Calcium 9.3 mg/dL (8.4-10.2); Carbon Dioxide 21 mmol/L (22-30); Chloride 115 mmol/L (98-107); Glucose 124 mg/dL (74-99); Non-African American GFR(CKD) 76 (>60 ml/min/1.73 sqM); Phosphorus 2.4 mg/dL (2.5-4.5); Potassium 3.8 mmol/L (3.5-5.1); Sodium 145 mmol/L (137-145); Total Bilirubin 0.5 mg/dL (0.2-1.3); Total Protein 6.7 g/dL (6.3-8.2)
[2023-08-23] MEDS: LORazepam 2 MG/ML INJ IV STA ×2 (23:05→23:52)
--- NOTE | 2023-08-23 23:11 | ED ---
Altered Mental Status HPI - General Chief Complaint: Altered Mental Status Stated Complaint: AMS Source: EMS, RN notes reviewed, old records reviewed Mode of arrival: EMS Limitations: altered mental status - History of Present Illness Initial Comments: This is a 88-year-old male to the ER for evaluation of altered mental status he is unable to provide any history here in the emergency department MD Complaint: altered mental status, confusion -: hour(s) Severity: mild Consistency of Symptoms: waxing and waning Associated Symptoms: denies other symptoms Treatments Prior to Arrival: oxygen - Related Data Home Medications Medication Instructions Recorded Confirmed Famotidine [Pepcid] 20 mg PO DAILY@0800 04/18/23 07/29/23 Heparin Sodium,Porcine (1 ml) 5,000 unit SQ Q12HR@04/18/23 07/29/23 [Heparin Sodium] INSULIN ASPART (NovoLOG) [NovoLOG 3 unit SQ AC-TID@04/18/23 07/29/23 (formulary)] INSULIN ASPART (NovoLOG) [NovoLOG See Protocol SQ 04/18/23 07/29/23 (formulary)] ACHS@07,,1829,2129 Insulin Detemir (Levemir) [Levemir] 10 unit SQ HS@2100 04/18/23 07/29/23 Ipratropium-Albuterol Nebulize 3 ml INHALATION RT-Q6H PRN 04/18/23 07/29/23 [Duoneb 0.5 mg-3 mg/3 ml Soln] Magnesium Hydroxide [Milk of 7,200 mg PO DAILY PRN 04/18/23 07/29/23 Magnesia Concentrate] Na Phos,M-B/Na Phos,Di-Ba [Fleet 133 ml RECTAL DAILY PRN 04/18/23 07/29/23 Adult] Tamsulosin [Flomax] 0.4 mg PO DAILY@79904/18/23 07/29/23 amLODIPine [Norvasc] 10 mg PO DAILY@79904/18/23 07/29/23 bisacodyL [Dulcolax] 10 mg RECTAL DAILY PRN 04/18/23 07/29/23 polyethylene glycoL 3350 [Miralax] 17 gm PO DAILY@0804/18/23 07/29/23 Furosemide [Lasix] 40 mg PO BID@0800,1700 07/13/23 07/29/23 Collagenase [Santyl Ointment] 1 applic TOPICAL DAILY 07/29/23 07/29/23 DAPTOmycin [Cubicin] 500 mg IV DAILY 07/29/23 07/29/23 Previous Rx's Medication Instructions Recorded Acetaminophen Tab [Tylenol] 650 mg PO Q6HR PRN tab 01/01/23 Ipratropium-Albuterol Nebulize 3 ml INHALATION RT-QID each 05/15/23 [Duoneb 0.5 mg-3 mg/3 ml Soln] Valsartan [Diovan] 160 mg PO HS tab 05/15/23 Ertapenem [INVanz] 1 gm IVPB DAILY 42 Days #42 each 07/18/23 HYDROcodone/APAP 5-325MG [Bogart 1 tab PO Q6HR PRN #9 tab 08/01/23 5-325] Allergies Allergy/AdvReac Type Severity Reaction Status Date / Time No Known Allergies Allergy Verified 08/23/23 21:29 Review of Systems ROS Statement: Those systems with pertinent positive or pertinent negative responses have been documented in the HPI. ROS Other: All systems not noted in ROS Statement are negative. 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 Past Surgical History: Orthopedic Surgery Additional Past Surgical History / Comment(s): right wrist surgery Past Anesthesia/Blood Transfusion Reactions: No Reported Reaction Past Psychological History: No Psychological Hx Reported Smoking Status: Former smoker Past Alcohol Use History: None Reported Past Drug Use History: None Reported - Past Family History Father History Unknown: Yes Mother History Unknown: Yes General Exam Limitations: altered mental status General appearance: alert, in no apparent distress Head exam: Present: atraumatic, normocephalic, normal inspection Eye exam: Present: normal appearance, PERRL, EOMI. Absent: scleral icterus, conjunctival injection, periorbital swelling ENT exam: Present: normal exam, mucous membranes moist Neck exam: Present: normal inspection. Absent: tenderness, meningismus, lymphadenopathy Respiratory exam: Present: normal lung sounds bilaterally. Absent: respiratory distress, wheezes, rales, rhonchi, stridor Cardiovascular Exam: Present: regular rate, normal rhythm, normal heart sounds. Absent: systolic murmur, diastolic murmur, rubs, gallop, clicks GI/Abdominal exam: Present: soft, normal bowel sounds. Absent: distended, tenderness, guarding, rebound, rigid Extremities exam: Present: normal inspection, full ROM, normal capillary refill. Absent: tenderness, pedal edema, joint swelling, calf tenderness Back exam: Present: normal inspection Neurological exam: Present: alert, oriented X3, CN II-XII intact Psychiatric exam: Present: normal affect, normal mood Skin exam: Present: warm, dry, intact, normal color. Absent: rash Course Vital Signs 08/23/23 08/24/23 08/24/23 21:25 00:30 03:30 Temperature 98.3 F Pulse Rate 106 H 92 84 Respiratory 16 18 18 Rate Blood Pressure 147/87 138/82 141/82 O2 Sat by Pulse 100 98 98 Oximetry - Reevaluation(s) Reevaluation #1: 08/24/23 02:58 Medical records reviewed Reevaluation #2: 08/24/23 02:59 Patient symptoms unchanged required sedation here in the ER Reevaluation #3: 08/24/23 02:59 Patient informed of results and questions answered Reevaluation #4: Was pt. sent in by a medical professional or institution (, PA, [employer], urgent c are, hospital, or care home...) When possible be specific @ -no Did you speak to anyone other than the patient for history (EMS, parent, family, police, friend...)? What history was obtained from this source @ -no Did you review nursing and triage notes (agree or disagree)? Why? @ -agree Are old charts reviewed (outside hosp., previous admission, EMS record, old EKG, old radiological studies, urgent care reports/EKG's, care home records)? Report findings @ -yes Differential Diagnosis (chest pain, altered mental status, abdominal pain women, abdominal pain men, vaginal bleeding, weakness, fever, dyspnea, syncope, headache, dizziness, GI bleed, back pain, seizure, CVA, palpatations, mental health, musculoskeletal)? @ -prior EKG interpreted by me (3pts min.). @ -yes X-rays interpreted by me (1pt min.). @ -no CT interpreted by me (1pt min.). @ -yes negative for acute disease U/S interpreted by me (1pt. min.). @ -no What testing was considered but not performed or refused? (CT, X-rays, U/S, labs)? Why? @ -none What meds were considered but not given or refused? Why? @ -none Did you discuss the management of the patient with other professionals (professionals i.e. Dr., PA, [employer], lab, RT, psych nurse, social service liaison, general surgeon, teacher, stream control officer, top case assembler)? Give summary @ -no Was smoking cessation discussed for >3mins.? @ -no Was critical care preformed (if so, how long)? @ -no Were there social determinants of health that impacted care today? How? (Home lessness, low income, unemployed, alcoholism, drug addiction, transportation, low edu. Level, literacy, decrease access to med. care, group home, rehab)? @ -none Was there de-escalation of care discussed even if they declined (Discuss DNR or withdrawal of care, Hospice)? DNR status @ -no What co-morbidities impacted this encounter? (DM, HTN, Smoking, COPD, CAD, Cancer, CVA, ARF, Chemo, Hep., AIDS, mental health diagnosis, sleep apnea, morbid obesity)? @ -none Was patient admitted / discharged? Hospital course, mention meds given and route, prescriptions, significant lab abnormalities, going to OR and other pertinent info. @ - 88 male to ER for altered mental status. Patient has no acute findings here in the ER and can be discharged back to facility Discharge Undiagnosed new problem with uncertain prognosis? @ -no Drug Therapy requiring intensive monitoring for toxicity (Heparin, Nitro, I nsulin, Cardizem)? @ -no Were any procedures done? @ -no Diagnosis/symptom? @ -Altered mental status Acute, or Chronic, or Acute on Chronic? @ -Acute Uncomplicated (without systemic symptoms) or Complicated (systemic symptoms)? @ -Complicated Side effects of treatment? @ -no Exacerbation, Progression, or Severe Exacerbation? @ -exacerbation Poses a threat to life or bodily function? How? (Chest pain, USA, CT, pneumonia, PE, COPD, DKA, ARF, appy, cholecystitis, CVA, Diverticulitis, Homicidal, Suicidal, threat to staff... and all critical care pts) @ -yes with extremes of age Reevaluation #5: Differential Altered Mental Status: Hypoglycemia, DKA, hypercapnia, ETOH, overdose, CO poisoning, trauma, myxedema coma, HTN encephalopathy, infection, encephalitis, psychosis, intercranial hemorrhage, hepatic encephalopathy, meningitis, CVA, this is not meant to be an all-inclusive list Medical Decision Making - Medical Decision Making 88 male to ER for altered mental status. Patient has no acute findings here in the ER and can be discharged back to facility - Lab Data Result diagrams: 08/23/23 22:40 08/23/23 22:40 Lab Results 08/23/23 08/23/23 08/23/23 Range/Units 21:33 22:40 22:40 WBC 6.6 (3.8-10.6) k/uL RBC 4.01 L (4.30-5.90) m/uL Hgb 12.0 L (13.0-17.5) gm/dL Hct 37.0 L (39.0-53.0) % MCV 92.2 (80.0-100.0) fL MCH 30.0 (25.0-35.0) pg MCHC 32.5 (31.0-37.0) g/dL RDW 14.9 (11.5-15.5) % Plt Count 206 (150-450) k/uL MPV 7.3 Neutrophils % 72 % Lymphocytes % 16 % Monocytes % 6 % Eosinophils % 3 % Basophils % 0 % Neutrophils # 4.8 (1.3-7.7) k/uL Lymphocytes # 1.1 (1.0-4.8) k/uL Monocytes # 0.4 (0-1.0) k/uL Eosinophils # 0.2 (0-0.7) k/uL Basophils # 0.0 (0-0.2) k/uL PT 11.2 (10.0-12.5) sec INR 1.0 (<1.2) APTT 28.9 (22.0-30.0) sec Sodium (137-145) mmol/L Potassium (3.5-5.1) mmol/L Chloride (98-107) mmol/L Carbon Dioxide (22-30) mmol/L Anion Gap mmol/L BUN (9-20) mg/dL Creatinine (0.66-1.25) mg/dL Est GFR (CKD-EPI)AfAm (>60 ml/min/1.73 sqM) Est GFR (CKD-EPI)NonAf (>60 ml/min/1.73 sqM) Glucose (74-99) mg/dL POC Glucose (mg/dL) 129 H (70-110) mg/dL POC Glu Veterinary Science Teacher ID Niesha Ott Plasma Lactic Acid Ale[place]ander (0.7-2.0) mmol/L Calcium (8.4-10.2) mg/dL Phosphorus (2.5-4.5) mg/dL Magnesium (1.6-2.3) mg/dL Total Bilirubin (0.2-1.3) mg/dL AST (17-59) U/L ALT (4-49) U/L Alkaline Phosphatase (38-126) U/L Troponin I (0.000-0.034) ng/mL Total Protein (6.3-8.2) g/dL Albumin (3.5-5.0) g/dL Urine Color Urine Appearance (Clear) Urine pH (5.0-8.0) Ur Specific Beecher (1.001-1.035) Urine Protein (Negative) Urine Glucose (UA) (Negative) Urine Ketones (Negative) Urine Blood (Negative) Urine Nitrite (Negative) Urine Bilirubin (Negative) Urine Urobilinogen (<2.0) mg/dL Ur Leukocyte Esterase (Negative) Urine RBC (0-5) /hpf Urine WBC (0-5) /hpf Ur Squamous Epith Cells (0-4) /hpf Hyaline Casts (0-2) /lpf Urine Mucus (None) /hpf 08/23/23 08/23/23 08/23/23 Range/Units 22:40 22:40 22:40 WBC (3.8-10.6) k/uL RBC (4.30-5.90) m/uL Hgb (13.0-17.5) gm/dL Hct (39.0-53.0) % MCV (80.0-100.0) fL MCH (25.0-35.0) pg MCHC (31.0-37.0) g/dL RDW (11.5-15.5) % Plt Count (150-450) k/uL MPV Neutrophils % % Lymphocytes % % Monocytes % % Eosinophils % % Basophils % % Neutrophils # (1.3-7.7) k/uL Lymphocytes # (1.0-4.8) k/uL Monocytes # (0-1.0) k/uL Eosinophils # (0-0.7) k/uL Basophils # (0-0.2) k/uL PT (10.0-12.5) sec INR (<1.2) APTT (22.0-30.0) sec Sodium 145 (137-145) mmol/L Potassium 3.8 (3.5-5.1) mmol/L Chloride 115 H (98-107) mmol/L Carbon Dioxide 21 L (22-30) mmol/L Anion Gap 9 mmol/L BUN 17 (9-20) mg/dL Creatinine 0.91 (0.66-1.25) mg/dL Est GFR (CKD-EPI)AfAm 87 (>60 ml/min/1.73 sqM) Est GFR (CKD-EPI)NonAf 76 (>60 ml/min/1.73 sqM) Glucose 124 H (74-99) mg/dL POC Glucose (mg/dL) (70-110) mg/dL POC Glu Veterinary Science Teacher ID Plasma Lactic Acid Aleksander 1.1 (0.7-2.0) mmol/L Calcium 9.3 (8.4-10.2) mg/dL Phosphorus 2.4 L (2.5-4.5) mg/dL Magnesium 2.0 (1.6-2.3) mg/dL Total Bilirubin 0.5 (0.2-1.3) mg/dL AST 43 (17-59) U/L ALT 24 (4-49) U/L Alkaline Phosphatase 71 (38-126) U/L Troponin I 0.048 H* (0.000-0.034) ng/mL Total Protein 6.7 (6.3-8.2) g/dL Albumin 3.3 L (3.5-5.0) g/dL Urine Color Urine Appearance (Clear) Urine pH (5.0-8.0) Ur Specific Beecher (1.001-1.035) Urine Protein (Negative) Urine Glucose (UA) (Negative) Urine Ketones (Negative) Urine Blood (Negative) Urine Nitrite (Negative) Urine Bilirubin (Negative) Urine Urobilinogen (<2.0) mg/dL Ur Leukocyte Esterase (Negative) Urine RBC (0-5) /hpf Urine WBC (0-5) /hpf Ur Squamous Epith Cells (0-4) /hpf Hyaline Casts (0-2) /lpf Urine Mucus (None) /hpf 08/23/23 Range/Units 22:58 WBC (3.8-10.6) k/uL RBC (4.30-5.90) m/uL Hgb (13.0-17.5) gm/dL Hct (39.0-53.0) % MCV (80.0-100.0) fL MCH (25.0-35.0) pg MCHC (31.0-37.0) g/dL RDW (11.5-15.5) % Plt Count (150-450) k/uL MPV Neutrophils % % Lymphocytes % % Monocytes % % Eosinophils % % Basophils % % Neutrophils # (1.3-7.7) k/uL Lymphocytes # (1.0-4.8) k/uL Monocytes # (0-1.0) k/uL Eosinophils # (0-0.7) k/uL Basophils # (0-0.2) k/uL PT (10.0-12.5) sec INR (<1.2) APTT (22.0-30.0) sec Sodium (137-145) mmol/L Potassium (3.5-5.1) mmol/L Chloride (98-107) mmol/L Carbon Dioxide (22-30) mmol/L Anion Gap mmol/L BUN (9-20) mg/dL Creatinine (0.66-1.25) mg/dL Est GFR (CKD-EPI)AfAm (>60 ml/min/1.73 sqM) Est GFR (CKD-EPI)NonAf (>60 ml/min/1.73 sqM) Glucose (74-99) mg/dL POC Glucose (mg/dL) (70-110) mg/dL POC Glu Veterinary Science Teacher ID Plasma Lactic Acid Aleksander (0.7-2.0) mmol/L Calcium (8.4-10.2) mg/dL Phosphorus (2.5-4.5) mg/dL Magnesium (1.6-2.3) mg/dL Total Bilirubin (0.2-1.3) mg/dL AST (17-59) U/L ALT (4-49) U/L Alkaline Phosphatase (38-126) U/L Troponin I (0.000-0.034) ng/mL Total Protein (6.3-8.2) g/dL Albumin (3.5-5.0) g/dL Urine Color Colorless Urine Appearance Clear (Clear) Urine pH 6.0 (5.0-8.0) Ur Specific Beecher 1.012 (1.001-1.035) Urine Protein 1+ H (Negative) Urine Glucose (UA) Negative (Negative) Urine Ketones 1+ H (Negative) Urine Blood Moderate H (Negative) Urine Nitrite Negative (Negative) Urine Bilirubin Negative (Negative) Urine Urobilinogen <2.0 (<2.0) mg/dL Ur Leukocyte Esterase Trace H (Negative) Urine RBC >182 H (0-5) /hpf Urine WBC 10 H (0-5) /hpf Ur Squamous Epith Cells <1 (0-4) /hpf Hyaline Casts 17 H (0-2) /lpf Urine Mucus Rare H (None) /hpf - EKG Data -: EKG Interpreted by Me (EKG is sinus tachycardia 106 [place] 140 QRS 109 QTc 422) - Radiology Data Radiology results: report reviewed (CT brain negative for acute disease), image reviewed Disposition Clinical Impression: Altered mental status Disposition: HOME SELF-CARE Condition: Good Instructions (If sedation given, give patient instructions): Altered Mental Status (ED) Is patient prescribed a controlled substance at d/c from ED?: No Referrals: Jorje Kiser MD [Primary Care Provider] - 1-2 days Time of Disposition: 01:20
[2023-08-23 23:38] LABS: Appearance,Urine Clear (Clear); Bilirubin,Urine Negative (Negative); Blood,Urine Moderate (Negative); Color,Urine Colorless; Glucose,Urine (UA) Negative (Negative); Hyaline Casts,Urine 17 /lpf (0-2); Ketones,Urine 1+ (Negative); Leukocyte Esterase,Urine Trace (Negative); Mucus,Urine Rare /hpf; Nitrite,Urine Negative (Negative); Protein,Urine 1+ (Negative); RBC,Urine >182 /hpf (0-5); Specific Gravity,Urine 1.012 (1.001-1.035); Squamous Epithelial Cell,Urine <1 /hpf (0-4); Urobilinogen,Urine <2.0 mg/dL (<2.0); WBC,Urine 10 /hpf (0-5)
[2023-08-23] MEDS: diphenhydrAMINE 50 MG/ML 1 ML VIAL IVP STA (23:52)
--- NOTE | 2023-08-24 01:14 | CT ---
EXAM: CT Head Without Intravenous Contrast CLINICAL HISTORY: ITS.REASON CT Reason: weakness TECHNIQUE: Axial computed tomography images of the head/brain without intravenous contrast. CTDI is 64.3 mGy and DLP is 2689.4 mGy-cm. This CT exam was performed using one or more of the following dose reduction techniques: automated exposure control, adjustment of the mA and/or kV according to patient size, and/or use of iterative reconstruction technique. COMPARISON: No relevant prior studies available. FINDINGS: Brain: No hemorrhage, herniation, or mass effect. Chronic microvascular ischemic changes. Ventricles: No hydrocephalus. Age related cerebral volume loss. Bones/joints: Unremarkable. Soft tissues: Unremarkable. Sinuses: No air fluid levels. Mastoid air cells: Clear. IMPRESSION: No acute hemorrhage, hydrocephalus, or mass effect.
[2023-08-24 03:36] VITALS: BP 141/82; PULSE 84; RESP 18
== END 2023-08-24 02:09 | disposition home or self-care (01) ==
LOC: EC 21:23
DX: R41.82 Altered mental status, unspecified (principal); R00.0 Tachycardia, unspecified; Z87.891 Personal history of nicotine dependence
CPT/HCPCS: 36415; 93005; 80053; 83605; 83735; 84100; 84484; 85025; 85610; 85730; 81001; 70450; 99285; 96374; 96375; 96376; 96361; J2060; J1200